=== PATIENT | female | born 1965 | race Caucasian/White ===

== ENCOUNTER 2017-04-03 19:03 | Emergency (ER) | payer BC ==
[~2017-04-03] VITALS: Ht 157.5 cm; Wt 83.9 kg
[~2017-04-03 19:03] MED LIST: LISI20TA PO; TYLOTC500 PO
[2017-04-03 19:11] VITALS: Ht 157.5 cm; Wt 83.9 kg
[2017-04-03] MEDS ORDERED: ONDANSETRON INJ 2 MG/ML 2 ML VIAL IV STA (19:18)
[2017-04-03] MEDS ORDERED: SODIUM CHLORIDE 0.9% 1000ML 1,000 ML IV STA (19:18)
--- NOTE | 2017-04-03 19:29 | EMERGENCY ROOM VISIT NOTE ---
History Report prepared by Jojo: Dennise Bates Under the Supervision of: Dr. Dwight Jacobo D.O. First contact with patient: 19:14 Chief Complaint: ABDOMINAL PAIN Stated Complaint: ABDOMINAL PAIN, FEVER Nursing Triage Summary: Pt c/o lower abd pain and fever since yesterday afternoon. Pain worse on right side, worse with palpation. denies n/v/d Seen at [facility], referred here. denies Tylenol or Ibuproen today History of Present Illness The patient is a 51 year old female who presents to the Emergency Room with complaints of persistent lower abdominal pain that began on Tuesday. She currently rates her discomfort as a 3/10 in severity. The patient states that her pain began Tuesday and states that it is worsened with the need to urinate. She states that today she developed a fever but denies taking anything for her fever. The patient states that she was evaluated at [facility] and was referred to the emergency department for further work up. She reports feeling constipated. The patient denies ever having this in the past. She denies ever having a previous colonoscopy or history of appendectomy or cholecystectomy. The patient reports a history of a tubal ligation, D&C, neck surgery, and back surgery. She states that her last normal menstrual period was in March. The patient reports a history of hypertension. She denies any recent travel. The patient denies any nausea, vomiting, shortness of breath, back pain, or urinary symptoms. Source of History: patient Onset: Tuesday Position: abdomen (lower) Symptom Intensity: 3/10 Timing: other (persistent) Modifying Factors (Worsening): other (need to urinate) Associated Symptoms: + fevers, No nausea, No vomiting, No back pain, No diarrhea, No urinary symptoms Note: Associated Symptoms: constipation Review of Systems See HPI for pertinent positives & negatives. A total of 10 systems reviewed and were otherwise negative. Past Medical & Surgical Medical Problems: (1) Hypertension Surgical Problems: (1) H/O dilation and curettage (2) H/O neck surgery (3) H/O tubal ligation (4) Previous back surgery Family History No pertinent family history stated. Social History Smoking Status: Never Smoker Marital Status: Housing Status: lives with significant other Occupation Status: employed Current/Historical Medications Scheduled Ciprofloxacin Hcl (Cipro), 500 MG PO BID Lisinopril (Zestril), 20 MG PO DAILY Metronidazole (Flagyl), 500 MG PO TID Allergies Coded Allergies: No Known Allergies (Verified , 04/03/17) Physical Exam Vital Signs Date Time Temp Pulse Resp B/P (MAP) Pulse Ox O2 Delivery O2 Flow Rate FiO2 04/03/17 20:52 37.0 86 18 136/72 99 04/03/17 20:42 37.0 86 18 136/72 99 04/03/17 19:11 37.7 101 18 140/84 97 Room Air Physical Exam GENERAL: Patient is awake, alert, and in no acute distress. Patient is resting comfortably and showing no signs of anxiety EYES: The conjunctivae are clear. The pupils are round and reactive. EARS, NOSE, MOUTH AND THROAT: The nose is without any evidence of any deformity. Mucous membranes are moist tongue is midline NECK: The neck is nontender and supple. RESPIRATORY: Normal respiratory effort is noted there is no evidence of wheezing rhonchi or rales CARDIOVASCULAR: Regular rate and rhythm noted there no murmurs rubs or gallops normal S1 normal S2 GASTROINTESTINAL: Abdomen was mildly distended but soft, suprapubic tenderness and lower abdominal tenderness to palpation, no guarding or rigidity. MUSCULOSKELETAL/EXTREMITIES: There is no evidence of gross deformity full range of motion is noted in the hips and shoulders SKIN: There is no obvious evidence of any rash. There are no petechiae, pallor or cyanosis noted. NEUROLOGIC: Patient is awake alert and oriented x3 strength. Medical Decision & Procedures ER Provider Diagnostic Interpretation: Radiology results as stated below per my review and radiologist interpretation: CHEST ONE VIEW PORTABLE HISTORY: 51 years-old Female acute abdominal pain with fever COMPARISON: Chest radiograph 09/21/2012 TECHNIQUE: Portable upright AP view of the chest FINDINGS: Cardiomediastinal and hilar silhouettes are within normal limits. No pneumothorax, pleural effusion or focal airspace consolidation. The bones are grossly intact. Fusion hardware of the cervical spine is partially imaged. IMPRESSION: No acute cardiopulmonary process. The above report was generated using voice recognition software. It may contain grammatical, syntax or spelling errors. Electronically signed by: Joao Yots M.D. 04/03/2017 8:40 PM Dictated Date/Time: 04/03/2017 8:39 PM ABD/PELVIS NO IV OR ORAL CONT HISTORY: 51 years-old Female acute lower abdominal pain with fever. COMPARISON: None available TECHNIQUE: Multiple axial CT images of the abdomen and pelvis were obtained without contrast. A dose lowering technique was used consistent with the principals of KATHI. FINDINGS: The lung bases are generally clear. There is no pneumoperitoneum identified. The imaged inferior cardiac chambers are unremarkable. There is nonspecific 7 x 6 mm right epicardial lymph node. Hepatomegaly is noted with diffuse severe fatty infiltration of the liver. Multiple gallstones are noted within a nondistended gallbladder lumen. No CT evidence of acute cholecystitis. The spleen and adrenal glands are within normal limits. There is moderate pancreatic atrophy. Kidneys and ureters are within normal limits. No renal calculi or hydronephrosis. Lobulation or diverticulum of the left urinary bladder is seen, 1.2 cm. Urinary bladder is partially collapsed. There is focal partially exophytic prominent area of the fundal uterus, 3.1 x 2.3 cm suggesting subserosal or intramural fibroid. There is circumferential wall thickening of the mid sigmoid colon with moderate inflammatory changes of the mesocolon surrounding several diverticula within this region compatible with acute diverticulitis. No associated abscess or perforation identified. The appendix appears normal. Soft tissues are unremarkable. Prior posterior decompression with discectomy and interbody fusion at L5-S1. IMPRESSION: 1. Findings compatible with acute uncomplicated sigmoid diverticulitis. 2. Hepatomegaly with severe hepatosteatosis. 3. Cholelithiasis without CT evidence of acute cholecystitis. 4. Probable subserosal or intramural fibroid of the uterine fundus. 5. Normal appendix. The above report was generated using voice recognition software. It may contain grammatical, syntax or spelling errors. Electronically signed by: Joao Yost M.D. 04/03/2017 8:27 PM Dictated Date/Time: 04/03/2017 8:22 PM Laboratory Results 04/03/17 19:40 Red Blood Count 3.74, Mean Corpuscular Volume 89.6, Mean Corpuscular Hemoglobin 28.6, Mean Corpuscular Hemoglobin Concent 31.9, Mean Platelet Volume 8.7, Neutrophils (%) (Auto) 68.3, Lymphocytes (%) (Auto) 21.6, Monocytes (%) (Auto) 7.0, Eosinophils (%) (Auto) 2.4, Basophils (%) (Auto) 0.3, Neutrophils # (Auto) 10.88, Lymphocytes # (Auto) 3.43, Monocytes # (Auto) 1.11, Eosinophils # (Auto) 0.38, Basophils # (Auto) 0.05 04/03/17 19:40 Test 04/03/17 19:40 04/03/17 19:53 White Blood Count 15.91 K/uL (4.8-10.8) Red Blood Count 3.74 M/uL (4.2-5.4) Hemoglobin 10.7 g/dL (12.0-16.0) Hematocrit 33.5 % (37-47) Mean Corpuscular Volume 89.6 fL (80-100) Mean Corpuscular Hemoglobin 28.6 pg (25-34) Mean Corpuscular Hemoglobin Concent 31.9 g/dl (32-36) Platelet Count 397 K/uL (130-400) Mean Platelet Volume 8.7 fL (7.4-10.4) Neutrophils (%) (Auto) 68.3 % Lymphocytes (%) (Auto) 21.6 % Monocytes (%) (Auto) 7.0 % Eosinophils (%) (Auto) 2.4 % Basophils (%) (Auto) 0.3 % Neutrophils # (Auto) 10.88 K/uL (1.4-6.5) Lymphocytes # (Auto) 3.43 K/uL (1.2-3.4) Monocytes # (Auto) 1.11 K/uL (0.11-0.59) Eosinophils # (Auto) 0.38 K/uL (0-0.5) Basophils # (Auto) 0.05 K/uL (0-0.2) RDW Standard Deviation 44.2 fL (36.4-46.3) RDW Coefficient of Variation 13.6 % (11.5-14.5) Immature Granulocyte % (Auto) 0.4 % Immature Granulocyte # (Auto) 0.06 K/uL (0.00-0.02) Prothrombin Time 10.8 SECONDS (9.0-12.0) Prothromb Time International Ratio 1.0 (0.9-1.1) Activated Partial Thromboplast Time 29.3 SECONDS (21.0-31.0) Partial Thromboplastin Ratio 1.1 Anion Gap 10.0 mmol/L (3-11) Est Creatinine Clear Calc Drug Dose 66.8 ml/min Estimated GFR () 75.9 Estimated GFR (Non- 65.5 BUN/Creatinine Ratio 17.3 (10-20) Calcium Level 8.4 mg/dl (8.5-10.1) Total Bilirubin 0.4 mg/dl (0.2-1) Direct Bilirubin 0.1 mg/dl (0-0.2) Aspartate Amino Transf (AST/SGOT) 45 U/L (15-37) Alanine Aminotransferase (ALT/SGPT) 43 U/L (12-78) Alkaline Phosphatase 97 U/L (45-117) Total Protein 8.1 gm/dl (6.4-8.2) Albumin 3.0 gm/dl (3.4-5.0) Lipase 110 U/L (73-393) Human Chorionic Gonadotropin, Qual NEG (NEG) Urine Color YELLOW Urine Appearance CLEAR (CLEAR) Urine pH 7.0 (4.5-7.5) Urine Specific [place] 1.020 (1.000-1.030) Urine Protein NEG (NEG) Urine Glucose (UA) NEG (NEG) Urine Ketones NEG (NEG) Urine Occult Blood NEG (NEG) Urine Nitrite NEG (NEG) Urine Bilirubin NEG (NEG) Urine Urobilinogen POS (NEG) Urine Leukocyte Esterase NEG (NEG) Laboratory results per my review. Medications Administered Medications (Trade) Dose Ordered Sig/Efren Route Start Time Stop Time Status Last Admin Dose Admin Sodium Chloride 1,000 ml @ 999 mls/hr Q1H1M STAT IV 04/03/17 19:18 04/03/17 20:18 DC 04/03/17 19:44 999 MLS/HR Ciprofloxacin (Cipro Tab) 500 mg NOW STAT PO 04/03/17 20:09 04/03/17 20:11 DC 04/03/17 20:22 500 MG Metronidazole (Flagyl Tab) 500 mg NOW STAT PO 04/03/17 20:09 04/03/17 20:11 DC 04/03/17 20:22 500 MG Ciprofloxacin (Cipro 500MG Home Pack) 1 homepack UD ONCE PO 04/03/17 20:15 04/03/17 20:16 DC 04/03/17 20:21 1 HOMEPACK ED Course 1916: The patient was evaluated in room C5. A complete history and physical examination were performed. 1917: Ordered Sodium Chloride 1000 ml @ 999 mls/hr IV. 2008: Ordered Flagyl Tab 500 mg PO, Cipro Tab 500 mg PO. 2014: Ordered Ciprofloxacin 1 homepack PO. 2047: I reevaluated the patient and she is resting comfortably. I discussed the exam findings with her and I discussed the treatment plan. She verbalized complete understanding and agreement. She is ready to go home. Medical Decision Differential diagnosis: Etiologies such as appendicitis, diverticulitis, PUD, biliary pathology, UTI, pancreatitis, obstruction, mesenteric ischemia, aortic pathology, infections, inflammatory bowel disease, renal colic, as well as others were entertained. Medication Reconciliation: I attest that I have personally reviewed the patient' s current medications list. Patient was found to have a slightly elevated blood pressure due to circumstances. I do not believe that the patient requires hypertension monitoring. The patient is a 51-year-old female who presented to the emergency department for an evaluation of abdominal pain and fever. Initially the patient was seen at [facility] and was referred to the emergency department for possible appendicitis. On exam the patient has significant suprapubic tenderness. Given her elevated white blood cell count and fever I feel this could be consistent with diverticulitis. CT the abdomen and pelvis was ordered. This did reveal signs of sigmoid diverticulitis. The patient was started on Cipro and Flagyl in the emergency department. She was treated with IV fluids. She did not wish to have any pain medication in the emergency department at this time. Her abdominal exam was not consistent with an acute surgical abdomen. I discussed patient's laboratory and radiographic studies with her. She was encouraged to rest and avoid any strenuous activity. She was encouraged to drink plenty clear liquids and follow-up with her family doctor this week for a reevaluation. She was also encouraged to discuss the possibility that she may need a referral to a gastric neurologist for further evaluation as well as colonoscopy. She was also encouraged to return to the emergency apartment immediately if symptoms change worsen or the need arises. Impression Primary Impression: Lower abdominal pain Additional Impressions: Fever Diverticulitis Scribe Attestation The scribe's documentation has been prepared under my direction and personally reviewed by me in its entirety. I confirm that the note above accurately reflects all work, treatment, procedures, and medical decision making performed by me. Departure Information Dispostion Home / Self-Care Prescriptions Metronidazole (FLAGYL) 500 Mg Tab 500 MG PO TID, #30 TAB Prov: Dwight Jacobo, DO 04/03/17 Ciprofloxacin Hcl (CIPRO) 500 Mg Tab 500 MG PO BID, #20 TAB Prov: Dwight Jacobo, DO 04/03/17 Referrals No Doctor, Assigned (PCP) Howard Roldan M.D.([facility]) Forms Call Back Authorization, HOME CARE DOCUMENTATION FORM, IMPORTANT VISIT INFORMATION, Work Instructions Patient Instructions Diverticulosis Diverticulitis, [facility] Additional Instructions Continue all medications as prescribed. Continue using Motrin and Tylenol as directed for fever and pain. Call your family to schedule a follow-up appointment. You may require a referral to a entry level sales representative to further evaluate your colon. Return to the emergency apartment immediately if symptoms change worsen or the need arises. Problem Qualifiers Additional Impressions: Fever Fever type: unspecified Qualified Codes: R50.9 - Fever, unspecified Diverticulitis Diverticulitis site: large intestine Diverticulitis bleeding: without bleeding Diverticulitis complication: without perforation or abscess Qualified Codes: K57.32 - Diverticulitis of large intestine without perforation or abscess without bleeding
[2017-04-03 19:49] LABS: BASO % 0.3 %; BASO ABS # 0.05 K/uL (0-0.2); COMPLETE YES; EOS % 2.4 %; HEMATOCRIT 33.5 % (37-47); IG% 0.4 %; LYMPH % 21.6 %; LYMPH ABS # 3.43 K/uL (1.2-3.4); MEAN CELL VOLUME 89.6 fL (80-100); MEAN CORPUSCULAR HEMOGLOBIN 28.6 pg (25-34); MEAN CORPUSCULAR HGB CONC 31.9 g/dl (32-36); MEAN PLATELET VOLUME 8.7 fL (7.4-10.4); NEUT % 68.3 %; PLATELET COUNT 397 K/uL (130-400); RED BLOOD COUNT 3.74 M/uL (4.2-5.4); WHITE BLOOD COUNT 15.91 K/uL (4.8-10.8)
[2017-04-03 20:02] LABS: URINE APPEARANCE CLEAR (CLEAR); URINE BILIRUBIN NEG (NEG); URINE COLOR YELLOW; URINE NITRITE NEG (NEG); UROBILINOGEN POS (NEG)
[2017-04-03 20:03] LABS: MANUAL MICROSCOPIC REQUIRED? NO; REVIEW REQ? NO
[2017-04-03 20:06] LABS: PARTIAL THROMBOPLASTIN RATIO 1.1; PROTHROMBIN TIME (PATIENT) 10.8 SECONDS (9.0-12.0)
[2017-04-03 20:08] LABS: BUN/CREATININE RATIO 17.3 (10-20); CALCIUM 8.4 mg/dl (8.5-10.1); CREATININE 0.99 mg/dl (0.60-1.20); POTASSIUM 3.3 mmol/L (3.5-5.1)
[2017-04-03] MEDS ORDERED: METRONIDAZOLE 250 MG TAB PO STA (20:09)
[2017-04-03] MEDS ORDERED: CIPROFLOXACIN 500 MG TAB PO STA (20:09)
[2017-04-03] MEDS ORDERED: CIPROFLOXACIN 500MG HOME PACK PO ONE (20:15)
[2017-04-03] MEDS ORDERED: LISI40TA PO (20:24)
[2017-04-03 20:26] LABS: PREG INTERNAL NEGATIVE QC NEG CLEAR BACKGROUND; PREG INTERNAL POSITIVE QC POS CONTROL LINE
[2017-04-03] MEDS ORDERED: METR-162 PO (20:29)
[2017-04-03] MEDS ORDERED: CIPR-255 PO (20:29)
--- NOTE | 2017-04-03 20:29 | DIAGNOSTIC IMAGING REPORT ---
ABD/PELVIS NO IV OR ORAL CONT HISTORY: 51 years-old Female acute lower abdominal pain with fever. COMPARISON: None available TECHNIQUE: Multiple axial CT images of the abdomen and pelvis were obtained without contrast. A dose lowering technique was used consistent with the principals of KATHI. FINDINGS: The lung bases are generally clear. There is no pneumoperitoneum identified. The imaged inferior cardiac chambers are unremarkable. There is nonspecific 7 x 6 mm right epicardial lymph node. Hepatomegaly is noted with diffuse severe fatty infiltration of the liver. Multiple gallstones are noted within a nondistended gallbladder lumen. No CT evidence of acute cholecystitis. The spleen and adrenal glands are within normal limits. There is moderate pancreatic atrophy. Kidneys and ureters are within normal limits. No renal calculi or hydronephrosis. Lobulation or diverticulum of the left urinary bladder is seen, 1.2 cm. Urinary bladder is partially collapsed. There is focal partially exophytic prominent area of the fundal uterus, 3.1 x 2.3 cm suggesting subserosal or intramural fibroid. There is circumferential wall thickening of the mid sigmoid colon with moderate inflammatory changes of the mesocolon surrounding several diverticula within this region compatible with acute diverticulitis. No associated abscess or perforation identified. The appendix appears normal. Soft tissues are unremarkable. Prior posterior decompression with discectomy and interbody fusion at L5-S1. IMPRESSION: 1. Findings compatible with acute uncomplicated sigmoid diverticulitis. 2. Hepatomegaly with severe hepatosteatosis. 3. Cholelithiasis without CT evidence of acute cholecystitis. 4. Probable subserosal or intramural fibroid of the uterine fundus. 5. Normal appendix. The above report was generated using voice recognition software. It may contain grammatical, syntax or spelling errors. Electronically signed by: Joao Yost M.D. 04/03/2017 8:27 PM Dictated Date/Time: 04/03/2017 8:22 PM
--- NOTE | 2017-04-03 20:41 | DIAGNOSTIC IMAGING REPORT ---
CHEST ONE VIEW PORTABLE HISTORY: 51 years-old Female acute abdominal pain with fever COMPARISON: Chest radiograph 09/21/2012 TECHNIQUE: Portable upright AP view of the chest FINDINGS: Cardiomediastinal and hilar silhouettes are within normal limits. No pneumothorax, pleural effusion or focal airspace consolidation. The bones are grossly intact. Fusion hardware of the cervical spine is partially imaged. IMPRESSION: No acute cardiopulmonary process. The above report was generated using voice recognition software. It may contain grammatical, syntax or spelling errors. Electronically signed by: Joao Yost M.D. 04/03/2017 8:40 PM Dictated Date/Time: 04/03/2017 8:39 PM
[2017-04-03 20:52] VITALS: BP 136/72; PULSE 86; TEMP 37; O2SAT 99
== END 2017-04-03 20:53 | disposition home or self-care (01) ==
LOC: C.EDB 19:04 → C.EDC 20:53
DX: R10.30 Lower abdominal pain, unspecified (principal); R50.9 Fever, unspecified; K57.92 Diverticulitis of intestine, part unspecified, without perforation or abscess without bleeding; I10 Essential (primary) hypertension

== ENCOUNTER 2019-04-17 11:45 | Inpatient (IN) ==
[2019-04-17] MEDS ORDERED: SODIUM CHLORIDE 0.9% 500 ML IV SCH (12:30)
--- NOTE | 2019-04-17 12:57 | XRay Report ---
SINGLE VIEW CHEST CLINICAL HISTORY: Generalized weakness. FINDINGS: An AP, portable, upright chest radiograph is compared to study dated 04/03/2017. The cardiom ediastinal silhouette is unremarkable. The lungs and pleural spaces are clear. No pneumothorax is see n. The bony thorax is grossly intact. Fusion hardware is noted in the lower cervical spine. IMPRESSION: No active disease in the chest. Electronically signed by: Paco Bosch M.D. 04/17/2019 12:55 PM
[2019-04-17] MEDS ORDERED: SODIUM CHLORIDE 0.9% 250 ML IV PRN ×2 (13:06→14:31)
[2019-04-17 13:20] LABS: INR 1.1 (0.9-1.1); Partial Thromboplastin Ratio 0.7; Partial Thromboplastin Time 20.3 Seconds (21.0-31.0); Prothrombin Time 11.4 Seconds (9.0-12.0)
[2019-04-17 13:25] LABS: Hematocrit (blood only) 10.4 % (37-47); Hemoglobin 2.8 g/dL (12.0-16.0); Mean Corpuscular Hgb Conc 26.9 g/dL (32-36); Mean Corpuscular Volume 66.2 fL (80-100); Nucleated RBC # (auto) 0.15 K/uL (0-0); Nucleated RBC % (auto) 0.7 %; Platelet Count 479 K/uL (130-400); Red Blood Count 1.57 M/uL (4.2-5.4); White Blood Count 22.08 K/uL (4.8-10.8)
[2019-04-17 13:27] LABS: Albumin Level 2.2 gm/dl (3.4-5.0); Aspartate Aminotransferase 16 U/L (15-37); BUN Creatinine Ratio 17.9 (10-20); Blood Urea Nitrogen 25 mg/dl (7-18); Carbon Dioxide 20 mmol/L (21-32); Chloride 104 mmol/L (98-107); Est GFR (African American) 50.1; Est GFR (Non-African American) 43.2; Glucose 142 mg/dl (70-99); Potassium 3.7 mmol/L (3.5-5.1); Sodium 134 mmol/L (136-145)
[2019-04-17 13:33] LABS: Alanine Aminotransferase 14 U/L (12-78); Albumin Globulin Ratio 0.4 (0.9-2); Alkaline Phosphatase 95 U/L (45-117); Bilirubin,Total 0.3 mg/dl (0.2-1); Globulin 5.8 gm/dl (2.5-4.0); Troponin I < 0.015 ng/ml (0-0.045)
[2019-04-17 13:41] LABS: iSTAT Blood Urea Nitrogen 23 mg/dl (7-18); iSTAT Carbon Dioxide 17 mEq/l (24-31); iSTAT Chloride 103 mEq/L (101-112); iSTAT Creatinine 1.3 mg/dl (0.6-1.3); iSTAT Glucose 149 mg/dl (70-99); iSTAT Hematocrit < 15 % (37-47); iSTAT Potassium 3.9 mEq/L (3.3-5.0); iSTAT Sodium 135 mEq/L (135-144)
[2019-04-17] MEDS ORDERED: IOVERSOL 100ml IV PRN (13:50)
--- NOTE | 2019-04-17 14:07 | CT Scan Report ---
CT abd pelvis IV con only CT DOSE: 724.22 mGycm HISTORY: Bleeding vaginal bleeding TECHNIQUE: Multiaxial CT images of the abdomen and pelvis were performed following the use of intrave nous contrast. A dose lowering technique was utilized adhering to the principles of ALARA. COMPARISON STUDY: 04/03/2017 FINDINGS: Lung bases are clear. Fatty replacement of the liver. Gallstones in the region of the gallb ladder neck. Normal adrenal glands. Kidneys and pancreas are unremarkable. No evidence for hydronephrosis. Several small perigastric nodes considered unchanged. Mild increase in size of the left para-aortic n ode image 191 measuring 1.6 cm. This is increased from the prior study of 1 cm. Moderate increase in size of a node adjacent to the proximal left iliac artery image 226 currently measuring 1.4 cm. Incre ase in prominence of a right sided paravertebral node image 261 currently measuring 2 cm. Mild increa se in size of a left lateral pelvic sidewall node measuring 1.6 cm image 336 Abnormal thickening of the endometrium the maximum dimension of 5 cm. Potentially represents blood ve rsus mass within the central uterine canal. Pre-existing anterior fundal fibroid is again noted. The bladder is midline. No significant inguinal nodes. Several additional low pelvic and anterolatera l pelvic nodes measuring up to 2.1 cm. These nodes represent an interval change from the prior exam. Stable postoperative changes of the lumbar spine. IMPRESSION: 1. Abnormal thickening of the endometrium at 5 cm versus the possibility of hemorrhage or hemorrhagic lesion within the central uterine canal. 2. Unchanged fundal fibroid. 3. Developing abdominal and pelvic adenopathy as described. 4. Stable gallstones and fatty infiltration of the liver. 5. The Possibility of a neoplastic process within the mid to low uterus is considered, with the possi bility of developing metastatic adenopathy. The above report was generated using voice recognition software. It may contain grammatical, syntax or spelling errors. Electronically signed by: Cj Perdue M.D. 04/17/2019 2:06 PM
[2019-04-17 14:11] LABS: Basophils # (auto) 0.06 K/uL (0-0.2); Basophils % (auto) 0.3 %; Eosinophils # (auto) 0.03 K/uL (0-0.5); Eosinophils % (auto) 0.1 %; Hypochromasia Present; Immature Granulocytes # (auto) 0.18 K/uL (0.00-0.02); Immature Granulocytes % (auto) 0.8 %; Lymphocytes # (auto) 2.97 K/uL (1.2-3.4); Lymphocytes % (auto) 13.5 %; Monocytes # (auto) 1.39 K/uL (0.11-0.59); Monocytes % (auto) 6.3 %; Neutrophils # (auto) 17.45 K/uL (1.4-6.5); Spherocytes 1+; Stomatocytes 1+
--- NOTE | 2019-04-17 15:05 | History & Physical Report ---
Date of Service April 17, 2019 Assessment & Plan (1) Syncope: (2) Severe anemia: (3) Vaginal bleeding: In ED patient was found to have a severe anemia with H&H 2.8/10.4 2 units of PRBC ordered and transfusing in ED She had CT scan of abdomen and pelvis which revealed abnormal thickening of the endometrium at 5 cm versus possibility of hemorrhage or hemorrhagic lesion within central uterine canal. Concerning for development of abdominal and pelvic adenopathy. Possibility of neoplastic process within the mid large uterus is considered with possibility of developing metastatic adenopathy. Upon being transferred from CT scan to [facility] she experienced near syncopal episode admit to ICU under glued wood tester Dr. Fuentes 2 units ordered thus far serial H/H q4hr and transfuse for hgb < [address] [employer] [address] Woo consulted for endometrial thickening/abn vaginal bleeding currently hemodynamically stable please defer management to glued wood tester until pt stabilized (4) Abnormal CT of the abdomen: CT Scan abd in setting of abnormal vaginal bleeding: IMPRESSION: 1. Abnormal thickening of the endometrium at 5 cm versus the possibility of hemorrhage or hemorrhagic lesion within the central uterine canal. 2. Unchanged fundal fibroid. 3. Developing abdominal and pelvic adenopathy as described. 4. Stable gallstones and fatty infiltration of the liver. 5. The Possibility of a neoplastic process within the mid to low uterus is considered, with the possibility of developing metastatic adenopathy NIB INSPECTOR consulted Dr. Woo who was contacted by ED provider (5) Abnormal ECG: serial ecg performed in ED revealed initial anterior ST wave depression and upon repeat also revealed inferior depression. Patient is without chest pain Troponin WNL Likely in setting of demand ischemia given profound anemia Monitor serial EKGs (6) Hypertension: Hold lisinopril on lower side given anemia (7) DVT prophylaxis: SCD/TEDS Disposition: to be determined Follow up: PCP Dr. Roldan upon discharge Patient was seen and examined in collaboration with Dr. Phillips, please see addendum History of Present Illness Chief Complaint: Referred by PCP Primary Care Provider: Howard Roldan MD This is a 53-year-old female with significant past medical history of HTN who presents to [facility] ED at the recommendation of PCP due to complaints of dizziness and being pale. Patient states last night she had very heavy vaginal bleeding and clotting that ended at approximately 10 PM. Patient is not postmenopausal. She elicits over the past several months she has had irregular vaginal bleeding. She still gets her menses but is unsure for how long it lasts. She has been having intermittent spotting/heavy bleeding for approximately the past 2 weeks. After significant bleeding last night she developed dizziness with movement and standing along with shortness of breath. Further elicits to having Low back pain with radiation to her R posterior leg, present for unknown duration. Denies any recent illness, f/c/s, chest pain, palpitations, hemoptysis, emesis, abdominal pain, diarrhea, melena, hematochezia. She had routine follow up with PCP today and due to complaints of dizziness and significant pallor she was referred to ED. Last pap smear was approx 5 years ago and negative. Last mammogram was 3 years ago. 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 In ED patient was found to have a hemoglobin of 2.8 hematocrit of 10.4. She was typed and crossed for [address] scan of abdomen and pelvis which revealed abnormal thickening of the endometrium at 5 cm versus possibility of hemorrhage or hemorrhagic lesion within central uterine canal. Concerning for development of abdominal and pelvic adenopathy. Possibility of neoplastic process within the mid large uterus is considered with possibility of developing metastatic adenopathy. Upon being transferred from CT scan to [facility] she experienced near syncopal episode Allergies Allergy/AdvReac Type Severity Reaction Status Date / Time ciprofloxacin [From Cipro] AdvReac Anaphylaxis Unverified 04/17/19 12:47 Home Medications Home Medications Medication Instructions Recorded Confirmed Type lisinopril 40 mg PO DAILY 04/17/19 04/17/19 History Past Med/Surg History Medical History History of hysteroscopy Anemia Hypertension (Chronic) Surgical History History of History of tubal ligation History of neck surgery Family History Grandfather Heart disease CABG Mother Heart disease CABG Other No pertinent family history in first degree relatives Social History Preferred Language: Azeri Communication Ability: Effective marital status: Current Living Situation: Spouse Feels Safe at Home: Yes Smoking Status: Never smoker Hx Alcohol Use: No Hx Substance Use: No Review of Systems Review of Systems: All systems reviewed & are unremarkable except as noted in HPI & below Physical Exam Physical Exam: please refer to Dr. Phillips attestation for physical exam Results & Data Vital Signs (Past 12 Hours) Vital Signs Temp Pulse Pulse Resp BP BP Pulse Ox 04/17/19 14:39 36.7 C 87 18 125/81 100 04/17/19 14:35 99 H 22 100 04/17/19 14:30 94 H 21 136/79 100 04/17/19 14:29 36.6 C 100 H 22 136/79 100 04/17/19 14:25 97 H 23 146/73 H 100 04/17/19 14:24 36.8 C 97 H 20 146/73 H 100 04/17/19 14:20 100 H 24 146/78 H 100 04/17/19 14:15 96 H 23 132/84 100 04/17/19 14:13 36.8 C 94 H 21 118/61 100 04/17/19 14:12 94 H 25 H 100 04/17/19 14:10 94 H 21 118/61 100 04/17/19 14:09 96 H 21 124/77 100 04/17/19 14:08 36.4 C L 92 H 20 127/74 100 04/17/19 14:05 95 H 23 100 04/17/19 14:01 96 H 24 100 04/17/19 13:59 102 H 24 127/74 100 04/17/19 13:58 120 H 27 H 100 04/17/19 13:45 100 04/17/19 13:40 92 H 14 99 04/17/19 13:35 95 H 18 100 04/17/19 13:30 95 H 20 106/55 L 100 04/17/19 13:25 88 20 99 04/17/19 13:20 89 21 99 04/17/19 13:15 89 18 100 04/17/19 13:10 91 H 16 100 04/17/19 13:05 93 H 16 100 04/17/19 13:02 91 H 18 106/60 100 04/17/19 13:01 92 H 17 106/60 100 04/17/19 13:00 97 H 21 04/17/19 12:55 93 H 15 04/17/19 12:50 95 H 20 04/17/19 12:45 92 H 18 04/17/19 12:40 90 18 04/17/19 12:35 92 H 21 04/17/19 12:30 94 H 21 141/67 H 100 04/17/19 12:25 100 H 24 100 04/17/19 12:22 104 H 24 100 04/17/19 12:20 104 H 17 130/50 L 100 04/17/19 12:19 102 H 21 137/61 100 04/17/19 12:18 96 H 17 132/62 100 04/17/19 12:15 91 H 13 100 04/17/19 12:12 92 H 15 108/68 100 04/17/19 11:55 36.7 C 92 H 18 101/58 L 100 Laboratory Results Short CBC 04/17/19 04/17/19 Range/Units 12:41 12:41 WBC 22.08 H (4.8-10.8) K/uL Hgb 2.8 L* (12.0-16.0) g/dL Hct 10.4 L* (37-47) % Plt Count 479 H (130-400) K/uL Creatinine 1.38 H (0.6-1.2) mg/dl BMP 04/17/19 12:41 Sodium 134 L Potassium 3.7 Chloride 104 Carbon Dioxide 20 L BUN 25 H Creatinine 1.38 H Glucose 142 H Calcium 8.0 L Cardiac Enzymes 04/17/19 Range/Units 12:41 Troponin I < 0.015 (0-0.045) ng/ml Liver Function 04/17/19 Range/Units 12:41 Total Bilirubin 0.3 (0.2-1) mg/dl AST 16 (15-37) U/L ALT 14 (12-78) U/L Alkaline Phosphatase 95 (45-117) U/L Albumin 2.2 L (3.4-5.0) gm/dl Diagnostic Findings CXR: IMPRESSION: No active disease in the chest. Medications Administered Ioversol (Optiray 320 100ml) 94 ml IV ONCE PRN PRN Reason: Interaction Checking Stop: 04/21/19 13:49 Last Admin: 04/17/19 13:50 Dose: 94 ml Documented by: [id number] Discontinued Medications Sodium Chloride (Nss) 500 mls @ 999 mls/hr IV .Q31M DADA Stop: 04/17/19 13:00 Last Admin: 04/17/19 13:01 Dose: 999 mls/hr Documented by: [id number] ECG Rate (beats per minute): 96 Rhythm: normal sinus Findings: + ST depression (Anterior; inferior) Change: the following changes noted Additional Comments: Pt with St wave depressions noted anteriorly on initially ecg repeat ecg at [address] depression anteriorly and laterally Code Status & VTE Plan Code Status Full Code VTE Prophylaxis Plan VTE Prophylaxis will be ordered: Yes Supervising Physician Co-Signing Physician Notes Patient was evaluated with Isabelle Champagne. 53 year old woman with a history of Hypertension presented to the ER with heavy vaginal bleed for months that worsened yesterday, associated with dizziness for about 1 week. She stopped her lisinopril 1 week ago when dizziness started. Denied any melena/BRBPR. Had Shortness of breath with dizziness last night. Denied Chest pain/palpitations/loss of consciousness. Patient is not postmenopausal. Denied OCP use. Reports last mammogram was normal and last pap smear (3yrs ago) was normal. Has not had colorectal cancer screening. Other history as above On presentation to ER, BP was 125/81, HR 87. Physical exam findings are as follows General: Markedly pale, not in resp distress Eyes: PERRL, severe pallor, EOM intact bilaterally, xanthelasma on medial part of Left upper eyelid area ENMT: External ear and nose normal, oropharynx normal Neck: Normal visual inspection Respiratory: Normal respiratory effort, no respiratory distress, nasal cannula in situ, lungs clear to auscultation anteriorly Cardiovascular: Pulse is RRR. Heart Sounds S1 and 2, no pedal edema Gastrointestinal (Abdomen): Abdomen is soft, non-tender to palpation, no guarding, no palpable hepatosplenomegaly, normal bowel sounds Musculoskeletal: No cyanosis or clubbing, all extremities motor strength 5/5 Genital: On inspection, small clot observed in vaginal orifice. No active bleeding from orifice after removal of clot Skin: xanthelasma as described above Neurologic: Alert and oriented x 3, No focal weakness, sensation grossly intact Psychiatric: Alert and oriented x 3, euthymic affect Lymphatic: No cervical lymphadenopathy Severe anemia secondary to blood loss -Hemoglobin was 2.8. Reported to have a near syncopal episode during CT A/P -Transfuse at least 5 PRBC till hemodynamically stable and Hb >7. Other management of electrolytes per protocol for massive transfusion -Admit to ICU -Vice President Payment aware -Monitor hemodynamic status frequently -Gynecology aware. CT A/P showed endometrial thickening concerning for possible endometrial neoplasm. Will benefit from biopsy. Follow Gyne recommendations. -Fall precautions per protocol -Hold all antihypertensive medications (1) Syncope Syncope type: unspecified Qualified Code(s): R55 - Syncope and collapse
--- NOTE | 2019-04-17 15:38 | Emergency Department Note ---
Entered by Darrian Wright acting as a scribe for History of Present Illness General Chief complaint: Hypotension Stated complaint: ANEMIA,LOW BP Time Seen by Provider: 04/17/19 12:16 Source: patient History of Present Illness Provider complaint: Weakness Onset (ago): day(s) 2 Location: head Severity: similar to prior episodes Pain Consistency: + constant Maximum Pain Intensity: 0 Relieved By: + none Exacerbated By: + none Associated symptoms: + shortness of breath and + other (Positive dizzy) The patient is a 53 year old female who presents to the Emergency Room with complaints of constant weakness that has been present for the past 2 days. The patient states that she has irregular periods and yesterday she had very heavy bleeding. She notes that she was soaking about 1 pad per hour for 6 hours, however, she was also sitting on the toilet for extended periods of time to discard the blood. Per the , the patient's skin color looks more pale ever since the excessive bleeding occurred. The patient adds that today she did have some vaginal spotting, but there was no constant flow. The patient reports that her periods have been irregular for her entire life and that her last [facility] appointment was about 2 years ago. She adds that she has been anemic before. Moreover, the patient reports that today she noticed her blood pressure was running low. The patient states she stopped taking her blood pressure medication about a week ago because it was making her short of breath and dizzy. Since then she has been monitoring her pressures and they have been fine until today. The patient adds that she was put on the medication after she herniated a disc in her back and her blood pressure kayla to about 199/120 consistently. Following this back injury she had surgery done, however she still has some lower back pain that radiates to her right leg and general muscle weakness when she exerts herself. The patient saw her PCP earlier today for all of these symptoms she endorses and she was told to come to the ED. She denies being on any blood thinners. Home Medications Home Medications Medication Instructions Recorded Confirmed Type lisinopril 40 mg PO DAILY 04/17/19 04/17/19 History Allergies Allergy/AdvReac Type Severity Reaction Status Date / Time ciprofloxacin [From Cipro] AdvReac Anaphylaxis Unverified 04/17/19 12:47 Past Med/Surg History Medical History History of hysteroscopy Anemia Hypertension (Chronic) Surgical History History of History of tubal ligation History of neck surgery Family History Grandfather Heart disease CABG Mother Heart disease CABG Other No pertinent family history in first degree relatives Social History Preferred Language: Albanian Communication Ability: Effective marital status: Current Living Situation: Spouse Feels Safe at Home: Yes Smoking Status: Never smoker Hx Alcohol Use: No Hx Substance Use: No Review of Systems See HPI for pertinent positives & negatives. and A total of 10 systems reviewed and were otherwise negative Physical Exam Vital Signs Vital Signs - 24 hr 04/17/19 11:55 04/17/19 12:12 04/17/19 12:15 Temperature 36.7 C Temperature Source Oral Sepsis Recent Fever Within 48 Hours No Sepsis New/Unexplained Change in Mental Status No Sepsis Action Taken by Nursing No Action Required Pulse Rate - Lying Pulse Rate - Sitting Pulse Rate - Standing Pulse Rate 92 H 92 H 91 H Pulse Rate [Left Finger] Pulse Rate from SpO2 Sensor 92 H 92 H Pulse Rhythm Pulse Strength Respiratory Rate 18 15 13 Respiratory Effort / Characteristics Non-Labored Respiratory Depth Normal Blood Pressure - Lying Blood Pressure - Sitting Blood Pressure- Standing Blood Pressure 101/58 L 108/68 Blood Pressure [Left Arm] Blood Pressure Mean 72 81 Blood Pressure Mean [Left Arm] Blood Pressure Position Sitting Pulse Oximetry 100 100 100 Oxygen Delivery Method Room Air Oxygen Flow Rate 04/17/19 12:18 04/17/19 12:19 04/17/19 12:20 Temperature Temperature Source Sepsis Recent Fever Within 48 Hours Sepsis New/Unexplained Change in Mental Status Sepsis Action Taken by Nursing Pulse Rate - Lying Pulse Rate - Sitting Pulse Rate - Standing Pulse Rate 96 H 102 H 104 H Pulse Rate [Left Finger] Pulse Rate from SpO2 Sensor 96 H 101 H 104 H Pulse Rhythm Pulse Strength Respiratory Rate 17 21 17 Respiratory Effort / Characteristics Respiratory Depth Blood Pressure - Lying Blood Pressure - Sitting Blood Pressure- Standing Blood Pressure 132/62 137/61 130/50 L Blood Pressure [Left Arm] Blood Pressure Mean 85 86 76 Blood Pressure Mean [Left Arm] Blood Pressure Position Pulse Oximetry 100 100 100 Oxygen Delivery Method Oxygen Flow Rate 04/17/19 12:22 04/17/19 12:25 04/17/19 12:30 Temperature Temperature Source Sepsis Recent Fever Within 48 Hours Sepsis New/Unexplained Change in Mental Status Sepsis Action Taken by Nursing Pulse Rate - Lying 96 H Pulse Rate - Sitting 101 H Pulse Rate - Standing 102 H Pulse Rate 104 H 100 H 94 H Pulse Rate [Left Finger] Pulse Rate from SpO2 Sensor 104 H 101 H 95 H Pulse Rhythm Pulse Strength Respiratory Rate 24 24 21 Respiratory Effort / Characteristics Respiratory Depth Blood Pressure - Lying 132/62 Blood Pressure - Sitting 137/61 Blood Pressure- Standing 130/50 L Blood Pressure 141/67 H Blood Pressure [Left Arm] Blood Pressure Mean 91 Blood Pressure Mean [Left Arm] Blood Pressure Position Pulse Oximetry 100 100 100 Oxygen Delivery Method Room Air Oxygen Flow Rate 04/17/19 12:35 04/17/19 12:40 04/17/19 12:45 Temperature Temperature Source Sepsis Recent Fever Within 48 Hours Sepsis New/Unexplained Change in Mental Status Sepsis Action Taken by Nursing Pulse Rate - Lying Pulse Rate - Sitting Pulse Rate - Standing Pulse Rate 92 H 90 92 H Pulse Rate [Left Finger] Pulse Rate from SpO2 Sensor Pulse Rhythm Pulse Strength Respiratory Rate 21 18 18 Respiratory Effort / Characteristics Respiratory Depth Blood Pressure - Lying Blood Pressure - Sitting Blood Pressure- Standing Blood Pressure Blood Pressure [Left Arm] Blood Pressure Mean Blood Pressure Mean [Left Arm] Blood Pressure Position Pulse Oximetry Oxygen Delivery Method Oxygen Flow Rate 04/17/19 12:50 04/17/19 12:55 04/17/19 13:00 Temperature Temperature Source Sepsis Recent Fever Within 48 Hours Sepsis New/Unexplained Change in Mental Status Sepsis Action Taken by Nursing Pulse Rate - Lying Pulse Rate - Sitting Pulse Rate - Standing Pulse Rate 95 H 93 H 97 H Pulse Rate [Left Finger] Pulse Rate from SpO2 Sensor Pulse Rhythm Pulse Strength Respiratory Rate 20 15 21 Respiratory Effort / Characteristics Respiratory Depth Blood Pressure - Lying Blood Pressure - Sitting Blood Pressure- Standing Blood Pressure Blood Pressure [Left Arm] Blood Pressure Mean Blood Pressure Mean [Left Arm] Blood Pressure Position Pulse Oximetry Oxygen Delivery Method Oxygen Flow Rate 04/17/19 13:01 04/17/19 13:02 04/17/19 13:05 Temperature Temperature Source Sepsis Recent Fever Within 48 Hours Sepsis New/Unexplained Change in Mental Status Sepsis Action Taken by Nursing Pulse Rate - Lying Pulse Rate - Sitting Pulse Rate - Standing Pulse Rate 92 H 93 H Pulse Rate [Left Finger] 91 H Pulse Rate from SpO2 Sensor 91 H 93 H Pulse Rhythm Pulse Strength Respiratory Rate 17 18 16 Respiratory Effort / Characteristics Respiratory Depth Blood Pressure - Lying Blood Pressure - Sitting Blood Pressure- Standing Blood Pressure 106/60 Blood Pressure [Left Arm] 106/60 Blood Pressure Mean 75 Blood Pressure Mean [Left Arm] 75 Blood Pressure Position Pulse Oximetry 100 100 100 Oxygen Delivery Method Room Air Oxygen Flow Rate 04/17/19 13:10 04/17/19 13:15 04/17/19 13:20 Temperature Temperature Source Sepsis Recent Fever Within 48 Hours Sepsis New/Unexplained Change in Mental Status Sepsis Action Taken by Nursing Pulse Rate - Lying Pulse Rate - Sitting Pulse Rate - Standing Pulse Rate 91 H 89 89 Pulse Rate [Left Finger] Pulse Rate from SpO2 Sensor 91 H 89 88 Pulse Rhythm Pulse Strength Respiratory Rate 16 18 21 Respiratory Effort / Characteristics Respiratory Depth Blood Pressure - Lying Blood Pressure - Sitting Blood Pressure- Standing Blood Pressure Blood Pressure [Left Arm] Blood Pressure Mean Blood Pressure Mean [Left Arm] Blood Pressure Position Pulse Oximetry 100 100 99 Oxygen Delivery Method Oxygen Flow Rate 04/17/19 13:25 04/17/19 13:30 04/17/19 13:35 Temperature Temperature Source Sepsis Recent Fever Within 48 Hours Sepsis New/Unexplained Change in Mental Status Sepsis Action Taken by Nursing Pulse Rate - Lying Pulse Rate - Sitting Pulse Rate - Standing Pulse Rate 88 95 H 95 H Pulse Rate [Left Finger] Pulse Rate from SpO2 Sensor 88 95 H 95 H Pulse Rhythm Pulse Strength Respiratory Rate 20 20 18 Respiratory Effort / Characteristics Respiratory Depth Blood Pressure - Lying Blood Pressure - Sitting Blood Pressure- Standing Blood Pressure 106/55 L Blood Pressure [Left Arm] Blood Pressure Mean 72 Blood Pressure Mean [Left Arm] Blood Pressure Position Pulse Oximetry 99 100 100 Oxygen Delivery Method Oxygen Flow Rate 04/17/19 13:40 04/17/19 13:45 04/17/19 13:58 Temperature Temperature Source Sepsis Recent Fever Within 48 Hours Sepsis New/Unexplained Change in Mental Status Sepsis Action Taken by Nursing Pulse Rate - Lying Pulse Rate - Sitting Pulse Rate - Standing Pulse Rate 92 H 120 H Pulse Rate [Left Finger] Pulse Rate from SpO2 Sensor 92 H 93 H 120 H Pulse Rhythm Pulse Strength Respiratory Rate 14 27 H Respiratory Effort / Characteristics Respiratory Depth Blood Pressure - Lying Blood Pressure - Sitting Blood Pressure- Standing Blood Pressure Blood Pressure [Left Arm] Blood Pressure Mean Blood Pressure Mean [Left Arm] Blood Pressure Position Pulse Oximetry 99 100 100 Oxygen Delivery Method Oxygen Flow Rate 04/17/19 13:59 04/17/19 14:01 04/17/19 14:05 Temperature Temperature Source Sepsis Recent Fever Within 48 Hours Sepsis New/Unexplained Change in Mental Status Sepsis Action Taken by Nursing Pulse Rate - Lying Pulse Rate - Sitting Pulse Rate - Standing Pulse Rate 102 H 96 H 95 H Pulse Rate [Left Finger] Pulse Rate from SpO2 Sensor 103 H 96 H 94 H Pulse Rhythm Pulse Strength Respiratory Rate 24 24 23 Respiratory Effort / Characteristics Respiratory Depth Blood Pressure - Lying Blood Pressure - Sitting Blood Pressure- Standing Blood Pressure 127/74 Blood Pressure [Left Arm] Blood Pressure Mean 91 Blood Pressure Mean [Left Arm] Blood Pressure Position Pulse Oximetry 100 100 100 Oxygen Delivery Method Oxygen Flow Rate 04/17/19 14:08 04/17/19 14:09 04/17/19 14:10 Temperature 36.4 C L Temperature Source Oral Sepsis Recent Fever Within 48 Hours Sepsis New/Unexplained Change in Mental Status Sepsis Action Taken by Nursing Pulse Rate - Lying Pulse Rate - Sitting Pulse Rate - Standing Pulse Rate 92 H 96 H 94 H Pulse Rate [Left Finger] Pulse Rate from SpO2 Sensor 97 H 95 H Pulse Rhythm Pulse Strength Respiratory Rate 20 21 21 Respiratory Effort / Characteristics Respiratory Depth Blood Pressure - Lying Blood Pressure - Sitting Blood Pressure- Standing Blood Pressure 127/74 124/77 118/61 Blood Pressure [Left Arm] Blood Pressure Mean 91 92 80 Blood Pressure Mean [Left Arm] Blood Pressure Position Sitting Pulse Oximetry 100 100 100 Oxygen Delivery Method Oxygen Flow Rate 100 04/17/19 14:12 04/17/19 14:13 04/17/19 14:15 Temperature 36.8 C Temperature Source Oral Sepsis Recent Fever Within 48 Hours Sepsis New/Unexplained Change in Mental Status Sepsis Action Taken by Nursing Pulse Rate - Lying Pulse Rate - Sitting Pulse Rate - Standing Pulse Rate 94 H 94 H 96 H Pulse Rate [Left Finger] Pulse Rate from SpO2 Sensor 95 H 96 H Pulse Rhythm Regular Pulse Strength Normal Respiratory Rate 25 H 21 23 Respiratory Effort / Characteristics Respiratory Depth Blood Pressure - Lying Blood Pressure - Sitting Blood Pressure- Standing Blood Pressure 118/61 132/84 Blood Pressure [Left Arm] Blood Pressure Mean 80 100 Blood Pressure Mean [Left Arm] Blood Pressure Position Lying Pulse Oximetry 100 100 100 Oxygen Delivery Method Oxygen Flow Rate 4 04/17/19 14:20 04/17/19 14:24 04/17/19 14:25 Temperature 36.8 C Temperature Source Oral Sepsis Recent Fever Within 48 Hours Sepsis New/Unexplained Change in Mental Status Sepsis Action Taken by Nursing Pulse Rate - Lying Pulse Rate - Sitting Pulse Rate - Standing Pulse Rate 100 H 97 H 97 H Pulse Rate [Left Finger] Pulse Rate from SpO2 Sensor 99 H 97 H Pulse Rhythm Pulse Strength Respiratory Rate 24 20 23 Respiratory Effort / Characteristics Respiratory Depth Blood Pressure - Lying Blood Pressure - Sitting Blood Pressure- Standing Blood Pressure 146/78 H 146/73 H 146/73 H Blood Pressure [Left Arm] Blood Pressure Mean 100 97 97 Blood Pressure Mean [Left Arm] Blood Pressure Position Pulse Oximetry 100 100 100 Oxygen Delivery Method Oxygen Flow Rate 4 04/17/19 14:29 04/17/19 14:30 04/17/19 14:35 Temperature 36.6 C Temperature Source Oral Sepsis Recent Fever Within 48 Hours Sepsis New/Unexplained Change in Mental Status Sepsis Action Taken by Nursing Pulse Rate - Lying Pulse Rate - Sitting Pulse Rate - Standing Pulse Rate 100 H 94 H 99 H Pulse Rate [Left Finger] Pulse Rate from SpO2 Sensor 95 H 96 H Pulse Rhythm Pulse Strength Respiratory Rate 22 21 22 Respiratory Effort / Characteristics Respiratory Depth Blood Pressure - Lying Blood Pressure - Sitting Blood Pressure- Standing Blood Pressure 136/79 136/79 Blood Pressure [Left Arm] Blood Pressure Mean 98 98 Blood Pressure Mean [Left Arm] Blood Pressure Position Pulse Oximetry 100 100 100 Oxygen Delivery Method Oxygen Flow Rate 4 04/17/19 14:39 04/17/19 14:40 04/17/19 14:44 Temperature 36.7 C 36.7 C Temperature Source Oral Oral Sepsis Recent Fever Within 48 Hours Sepsis New/Unexplained Change in Mental Status Sepsis Action Taken by Nursing Pulse Rate - Lying Pulse Rate - Sitting Pulse Rate - Standing Pulse Rate 87 88 86 Pulse Rate [Left Finger] Pulse Rate from SpO2 Sensor 89 Pulse Rhythm Pulse Strength Respiratory Rate 18 18 16 Respiratory Effort / Characteristics Respiratory Depth Blood Pressure - Lying Blood Pressure - Sitting Blood Pressure- Standing Blood Pressure 125/81 132/80 136/81 Blood Pressure [Left Arm] Blood Pressure Mean 95 97 99 Blood Pressure Mean [Left Arm] Blood Pressure Position Pulse Oximetry 100 100 100 Oxygen Delivery Method Oxygen Flow Rate 4 4 04/17/19 14:45 04/17/19 14:46 04/17/19 14:50 Temperature 36.8 C Temperature Source Oral Sepsis Recent Fever Within 48 Hours Sepsis New/Unexplained Change in Mental Status Sepsis Action Taken by Nursing Pulse Rate - Lying Pulse Rate - Sitting Pulse Rate - Standing Pulse Rate 88 86 85 Pulse Rate [Left Finger] Pulse Rate from SpO2 Sensor 88 85 Pulse Rhythm Pulse Strength Respiratory Rate 18 12 19 Respiratory Effort / Characteristics Respiratory Depth Blood Pressure - Lying Blood Pressure - Sitting Blood Pressure- Standing Blood Pressure 125/81 136/81 136/81 Blood Pressure [Left Arm] Blood Pressure Mean 95 99 99 Blood Pressure Mean [Left Arm] Blood Pressure Position Pulse Oximetry 100 100 100 Oxygen Delivery Method Oxygen Flow Rate 4 04/17/19 14:55 04/17/19 15:00 04/17/19 15:05 Temperature 36.8 C Temperature Source Oral Sepsis Recent Fever Within 48 Hours Sepsis New/Unexplained Change in Mental Status Sepsis Action Taken by Nursing Pulse Rate - Lying Pulse Rate - Sitting Pulse Rate - Standing Pulse Rate 85 89 88 Pulse Rate [Left Finger] Pulse Rate from SpO2 Sensor 85 91 H 88 Pulse Rhythm Regular Pulse Strength Normal Respiratory Rate 14 23 17 Respiratory Effort / Characteristics Respiratory Depth Blood Pressure - Lying Blood Pressure - Sitting Blood Pressure- Standing Blood Pressure 128/87 150/81 H 132/87 Blood Pressure [Left Arm] Blood Pressure Mean 100 104 102 Blood Pressure Mean [Left Arm] Blood Pressure Position Lying Pulse Oximetry 100 100 100 Oxygen Delivery Method Oxygen Flow Rate 2 04/17/19 15:10 04/17/19 15:12 04/17/19 15:15 Temperature 36.7 C Temperature Source Oral Sepsis Recent Fever Within 48 Hours Sepsis New/Unexplained Change in Mental Status Sepsis Action Taken by Nursing Pulse Rate - Lying Pulse Rate - Sitting Pulse Rate - Standing Pulse Rate 88 88 84 Pulse Rate [Left Finger] Pulse Rate from SpO2 Sensor 87 84 Pulse Rhythm Regular Pulse Strength Normal Respiratory Rate 19 16 17 Respiratory Effort / Characteristics Respiratory Depth Blood Pressure - Lying Blood Pressure - Sitting Blood Pressure- Standing Blood Pressure 138/94 138/94 129/74 Blood Pressure [Left Arm] Blood Pressure Mean 108 108 92 Blood Pressure Mean [Left Arm] Blood Pressure Position Lying Pulse Oximetry 100 100 100 Oxygen Delivery Method Oxygen Flow Rate 2 04/17/19 15:16 Temperature 36.9 C Temperature Source Oral Sepsis Recent Fever Within 48 Hours Sepsis New/Unexplained Change in Mental Status Sepsis Action Taken by Nursing Pulse Rate - Lying Pulse Rate - Sitting Pulse Rate - Standing Pulse Rate 84 Pulse Rate [Left Finger] Pulse Rate from SpO2 Sensor Pulse Rhythm Pulse Strength Respiratory Rate 15 Respiratory Effort / Characteristics Respiratory Depth Blood Pressure - Lying Blood Pressure - Sitting Blood Pressure- Standing Blood Pressure 129/74 Blood Pressure [Left Arm] Blood Pressure Mean 92 Blood Pressure Mean [Left Arm] Blood Pressure Position Pulse Oximetry 100 Oxygen Delivery Method Oxygen Flow Rate 2 CONSTITUTIONAL/VITAL SIGNS: Reviewed / noted above. GENERAL: Non-toxic in appearance. INTEGUMENTARY: Warm, dry, and pale. HEAD: Normocephalic. EYES: without scleral icterus or trauma. ENT/OROPHARYNX: clear and moist. LYMPHADENOPATHY/NECK: Is supple without lymphadenopathy or meningismus. RESPIRATORY: Lungs clear and equal. CARDIOVASCULAR: Regular rate and rhythm. GI/ABDOMEN: Soft and nontender. No organomegaly or pulsatile mass. No rebound or guarding. Normal bowel sounds. PELVIC: No active significant bleeding from the vaginal area. EXTREMITIES: Warm and well perfused. BACK: No CVA tenderness. NEUROLOGICAL: Intact without focal deficits. PSYCHIATRIC: normal affect. MUSCULOSKELETAL: Normally developed with good muscle tone. VAGINAL: There was a small blood clot and some pinkish drainage but no active or gross bleeding was noted. Course 1219: Past medical records reviewed. The patient was evaluated in room B07, and a complete history and physical examination were performed. 1330: The patient has consented for the blood transfusion. 1335: I spoke to Isabelle Forte PAC under Dr. Calvin Forte Hospitalist about the patient's case. They are going to accept the patient for further evaluation. 1355: Upon the patient's return from CT scan, she became SOB, lightheaded and very pale. She felt like she was going to vomit and syncopize at this time. She was immediately moved to room A01 and a repeat EKG was done. IV team is also working on gaining more IV access. 1405: I updated Isabelle Champagne on the patient's condition and she would like for me to speak with the boring mill set up operator. 1409: I spoke to Dr. Fuentes - [facility] Mica Plate Layer about the patient's case. He would like for me to speak to the Reanna NGUYEN counterperson. 1419: I spoke to Dr. Chilo NGUYEN about the patient's case. He stated to admit the patient to medicine and stabilize her. After she is stable he will do a biopsy of her uterus. 1433: I performed a pelvic exam on the patient. Consultations Consultation #1: I spoke to Isabelle Champagne - [facility] under Dr. Calvin Forte Hospitalist about the patient's case. They are going to accept the patient for further evaluation. Time: 13:35 Consultation #2: I updated Isabelle Champagne on the patient's condition and she would like for me to speak with the boring mill set up operator. Time: 14:05 Consultation #3: I spoke to Dr. Fuentes - [facility] Mica Plate Layer about the patient's case. He would like for me to speak to the Reanna OBGYN counterperson. Time: 14:09 Additional Consultation(s): 1419: I spoke to Dr. Chilo NGUYEN about the patient's case. He stated to admit the patient to medicine and stabilize her. After she is stable he will do a biopsy of her uterus. Administered Medications Ioversol (Optiray 320 100ml) 94 ml IV ONCE PRN PRN Reason: Interaction Checking Stop: 04/21/19 13:49 Last Admin: 04/17/19 13:50 Dose: 94 ml Documented by: [id number] Discontinued Medications Sodium Chloride (Nss) 500 mls @ 999 mls/hr IV .Q31M DADA Stop: 04/17/19 13:00 Last Infusion: 04/17/19 13:31 Dose: 0 mls/hr Documented by: [id number] Admin: 04/17/19 13:01 Dose: 999 mls/hr Documented by: [id number] Medical Decision Making Differential Diagnosis Differential Diagnosis includes but is not limited to dehydration, stroke, anemia, hypoglycemia, hyponatremia, hypernatremia, urinary tract infection, pneumonia, bronchitis, sepsis, gastroenteritis, additional abdominal pathology, metabolic abnormalities and infections. Medical Records Attestation: I reviewed the patient's medical records. Home Medications Current Medication List: was personally reviewed by me Laboratory Data Attestation: I reviewed the patient's lab results. Result diagrams: 04/17/19 12:41 04/17/19 12:41 Lab Results 04/17/19 04/17/19 04/17/19 Range/Units 12:41 12:41 12:41 WBC 22.08 H (4.8-10.8) K/uL RBC 1.57 L (4.2-5.4) M/uL Hgb 2.8 L* (12.0-16.0) g/dL POC Hgb Hct 10.4 L* (37-47) % POC Hct (37-47) % MCV 66.2 L (80-100) fL MCH 17.8 L (25-34) pg MCHC 26.9 L (32-36) g/dL Plt Count 479 H (130-400) K/uL Immature Gran % (Auto) 0.8 % Neut % (Auto) 79.0 % Lymph % (Auto) 13.5 % Miller % (Auto) 6.3 % Eos % (Auto) 0.1 % Baso % (Auto) 0.3 % Immature Gran # (Auto) 0.18 H (0.00-0.02) K/uL Neut # (Auto) 17.45 H (1.4-6.5) K/uL Lymph # (Auto) 2.97 (1.2-3.4) K/uL Miller # (Auto) 1.39 H (0.11-0.59) K/uL Eos # (Auto) 0.03 (0-0.5) K/uL Baso # (Auto) 0.06 (0-0.2) K/uL Absolute Nucleated RBC 0.15 H (0-0) K/uL Nucleated RBC % (auto) 0.7 % Hypochromasia Present Spherocytes 1+ Stomatocytes 1+ PT 11.4 (9.0-12.0) Seconds INR 1.1 (0.9-1.1) APTT 20.3 L (21.0-31.0) Seconds PTT Ratio 0.7 POC Sodium (135-144) mEq/L Sodium 134 L (136-145) mmol/L POC Potassium (3.3-5.0) mEq/L Potassium 3.7 (3.5-5.1) mmol/L POC Chloride (101-112) mEq/L Chloride 104 (98-107) mmol/L Carbon Dioxide 20 L (21-32) mmol/L POC Total CO2 (24-31) mEq/l Anion Gap 10.0 (3-11) POC Anion Gap (16-25) mmol/L POC BUN (7-18) mg/dl BUN 25 H (7-18) mg/dl Creatinine 1.38 H (0.6-1.2) mg/dl POC Creatinine (0.6-1.3) mg/dl Est Cr Clr Drug Dosing Not Reportable Est GFR ( Amer) 50.1 Est GFR (Non-Af Amer) 43.2 BUN/Creatinine Ratio 17.9 (10-20) Glucose 142 H (70-99) mg/dl POC Glucose (other) (70-99) mg/dl Calcium 8.0 L (8.5-10.1) mg/dl POC Ioniz Calcium Tay (1.12-1.32) mmol/l Total Bilirubin 0.3 (0.2-1) mg/dl AST 16 (15-37) U/L ALT 14 (12-78) U/L Alkaline Phosphatase 95 (45-117) U/L Troponin I < 0.015 (0-0.045) ng/ml Total Protein 8.0 (6.4-8.2) gm/dl Albumin 2.2 L (3.4-5.0) gm/dl Globulin 5.8 H (2.5-4.0) gm/dl Albumin/Globulin Ratio 0.4 L (0.9-2) Blood Type Antibody Screen Crossmatch 04/17/19 04/17/19 Range/Units 12:41 12:59 WBC (4.8-10.8) K/uL RBC (4.2-5.4) M/uL Hgb (12.0-16.0) g/dL POC Hgb TNP Hct (37-47) % POC Hct < 15 L* (37-47) % MCV (80-100) fL MCH (25-34) pg MCHC (32-36) g/dL Plt Count (130-400) K/uL Immature Gran % (Auto) % Neut % (Auto) % Lymph % (Auto) % Miller % (Auto) % Eos % (Auto) % Baso % (Auto) % Immature Gran # (Auto) (0.00-0.02) K/uL Neut # (Auto) (1.4-6.5) K/uL Lymph # (Auto) (1.2-3.4) K/uL Miller # (Auto) (0.11-0.59) K/uL Eos # (Auto) (0-0.5) K/uL Baso # (Auto) (0-0.2) K/uL Absolute Nucleated RBC (0-0) K/uL Nucleated RBC % (auto) % Hypochromasia Spherocytes Stomatocytes PT (9.0-12.0) Seconds INR (0.9-1.1) APTT (21.0-31.0) Seconds PTT Ratio POC Sodium 135 (135-144) mEq/L Sodium (136-145) mmol/L POC Potassium 3.9 (3.3-5.0) mEq/L Potassium (3.5-5.1) mmol/L POC Chloride 103 (101-112) mEq/L Chloride (98-107) mmol/L Carbon Dioxide (21-32) mmol/L POC Total CO2 17 L (24-31) mEq/l Anion Gap (3-11) POC Anion Gap 20.0 (16-25) mmol/L POC BUN 23 H (7-18) mg/dl BUN (7-18) mg/dl Creatinine (0.6-1.2) mg/dl POC Creatinine 1.3 (0.6-1.3) mg/dl Est Cr Clr Drug Dosing Est GFR ( Amer) Est GFR (Non-Af Amer) BUN/Creatinine Ratio (10-20) Glucose (70-99) mg/dl POC Glucose (other) 149 H (70-99) mg/dl Calcium (8.5-10.1) mg/dl POC Ioniz Calcium Tay 1.10 L (1.12-1.32) mmol/l Total Bilirubin (0.2-1) mg/dl AST (15-37) U/L ALT (12-78) U/L Alkaline Phosphatase (45-117) U/L Troponin I (0-0.045) ng/ml Total Protein (6.4-8.2) gm/dl Albumin (3.4-5.0) gm/dl Globulin (2.5-4.0) gm/dl Albumin/Globulin Ratio (0.9-2) Blood Type A Positive Antibody Screen NEGATIVE Crossmatch See Detail Imaging Data Radiologist's Impression: Radiology results as stated below per my review and the radiologist's interpretation: SINGLE VIEW CHEST CLINICAL HISTORY: Generalized weakness. FINDINGS: An AP, portable, upright chest radiograph is compared to study dated 04/03/2017. The cardiomediastinal silhouette is unremarkable. The lungs and pleural spaces are clear. No pneumothorax is seen. The bony thorax is grossly intact. Fusion hardware is noted in the lower cervical spine. IMPRESSION: No active disease in the chest. Electronically signed by: Paco Bosch M.D. 04/17/2019 12:[address] abd pelvis IV con only CT DOSE: 724.22 mGycm HISTORY: Bleeding vaginal bleeding TECHNIQUE: Multiaxial CT images of the abdomen and pelvis were performed following the use of intravenous contrast. A dose lowering technique was utilized adhering to the principles of ALARA. COMPARISON STUDY: 04/03/2017 FINDINGS: Lung bases are clear. Fatty replacement of the liver. Gallstones in the region of the gallbladder neck. Normal adrenal glands. Kidneys and pancreas are unremarkable. No evidence for hydronephrosis. Several small perigastric nodes considered unchanged. Mild increase in size of the left para-aortic node image 191 measuring 1.6 cm. This is increased from the prior study of 1 cm. Moderate increase in size of a node adjacent to the proximal left iliac artery image 226 currently measuring 1.4 cm. Increase in prominence of a right sided paravertebral node image 261 currently measuring 2 cm. Mild increase in size of a left lateral pelvic sidewall node measuring 1.6 cm image 336 Abnormal thickening of the endometrium the maximum dimension of 5 cm. Potentially represents blood versus mass within the central uterine canal. Pre-existing anterior fundal fibroid is again noted. The bladder is midline. No significant inguinal nodes. Several additional low pelvic and anterolateral pelvic nodes measuring up to 2.1 cm. These nodes represent an interval change from the prior exam. Stable postoperative changes of the lumbar spine. IMPRESSION: 1. Abnormal thickening of the endometrium at 5 cm versus the possibility of hemorrhage or hemorrhagic lesion within the central uterine canal. 2. Unchanged fundal fibroid. 3. Developing abdominal and pelvic adenopathy as described. 4. Stable gallstones and fatty infiltration of the liver. 5. The Possibility of a neoplastic process within the mid to low uterus is considered, with the possibility of developing metastatic adenopathy. The above report was generated using voice recognition software. It may contain grammatical, syntax or spelling errors. Electronically signed by: Cj Perdue M.D. 04/17/2019 2:06 PM ECG Data Attestation: I personally reviewed and interpreted this ECG as follows: Indication: weakness Rate (beats per minute): 96 Rhythm: normal sinus Findings: + ST depression (Anterolateral ); no PAC, no PVC, no ST elevation and no ectopy Additional Comments: REPEAT: Normal sinus rhythm rate of 96, ST depressions inferiorly and anterolateral that are more prominent than the 1st EKG. Blood Pressure Blood Pressure Findings: Elevated blood pressure Blood Pressure Disposition: further management by hospitalist CRISTINA Manzo This is a 53-year-old female who presents to the ED from the PCPs office for a chief complaint of lightheadedness and dizziness as well as low blood pressure at the office. The patient states that last night she had heavy vaginal bleedin g that was more than 1 pad per hour between 3 PM and 10 PM. The patient states that she also has had some low back pain for some time. She reports that she has had some vaginal spotting over the years and saw her drug safety coordinator 2 years ago but never followed up since that time. She does report that she had some anemia after her back surgery that required iron transfusions but has not had any requirement for transfusions of iron or blood recently. The patient looks pale on exam. An EKG shows a normal sinus rhythm at a rate of [address] depressions in the anterolateral leads. A second EKG after the patient went for CT scan showed ST depressions in the inferior, anterior and lateral leads. The patient's hemoglobin came back at 2.8. Chemistry panel was otherwise unremarkable. A CT scan of the abdomen pelvis reveals a possible neoplastic process in the uterus with some possible metastatic lymphadenopathy. I spoke with the hospitalist about the patient. I also spoke with the boring mill set up operator and the drug safety coordinator from [facility], Dr. Woo. The patient will be admitted to the intensive care unit for further evaluation. The patient was given at least 2 units of blood here and 2 additional units have been ordered for transfusion. The patient had one episode where she became short of breath and passed out when she was transferring herself from the CT scan bed to the litter. This was prior to her transfusion. We did do a gross vaginal exam with direct visualization and there was a small blood clot but no active bleeding was noted on exam peer Impression & Plan Severe anemia, Vaginal bleeding, Syncope Critical Care Time Critical Care Time: Yes Total Critical Care Time: 50 I have personally spent greater than 50 minutes of critical care time in the direct management of this patient. This includes bedside care, interpretation of diagnostic studies, and testing, discussion with consultants, patient, and family members, and other required patient management activities. This 50 minutes is in excess of all separately billable procedures. Discharge Plan Visit Data Chief Complaint: Hypotension Stated Complaint: ANEMIA,LOW BP ED Provider: Kvng Sexton Discharge Problem: Severe anemia, Vaginal bleeding, Syncope Patient Disposition: Being Evaluated by Hospitalist Discharge Problem: Syncope Qualifiers: Syncope type: unspecified Qualified Code(s): R55 - Syncope and collapse The scribe's documentation has been prepared under my direction and personally reviewed by me in its entirety. I confirm that the note above accurately reflects all work, treatment, procedures, and medical decision making performed by me.
[2019-04-17] MEDS ORDERED: ICU PROTOCOL FOR HYPERGLYCEMIA PRN ×2 (15:40→15:56)
[2019-04-17] MEDS ORDERED: ICU ELECTROLYTE REPLACEMENT PROTOCOL PRN (15:56)
--- NOTE | 2019-04-17 15:57 | Critical Care Consultation ---
Date of Consultation April 17, 2019 Assessment & Plan (1) Admitted to intensive care unit: Reason Critically Ill: 53-year-old female here for Severe anemia with a hemoglobin of 2.8. Past medical history significant for hypertension, abnormal uterine bleeding status post D&C 2 years ago, anemia, degenerative disc disease of the spine status post surgery. Neuro: -[facility] ICU: NEGATIVE -Alert and oriented, cognition intact, no concerns are present Cardiac: Although patient was profoundly anemic on admission, she appeared to have compensated well, she was not significantly tachycardic on admission, did not spill troponins, nor have any significant chest complaints. Patient's admission ECG was slightly concerning 96 bpm, normal sinus rhythm, positive ST depressions in the anterior and inferior leads, however patient's cardiac markers were within normal limits and she was not experiencing any chest pain -Monitor on telemetry for now, twelve-lead EKG daily and with chest pain Respiratory: No concerns at present GI: Patient is currently n.p.o., -assuming her hemoglobin improves and she does not develop further vaginal bleeding, advance diet as tolerated RENAL/LYTES: -No significant electrolyte derangement. -Replace lytes as needed. : Patient anemia is likely secondary to prolonged vaginal bleeding yesterday. Patient reports bleeding for approximately 3 PM to 9 PM soaking through greater than 1 pad per hour. Bedside pelvic exam performed in the emergency department did not demonstrate any active bleeding, and a clot was observed in the vaginal vault. -Monitor for signs and symptoms of recurrence of vaginal bleeding -WATER QUALITY TESTER consulted -Should patient begin to develop a recurrence of her bleeding episode, will need to consider urgent hysterectomy versus transfer to [place] for IR embolization of the uterine artery ENDO: -No concerns at present HEME: Admission H&H demonstrated a hemoglobin of 2.8, negative hematocrit of 10.4. In the emergency department the patient was typed and crossed for 4 units of packed red blood cells, currently she is status post 2 units and reports significant improvement in her symptoms. Patient will receive the remaining 2 units of blood in the ICU H&H every 6 hours Monitor for signs and symptoms of the development of worsening anemia, including dizziness, fatigue, tachycardia -If patient develops symptoms of significant anemia, hemoglobin does not stabilize, or hemoglobin continues to drop, would transfuse PRBCs with a hemoglobin goal of 7.5. -Patient is typed and crossed 2 units of packed red blood cells are on hold ID: -No concerns for infection at this point. -Monitor fever curve. INTEGUMENTARY: -No concerns at present LINES/IV ACCESS: -PIVs intact.Patient has bilateral antecubital access. DVT PROPHYLAXIS: Patient is ambulatory at baseline, chemical prophylaxis is contraindicated in he r given her recent severe vaginal bleeding. SCDs Ambulation Dispo:ICU status until medically stable, then transferred to the general medical floor's for further evaluation work-up per WATER QUALITY TESTER Thank you for allowing us to be part of this patient's care. Please refer to Dr. Fuentes's documentation for any further recommendations. Supervising Physician Co-Signing Physician Notes Dr. Finnegan was resident physician during care of patient. I separately evaluated patient for delarosa portions of the history and the exam. I was present during the critical portion of medical decision making, and I discussed the case with the resident. I generally agree with the findings and plan. Patient is critically ill due to profound anemia and concerns for ongoing blood loss. Blood loss appears to be chronic however has recently turned into acute with very significant dysfunctional uterine bleeding. [facility] she reports soaking through greater than 1 pad per hour. She admitted to shortness of breath dizziness and near syncope while in the emergency department. I have reviewed the CT scan report. [facility]. It is believed that we can facilitate that evaluation here and would not require transfer, therefore she will be admitted to the ICU. I have personally spent 45 minutes of critical care time in the direct management of this patient. This is a life/limb threatening event. This includes time spent evaluating patient, direct bedside care, chart review, placing orders, interpretation of diagnostic studies, discussion with consultants, patient, and/or family members regarding treatment decisions, as well as other required patient management activities. This time is exclusive of all separately billable procedures, and teaching time and separate from and in addition to any other critical care service time. History of Present Illness Reason for Consultation: Severe anemia Attending Physician: Dr. Thiago Fuentes History of Present Illness Patient is a 53-year-old female with a past medical history of hypertension, ab normal uterine bleeding status post D&C 2 years ago, anemia, degenerative disc disease of the spine status post surgery. Patient presented to [facility] emergency department at the request of her primary care physician due to fatigue, hypertension, dizziness, being pale. Patient reports that yesterday she experienced very heavy vaginal bleeding from James 3 PM to 9 PM soaking through greater than 1 pad per hour. With associated weakness and tiredness. She endorses abnormal uterine bleeding over the past month. Patient reports increasing shortness of breath with activity acutely worsening last night status post her bleeding episode. Last week patient stopped taking her lisinopril due to feelings of fatigue and uneasiness with exertion. Patient states she is not postmenopausal, however reports that her periods stopped for over a year, and then returned. I am concerned that the return of her periods does not represent menstrual function but rather abnormal uterine bleeding. When asked to further characterize her periods, she reported them as intermittent spotting with heavier days at time with no significant chronicity to them. Patient endorses low back pain with radiation in the right posterior leg that is intermittent in nature. Denies any recent fevers, chills, chest pain, palpitations, hemoptysis, emesis, abdominal pain, diarrhea, melena, hematochezia, trauma, or forceful sexual intercourse. In the emergency department today the patient was found to have a hemoglobin of 2.8 and a hematocrit of 10.4. She was typed and crossed for 4 units of blood, she is currently status post 2 units of blood, and reports significant improvement in her symptoms reporting she feels warm again. A CT scan of the abdomen and pelvis was obtained in the emergency department which revealed abnormal thickening of the endometrium at 5 cm versus possibility of hemorrhage or hemorrhagic lesions within the central uterine canal. The CT scan was concerning for the development of abdominal, with the possibility of a neoplastic process within the mid large uterus concerning for the possibility of developing metastatic adenopathy. A fibroid was also noted on the CT scan. Upon being transferred to the CT scan she experienced a near syncopal episode and had an episode of incontinence. [facility] WATER QUALITY TESTER was consulted, they will be proceeding with a biopsy to further characterize the concerning CT findings once the patient is medically stabilized.Per the ED physician, a bedside pelvic exam was performed, no active vaginal bleeding or was observed, a blood clot was observed in the vaginal vault. Pertinent past medical history: Patient is a long-standing history of anemia, when she had her back surgery apparently they were not going to perform the procedure due to anemia. Per the patient they transfused iron and proceeded with the surgery without issue. We have had difficulty locating her baseline [facility]. Her last Pap smear was approximately 5 years ago and negative, last mammogram was 3 years ago. Last visit to a WATER QUALITY TESTER was approximately 2 years ago at which point she was diagnosed with abnormal uterine bleeding secondary to aging, a D&C was performed, and uterine bleeding ceased. Patient reports that over the last year or so she has been having intermittent episodes of uterine bleeding which she attributes to her resuming her menstrual cycle. Allergies Allergy/AdvReac Type Severity Reaction Status Date / Time ciprofloxacin [From Cipro] AdvReac Anaphylaxis Unverified 04/17/19 12:47 Home Medications Home Medications Medication Instructions Recorded Confirmed Type lisinopril 40 mg PO DAILY 04/17/19 04/17/19 History Patient History Medical History History of hysteroscopy Anemia Hypertension (Chronic) Surgical History History of History of tubal ligation History of neck surgery Family History Grandfather Heart disease CABG Mother Heart disease CABG Other No pertinent family history in first degree relatives Social History Preferred Language: Croatian Communication Ability: Effective 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 Beliefs That Will Affect Care: None marital status: Current Living Situation: Family Other Information That Helps Us Care for You: No Feels Safe at Home: Yes Safety Concerns: Feels Safe At This Time Smoking Status: Never smoker Do You Dip or Chew Tobacco: No ; Second Hand Exposure: No ; Tobacco Cessation Education Requested by Patient: No Hx Alcohol Use: Yes Hx Substance Use: No Review of Systems Review of Systems: All systems reviewed & are unremarkable except as noted in HPI & below Physical Exam Physical Exam: General: In no acute distress, pale appearing, obese female HEENT: Normocephalic, atraumatic Neck: Normal to visual inspection, unable to assess for JVD and trachea location given adiposity, Cardiac: Regular rate and rhythm, no murmurs rubs or gallops, normal S1, normal S2, negative pedal edema, negative calf tenderness Respiratory: Clear to auscultation bilaterally, symmetrical chest expansion GI: Normal bowel sounds, soft, nontender, nondistended, was able to appreciate fundal fibroid on exam approximately 3 finger widths below the umbilicus MSK: Moves all extremities Skin: Pale, unable to appreciate capillary refill, upper extremities cold to touch, lower extremities warm, patient sensation is intact, reporting that she feels my cold hands Neuro: Alert and oriented x4 Psych: Calm, cooperative Results & Data Vital Signs (Past 12 Hours) Vital Signs Temp Pulse Pulse Resp BP BP Pulse Ox 04/17/19 15:16 36.9 C 84 15 129/74 04/17/19 15:15 84 17 129/74 04/17/19 15:12 36.7 C 88 16 138/94 04/17/19 15:10 88 19 138/94 04/17/19 15:05 88 17 132/87 04/17/19 15:00 36.8 C 89 23 150/81 H 04/17/19 14:55 85 14 128/87 04/17/19 14:50 85 19 136/81 04/17/19 14:46 36.8 C 86 12 136/81 04/17/19 14:45 88 18 125/81 04/17/19 14:44 36.7 C 86 16 136/81 04/17/19 14:40 88 18 132/80 04/17/19 14:39 36.7 C 87 18 125/81 04/17/19 14:35 99 H 22 04/17/19 14:30 94 H 21 136/79 04/17/19 14:29 36.6 C 100 H 22 136/79 04/17/19 14:25 97 H 23 146/73 H 04/17/19 14:24 36.8 C 97 H 20 146/73 H 04/17/19 14:20 100 H 24 146/78 H 04/17/19 14:15 96 H 23 132/84 04/17/19 14:13 36.8 C 94 H 21 118/61 04/17/19 14:12 94 H 25 H 04/17/19 14:10 94 H 21 118/61 04/17/19 14:09 96 H 21 124/77 100 04/17/19 14:08 36.4 C L 92 H 20 127/74 100 04/17/19 14:05 95 H 23 100 04/17/19 14:01 96 H 24 100 04/17/19 13:59 102 H 24 127/74 100 04/17/19 13:58 120 H 27 H 100 04/17/19 13:45 100 04/17/19 13:40 92 H 14 99 04/17/19 13:35 95 H 18 100 04/17/19 13:30 95 H 20 106/55 L 100 04/17/19 13:25 88 20 99 04/17/19 13:20 89 21 99 04/17/19 13:15 89 18 100 04/17/19 13:10 91 H 16 100 04/17/19 13:05 93 H 16 100 04/17/19 13:02 91 H 18 106/60 100 04/17/19 13:01 92 H 17 106/60 100 04/17/19 13:00 97 H 21 04/17/19 12:55 93 H 15 04/17/19 12:50 95 H 20 04/17/19 12:45 92 H 18 04/17/19 12:40 90 18 04/17/19 12:35 92 H 21 04/17/19 12:30 94 H 21 141/67 H 100 04/17/19 12:25 100 H 24 100 04/17/19 12:22 104 H 24 100 04/17/19 12:20 104 H 17 130/50 L 100 04/17/19 12:19 102 H 21 137/61 100 04/17/19 12:18 96 H 17 132/62 100 04/17/19 12:15 91 H 13 100 04/17/19 12:12 92 H 15 108/68 100 04/17/19 11:55 36.7 C 92 H 18 101/58 L 100 Laboratory Results 04/17/19 04/17/19 04/17/19 Range/Units 12:59 12:41 12:41 WBC (4.8-10.8) K/uL RBC (4.2-5.4) M/uL Hgb (12.0-16.0) g/dL POC Hgb TNP Hct (37-47) % POC Hct < 15 L* (37-47) % MCV (80-100) fL MCH (25-34) pg MCHC (32-36) g/dL Plt Count (130-400) K/uL Immature Gran % (Auto) % Neut % (Auto) % Lymph % (Auto) % Sutter % (Auto) % Eos % (Auto) % Baso % (Auto) % Immature Gran # (Auto) (0.00-0.02) K/uL Neut # (Auto) (1.4-6.5) K/uL Lymph # (Auto) (1.2-3.4) K/uL Sutter # (Auto) (0.11-0.59) K/uL Eos # (Auto) (0-0.5) K/uL Baso # (Auto) (0-0.2) K/uL Absolute Nucleated RBC (0-0) K/uL Nucleated RBC % (auto) % Hypochromasia Spherocytes Stomatocytes PT (9.0-12.0) Seconds INR (0.9-1.1) APTT (21.0-31.0) Seconds PTT Ratio POC Sodium 135 (135-144) mEq/L Sodium 134 L (136-145) mmol/L POC Potassium 3.9 (3.3-5.0) mEq/L Potassium 3.7 (3.5-5.1) mmol/L POC Chloride 103 (101-112) mEq/L Chloride 104 (98-107) mmol/L Carbon Dioxide 20 L (21-32) mmol/L POC Total CO2 17 L (24-31) mEq/l Anion Gap 10.0 (3-11) POC Anion Gap 20.0 (16-25) mmol/L POC BUN 23 H (7-18) mg/dl BUN 25 H (7-18) mg/dl Creatinine 1.38 H (0.6-1.2) mg/dl POC Creatinine 1.3 (0.6-1.3) mg/dl Est Cr Clr Drug Dosing Not Reportable Est GFR ( Amer) 50.1 Est GFR (Non-Af Amer) 43.2 BUN/Creatinine Ratio 17.9 (10-20) Glucose 142 H (70-99) mg/dl POC Glucose (other) 149 H (70-99) mg/dl Calcium 8.0 L (8.5-10.1) mg/dl POC Ioniz Calcium Tay 1.10 L (1.12-1.32) mmol/l Total Bilirubin 0.3 (0.2-1) mg/dl AST 16 (15-37) U/L ALT 14 (12-78) U/L Alkaline Phosphatase 95 (45-117) U/L Troponin I < 0.015 (0-0.045) ng/ml Total Protein 8.0 (6.4-8.2) gm/dl Albumin 2.2 L (3.4-5.0) gm/dl Globulin 5.8 H (2.5-4.0) gm/dl Albumin/Globulin Ratio 0.4 L (0.9-2) Blood Type A Positive Antibody Screen NEGATIVE Crossmatch See Detail 04/17/19 04/17/19 Range/Units 12:41 12:41 WBC 22.08 H (4.8-10.8) K/uL RBC 1.57 L (4.2-5.4) M/uL Hgb 2.8 L* (12.0-16.0) g/dL POC Hgb Hct 10.4 L* (37-47) % POC Hct (37-47) % MCV 66.2 L (80-100) fL MCH 17.8 L (25-34) pg MCHC 26.9 L (32-36) g/dL Plt Count 479 H (130-400) K/uL Immature Gran % (Auto) 0.8 % Neut % (Auto) 79.0 % Lymph % (Auto) 13.5 % Sutter % (Auto) 6.3 % Eos % (Auto) 0.1 % Baso % (Auto) 0.3 % Immature Gran # (Auto) 0.18 H (0.00-0.02) K/uL Neut # (Auto) 17.45 H (1.4-6.5) K/uL Lymph # (Auto) 2.97 (1.2-3.4) K/uL Sutter # (Auto) 1.39 H (0.11-0.59) K/uL Eos # (Auto) 0.03 (0-0.5) K/uL Baso # (Auto) 0.06 (0-0.2) K/uL Absolute Nucleated RBC 0.15 H (0-0) K/uL Nucleated RBC % (auto) 0.7 % Hypochromasia Present Spherocytes 1+ Stomatocytes 1+ PT 11.4 (9.0-12.0) Seconds INR 1.1 (0.9-1.1) APTT 20.3 L (21.0-31.0) Seconds PTT Ratio 0.7 POC Sodium (135-144) mEq/L Sodium (136-145) mmol/L POC Potassium (3.3-5.0) mEq/L Potassium (3.5-5.1) mmol/L POC Chloride (101-112) mEq/L Chloride (98-107) mmol/L Carbon Dioxide (21-32) mmol/L POC Total CO2 (24-31) mEq/l Anion Gap (3-11) POC Anion Gap (16-25) mmol/L POC BUN (7-18) mg/dl BUN (7-18) mg/dl Creatinine (0.6-1.2) mg/dl POC Creatinine (0.6-1.3) mg/dl Est Cr Clr Drug Dosing Est GFR ( Amer) Est GFR (Non-Af Amer) BUN/Creatinine Ratio (10-20) Glucose (70-99) mg/dl POC Glucose (other) (70-99) mg/dl Calcium (8.5-10.1) mg/dl POC Ioniz Calcium Tya (1.12-1.32) mmol/l Total Bilirubin (0.2-1) mg/dl AST (15-37) U/L ALT (12-78) U/L Alkaline Phosphatase (45-117) U/L Troponin I (0-0.045) ng/ml Total Protein (6.4-8.2) gm/dl Albumin (3.4-5.0) gm/dl Globulin (2.5-4.0) gm/dl Albumin/Globulin Ratio (0.9-2) Blood Type Antibody Screen Crossmatch Diagnostic Findings CT abd pelvis IV con only CT DOSE: 724.22 mGycm HISTORY: Bleeding vaginal bleeding TECHNIQUE: Multiaxial CT images of the abdomen and pelvis were performed following the use of intravenous contrast. A dose lowering technique was utilized adhering to the principles of ALARA. COMPARISON STUDY: 04/03/2017 FINDINGS: Lung bases are clear. Fatty replacement of the liver. Gallstones in the region of the gallbladder neck. Normal adrenal glands. Kidneys and pancreas are unremarkable. No evidence for hydronephrosis. Several small perigastric nodes considered unchanged. Mild increase in size of the left para-aortic node image 191 measuring 1.6 cm. This is increased from the prior study of 1 cm. Moderate increase in size of a node adjacent to the proximal left iliac artery image 226 currently measuring 1.4 cm. Increase in prominence of a right sided paravertebral node image 261 currently measuring 2 cm. Mild increase in size of a left lateral pelvic sidewall node measuring 1.6 cm image 336 Abnormal thickening of the endometrium the maximum dimension of 5 cm. Poten tially represents blood versus mass within the central uterine canal. Pre-existing anterior fundal fibroid is again noted. The bladder is midline. No significant inguinal nodes. Several additional low pelvic and anterolateral pelvic nodes measuring up to 2.1 cm. These nodes represent an interval change from the prior exam. Stable postoperative changes of the lumbar spine. IMPRESSION: 1. Abnormal thickening of the endometrium at 5 cm versus the possibility of hemorrhage or hemorrhagic lesion within the central uterine canal. 2. Unchanged fundal fibroid. 3. Developing abdominal and pelvic adenopathy as described. 4. Stable gallstones and fatty infiltration of the liver. 5. The Possibility of a neoplastic process within the mid to low uterus is considered, with the possibility of developing metastatic adenopathy. Medications Administered Current Inpatient Medications Sodium Chloride (Nss) 250 mls @ 15 mls/hr IV .[id number] PRN PRN Reason: For Transfusion Stop: 05/17/19 13:05 Sodium Chloride (Nss) 250 mls @ 15 mls/hr IV .[id number] PRN PRN Reason: For Transfusion Stop: 05/17/19 14:30 Ioversol (Optiray 320 100ml) 94 ml IV ONCE PRN PRN Reason: Interaction Checking Stop: 04/21/19 13:49 Last Admin: 04/17/19 13:50 Dose: 94 ml Documented by: PG Care Time/CCT Total # of Minutes Spent Total Time Spent: 45 Total Time Spent with Patient: Total time spent is greater than 50% in coordin ation of care (as documented) at patient's floor/unit and/or counseling patient: Critical Care Time: Yes Resident Activity Tracking Resident Involvement: Resident Care Provided Care Provided: Adult [facility] Medicine (Severe anemia 2/2 AUB)
[2019-04-17] MEDS ORDERED: ACETAMINOPHEN 325 MG TAB ONE (18:12)
[2019-04-17 18:59] LABS: Hematocrit (blood only) 29.4 % (37-47); Hemoglobin 9.5 g/dL (12.0-16.0); Mean Corpuscular Hgb Conc 32.3 g/dL (32-36); Mean Corpuscular Volume 79.2 fL (80-100); Mean Platelet Volume 8.4 fL (7.4-10.4); Nucleated RBC # (auto) 0.16 K/uL (0-0); Nucleated RBC % (auto) 0.8 %; Platelet Count 370 K/uL (130-400); RDW Coefficient of Variation 19.2 % (11.5-14.5); RDW Standard Deviation 55.3 fL (36.4-46.3); Red Blood Count 3.71 M/uL (4.2-5.4); White Blood Count 19.57 K/uL (4.8-10.8)
[2019-04-17] MEDS: ACETAMINOPHEN 325 MG TAB PO PRN (22:11)
[2019-04-17 23:35] LABS: Hematocrit (blood only) 24.5 % (37-47); Hemoglobin 8.2 g/dL (12.0-16.0)
[2019-04-18 04:19] LABS: Basophils # (auto) 0.05 K/uL (0-0.2); Basophils % (auto) 0.3 %; Eosinophils # (auto) 0.07 K/uL (0-0.5); Eosinophils % (auto) 0.4 %; Hematocrit (blood only) 23.9 % (37-47); Hemoglobin 7.9 g/dL (12.0-16.0); Immature Granulocytes # (auto) 0.12 K/uL (0.00-0.02); Immature Granulocytes % (auto) 0.7 %; Lymphocytes # (auto) 2.67 K/uL (1.2-3.4); Lymphocytes % (auto) 16.2 %; Mean Corpuscular Hgb Conc 33.1 g/dL (32-36); Mean Corpuscular Volume 77.9 fL (80-100); Mean Platelet Volume 8.2 fL (7.4-10.4); Monocytes # (auto) 1.31 K/uL (0.11-0.59); Neutrophils # (auto) 12.25 K/uL (1.4-6.5); Neutrophils % (auto) 74.4 %; Nucleated RBC % (auto) 0.6 %; Platelet Count 310 K/uL (130-400); RDW Coefficient of Variation 18.9 % (11.5-14.5); Red Blood Count 3.07 M/uL (4.2-5.4); White Blood Count 16.47 K/uL (4.8-10.8)
[2019-04-18 04:27] LABS: INR 1.1 (0.9-1.1); Prothrombin Time 11.2 Seconds (9.0-12.0)
[2019-04-18] MEDS ORDERED: SODIUM CHLORIDE 0.9% 250 ML IV PRN ×2 (04:27→04:35)
[2019-04-18 04:52] LABS: Bilirubin Direct 0.1 mg/dl (0-0.2); Bilirubin,Total 0.5 mg/dl (0.2-1); Calcium 7.6 mg/dl (8.5-10.1); Creatinine Clr Calc Pharmacy 59.8 ml/min; Est GFR (African American) 67.4; Est GFR (Non-African American) 58.2; Magnesium 2.1 mg/dl (1.8-2.4); Phosphorus 2.7 mg/dl (2.5-4.9); Potassium 3.8 mmol/L (3.5-5.1)
[2019-04-18 05:21] LABS: Hypochromasia Present
[2019-04-18] MEDS ORDERED: CALCIUM GLUCONATE 10% 1,000 MG in SODIUM CHLORIDE 0.9% 50 ML IV STA (06:09)
--- NOTE | 2019-04-18 07:12 | Critical Care Progress Note ---
Date of Service April 18, 2019 Assessment & Plan (1) Admitted to intensive care unit: Reason Critically Ill: 53-year-old female here for Severe anemia with a hemoglobin of 2.8. Past medical history significant for hypertension, abnormal uterine bleeding status post D&C 2 years ago, anemia, degenerative disc disease of the spine status post surgery. Neuro: -[facility] ICU: NEGATIVE -Alert and oriented, cognition intact, no concerns are present Cardiac: Although patient was profoundly anemic on admission, she appeared to have compensated well, she was not significantly tachycardic on admission, did not spill troponins, nor have any significant chest complaints. Patient's admission ECG was slightly concerning 96 bpm, normal sinus rhythm, positive ST depressions in the anterior and inferior leads, however patient's cardiac markers were within normal limits and she was not experiencing any chest pain. Ekg changes resolved 04/18. -Monitor on telemetry for now, twelve-lead EKG daily and with chest pain Respiratory: No concerns at present GI: Patient is currently clear liquids -advance diet as tolerated RENAL/LYTES: -No significant electrolyte derangement. -Replace lytes as needed. : Patient anemia is likely secondary to prolonged vaginal bleeding yesterday. Patient reports bleeding for approximately 3 PM to 9 PM soaking through greater than 1 pad per hour. Bedside pelvic exam performed by the emergency department physicians did not demonstrate any active bleeding, and a clot was observed in the vaginal vault. -Monitor for signs and symptoms of recurrence of vaginal bleeding -ROUNDSMAN consulted -Should patient begin to develop a recurrence of her bleeding episode, will need to consider urgent hysterectomy versus transfer to [place] for IR embolization of the uterine artery ENDO: -No concerns at present HEME: H&H on presentation demonstrated a hemoglobin of 2.8, hematocrit of 10.4. In the emergency department the patient was typed and crossed for 4 units of packed red blood cells, she received 2 units in the emergency department and the remaining 2 in the ICU. -Recieved another 2 units of blood in the early hours of 04/18 for a total of 6 units -per nursing bloody drainage on peripads overnight H&H every 6 hours -HGB trend 9.5 ->8.2->7.9->2 units of blood -> Monitor for signs and symptoms of the development of worsening anemia, including dizziness, fatigue, tachycardia -If patient develops symptoms of significant anemia, hemoglobin does not stabilize, or hemoglobin continues to drop, would transfuse PRBCs with a hemoglobin goal of 7.5. ID: -No concerns for infection at this point. -Monitor fever curve. INTEGUMENTARY: -No concerns at present LINES/IV ACCESS: -PIVs intact.Patient has bilateral antecubital access. DVT PROPHYLAXIS: Patient is ambulatory at baseline, chemical prophylaxis is contraindicated in her given her recent severe vaginal bleeding. SCDs Ambulation Dispo:downgrade to floor status Thank you for allowing us to be part of this patient's care. Please refer to Dr. Fuentes's documentation for any further recommendations. Supervising Physician Co-Signing Physician Notes Dr. Finnegan was resident physician during care of patient. I separately evaluated patient for delarosa portions of the history and the exam. I was present during the critical portion of medical decision making, and I discussed the case with the resident. I generally agree with the findings and plan. Upon my arrival patient was receiving fifth unit of packed red blood cells. At this time the patient appears to be adequately resuscitated and would hold additional packed red blood cells at this time. She does not have any complaints of chest pain, shortness of breath, dizziness, nausea, vomiting, diarrhea. She is continuing to have vaginal bleeding and is passing large clots. I discussed the case with Dr. Dodd and we will proceed with 1 g tranexamic acid as an antifibrinolytic. I am rechecking a fibrinogen to ensure no additional blood products are required at this time. I do not believe she is experiencing dilutional coagulopathy at this time. She is currently being evaluated by gynecology. She would be stable for downgrade out of the ICU today. Discussed with Dr. Ponce: would benefit from transfer to [facility] for Oncological Gynecology surgery expertise. Dr. Yoana Morales willing to accept to [facility] for further evaluation and treatment. Subjective Patient laying in bed this morning in no acute distress. Patient reports doing well overnight, only complains of muscle stiffness and soreness from lying on her back. Patient has been tolerating her clear liquid diet, voiding, stooling, sleeping. Patient specifically denies any dizziness, headaches, chest pressure, chest pain, pain down the left side of her arm, shortness of breath, abdominal pain, or other concerning symptoms related to either heart strain or anemia. Patient reports subjective improvement in her presenting symptoms. Answered all questions no acute concerns. Physical Exam Physical Exam: General: In no acute distress, obese female HEENT: Normocephalic, atraumatic Neck: Normal to visual inspection, unable to assess for JVD and trachea location given adiposity, Cardiac: Regular rate and rhythm, no murmurs rubs or gallops, normal S1, normal S2, negative pedal edema, negative calf tenderness, capillary refill<3 secs Respiratory: Rhonci that lear with coughing otherwise clear to auscultation bilaterally, symmetrical chest expansion GI: Normal bowel sounds, soft, nontender, nondistended, was able to appreciate fundal fibroid on exam approximately 3 finger widths below the umbilicus MSK: Moves all extremities Skin: warm, dry, intact, Neuro: Alert and oriented x4 Psych: Calm, cooperative Results & Data Vital Signs (Past 12 Hours) Vital Signs Temp Pulse Pulse Resp BP BP Pulse Ox 04/18/19 06:20 37.2 C 73 19 115/73 98 04/18/19 06:01 74 15 99 04/18/19 06:00 73 11 L 117/77 98 04/18/19 05:50 37.0 C 74 14 111/69 97 04/18/19 05:45 74 14 111/69 99 04/18/19 05:35 37.1 C 75 18 115/70 99 04/18/19 05:30 71 22 115/70 100 04/18/19 05:20 37.1 C 71 17 125/64 95 04/18/19 05:18 70 17 125/64 96 04/18/19 05:01 70 23 96 04/18/19 05:00 69 23 119/76 97 04/18/19 04:01 72 20 97 04/18/19 04:00 36.9 C 70 20 109/71 98 04/18/19 03:01 69 20 97 04/18/19 03:00 72 10 L 123/77 98 04/18/19 02:01 71 16 98 04/18/19 02:00 71 24 124/80 98 04/18/19 01:01 70 21 96 04/18/19 01:00 69 70 14 107/54 L 107/54 L 97 04/18/19 00:01 71 20 95 04/18/19 00:00 67 16 107/63 98 04/17/19 23:55 70 20 94 04/17/19 23:50 72 24 96 04/17/19 23:46 75 04/17/19 23:45 74 28 H 98 04/17/19 23:40 74 23 98 04/17/19 23:35 75 23 99 04/17/19 23:30 75 18 99 04/17/19 23:25 76 21 99 04/17/19 23:20 72 23 98 04/17/19 23:15 72 21 98 04/17/19 23:10 71 20 98 04/17/19 23:05 70 18 98 04/17/19 23:01 73 20 98 04/17/19 23:00 73 73 24 115/67 115/67 98 04/17/19 22:00 74 19 105/60 96 04/17/19 21:00 77 16 116/71 99 04/17/19 20:00 78 19 121/69 98 04/17/19 19:30 04/17/19 19:27 84 Pulse Ox 04/18/19 06:20 04/18/19 06:01 04/18/19 06:00 04/18/19 05:50 04/18/19 05:45 04/18/19 05:35 04/18/19 05:30 04/18/19 05:20 04/18/19 05:18 04/18/19 05:01 04/18/19 05:00 04/18/19 04:01 04/18/19 04:00 04/18/19 03:01 04/18/19 03:00 04/18/19 02:01 04/18/19 02:00 04/18/19 01:01 04/18/19 01:00 04/18/19 00:01 04/18/19 00:00 04/17/19 23:55 04/17/19 23:50 04/17/19 23:46 04/17/19 23:45 04/17/19 23:40 04/17/19 23:35 04/17/19 23:30 04/17/19 23:25 04/17/19 23:20 04/17/19 23:15 04/17/19 23:10 04/17/19 23:05 04/17/19 23:01 04/17/19 23:00 04/17/19 22:00 04/17/19 21:00 04/17/19 20:00 04/17/19 19:30 100 04/17/19 19:27 PG Care Time/CCT Total # of Minutes Spent Total Time Spent with Patient: Total time spent is greater than 50% in coordination of care (as documented) at patient's floor/unit and/or counseling patient: Resident Activity Tracking Resident Involvement: Resident Care Provided Care Provided: Adult Hospital Medicine
[2019-04-18] MEDS: ACETAMINOPHEN 325 MG TAB PO PRN ×2 (08:12→20:09)
[2019-04-18 10:07] LABS: Hematocrit (blood only) 27.5 % (37-47); Hemoglobin 9.2 g/dL (12.0-16.0)
[2019-04-18 12:07] LABS: Fibrinogen 423 mg/dl (184-400); INR 1.1 (0.9-1.1); Partial Thromboplastin Ratio 0.8; Partial Thromboplastin Time 21.9 Seconds (21.0-31.0); Prothrombin Time 10.9 Seconds (9.0-12.0)
[2019-04-18] MEDS ORDERED: TRANEXAMIC ACID 1,000 MG in 0.9 % SODIUM CHLORIDE 100 ML IV ONE (13:00)
--- NOTE | 2019-04-18 14:25 | Hospitalist Progress Note ---
Date of Service April 18, 2019 Assessment & Plan (1) Syncope: (2) Severe anemia: (3) Vaginal bleeding: per admitting service notes: In ED patient was found to have a severe anemia with H&H 2.8/10.4 2 units of PRBC ordered and transfusing in ED She had CT scan of abdomen and pelvis which revealed abnormal thickening of the endometrium at 5 cm versus possibility of hemorrhage or hemorrhagic lesion within central uterine canal. Concerning for development of abdominal and pelvic adenopathy. Possibility of neoplastic process within the mid large uterus is considered with possibility of developing metastatic adenopathy. Upon being transferred from CT scan to [facility] she experienced near syncopal episode s/p 5 units of pRBC transfusion Hg 9.2 still has intermittent vaginal bleeding Scene Shifter consulted- recommend transfer to [facility] for Tertiary Level of Care (4) Abnormal CT of the abdomen: CT Scan abd in setting of abnormal vaginal bleeding: IMPRESSION: 1. Abnormal thickening of the endometrium at 5 cm versus the possibility of hemorrhage or hemorrhagic lesion within the central uterine canal. 2. Unchanged fundal fibroid. 3. Developing abdominal and pelvic adenopathy as described. 4. Stable gallstones and fatty infiltration of the liver. 5. The Possibility of a neoplastic process within the mid to low uterus is considered, with the possibility of developing metastatic adenopathy Scene Shifter consulted- recommend transfer to [facility] for Tertiary Level of Care (5) Abnormal ECG: serial ecg performed in ED revealed initial anterior ST wave depression and upon repeat also revealed inferior depression. Patient is without chest pain Troponin WNL Likely in setting of demand ischemia given profound anemia EKG as of 04/18/19: ST depressions resolving Monitor serial EKGs (6) Hypertension: Hold lisinopril on lower side given anemia monitor BP (7) DVT prophylaxis: SCD/TEDS Disposition: transfer to [facility] Subjective ff up for severe anemia, vaginal bleeding seen resting in bed, comfortable in good spirits states she feels better today compared to yesterday still having intermittent episodes of vaginal bleeding denies abdominal pain denies chest pain, palpitations, shortness of breath, dizziness ambulating to the bathroom with no problems denies other symptoms Review of Systems Review of Systems: All systems reviewed & are unremarkable except as noted in HPI & below Physical Exam Physical Exam: General- oriented x 3, not in distress, speaks in sentences with no effort or accessory muscle use Eyes- anicteric Neck- no JVD Lungs- clear breath sounds bilaterally, no rales/wheezes Heart- normal rate, regular rhythm; no murmurs Abdomen- normal bowel sounds, nondistended, soft, nontender Extremities- no pretibial edema, no calf tenderness Neuro- alert, oriented x 3; no gross focal neurologic deficits Skin- warm & dry Results & Data Vital Signs (Past 12 Hours) Vital Signs Temp Pulse Resp BP Pulse Ox 04/18/19 12:00 80 25 H 04/18/19 11:54 37.2 C 73 20 127/74 04/18/19 11:21 75 24 127/74 98 04/18/19 11:00 72 15 04/18/19 10:00 74 20 04/18/19 09:00 81 19 04/18/19 08:40 83 20 146/85 H 97 04/18/19 08:09 80 18 130/67 04/18/19 08:00 76 21 04/18/19 07:30 129/76 04/18/19 07:01 77 24 98 04/18/19 07:00 76 12 137/93 98 04/18/19 06:30 75 19 127/76 98 04/18/19 06:22 74 17 115/73 98 04/18/19 06:20 37.2 C 73 19 115/73 98 04/18/19 06:01 74 15 99 04/18/19 06:00 73 11 L 117/77 98 04/18/19 05:50 37.1 C 85 16 146/85 H 97 04/18/19 05:45 74 14 111/69 99 04/18/19 05:35 37.1 C 80 16 130/67 99 04/18/19 05:30 71 22 115/70 100 04/18/19 05:20 37.1 C 71 17 125/64 95 04/18/19 05:18 70 17 125/64 96 04/18/19 05:01 70 23 96 04/18/19 05:00 69 23 119/76 97 04/18/19 04:01 72 20 97 04/18/19 04:00 36.9 C 70 20 109/71 98 04/18/19 03:01 69 20 97 04/18/19 03:00 72 10 L 123/77 98 (1) Syncope Syncope type: unspecified Qualified Code(s): R55 - Syncope and collapse
--- NOTE | 2019-04-18 14:29 | Discharge Summary ---
Date of Service April 18, 2019 Admission HPI Per Admitting Provider This is a 53-year-old female with significant past medical history of HTN who presents to [facility] ED at the recommendation of PCP due to complaints of dizziness and being pale. Patient states last night she had very heavy vaginal bleeding and clotting that ended at approximately 10 PM. Patient is not postmenopausal. She elicits over the past several months she has had irregular vaginal bleeding. She still gets her menses but is unsure for how long it lasts. She has been having intermittent spotting/heavy bleeding for approximately the past 2 weeks. After significant bleeding last night she developed dizziness with movement and standing along with shortness of breath. Further elicits to having Low back pain with radiation to her R posterior leg, present for unknown duration. Denies any recent illness, f/c/s, chest pain, palpitations, hemoptysis, emesis, abdominal pain, diarrhea, melena, hematochezia. She had routine follow up with PCP today and due to complaints of dizziness and significant pallor she was referred to ED. Last pap smear was approx 5 years ago and negative. Last mammogram was 3 years ago. 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 In ED patient was found to have a hemoglobin of 2.8 hematocrit of 10.4. She was typed and crossed for [address] scan of abdomen and pelvis which revealed abnormal thickening of the endometrium at 5 cm versus possibility of hemorrhage or hemorrhagic lesion within central uterine canal. Concerning for development of abdominal and pelvic adenopathy. Possibility of neoplastic process within the mid large uterus is considered with possibility of developing metastatic adenopathy. Upon being transferred from CT scan to [facility] she experienced near syncopal episode Admission Exam Per Admitting Provider Physical exam findings are as follows General: Markedly pale, not in resp distress Eyes: PERRL, severe pallor, EOM intact bilaterally, xanthelasma on medial part of Left upper eyelid area ENMT: External ear and nose normal, oropharynx normal Neck: Normal visual inspection Respiratory: Normal respiratory effort, no respiratory distress, nasal cannula in situ, lungs clear to auscultation anteriorly Cardiovascular: Pulse is RRR. Heart Sounds S1 and 2, no pedal edema Gastrointestinal (Abdomen): Abdomen is soft, non-tender to palpation, no guarding, no palpable hepatosplenomegaly, normal bowel sounds Musculoskeletal: No cyanosis or clubbing, all extremities motor strength 5/5 Genital: On inspection, small clot observed in vaginal orifice. No active bleeding from orifice after removal of clot Skin: xanthelasma as described above Neurologic: Alert and oriented x 3, No focal weakness, sensation grossly intact Psychiatric: Alert and oriented x 3, euthymic affect Lymphatic: No cervical lymphadenopathy Principal Diagnosis PROFOUND ANEMIA SECONDARY TO VAGINAL BLEEDING Discharge Exam General- oriented x 3, not in distress, speaks in sentences with no effort or accessory muscle use Eyes- anicteric Neck- no JVD Lungs- clear breath sounds bilaterally, no rales/wheezes Heart- normal rate, regular rhythm; no murmurs Abdomen- normal bowel sounds, nondistended, soft, nontender Extremities- no pretibial edema, no calf tenderness Neuro- alert, oriented x 3; no gross focal neurologic deficits Skin- warm & dry Discharge Data Allergies Allergy/AdvReac Type Severity Reaction Status Date / Time ciprofloxacin [From Cipro] AdvReac Anaphylaxis Unverified 04/17/19 12:47 Consultations 04/17/19 13:51 ED Decision to Admit Stat 04/17/19 14:36 Consult Shipping Coordinator Routine 04/17/19 15:40 Consult Case Management - Discharge Planning Routine Consult Gynecology Routine 04/17/19 15:56 Consult Case Management - Discharge Planning Routine 04/18/19 13:35 Consult Health Information Management Routine Ordered Studies 04/17/19 12:25 CT abd pelvis IV con only Stat CT DOSE: 724.22 mGycm HISTORY: Bleeding vaginal bleeding TECHNIQUE: Multiaxial CT images of the abdomen and pelvis were performed following the use of intravenous contrast. A dose lowering technique was utilized adhering to the principles of ALARA. COMPARISON STUDY: 04/03/2017 FINDINGS: Lung bases are clear. Fatty replacement of the liver. Gallstones in the region of the gallbladder neck. Normal adrenal glands. Kidneys and pancreas are unremarkable. No evidence for hydronephrosis. Several small perigastric nodes considered unchanged. Mild increase in size of the left para-aortic node image 191 measuring 1.6 cm. This is increased from the prior study of 1 cm. Moderate increase in size of a node adjacent to the proximal left iliac artery image 226 currently measuring 1.4 cm. Increase in prominence of a right sided paravertebral node image 261 currently measuring 2 cm. Mild increase in size of a left lateral pelvic sidewall node measuring 1.6 cm image 336 Abnormal thickening of the endometrium the maximum dimension of 5 cm. Potentially represents blood versus mass within the central uterine canal. Pre-existing anterior fundal fibroid is again noted. The bladder is midline. No significant inguinal nodes. Several additional low pelvic and anterolateral pelvic nodes measuring up to 2.1 cm. These nodes represent an interval change from the prior exam. Stable postoperative changes of the lumbar spine. IMPRESSION: 1. Abnormal thickening of the endometrium at 5 cm versus the possibility of hem orrhage or hemorrhagic lesion within the central uterine canal. 2. Unchanged fundal fibroid 3. Developing abdominal and pelvic adenopathy as described. 4. Stable gallstones and fatty infiltration of the liver. 5. The Possibility of a neoplastic process within the mid to low uterus is considered, with the possibility of developing metastatic adenopathy. The above report was generated using voice recognition software. It may contain grammatical, syntax or spelling errors. Hospital Course (1) Syncope: (2) Severe anemia: (3) Vaginal bleeding: per admitting service notes: In ED patient was found to have a severe anemia with H&H 2.8/10.4 2 units of PRBC ordered and transfusing in ED She had CT scan of abdomen and pelvis which revealed abnormal thickening of the endometrium at 5 cm versus possibility of hemorrhage or hemorrhagic lesion within central uterine canal. Concerning for development of abdominal and pelvic adenopathy. Possibility of neoplastic process within the mid large uterus is considered with possibility of developing metastatic adenopathy. Upon being transferred from [facility] to [facility] she experienced near syncopal episode s/p 5 units of pRBC transfusion Hg 9.2 still has intermittent vaginal bleeding Weatherization Director consulted- recommend transfer to [facility] for Tertiary Level of Care (4) Abnormal CT of the abdomen: CT Scan abd in setting of abnormal vaginal bleeding: IMPRESSION: 1. Abnormal thickening of the endometrium at 5 cm versus the possibility of hemorrhage or hemorrhagic lesion within the central uterine canal. 2. Unchanged fundal fibroid. 3. Developing abdominal and pelvic adenopathy as described. 4. Stable gallstones and fatty infiltration of the liver. 5. The Possibility of a neoplastic process within the mid to low uterus is considered, with the possibility of developing metastatic adenopathy Weatherization Director consulted- recommend transfer to [facility] for Tertiary Level of Care (5) Abnormal ECG: serial ecg performed in ED revealed initial anterior ST wave depression and upon repeat also revealed inferior depression. Patient is without chest pain Troponin WNL Likely in setting of demand ischemia given profound anemia EKG as of 04/18/19: ST depressions resolving Monitor serial EKGs (6) Hypertension: Hold lisinopril on lower side given anemia monitor BP (7) DVT prophylaxis: SCD/TEDS Disposition: transfer to [facility] Total Time Total Time Spent Total Time Spent (In Minutes): 50 MINUTES Discharge Plan Discharge Items Reason For Visit: PROFOUND ANEMIA Medications and DC Order Prescriptions: No Action lisinopril 40 mg tablet 40 mg PO DAILY RF: 0 Admission Data Admit Date/Time: 04/17/19 14:36 Attending Provider: Deep Overton Admit Provider: Trena Phillips I. Primary Care Provider: Howard Roldan Other Providers: Thiago Fuentes ; Gama Woo ; Trena Phillips I. ; Vaughn Reddy
--- NOTE | 2019-04-18 14:41 | Consultation Report ---
DATE OF ADMISSION: 04/17/2019 CHIEF COMPLAINT: Heavy vaginal bleeding with clotting, dizziness. HISTORY OF PRESENT ILLNESS: The patient is a 53-year-old 2, para 2. General health complicated by high blood pressure, been on lisinopril for about 6 years and started on lisinopril after back surgery. Her last Pap smear was 2-1/2 years ago as far as she knows, it was normal. She states that she is still getting her monthly cycles. In the past, they were relatively light; however, she came into the Emergency Room on 04/17/2019 with dizziness and prolonged bleeding. She says the bleeding was heavy for just a day or two. Hemoglobin at that time was extremely low. She was admitted for stabilization. PAST MEDICAL HISTORY: She has 2 children in good health. ALLERGIES: ALLERGIC TO CIPRO. MEDICAL HISTORY: High blood pressure for 6 years. PAST SURGICAL HISTORY: She had back surgery 6 years ago. She had neck surgery 2001. She had a in 1982 and another in 1995. She had a tubal ligation in 1996. SOCIAL HISTORY: No smoking. No excessive alcohol intake. Works at a [employer]. FAMILY HISTORY: Mom 79, recently had open heart surgery for bypass. Father at age 65, cardiac disease. One brother and one sister. One brother at age 51, cardiac disease. REVIEW OF SYSTEMS: HEAD: No symptoms of frequent or severe headaches. EYES: No symptoms of blurred vision, double vision. EARS: No symptoms of frequent ear infections, difficulty hearing. PHYSICAL EXAMINATION: GENERAL: Well-developed, well-nourished 53-year-old white female, alert, oriented x3 and cooperative, in no acute distress, appears stated age. EYES: Conjunctivae are pink. Sclerae white, no evidence of jaundice. EARS: Had normal light reflex bilaterally. NOSE: Had normal mucosa. Septum is midline. HEART: Had regular rhythm. S1, S2 are normal. LUNGS: Clear to auscultation and percussion. BREASTS: Normal. ABDOMEN: Soft and nontender. Well-healed Pfannenstiel midline scar, lower back. PELVIC: Visualization of the cervix was difficult. It was anterior in position. Amount of bleeding was moderate. Eventually, we were able to visualize the cervix. The outside of the cervix appeared normal. Having removed the speculum, we did a bimanual examination. This revealed an enlarged uterus about 14-15 weeks' gestational size. Hard fibroid. The cervix was open. You could place your finger into the internal canal of the cervix and the internal canal of the cervix felt very nodular. Also, the uterus was felt fixed in position and not mobile. 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
[2019-04-18 16:13] LABS: Hematocrit (blood only) 26.6 % (37-47); Hemoglobin 8.9 g/dL (12.0-16.0)
[2019-04-18 22:09] LABS: Hematocrit (blood only) 25.2 % (37-47); Hemoglobin 8.5 g/dL (12.0-16.0)
[2019-04-19 08:23] LABS: Microcytosis Present
== END 2019-04-19 00:14 | disposition short-term general hospital (02) | DRG 760 ==
LOC: ED 11:45 → 1E 14:36 → SUATTDRO 14:36 → 1E 15:38

== ENCOUNTER 2020-06-10 22:57 | Inpatient (IN) ==
[2020-06-10] MEDS ORDERED: SODIUM CHLORIDE 0.9% 250 ML IV PRN (23:18)
[2020-06-10] MEDS ORDERED: SODIUM CHLORIDE 0.9% 1000ML 1,000 ML IV SCH (23:30)
[2020-06-10 23:46] LABS: Hematocrit (blood only) 20.8 % (37-47); Hemoglobin 6.6 g/dL (12.0-16.0); Mean Corpuscular Hemoglobin 29.5 pg (25-34); Mean Corpuscular Hgb Conc 31.7 g/dL (32-36); Mean Corpuscular Volume 92.9 fL (80-100); Mean Platelet Volume 8.2 fL (7.4-10.4); Platelet Count 332 K/uL (130-400); RDW Coefficient of Variation 16.9 % (11.5-14.5); RDW Standard Deviation 56.2 fL (36.4-46.3); Red Blood Count 2.24 M/uL (4.2-5.4); White Blood Count 22.58 K/uL (4.8-10.8)
[2020-06-10 23:56] LABS: Albumin Level 1.8 gm/dl (3.4-5.0); BUN Creatinine Ratio 11.7 (10-20); Calcium 8.5 mg/dl (8.5-10.1); Creatinine Clr Calc Pharmacy 44.5 ml/min; Est GFR (Non-African American) 47.5; Potassium 3.1 mmol/L (3.5-5.1)
[2020-06-11] LABS: Albumin Globulin Ratio 0.3 (0.9-2); Bilirubin,Total 0.2 mg/dl (0.2-1); Globulin 5.4 gm/dl (2.5-4.0); INR 1.1 (0.9-1.1); Partial Thromboplastin Ratio 1.2; Partial Thromboplastin Time 32.2 Seconds (21.0-31.0); Total Protein 7.2 gm/dl (6.4-8.2)
[2020-06-11 00:07] LABS: Basophils # (auto) 0.04 K/uL (0-0.2); Basophils % (auto) 0.2 %; Eosinophils # (auto) 0.25 K/uL (0-0.5); Eosinophils % (auto) 1.1 %; Immature Granulocytes # (auto) 0.39 K/uL (0.00-0.02); Immature Granulocytes % (auto) 1.7 %; Lymphocytes # (auto) 1.91 K/uL (1.2-3.4); Lymphocytes % (auto) 8.5 %; Monocytes # (auto) 1.16 K/uL (0.11-0.59); Monocytes % (auto) 5.1 %; Neutrophils # (auto) 18.83 K/uL (1.4-6.5); Neutrophils % (auto) 83.4 %; RBC Morphology Unremarkable
[2020-06-11 00:55] LABS: Magnesium 1.2 mg/dl (1.8-2.4); Phosphorus 3.1 mg/dl (2.5-4.9)
[2020-06-11] MEDS: MAGNESIUM SULFATE / D5W 1 GM/100 ML BAG IV SCH ×2 (01:16→02:19)
[2020-06-11] MEDS ORDERED: LORazepam 0.5 MG TAB PO PRN (04:47)
[2020-06-11] MEDS ORDERED: traMADol HCL 50 MG TABLET PO PRN (04:47)
[2020-06-11] MEDS ORDERED: ACETAMINOPHEN 325 MG TAB PO PRN (04:47)
[2020-06-11] MEDS ORDERED: POTASSIUM CHLORIDE 20 MEQ/15 ML UDC PO STA (04:47)
[2020-06-11] MEDS ORDERED: oxyCODONE HCL IR 5 MG TAB (IMMEDIATE RELEASE) PO PRN (04:47)
[2020-06-11] MEDS ORDERED: PROCHLORPERAZINE MALEATE 10 MG TAB PO PRN (04:47)
[2020-06-11] MEDS: SODIUM CHLORIDE 0.9% 1000ML 1,000 ML IV SCH ×3 (04:55→20:45)
--- NOTE | 2020-06-11 05:05 | History and Physical Report ---
DATE OF ADMISSION: 06/11/2020 CHIEF COMPLAINT: Vaginal bleeding and anemia. HISTORY OF PRESENT ILLNESS: This is a 54-year-old female with past medical history significant for metastatic endometrial carcinoma status post chemo and treatment, currently following with [facility] in [place], and on Keytruda. She had 1 dose of Keytruda so far, supposed to get every 3 weeks. Presents with vaginal bleeding, started at 10:00 p.m., significant amount, and her hemoglobin is 6.6 in the ER, baseline around 8. Getting 2 units of PRBCs. The patient is on therapeutic dose of Lovenox for history of CVA in April of this year. She has a history of mural thrombus and she was placed on Eliquis. She was on tamoxifen for cancer and on imaging studies, she was found to have acute infarcts in multiple locations, thought to be suggestive of embolic etiology because risk factors thought to be from history of metastatic endometrial cancer and history of LV thrombus and also on hormonal therapy. So at that time, Eliquis was changed to therapeutic Lovenox. The patient says she has a small amount of vaginal bleed every day, but today it was significantly in large amount. Denies any dizziness. No chest pain, no shortness of breath, no cough, no headache, no blurred visions, no earache, no runny nose, no sore throat, no nausea, no vomiting, no abdominal pain. Denies any blood in the stools or black stools. Denies any hematuria. Somewhat tired and exhausted. Blood pressure is running on the lower side. So far received 1 unit of PRBC, going to get 1 more unit of PRBCs. Has lower extremity edema and says it is getting worse and patient does not ambulate . As per the , at [facility], they said the tumor is close to the nerves and blood vessels, so they could not operate it. They are hoping with the Keytruda the tumor may shrink and they may do the surgery and the patient does not want to get transferred tonight. They want to wait and observe overnight and if the bleeding reduces back to baseline, she wanted to get discharged and go to [place]. Anyway, she has an appointment coming Tuesday. If the bleeding does not stop, the said he is going to call his doctors in [place] and get their opinion for any further plan of action, but they do not want to get transferred anywhere tonight. ALLERGIES: APPLE, APRICOT, ERIC, PEACH, PEAR, PLUM, AND CIPROFLOXACIN. PAST MEDICAL HISTORY: As mentioned above. PAST SURGICAL HISTORY: , hysteroscopy, back surgery, ligation of oviducts, MediPort insertion, neck surgery, portal vein catheterization. MEDICATIONS: Currently, the patient is on Lipitor 40 mg p.o. p.m., Lovenox 60 mg subcutaneous q. 12 hours, Lasix 20 mg p.o. p.m., gabapentin 100 mg b.i.d., Dilaudid 2 mg p.o. q. 6 hours p.r.n., Keytruda IV every 3 weeks., lorazepam 0.5 mg p.o. q. 6 hours p.r.n., morphine 15 mg p.o. b.i.d., Zofran 8 mg p.o. b.i.d. p.r.n., oxycodone 5 mg p.o. q. 4 hours p.r.n., prochlorperazine 10 mg p.o. q. 6 hours p.r.n., tramadol 50 mg p.o. q. 6 hours p.r.n. FAMILY HISTORY: Significant for aunt has breast cancer, father had CABG, father had neurological disorder. SOCIAL HISTORY: and lives with . No smoking. Alcohol occasional. No drug use. REVIEW OF SYSTEMS: As per HPI. Rest of review of systems negative. PHYSICAL EXAMINATION: GENERAL: The patient is of moderate build, not in acute distress. VITAL SIGNS: Temperature 37, pulse 94, respiratory rate 18, blood pressure 91/49, oxygen 98% on room air. HEENT: Pupils are equal, round, reactive to light. Oral mucosa moist. NECK: No JVD, no neck masses. CARDIOVASCULAR: S1, S2 heard, regular rate and rhythm, no murmur, no gallop. RESPIRATORY SYSTEM: Normal AP diameter. No accessory muscle use. No wheezing, no crackles. ABDOMEN: Soft, bowel sounds present, nontender. No distention. CENTRAL NERVOUS SYSTEM: Alert and oriented. Speech is clear. No facial droop seen. Moves extremities. EXTREMITIES: Lower extremity edema present, no erythema seen. LABORATORY DATA: WBC 22, hemoglobin 6.6, hematocrit 20.8, platelets 332. PT 12, INR 1.1, APTT 32.2. Sodium 135, potassium 3.1, chloride 197, bicarbonate 28, BUN 15, creatinine 1.27, serum glucose 220, calcium 8.5, phosphorus 3.1, magnesium 1.2, total bilirubin 0.2, AST 14, ALT 7, alkaline phosphatase 81. EKG: Sinus tachycardia at a rate of 137, nonspecific T-wave abnormalities seen. ASSESSMENT AND PLAN: This is a 54-year-old female who presents with significant vaginal bleeding and anemia and tachycardia. 1. Acute blood loss anemia from vaginal bleeding .Tachycardia on presentation, which is improved currently. Hemoglobin 6.6, baseline is around 8. Going to get 2 units of PRBCs and will check the hemoglobin and if needed will transfuse further. We will hold the home Lovenox. Closely monitor in the tele floor. The patient does not want to get transferred at this time. To decide about further plan of action in the morning. If the bleeding comes back to her baseline, they want to get discharged and follow with her usual oncologist in [place]. If she continues to bleed, they want to talk to her [place] doctors and decide further plan of action. We will monitor her hemodynamics. 2. Electrolyte abnormalities with low potassium, low magnesium. We will replace and follow the repeat labs. 3. Hyperglycemia, no diagnosis of diabetes. We will follow HbA1c level in a.m. We will place on insulin sliding scale. 4. Metastatic endometrial carcinoma status post chemo and radiation, currently getting Keytruda at [place] at [facility] and locally follows with [facility] hem/onc. 5. History of stroke, embolic, recently, and history of mural thrombus. Last echo on 04/10/2020, there was no thrombus. Last admission , she had stroke and she was placed on Lovenox, which we are currently holding because of the significant vaginal bleeding.Restarting as per hem/onc when stable. 6. Chronic pain. Continue her home pain medications. 7. Hyperlipidemia, continue statin. 8. Lower extremity edema. Holding the Lasix. Follow up with PCP. 9. Leukocytosis, was present last admission also , likely reactive. Will follow the repeat labs. 10. History of hypertension, not on any medications, will monitor. 11. Deep venous thrombosis prophylaxis, sequential compression devices. DISPOSITION: Closely monitor in the tele floor. Plan to discharge home versus transfer to tertiary care, to be determined. Level 1 full code. MTDD
[2020-06-11] MEDS: HYDROmorphone HCL 2 MG TAB PO PRN (05:18)
--- NOTE | 2020-06-11 05:57 | Emergency Department Note ---
History of Present Illness General Chief complaint: Vaginal Bleeding Time Seen by Provider: 06/10/20 23:10 Source: patient, EMS and RN notes reviewed Mode of arrival: ambulatory Limitations: no limitations History of Present Illness Provider complaint: Vaginal bleeding, uterine cancer Maximum Pain Intensity: 6 This patient is a 54-year-old female who presents emergency department with complaints of heavy vaginal bleeding. The patient states she has stage IV uterine cancer and therefore does have some vaginal bleeding constantly. Patient states she was napping on the couch this afternoon when she realized she felt wet. Patient's assisted her to the bathroom where she realized she was passing a large blood clot. She continued to bleed into the toilet. When she felt the bleeding had stabilized, she walked back to the living room. Shortly thereafter the patient felt a gush. Patient's called for the ambulance. This has happened to her 1 time previously about a year ago. The patient's hemoglobin was as low as 2.6. Currently the patient is receiving treatment through [facility] in [place]. Patient denies any fevers, syncope, chest pain, shortness of breath, vomiting or diarrhea. Home Medications Home Medications Medication Instructions Recorded Confirmed Type atorvastatin 40 mg PO PM 10/04/19 06/11/20 History oxycodone 5 mg PO Q4H PRN 10/04/19 06/11/20 History tramadol 50 mg tablet 50 mg PO Q6H PRN 01/04/20 06/11/20 History enoxaparin [Lovenox] 60 mg SUBCUT Q12H 30 Days #36 ml 04/10/20 06/11/20 Rx furosemide 20 mg tablet 20 mg PO QPM 04/25/20 06/11/20 History Keytruda 1 ea IV . EVERY 3 WEEKS 06/11/20 06/11/20 History gabapentin 100 mg PO AMPM 06/11/20 06/11/20 History hydromorphone 2 mg PO Q6 PRN 06/11/20 06/11/20 History lorazepam 0.5 mg PO Q6 PRN 06/11/20 06/11/20 History morphine 15 mg PO BID 06/11/20 06/11/20 History ondansetron HCl [Zofran] 8 mg PO BID PRN 06/11/20 06/11/20 History prochlorperazine maleate 10 mg PO Q6 PRN 06/11/20 06/11/20 History Allergies Allergy/AdvReac Type Severity Reaction Status Date / Time apple Allergy Unknown Swelling Verified 04/25/20 09:53 of Lip/Tongue/Throat apricot Allergy Unknown Swelling Verified 04/25/20 09:53 of Lip/Tongue/Throat corona Allergy Unknown Swelling Verified 04/25/20 09:53 of Lip/Tongue/Throat peach Allergy Unknown Swelling Verified 04/25/20 09:53 of Lip/Tongue/Throat pear Allergy Unknown Swelling Verified 04/25/20 09:53 of Lip/Tongue/Throat plum Allergy Unknown Swelling Verified 04/25/20 09:53 of Lip/Tongue/Throat ciprofloxacin [From Cipro] AdvReac Severe Anaphylaxis Verified 04/25/20 09:53 Past Med/Surg History Medical History (Updated 06/11/20 @ 06:17 by Savanna Aleman MD) Anemia Admitted to [facility] [place] 04/17/19 for profound anemia, H/H 2.8/10.4. Transfused 5 units pRBC during admission, Hgb 9.2 at time of transfer to [facility]. 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 Repeat cardiac MRI 06/2019 showed resolution; pt has been maintained on Lovenox injections per oncology recommendations. 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 CANNOT TILT HEAD ALL THE WAY BACK History of tubal ligation Family History Grandfather Heart disease CABG Mother Heart disease CABG Diabetes Father , age 65 heart disease No problems noted. Brother , age 51 [place] No problems noted. Sister No problems noted. Daughter No problems noted. Son No problems noted. 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 and A total of 10 systems reviewed and were otherwise negative Physical Exam Vital Signs Vital Signs - 24 hr 06/10/20 23:08 06/11/20 00:15 06/11/20 00:37 Temperature 37.5 C 37.4 C Temperature Source Oral Oral Pulse Rate 135 H 113 H Respiratory Rate 18 18 Respiratory Effort / Characteristics Non-Labored Respiratory Depth Normal Blood Pressure 104/65 88/53 L Blood Pressure Mean 78 64 Blood Pressure Position Pulse Oximetry 100 99 Oxygen Delivery Method Room Air Room Air Sepsis Recent Fever Within 48 Hours No Sepsis New/Unexplained Change in Mental Status No Sepsis Action Taken by Nursing No Action Required 06/11/20 00:54 06/11/20 01:09 06/11/20 01:39 Temperature 37.1 C 37.1 C 37.2 C Temperature Source Oral Oral Oral Pulse Rate 122 H 109 H 99 H Respiratory Rate 20 18 18 Respiratory Effort / Characteristics Respiratory Depth Blood Pressure 86/53 L 85/49 L 88/50 L Blood Pressure Mean 64 61 62 Blood Pressure Position Sitting Sitting Sitting Pulse Oximetry 98 98 Oxygen Delivery Method Sepsis Recent Fever Within 48 Hours Sepsis New/Unexplained Change in Mental Status Sepsis Action Taken by Nursing 06/11/20 02:00 06/11/20 02:18 Temperature 36.8 C 37 C Temperature Source Oral Oral Pulse Rate 97 H 96 H Respiratory Rate 14 19 Respiratory Effort / Characteristics Respiratory Depth Blood Pressure 87/49 L 79/50 L Blood Pressure Mean 61 59 Blood Pressure Position Pulse Oximetry 99 99 Oxygen Delivery Method Sepsis Recent Fever Within 48 Hours Sepsis New/Unexplained Change in Mental Status Sepsis Action Taken by Nursing Vital signs reviewed. General: Chronically ill-appearing 54-year-old female, in no significant distress. HEENT: No scleral icterus, pale conjunctiva, dry mucous membranes, PERRLA, neck supple. Atraumatic. Cardiovascular: Tachycardic but regular, no extra sounds. Pulmonary: Clear to auscultation bilaterally, normal work of breathing. Abdomen: Soft, nontender, nondistended, positive bowel sounds. Musculoskeletal: Atraumatic, no peripheral edema. : Normal external female genitals, external exam reveals vaginal bleeding is controlled. Neurologic: Patient awake alert and oriented x 3 Skin: Warm, dry, no rash Course Administered Medications Hydromorphone HCl (Hydromorphone Hcl 2 Mg Tab) 2 mg PO Q6 PRN PRN Reason: Pain Stop: 06/25/20 04:46 Last Admin: 06/11/20 05:18 Dose: 2 mg Documented by: [id number] Sodium Chloride (Nss 1000ml) 1,000 mls @ 100 mls/hr IV .Q10H DADA Stop: 07/11/20 04:46 Last Admin: 06/11/20 04:55 Dose: 100 mls/hr Documented by: [id number] Discontinued Medications Sodium Chloride (Nss 1000ml) 1,000 mls @ 999 mls/hr IV .Q1H1M DADA Stop: 06/11/20 00:30 Last Infusion: 06/11/20 00:33 Dose: 0 mls/hr Documented by: [id number] Admin: 06/10/20 23:24 Dose: 999 mls/hr Documented by: [id number] Magnesium Sulfate/Dextrose (Magnesium Sulfate / D5w) 1 gm in 100 mls @ 100 mls /hr IV Q1H DADA Stop: 06/11/20 03:09 Last Infusion: 06/11/20 03:18 Dose: 0 mls/hr Documented by: [id number] Admin: 06/11/20 02:19 Dose: 100 mls/hr Documented by: [id number] Infusion: 06/11/20 02:19 Dose: 0 mls/hr Documented by: [id number] Admin: 06/11/20 01:16 Dose: 100 mls/hr Documented by: [id number] Potassium Chloride (Potassium Chloride 20 Meq/15 Ml Udc) 60 meq PO NOW STA Stop: 06/11/20 04:48 Last Admin: 06/11/20 06:00 Dose: 60 meq Documented by: [id number] Critical Care Time Critical Care Time: Yes (45) I have personally spent greater than 45 minutes of critical care time in the direct management of this patient. This includes bedside care, interpretation of diagnostic studies, and testing, discussion with consultants, patient, and family members, and other required patient management activities. This 45 minutes is in excess of all separately billable procedures. Medical Decision Making Differential Diagnosis The differential diagnosis of this patient's presentation includes anemia, volume depletion, sepsis, bleeding tumor, metastatic disease, UTI, vessel erosion Medical Records Attestation: I reviewed the patient's medical records. Home Medications Current Medication List: was personally reviewed by me Laboratory Data Attestation: I reviewed the patient's lab results. Result diagrams: 06/10/20 23:03 06/10/20 23:03 Lab Results 06/10/20 06/10/20 06/10/20 Range/Units 23:03 23:03 23:03 WBC 22.58 H (4.8-10.8) K/uL RBC 2.24 L (4.2-5.4) M/uL Hgb 6.6 L* (12.0-16.0) g/dL Hct 20.8 L* (37-47) % MCV 92.9 (80-100) fL MCH 29.5 (25-34) pg MCHC 31.7 L (32-36) g/dL RDW Std Deviation 56.2 H (36.4-46.3) fL RDW Coeff of Devaughn 16.9 H (11.5-14.5) % Plt Count 332 (130-400) K/uL MPV 8.2 (7.4-10.4) fL Immature Gran % (Auto) 1.7 % Neut % (Auto) 83.4 % Lymph % (Auto) 8.5 % [place] % (Auto) 5.1 % Eos % (Auto) 1.1 % Baso % (Auto) 0.2 % Neut # (Auto) 18.83 H (1.4-6.5) K/uL Lymph # (Auto) 1.91 (1.2-3.4) K/uL [place] # (Auto) 1.16 H (0.11-0.59) K/uL Eos # (Auto) 0.25 (0-0.5) K/uL Baso # (Auto) 0.04 (0-0.2) K/uL Immature Gran # (Auto) 0.39 H (0.00-0.02) K/uL RBC Morphology Unremarkable PT 12.0 (9.0-12.0) Seconds INR 1.1 (0.9-1.1) APTT 32.2 H (21.0-31.0) Seconds PTT Ratio 1.2 Sodium (136-145) mmol/L Potassium (3.5-5.1) mmol/L Chloride (98-107) mmol/L Carbon Dioxide (21-32) mmol/L Anion Gap (3-11) BUN (7-18) mg/dl Creatinine (0.6-1.2) mg/dl Est Cr Clr Drug Dosing ml/min Est GFR ( Amer) Est GFR (Non-Af Amer) BUN/Creatinine Ratio (10-20) Glucose (70-99) mg/dl Calcium (8.5-10.1) mg/dl Phosphorus (2.5-4.9) mg/dl Magnesium (1.8-2.4) mg/dl Total Bilirubin (0.2-1) mg/dl AST (15-37) U/L ALT (12-78) U/L Alkaline Phosphatase (45-117) U/L Total Protein (6.4-8.2) gm/dl Albumin (3.4-5.0) gm/dl Globulin (2.5-4.0) gm/dl Albumin/Globulin Ratio (0.9-2) Blood Type A Positive Antibody Screen NEGATIVE Crossmatch See Detail 06/10/20 Range/Units 23:03 WBC (4.8-10.8) K/uL RBC (4.2-5.4) M/uL Hgb (12.0-16.0) g/dL Hct (37-47) % MCV (80-100) fL MCH (25-34) pg MCHC (32-36) g/dL RDW Std Deviation (36.4-46.3) fL RDW Coeff of Devaughn (11.5-14.5) % Plt Count (130-400) K/uL MPV (7.4-10.4) fL Immature Gran % (Auto) % Neut % (Auto) % Lymph % (Auto) % [place] % (Auto) % Eos % (Auto) % Baso % (Auto) % Neut # (Auto) (1.4-6.5) K/uL Lymph # (Auto) (1.2-3.4) K/uL [place] # (Auto) (0.11-0.59) K/uL Eos # (Auto) (0-0.5) K/uL Baso # (Auto) (0-0.2) K/uL Immature Gran # (Auto) (0.00-0.02) K/uL RBC Morphology PT (9.0-12.0) Seconds INR (0.9-1.1) APTT (21.0-31.0) Seconds PTT Ratio Sodium 135 L (136-145) mmol/L Potassium 3.1 L (3.5-5.1) mmol/L Chloride 97 L (98-107) mmol/L Carbon Dioxide 28 (21-32) mmol/L Anion Gap 10.0 (3-11) BUN 15 (7-18) mg/dl Creatinine 1.27 H (0.6-1.2) mg/dl Est Cr Clr Drug Dosing 44.5 ml/min Est GFR ( Amer) 55.0 Est GFR (Non-Af Amer) 47.5 BUN/Creatinine Ratio 11.7 (10-20) Glucose 220 H (70-99) mg/dl Calcium 8.5 (8.5-10.1) mg/dl Phosphorus 3.1 (2.5-4.9) mg/dl Magnesium 1.2 L (1.8-2.4) mg/dl Total Bilirubin 0.2 (0.2-1) mg/dl AST 14 L (15-37) U/L ALT 7 L (12-78) U/L Alkaline Phosphatase 81 (45-117) U/L Total Protein 7.2 (6.4-8.2) gm/dl Albumin 1.8 L (3.4-5.0) gm/dl Globulin 5.4 H (2.5-4.0) gm/dl Albumin/Globulin Ratio 0.3 L (0.9-2) Blood Type Antibody Screen Crossmatch ECG Data Attestation: I personally reviewed and interpreted this ECG as follows: Indication: + tachycardia Rate (beats per minute): 137 Rhythm: + sinus tachycardia ECG Intervals/blocks: + Prolonged QT (480) ECG ST segments: + Nonspecific ST abnormalities ECG Findings: + Other (poor qualiy baseline); no PACs and no PVCs Blood Pressure Blood Pressure Findings: Low blood pressure Blood Pressure Disposition: further management by hospitalist MDM Narrative This patient was evaluated and appeared to be in no significant distress. Patient denied the need for any pain medications. Patient does have a complicated medical history including metastatic uterine cancer. Records were reviewed. Patient has had palliative pelvic radiation and chemotherapy in the past. She is currently under treatment with [facility] in [place] and under evaluation for immunotherapy. Upon my evaluation the patient, she was typed and crossed for 2 units PRBCs and consented for blood transfusion. Patient is noted to have a hemoglobin of 6.6 and her systolic blood pressure largely in the 80s and 90s. Patient's heart rate has improved after IV hydration and PRBCs. Patient's bleeding seems to have subsided. On my reevaluation, the patient was sitting up in the bed but seem to be in no distress. She and her discussed whether or not they would like to be transferred to [place], they decided to stay for blood and follow-up with her physician later. Dr. Rosas of the hospitalist service has been consulted and he will evaluate the patient for admission and further management. Impression & Plan Dysfunctional uterine bleeding, Anemia, Metastatic adenocarcinoma, Hypotension due to blood loss Discharge Plan Visit Data Chief Complaint: Vaginal Bleeding ED Provider: Savanna Aleman Discharge Problem: Dysfunctional uterine bleeding, Anemia, Metastatic adenocarcinoma, Hypotension due to blood loss Patient Disposition: Admitted As Inpatient Discharge Instructions Interventions: ED Discharge Assessment Last Done: 06/11/20 04:21 Discharge Problem: Anemia Qualifiers: Anemia type: iron deficiency Iron deficiency anemia type: chronic blood loss Qualified Code(s): D50.0 - Iron deficiency anemia secondary to blood loss (chronic)
[2020-06-11] MEDS ORDERED: SODIUM CHLORIDE 0.9% 500 ML IV SCH (06:30)
[2020-06-11 07:08] LABS: Basophils # (auto) 0.05 K/uL (0-0.2); Basophils % (auto) 0.2 %; Eosinophils # (auto) 0.11 K/uL (0-0.5); Eosinophils % (auto) 0.5 %; Hematocrit (blood only) 26.2 % (37-47); Hemoglobin 8.7 g/dL (12.0-16.0); Immature Granulocytes % (auto) 1.9 %; Lymphocytes # (auto) 1.08 K/uL (1.2-3.4); Lymphocytes % (auto) 5.2 %; Mean Corpuscular Hemoglobin 29.9 pg (25-34); Mean Corpuscular Hgb Conc 33.2 g/dL (32-36); Mean Platelet Volume 8.3 fL (7.4-10.4); Monocytes # (auto) 1.27 K/uL (0.11-0.59); Monocytes % (auto) 6.1 %; Neutrophils # (auto) 17.84 K/uL (1.4-6.5); Neutrophils % (auto) 86.1 %; Platelet Count 202 K/uL (130-400); RDW Coefficient of Variation 15.6 % (11.5-14.5); RDW Standard Deviation 50.3 fL (36.4-46.3); Red Blood Count 2.91 M/uL (4.2-5.4); White Blood Count 20.75 K/uL (4.8-10.8)
[2020-06-11] MEDS ORDERED: GLUCAGON FOR INJ 1 MG VIAL IM PRN (07:15)
[2020-06-11] MEDS ORDERED: DEXTROSE 50% 50 ML SYRINGE IV PRN (07:15)
[2020-06-11] MEDS ORDERED: GLUCOSE 10 TABS/TUBE PO PRN (07:15)
[2020-06-11] MEDS ORDERED: CARBOHYDRATES FOR HYPOGLYCEMIA PO PRN (07:15)
[2020-06-11] MEDS ORDERED: GLUCOSE 40% GEL 15 GM TUBE PO PRN (07:15)
[2020-06-11 07:44] LABS: BUN Creatinine Ratio 13.7 (10-20); Calcium 8.2 mg/dl (8.5-10.1); Creatinine Clr Calc Pharmacy 54.3 ml/min; Est GFR (African American) 70.9; Est GFR (Non-African American) 61.1; Magnesium 2.1 mg/dl (1.8-2.4); Phosphorus 3.4 mg/dl (2.5-4.9); Potassium 4.4 mmol/L (3.5-5.1)
[2020-06-11] MEDS: GABAPENTIN 100 MG CAP PO SCH ×2 (08:24→20:46)
[2020-06-11 08:25] LABS: Hematocrit (blood only) 25.2 % (37-47); Hemoglobin 8.4 g/dL (12.0-16.0)
[2020-06-11] MEDS: MoRPHine SULFATE CR 15 MG TABCR PO SCH ×2 (08:30→20:45)
[2020-06-11] MEDS: INSULIN ASPART 100 UNITS/ML 3 ML PEN SC SCH ×3 (08:46→16:23)
[2020-06-11] MEDS ORDERED: SODIUM CHLORIDE 0.9% 500 ML IV ONE (09:06)
[2020-06-11 11:06] LABS: Estimated Average Glucose 114 mg/dl; Hemoglobin A1C 5.6 % (4.5-5.6)
[2020-06-11 13:32] LABS: Hematocrit (blood only) 21.7 % (37-47); Hemoglobin 7.2 g/dL (12.0-16.0)
[2020-06-11] MEDS ORDERED: SODIUM CHLORIDE 0.9% 250 ML IV PRN (13:45)
--- NOTE | 2020-06-11 14:17 | Electrocardiogram Report ---
Test Reason : Blood Pressure : / mmHG Vent. Rate : 137 BPM Atrial Rate : 137 BPM P-R Int : 162 ms QRS Dur : 064 ms QT Int : 318 ms P-R-T Axes : 064 001 042 degrees QTc Int : 480 ms Sinus tachycardia Otherwise normal ECG When compared with ECG of 10-APR-2020 07:10, Vent. rate has increased BY 55 BPM Nonspecific T wave abnormality no longer evident in Anterior leads Confirmed by Wilder Gr ([id number]) on 06/11/2020 2:16:32 PM Referred By: REFERRED SELF Confirmed By:Zev Gr
--- NOTE | 2020-06-11 16:45 | Hospitalist Progress Note ---
Date of Service June 11, 2020 Assessment & Plan (1) Metastatic adenocarcinoma: Patient is a 53-year-old female with history of metastatic endometrial carcinoma presents with significant vaginal bleeding, anemia and tachycardia. Symptomatic acute blood loss anemia Secondary to vaginal bleeding from endometrial carcinoma S/P 3 units PRBCs Lovenox held Monitor H&H and transfuse PRBCs as needed Hb:6.6>7.2 Discussed with her primary oncologist May need palliative radiation if bleeding uncontrolled Plan to transfer to [facility] if clinically deteriorates Patient currently does not prefer OBGYN/Radiation Oncology involved at [facility] Possible Acute kidney failure Likely prerenal Cr levels improved Monitor renal function Hypokalemia Hypomagnesemia Replete electrolytes as needed Monitor Metastatic Endometrial carcinoma S/P chemo and radiation Currently on Keytruda Follows with Dr.Suresh Christina at [place] at [facility] As follow up appointment on 06/13/20 Contact No:[phone] H/O CVA-embolic H/O Mural thrombus. Last echo on 04/10/2020, there was no thrombus Was on Lovenox--held due to bleeding Plan to restart lovenox once cleared by Oncology Chronic pain Continue home medications Hyperlipidemia continue statin. Hypotension IV fluids, PRBCs as needed Monitor Lower extremity edema Hold Lasix for now Leukocytosis Likely due to Metastatic Carcinoma DVT Px: SCDs Re: Bleeding Code Status Full Code Disposition To be determined Admission and Anticipated Discharge Date Admission Date: June 11, 2020 Subjective Patient is seen and examined at bedside Received 2 units PRBCs overnight Had vaginal bleeding with clots this morning Denies any pain, dyspnea, dizziness, nausea, abdominal pain Discussed with her primary oncologist over the phone Family at bedside Offers no other complaints Review of Systems Review of Systems: All systems reviewed & are unremarkable except as noted in HPI & below Physical Exam Physical Exam: Physical Exam: Vitals signs as noted above General Appearance:Moderately built and nourished, no apparent distress Head: normocephalic, Atraumatic Eyes: normal inspection, EOMI, +Pallor Neck: supple, Trachea midline Respiratory/Chest: Normal breath sounds, CTA, +Chemo port on R side Cardiovascular: S1, S2, No murmur Abdomen/GI:Soft, Non tender, Bowel sounds present Extremities/Musculoskelatal:normal inspection, B/L LE 2+ edema Neurologic/Psych:AAOX3, grossly no focal neurological deficits Skin: normal color, warm Results & Data Results & Data ([facility]) Vital Signs (Past 12 Hours) Vital Signs Temp Pulse Pulse Resp BP BP Pulse Ox 06/11/20 16:20 36.6 C 82 18 87/56 L 99 06/11/20 15:56 36.8 C 89 18 77/46 L 99 06/11/20 15:20 36.6 C 87 18 85/53 L 99 06/11/20 14:50 36.6 C 86 18 93/59 L 99 06/11/20 14:38 36.6 C 89 18 94/61 L 99 06/11/20 14:35 36.6 C 89 18 94/61 L 99 06/11/20 14:28 36.7 C 87 18 76/49 L 06/11/20 11:09 36.8 C 84 16 84/51 L 100 06/11/20 08:59 06/11/20 08:52 82/62 L 06/11/20 08:51 86 06/11/20 08:21 36.8 C 88 18 82/53 L 100 06/11/20 05:41 85 06/11/20 05:32 36.7 C 94 H 16 82/48 L 100 Pulse Ox 06/11/20 16:20 06/11/20 15:56 06/11/20 15:20 06/11/20 14:50 06/11/20 14:38 06/11/20 14:35 06/11/20 14:28 06/11/20 11:09 06/11/20 08:59 99 06/11/20 08:52 06/11/20 08:51 06/11/20 08:21 06/11/20 05:41 06/11/20 05:32 Laboratory Results Short CBC 06/10/20 06/11/20 06/11/20 Range/Units 23:03 06:51 07:56 WBC 22.58 H 20.75 H (4.8-10.8) K/uL Hgb 6.6 L* 8.7 L 8.4 L (12.0-16.0) g/dL Hct 20.8 L* 26.2 L 25.2 L (37-47) % Plt Count 332 202 (130-400) K/uL 06/11/20 Range/Units 13:12 WBC (4.8-10.8) K/uL Hgb 7.2 L (12.0-16.0) g/dL Hct 21.7 L (37-47) % Plt Count (130-400) K/uL BMP 06/10/20 06/11/20 23:03 06:51 Sodium 135 L 136 Potassium 3.1 L 4.4 D Chloride 97 L 103 Carbon Dioxide 28 28 BUN 15 14 Creatinine 1.27 H 1.03 Glucose 220 H 116 H Calcium 8.5 8.2 L Liver Function 06/10/20 Range/Units 23:03 Total Bilirubin 0.2 (0.2-1) mg/dl AST 14 L (15-37) U/L ALT 7 L (12-78) U/L Alkaline Phosphatase 81 (45-117) U/L Albumin 1.8 L (3.4-5.0) gm/dl
[2020-06-11 19:20] LABS: Hematocrit (blood only) 25.4 % (37-47); Hemoglobin 8.3 g/dL (12.0-16.0)
[2020-06-11] MEDS ORDERED: ATORVASTATIN 40 MG TAB PO SCH (21:00)
[2020-06-12 01:10] LABS: Hematocrit (blood only) 22.8 % (37-47); Hemoglobin 7.5 g/dL (12.0-16.0)
[2020-06-12] MEDS ORDERED: SODIUM CHLORIDE 0.9% 250 ML IV PRN (01:50)
[2020-06-12] MEDS ORDERED: HEPARIN 100 UNIT/ML 5ML FLUSH FLUSH PRN (02:59)
[2020-06-12] MEDS: HYDROmorphone HCL 2 MG TAB PO PRN (05:29)
[2020-06-12 05:57] LABS: Appearance Urine Cloudy (Clear); Bilirubin Urine Negative (Negative); Blood Urine 3+ (Negative); Color Urine Red; Glucose Urine UA Negative (Negative); Ketones Urine Negative (Negative); Leukocyte Esterase Urine Negative (Negative); Nitrite Urine Negative (Negative); Protein Urine 1+ (Negative); Specific Gravity Urine 1.015 (1.000-1.030); Urobilinogen Urine Positive (Negative); pH Urine 6.5 (4.5-7.5)
[2020-06-12 06:09] LABS: RBC Urine >30 /hpf (0-4)
[2020-06-12 06:13] LABS: Bacteria Urine 1+ (Negative); Epithelial Cell Urine >30 /lpf (0-5)
[2020-06-12 07:17] LABS: Hematocrit (blood only) 27.6 % (37-47); Hemoglobin 9.3 g/dL (12.0-16.0)
[2020-06-12 07:54] LABS: BUN Creatinine Ratio 15.3 (10-20); Calcium 8.2 mg/dl (8.5-10.1); Creatinine Clr Calc Pharmacy 64.2 ml/min; Est GFR (African American) 86.9; Magnesium 1.7 mg/dl (1.8-2.4); Potassium 3.9 mmol/L (3.5-5.1)
[2020-06-12] MEDS: GABAPENTIN 100 MG CAP PO SCH (08:45)
[2020-06-12] MEDS: MoRPHine SULFATE CR 15 MG TABCR PO SCH (08:45)
[2020-06-12] MEDS ORDERED: cefTRIAXone SODIUM 1,000 MG in DEXTROSE 5% 50 ML IV SCH (09:30)
[2020-06-12] MEDS ORDERED: MAGNESIUM CHLORIDE 64MG DELAYED REL TAB PO SCH (09:30)
[2020-06-12 10:59] VITALS: BP 99/64; TEMP 98.1; O2SAT 99
[2020-06-12 13:19] LABS: Hematocrit (blood only) 27.6 % (37-47); Hemoglobin 9.2 g/dL (12.0-16.0)
--- NOTE | 2020-06-12 13:42 | Hospitalist Progress Note ---
Date of Service June 12, 2020 Assessment & Plan (1) Metastatic adenocarcinoma: Patient is a 53-year-old female with history of metastatic endometrial carcinoma presents with significant vaginal bleeding, anemia and tachycardia. Symptomatic acute blood loss anemia Secondary to vaginal bleeding from endometrial carcinoma S/P 3 units PRBCs Lovenox held Monitor H&H and transfuse PRBCs as needed Hb:6.6>7.2>9.2 Discussed with her primary oncologist May need palliative radiation if bleeding uncontrolled Patient currently does not prefer OBGYN/Radiation Oncology involved at [facility] No significant bleeding currently Abnormal UA Likely contamination Cultures pending Patient prefers no antibiotics to be started currently Possible Acute kidney failure Likely prerenal Cr levels back to baseline Monitor renal function Received IV fluids Hypokalemia Hypomagnesemia Replete electrolytes as needed Monitor Metastatic Endometrial carcinoma S/P chemo and radiation Currently on Keytruda Follows with Dr.Suresh Christina at [place] at [facility] As follow up appointment on 06/13/20 Contact No:[phone] Plan for Keytruda treatment tomorrow at [facility] Discussed with on multiple occasions H/O CVA-embolic H/O Mural thrombus. Last echo on 04/10/2020, there was no thrombus Was on Lovenox--held due to bleeding Plan to restart lovenox once cleared by Oncology Chronic pain Continue home medications Hyperlipidemia continue statin. Hypotension BP better Monitor Lower extremity edema Hold Lasix for now Leukocytosis Likely due to Metastatic Carcinoma DVT Px: SCDs Re: Bleeding Code Status Full Code Disposition Plan to discharge home today Admission and Anticipated Discharge Date Admission Date: June 11, 2020 Subjective Patient is seen and examined at bedside States feeling much better today Minimal vaginal bleeding--at baseline as per patient Hemoglobin stable Discussed with patient's primary oncologist Dr. Christina over the phone Denies any pain, dyspnea, dizziness, nausea, abdominal pain, dysuria, increased urinary frequency Family at bedside Review of Systems Review of Systems: All systems reviewed & are unremarkable except as noted in HPI & below Physical Exam Physical Exam: Physical Exam: Vitals signs as noted above General Appearance:Moderately built and nourished, no apparent distress Head: normocephalic, Atraumatic Eyes: normal inspection, EOMI, +Pallor Neck: supple, Trachea midline Respiratory/Chest: Normal breath sounds, CTA, +Chemo port on R side Cardiovascular: S1, S2, No murmur Abdomen/GI:Soft, Non tender, Bowel sounds present Extremities/Musculoskelatal:normal inspection, B/L LE 2+ edema Neurologic/Psych:AAOX3, grossly no focal neurological deficits Skin: normal color, warm Results & Data Results & Data ([facility]) Vital Signs (Past 12 Hours) Vital Signs Temp Pulse Pulse Resp BP BP Pulse Ox 06/12/20 10:58 36.7 C 88 18 99/64 L 99 06/12/20 07:32 37.1 C 92 H 16 90/58 L 98 06/12/20 04:30 36.9 C 79 18 100/58 L 99 06/12/20 04:05 36.9 C 80 18 99/63 L 98 06/12/20 03:05 36.9 C 82 18 94/59 L 96 06/12/20 02:35 37.0 C 82 18 88/52 L 99 06/12/20 02:20 36.7 C 80 18 83/53 L 97 06/12/20 02:03 37 C 86 16 90/53 L 99 Laboratory Results Short CBC 06/11/20 06/12/20 06/12/20 Range/Units 19:06 01:00 06:57 Hgb 8.3 L 7.5 L 9.3 L (12.0-16.0) g/dL Hct 25.4 L 22.8 L 27.6 L (37-47) % 06/12/20 Range/Units 13:00 Hgb 9.2 L (12.0-16.0) g/dL Hct 27.6 L (37-47) % BMP 06/12/20 06:57 Sodium 139 Potassium 3.9 Chloride 106 Carbon Dioxide 28 BUN 13 Creatinine 0.87 Glucose 103 H Calcium 8.2 L Urine 06/12/20 Range/Units 05:27 Urine Color Red Urine Appearance Cloudy A (Clear) Urine pH 6.5 (4.5-7.5) Ur Specific [place] 1.015 (1.000-1.030) Urine Protein 1+ H (Negative) Urine Glucose (UA) Negative (Negative)
--- NOTE | 2020-06-12 13:48 | Discharge Summary ---
Date of Service June 12, 2020 Admission HPI Per Admitting Provider CHIEF COMPLAINT: Vaginal bleeding and anemia. HISTORY OF PRESENT ILLNESS: This is a 54-year-old female with past medical history significant for metastatic endometrial carcinoma status post chemo and treatment, currently following with [facility] in [place], and on Keytruda. She had 1 dose of Keytruda so far, supposed to get every 3 weeks. Presents with vaginal bleeding, started at 10:00 p.m., significant amount, and her hemoglobin is 6.6 in the ER, baseline around 8. Getting 2 units of PRBCs. The patient is on therapeutic dose of Lovenox for history of CVA in April of this year. She has a history of mural thrombus and she was placed on Eliquis. She was on tamoxifen for cancer and on imaging studies, she was found to have acute infarcts in multiple locations, thought to be suggestive of embolic etiology because risk factors thought to be from history of metastatic endometrial cancer and history of LV thrombus and also on hormonal therapy. So at that time, Eliquis was changed to therapeutic Lovenox. The patient says she has a small amount of vaginal bleed every day, but today it was significantly in large amount. Denies any dizziness. No chest pain, no shortness of breath, no cough, no headache, no blurred visions, no earache, no runny nose, no sore throat, no nausea, no vomiting, no abdominal pain. Denies any blood in the stools or black stools. Denies any hematuria. Somewhat tired and exhausted. Blood pressure is running on the lower side. So far received 1 unit of PRBC, going to get 1 more unit of PRBCs. Has lower extremity edema and says it is getting worse and patient does not ambulate . As per the , at [facility], they said the tumor is close to the nerves and blood vessels, so they could not operate it. They are hoping with the Keytruda the tumor may shrink and they may do the surgery and the patient does not want to get transferred tonight. They want to wait and observe overnight and if the bleeding reduces back to baseline, she wanted to get discharged and go to [place]. Anyway, she has an appointment coming Tuesday. If the bleeding does not stop, the said he is going to call his doctors in [place] and get their opinion for any further plan of action, but they do not want to get transferred anywhere tonight. Admission Exam Per Admitting Provider PHYSICAL EXAMINATION: GENERAL: The patient is of moderate build, not in acute distress. VITAL SIGNS: Temperature 37, pulse 94, respiratory rate 18, blood pressure 91/49, oxygen 98% on room air. HEENT: Pupils are equal, round, reactive to light. Oral mucosa moist. NECK: No JVD, no neck masses. CARDIOVASCULAR: S1, S2 heard, regular rate and rhythm, no murmur, no gallop. RESPIRATORY SYSTEM: Normal AP diameter. No accessory muscle use. No wheezing, no crackles. ABDOMEN: Soft, bowel sounds present, nontender. No distention. CENTRAL NERVOUS SYSTEM: Alert and oriented. Speech is clear. No facial droop seen. Moves extremities. EXTREMITIES: Lower extremity edema present, no erythema seen. Principal Diagnosis Symptomatic acute blood loss anemia Hypokalemia Hypomagnesemia Metastatic endometrial carcinoma Possible urinary tract infection Discharge Data Allergies Allergy/AdvReac Type Severity Reaction Status Date / Time apple Allergy Unknown Swelling Verified 04/25/20 09:53 of Lip/Tongue/Throat apricot Allergy Unknown Swelling Verified 04/25/20 09:53 of Lip/Tongue/Throat corona Allergy Unknown Swelling Verified 04/25/20 09:53 of Lip/Tongue/Throat peach Allergy Unknown Swelling Verified 04/25/20 09:53 of Lip/Tongue/Throat pear Allergy Unknown Swelling Verified 04/25/20 09:53 of Lip/Tongue/Throat plum Allergy Unknown Swelling Verified 04/25/20 09:53 of Lip/Tongue/Throat ciprofloxacin [From Cipro] AdvReac Severe Anaphylaxis Verified 04/25/20 09:53 Consultations 06/11/20 01:20 ED Decision to Admit Stat 06/11/20 04:47 Consult Case Management - Discharge Planning Routine Hospital Course (1) Metastatic adenocarcinoma: Patient is a 53-year-old female with history of metastatic endometrial carcinoma presents with significant vaginal bleeding, anemia and tachycardia. Symptomatic acute blood loss anemia Secondary to vaginal bleeding from endometrial carcinoma S/P 3 units PRBCs Lovenox held Monitor H&H and transfuse PRBCs as needed Hb:6.6>7.2>9.2 Discussed with her primary oncologist May need palliative radiation if bleeding uncontrolled Patient currently does not prefer OBGYN/Radiation Oncology involved at [facility] No significant bleeding currently Abnormal UA Likely contamination Cultures pending Patient prefers no antibiotics to be started currently Possible Acute kidney failure Likely prerenal Cr levels back to baseline Monitor renal function Received IV fluids Hypokalemia Hypomagnesemia Replete electrolytes as needed Monitor Metastatic Endometrial carcinoma S/P chemo and radiation Currently on Keytruda Follows with Dr.Suresh Christina at [place] at [facility] As follow up appointment on 06/13/20 Contact No:[phone] Plan for Keytruda treatment tomorrow at [facility] Discussed with on multiple occasions H/O CVA-embolic H/O Mural thrombus. Last echo on 04/10/2020, there was no thrombus Was on Lovenox--held due to bleeding Plan to restart lovenox once cleared by Oncology Chronic pain Continue home medications Hyperlipidemia continue statin. Hypotension BP better Monitor Lower extremity edema Hold Lasix for now Leukocytosis Likely due to Metastatic Carcinoma DVT Px: SCDs Re: Bleeding Code Status Full Code Disposition Plan to discharge home today Total Time Total Time Spent Total Time Spent (In Minutes): 43 minutes Total Time Includes: Examination of the Patient, Discharge Planning, Medication Reconciliation, Communication With Other Providers and Other Discharge Plan Discharge Items Patient Disposition: Home - Self-Care Reason For Visit: VAGINAL BLEEDING Discharge Diagnosis: Symptomatic acute blood loss anemia Hypokalemia Hypomagnesemia Metastatic endometrial carcinoma Possible urinary tract infection Activity: Per Instructions section Exercise/Sports: Gradually increase as tolerated Non-emergency contact: Primary Care Provider and Oncologist Call non-emergency contact if: you have any medication questions, your symptoms worsen, your pain is not controlled, your pain is worsening, your pain is unusual for you, your pain is concerning for you and you have a fever Follow-up/Referrals: Howard Roldan MD [Primary Care Provider] - Diet: Regular Addtl Attending Provider Instructions: Follow-up with your primary care physician Dr. Roldan in 1 week as advised Follow-up with your oncologist Dr.Suresh Christina on 06/13/20 as scheduled Your urine culture is pending at the time of discharge. Follow-up with your physician for results. You may need to be started on antibiotic if your urine culture suggestive of urinary tract infection. Hold taking Lovenox today. Discussed with your oncologist tomorrow (06/13/20) for further recommendations as to when to restart your Lovenox injections for anticoagulation. Seek immediate medical attention if your symptoms reoccur or worsen Pending Studies at Discharge: Yes Studies:: Urine Culture Stand-Alone Forms: My [facility], Smoking Cessation Medications and DC Order Prescriptions: New magnesium chloride [Mag 64] 64 mg Tablet,Delayed Release (Dr/Ec) 64 mg PO BID Qty: 10 RF: 0 Continued furosemide [Lasix] 20 mg tablet 20 mg PO QPM RF: 0 tramadol 50 mg tablet 50 mg PO Q6H PRN (Reason: Pain) RF: 0 enoxaparin [Lovenox] 60 mg/0.6 mL syringe 60 mg subcut Q12H 30 Days Qty: 36 RF: 1 gabapentin 100 mg capsule 100 mg PO AMPM RF: 0 prochlorperazine maleate 10 mg tablet 10 mg PO Q6 PRN (Reason: Nausea) RF: 0 morphine 15 mg tablet extended release 15 mg PO BID RF: 0 hydromorphone 2 mg tablet 2 mg PO Q6 PRN (Reason: Pain) RF: 0 lorazepam 0.5 mg tablet 0.5 mg PO Q6 PRN (Reason: Anxiety) RF: 0 ondansetron HCl 8 mg Tablet 8 mg PO BID PRN (Reason: Nausea) RF: 0 Keytruda 1 ea IV . EVERY 3 WEEKS RF: 0 atorvastatin 40 mg Tablet 40 mg PO PM RF: 0 oxycodone 5 mg Tablet 5 mg PO Q4H PRN (Reason: Pain) RF: 0 Discharge Orders: Discharge Order (Routine); Ordered 06/12/20 Ordered By: Jakob Elaine Admission Data Admit Date/Time: 06/11/20 02:31 Attending Provider: Jakob Elaine Admit Provider: Henrique Rosas Primary Care Provider: Howard Roldan Other Providers: Henrique Rosas Other Interventions: Discharge Summary Assessment (RN) Last Done: 06/12/20 14:08
[2020-06-12 14:09] VITALS: PULSE 87
== END 2020-06-12 14:45 | disposition home or self-care (01) | DRG 755 ==
LOC: ED 22:57 → 2S 06-11 02:31

== ENCOUNTER 2020-07-18 12:41 | Inpatient (IN) ==
[2020-07-18] MEDS ORDERED: SODIUM CHLORIDE 0.9% 250 ML IV PRN ×2 (13:28→21:09)
[2020-07-18] MEDS ORDERED: SODIUM CHLORIDE 0.9% 500 ML IV SCH (13:30)
--- NOTE | 2020-07-18 13:49 | Emergency Department Note ---
History of Present Illness General Chief complaint: Abnormal Labs/Diagnostic Testing Stated complaint: ABNORMAL LAB RESULTS, REFERRED BY DR Riojas Seen by Provider: 07/18/20 13:28 Source: patient Mode of arrival: ambulatory Limitations: no limitations History of Present Illness Provider complaint: Anemia Maximum Pain Intensity: 0 This is a 54-year-old female who presents to the ED with a chief complaint of anemia. She states that she had some blood work today that showed her hemoglobin was 5.9. She has a history of uterine cancer. The patient states that she is not sure where her bleeding is coming from. She has had transfusions in the past for the same. The patient states that she has had vaginal bleeding in the past related to her uterine cancer but has not seen any gross blood when she wipes herself recently. She has no additional complaints at this time. I did obtain laboratory studies from [facility] that revealed that her hemoglobin is 5.9. Platelet count was normal. White blood cell count was 20.43. Home Medications Medication Instructions Recorded Confirmed Type atorvastatin 40 mg PO PM 10/04/19 06/11/20 History oxycodone 5 mg PO Q4H PRN 10/04/19 06/11/20 History tramadol 50 mg tablet 50 mg PO Q6H PRN 01/04/20 06/11/20 History enoxaparin [Lovenox] 60 mg SUBCUT Q12H 30 Days #36 ml 04/10/20 06/11/20 Rx furosemide 20 mg tablet 20 mg PO QPM 04/25/20 06/11/20 History Keytruda 1 ea IV . EVERY 3 WEEKS 06/11/20 06/11/20 History gabapentin 100 mg PO AMPM 06/11/20 06/11/20 History hydromorphone 2 mg PO Q6 PRN 06/11/20 06/11/20 History lorazepam 0.5 mg PO Q6 PRN 06/11/20 06/11/20 History morphine 15 mg PO BID 06/11/20 06/11/20 History ondansetron HCl 8 mg PO BID PRN 06/11/20 06/11/20 History prochlorperazine maleate 10 mg PO Q6 PRN 06/11/20 06/11/20 History magnesium chloride [Mag 64] 64 mg PO BID #10 tab 06/12/20 Rx Allergies Allergy/AdvReac Type Severity Reaction Status Date / Time apple Allergy Unknown Swelling Verified 04/25/20 09:53 of Lip/Tongue/Throat apricot Allergy Unknown Swelling Verified 04/25/20 09:53 of Lip/Tongue/Throat corona Allergy Unknown Swelling Verified 04/25/20 09:53 of Lip/Tongue/Throat peach Allergy Unknown Swelling Verified 04/25/20 09:53 of Lip/Tongue/Throat pear Allergy Unknown Swelling Verified 04/25/20 09:53 of Lip/Tongue/Throat plum Allergy Unknown Swelling Verified 04/25/20 09:53 of Lip/Tongue/Throat ciprofloxacin [From Cipro] AdvReac Severe Anaphylaxis Verified 04/25/20 09:53 Past Med/Surg History Medical History (Updated 07/18/20 @ 14:56 by Kvng Sexton DO) Anemia Admitted to [facility] 04/17/19 for profound anemia, H/H 2.8/10.4. Transfused 5 units pRBC during admission, Hgb 9.2 at time of transfer to [facility]. 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 Repeat cardiac MRI 06/2019 showed resolution; pt has been maintained on Lovenox injections per oncology recommendations. 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 CANNOT TILT HEAD ALL THE WAY BACK History of tubal ligation Family History Grandfather Heart disease CABG Mother Heart disease CABG Diabetes Father , age 65 heart disease No problems noted. Brother , age 51 OR No problems noted. Sister No problems noted. Daughter No problems noted. Son No problems noted. 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 Feels Safe at Home: Yes Childhood Exposure to Second-Hand Smoke: Yes Diet Comment: no special diet appetie fair caffeine: No during the past year weight has: decreased > 10 lbs Dental Care, Regularly: No Physical Activity Frequency: Does not Exercise Seatbelt Use: always Sunscreen Use: Yes Assistive Devices: None Review of Systems A total of 10 systems reviewed and were otherwise negative Physical Exam Vital Signs Vital Signs - 24 hr 07/18/20 13:09 07/18/20 13:41 07/18/20 13:53 Temperature 37.3 C Temperature Source Oral Pulse Rate 73 95 H 98 H Pulse Rate from SpO2 Sensor 95 H 98 H Respiratory Rate 18 17 16 Respiratory Effort / Characteristics Non-Labored Spontaneous Respiratory Depth Normal Blood Pressure 90/57 L 80/51 L 92/52 L Blood Pressure Mean 68 54 73 Pulse Oximetry 100 99 100 Oxygen Delivery Method Room Air Sepsis Recent Fever Within 48 Hours No Sepsis New/Unexplained Change in Mental Status No Sepsis Action Taken by Nursing No Action Required 07/18/20 13:55 07/18/20 14:00 07/18/20 14:45 Temperature 37.4 C Temperature Source Oral Pulse Rate 97 H 91 H Pulse Rate from SpO2 Sensor 96 H Respiratory Rate 17 20 Respiratory Effort / Characteristics Respiratory Depth Blood Pressure 93/55 L 82/49 L Blood Pressure Mean 75 60 Pulse Oximetry 97 99 97 Oxygen Delivery Method Room Air Sepsis Recent Fever Within 48 Hours Sepsis New/Unexplained Change in Mental Status Sepsis Action Taken by Nursing CONSTITUTIONAL/VITAL SIGNS: Reviewed / noted above. GENERAL: Non-toxic in appearance. INTEGUMENTARY: Warm, dry, and slightly pale. HEAD: Normocephalic. EYES: without scleral icterus or trauma. ENT/OROPHARYNX: clear and moist. LYMPHADENOPATHY/NECK: Is supple without lymphadenopathy or meningismus. RESPIRATORY: Lungs clear and equal. CARDIOVASCULAR: Regular rate and rhythm. GI/ABDOMEN: Soft and nontender. No organomegaly or pulsatile mass. No rebound or guarding. Normal bowel sounds. EXTREMITIES: Warm and well perfused. BACK: No CVA tenderness. NEUROLOGICAL: Intact without focal deficits. PSYCHIATRIC: normal affect. MUSCULOSKELETAL: Normally developed with good muscle tone. TRIAGE NURSING DOCUMENTATION REVIEWED. Course Administered Medications Discontinued Medications Sodium Chloride (Nss) 500 mls @ 999 mls/hr IV .Q31M DADA Stop: 07/18/20 14:00 Last Admin: 07/18/20 13:44 Dose: 999 mls/hr Documented by: [id number] Critical Care Time Critical Care Time: Yes Total Critical Care Time: 30 I have personally spent 30 minutes of critical care time in the direct management of this patient. This includes bedside care, interpretation of diagnostic studies, and testing, discussion with consultants, patient, and family members, and other required patient management activities. This 30 minutes is in excess of all separately billable procedures. Medical Decision Making Differential Diagnosis Differential includes acute coronary syndrome, myocardial infarction, CVA, TIA, anemia, infection, pneumonia, UTI, pyelonephritis, poor nutrition, dehydration, electrolyte disturbance,hypoglycemia. Medical Records Attestation: I reviewed the patient's medical records. Home Medications Current Medication List: was personally reviewed by me Laboratory Data Attestation: I reviewed the patient's lab results. Result diagrams: 07/18/20 13:38 07/18/20 13:38 Lab Results 07/18/20 07/18/20 07/18/20 Range/Units 13:38 13:38 13:38 WBC 20.14 H (4.8-10.8) K/uL RBC 2.05 L (4.2-5.4) M/uL Hgb 5.6 L* (12.0-16.0) g/dL Hct 18.2 L* (37-47) % MCV 88.8 (80-100) fL MCH 27.3 (25-34) pg MCHC 30.8 L (32-36) g/dL RDW Std Deviation 57.4 H (36.4-46.3) fL RDW Coeff of Devaughn 17.8 H (11.5-14.5) % Plt Count 320 (130-400) K/uL MPV 8.2 (7.4-10.4) fL Immature Gran % (Auto) 2.1 % Neut % (Auto) 87.5 % Lymph % (Auto) 4.5 % [place] % (Auto) 4.4 % Eos % (Auto) 1.4 % Baso % (Auto) 0.1 % Neut # (Auto) 17.61 H (1.4-6.5) K/uL Lymph # (Auto) 0.91 L (1.2-3.4) K/uL [place] # (Auto) 0.89 H (0.11-0.59) K/uL Eos # (Auto) 0.28 (0-0.5) K/uL Baso # (Auto) 0.03 (0-0.2) K/uL Immature Gran # (Auto) 0.42 H (0.00-0.02) K/uL Polychromasia 1+ Spherocytes 1+ PT (9.0-12.0) Seconds INR (0.9-1.1) APTT (21.0-31.0) Seconds PTT Ratio Sodium 134 L (136-145) mmol/L Potassium 3.5 (3.5-5.1) mmol/L Chloride 100 (98-107) mmol/L Carbon Dioxide 26 (21-32) mmol/L Anion Gap 8.0 (3-11) BUN 19 H (7-18) mg/dl Creatinine 1.49 H (0.6-1.2) mg/dl Est Cr Clr Drug Dosing Not Reportable Est GFR ( Amer) 45.4 Est GFR (Non-Af Amer) 39.1 BUN/Creatinine Ratio 12.5 (10-20) Glucose 157 H (70-99) mg/dl Calcium 8.2 L (8.5-10.1) mg/dl Total Bilirubin 0.4 (0.2-1) mg/dl AST 12 L (15-37) U/L ALT < 6 L (12-78) U/L Alkaline Phosphatase 98 (45-117) U/L Troponin I < 0.015 (0-0.045) ng/ml Total Protein 7.0 (6.4-8.2) gm/dl Albumin 1.8 L (3.4-5.0) gm/dl Globulin 5.2 H (2.5-4.0) gm/dl Albumin/Globulin Ratio 0.3 L (0.9-2) Blood Type A Positive Antibody Screen NEGATIVE Crossmatch See Detail 07/18/20 Range/Units 13:38 WBC (4.8-10.8) K/uL RBC (4.2-5.4) M/uL Hgb (12.0-16.0) g/dL Hct (37-47) % MCV (80-100) fL MCH (25-34) pg MCHC (32-36) g/dL RDW Std Deviation (36.4-46.3) fL RDW Coeff of Devaughn (11.5-14.5) % Plt Count (130-400) K/uL MPV (7.4-10.4) fL Immature Gran % (Auto) % Neut % (Auto) % Lymph % (Auto) % [place] % (Auto) % Eos % (Auto) % Baso % (Auto) % Neut # (Auto) (1.4-6.5) K/uL Lymph # (Auto) (1.2-3.4) K/uL [place] # (Auto) (0.11-0.59) K/uL Eos # (Auto) (0-0.5) K/uL Baso # (Auto) (0-0.2) K/uL Immature Gran # (Auto) (0.00-0.02) K/uL Polychromasia Spherocytes PT 12.3 H (9.0-12.0) Seconds INR 1.2 H (0.9-1.1) APTT 34.8 H (21.0-31.0) Seconds PTT Ratio 1.2 Sodium (136-145) mmol/L Potassium (3.5-5.1) mmol/L Chloride (98-107) mmol/L Carbon Dioxide (21-32) mmol/L Anion Gap (3-11) BUN (7-18) mg/dl Creatinine (0.6-1.2) mg/dl Est Cr Clr Drug Dosing Est GFR ( Amer) Est GFR (Non-Af Amer) BUN/Creatinine Ratio (10-20) Glucose (70-99) mg/dl Calcium (8.5-10.1) mg/dl Total Bilirubin (0.2-1) mg/dl AST (15-37) U/L ALT (12-78) U/L Alkaline Phosphatase (45-117) U/L Troponin I (0-0.045) ng/ml Total Protein (6.4-8.2) gm/dl Albumin (3.4-5.0) gm/dl Globulin (2.5-4.0) gm/dl Albumin/Globulin Ratio (0.9-2) Blood Type Antibody Screen Crossmatch ECG Data Attestation: I personally reviewed and interpreted this ECG as follows: Indication: + weakness Rate (beats per minute): [address] segments: no ST elevation ECG Findings: no PVCs MDM Narrative This is a 54-year-old female who has a history of uterine cancer and anemia. The patient has had blood transfusions in the past for the same. The patient reports that they were unable to find the source of her anemia. She states they are still investigating this. The patient denies any additional complaints at this time other than some generalized fatigue and weakness. She was sent here for blood transfusions. The patient's hemoglobin here is 5.6. White blood cell count is elevated although this appears to be chronic. No other significant abnormalities on lab test. Troponin is negative. Twelve-lead EKG shows a normal sinus rhythm at a rate of 94. Patient will be seen by the hospitalist for further inpatient evaluation and care. Blood transfusion for 2 units has been ordered. Impression & Plan Anemia Discharge Plan Visit Data Chief Complaint: Abnormal Labs/Diagnostic Testing Stated Complaint: ABNORMAL LAB RESULTS, REFERRED BY ED Provider: Kvng Sexton Discharge Problem: Anemia Forms Stand Alone Forms: [facility] Prescriptions Prescriptions: No Action furosemide [Lasix] 20 mg tablet 20 mg PO QPM RF: 0 tramadol 50 mg tablet 50 mg PO Q6H PRN (Reason: Pain) RF: 0 enoxaparin [Lovenox] 60 mg/0.6 mL syringe 60 mg subcut Q12H 30 Days Qty: 36 RF: 1 gabapentin 100 mg capsule 100 mg PO AMPM RF: 0 prochlorperazine maleate 10 mg tablet 10 mg PO Q6 PRN (Reason: Nausea) RF: 0 morphine 15 mg tablet extended release 15 mg PO BID RF: 0 hydromorphone 2 mg tablet 2 mg PO Q6 PRN (Reason: Pain) RF: 0 lorazepam 0.5 mg tablet 0.5 mg PO Q6 PRN (Reason: Anxiety) RF: 0 ondansetron HCl 8 mg Tablet 8 mg PO BID PRN (Reason: Nausea) RF: 0 Keytruda 1 ea IV . EVERY 3 WEEKS RF: 0 magnesium chloride [Mag 64] 64 mg Tablet,Delayed Release (Dr/Ec) 64 mg PO BID Qty: 10 RF: 0 atorvastatin 40 mg Tablet 40 mg PO PM RF: 0 oxycodone 5 mg Tablet 5 mg PO Q4H PRN (Reason: Pain) RF: 0 Discharge Problem: Anemia Qualifiers: Anemia type: unspecified type Qualified Code(s): D64.9 - Anemia, unspecified
[2020-07-18 13:56] LABS: Hematocrit (blood only) 18.2 % (37-47); Hemoglobin 5.6 g/dL (12.0-16.0); Mean Corpuscular Hemoglobin 27.3 pg (25-34); Mean Corpuscular Hgb Conc 30.8 g/dL (32-36); Mean Corpuscular Volume 88.8 fL (80-100); Mean Platelet Volume 8.2 fL (7.4-10.4); Platelet Count 320 K/uL (130-400); RDW Coefficient of Variation 17.8 % (11.5-14.5); RDW Standard Deviation 57.4 fL (36.4-46.3); Red Blood Count 2.05 M/uL (4.2-5.4); White Blood Count 20.14 K/uL (4.8-10.8)
[2020-07-18 14:02] LABS: INR 1.2 (0.9-1.1); Partial Thromboplastin Ratio 1.2; Partial Thromboplastin Time 34.8 Seconds (21.0-31.0); Prothrombin Time 12.3 Seconds (9.0-12.0)
[2020-07-18 14:08] LABS: Alanine Aminotransferase < 6 U/L (12-78); Albumin Level 1.8 gm/dl (3.4-5.0); Aspartate Aminotransferase 12 U/L (15-37); BUN Creatinine Ratio 12.5 (10-20); Blood Urea Nitrogen 19 mg/dl (7-18); Calcium 8.2 mg/dl (8.5-10.1); Carbon Dioxide 26 mmol/L (21-32); Chloride 100 mmol/L (98-107); Est GFR (African American) 45.4; Est GFR (Non-African American) 39.1; Glucose 157 mg/dl (70-99); Potassium 3.5 mmol/L (3.5-5.1); Sodium 134 mmol/L (136-145)
[2020-07-18 14:13] LABS: Albumin Globulin Ratio 0.3 (0.9-2); Alkaline Phosphatase 98 U/L (45-117); Bilirubin,Total 0.4 mg/dl (0.2-1); Globulin 5.2 gm/dl (2.5-4.0); Troponin I < 0.015 ng/ml (0-0.045)
[2020-07-18 14:19] LABS: Basophils # (auto) 0.03 K/uL (0-0.2); Basophils % (auto) 0.1 %; Eosinophils # (auto) 0.28 K/uL (0-0.5); Eosinophils % (auto) 1.4 %; Immature Granulocytes # (auto) 0.42 K/uL (0.00-0.02); Immature Granulocytes % (auto) 2.1 %; Lymphocytes # (auto) 0.91 K/uL (1.2-3.4); Lymphocytes % (auto) 4.5 %; Monocytes # (auto) 0.89 K/uL (0.11-0.59); Monocytes % (auto) 4.4 %; Neutrophils # (auto) 17.61 K/uL (1.4-6.5); Neutrophils % (auto) 87.5 %; Polychromasia 1+; Spherocytes 1+
--- NOTE | 2020-07-18 15:12 | Electrocardiogram Report ---
Test Reason : Blood Pressure : / mmHG Vent. Rate : 094 BPM Atrial Rate : 094 BPM P-R Int : 112 ms QRS Dur : 082 ms QT Int : 464 ms P-R-T Axes : 070 008 046 degrees QTc Int : 580 ms Poor data quality, interpretation may be adversely affected Normal sinus rhythm Normal ECG When compared with ECG of 10-JUN-2020 23:06, T wave amplitude has decreased in Anterior leads Confirmed by Dwight Mata ([id number]) on 07/18/2020 3:12:00 PM Referred By: Confirmed By:Dwight Mata
--- NOTE | 2020-07-18 15:16 | History & Physical Report ---
Date of Service July 18, 2020 Assessment & Plan (1) Hypotension due to blood loss: (2) Severe anemia: (3) Dysfunctional uterine bleeding: This is a 54yo F with a PMH of metastatic endometrial carcinoma s/p chemo and XRT who presents with hypotension, symptomatic anemia in setting of me tastatic uterine malignancy. -Hgb 5.9 today, decreased from 7.1 last week. -Consented, type/crossed and transfusing 2u prbcs -Recent hospitalizations for uterine hemorrhage s/p multiple transfusions and uterine artery embolization with particles and coils at [facility] while on SQ Lovenox -No known active bleeding but will need imaging once hemodynamically stable -On SQ lovenox for extensive RLE DVT - need to hold for now -BP 88/51 currently. ICU for monitoring for hemodynamic instability -Goal hgb >8 (4) Metastatic adenocarcinoma: Follows with Dr. Christina of [facility]. Got 2nd Cycle of Keytruda on 06/20 -PET scan with findings consistent with progressive disease characterized by increasing size and metabolic activity in the uterine mass as well as interval progression of metastatic lymphadenopathy in the abdomen and pelvis as described above. New cortical erosions/lytic lesions along the anterior and right side of the L4 vertebral body adjacent to the enlarging right iliac chain lymphadenopathy is most suspicious for osseous involvement -Discussed case with Dr. Garcia (nonfarm animal caretaker for [facility] heme onc). Case with poor prognosis, recommends holding SQ Lovenox for now and addressing possibility of IVC filter once patient stable (5) Right leg DVT: Extensive DVT in RLE on SQ Lovenox -Holding Lovenox in setting of acute symptomatic anemia -Venous Doppler of RLE when stable (6) Leukocytosis: WBC 20.14, likely elevated in part from Keytruda -T: 37.8 C, CXR, CT a/p and UA pending to evaluate for infection -Blood cultures, lactate and procal pending -Cover empirically with zosyn and vanc (7) Acute renal failure: Cr elevated at 1.49 (baseline ~1) in setting of severe anemia and metastatic disease in abd/pelvis- need CT abdomen to evaluate for possible obstruction -Expect improvement with volume resuscitation Code status: FULL per discussion with patient, - consider palliative care consult to address further in setting of critically ill patient with poor prognosis PCP: Yuli Dispo: Admitted to ICU Patient seen in collaboration with Dr. Ortiz. Please see addendum. History of Present Illness Primary Care Provider: Howard Roldan MD This is a 54yo F with a PMH of metastatic endometrial carcinoma s/p chemo and XRT who presents with low hemoglobin on outpatient lab work. Patient on Keytruda, scheduled for 3 cycles. She got 2nd Cycle on 06/20. Hemoglobin was 7.1 at that time. Had repeat lab work performed today and hgb was 5.9. Patient directed to ED for transfusion. Follows with Dr. Christina of [facility] in [place]. Was recently admitted to [facility] on for extensive RLE DVT as well as uterine artery embolization with particles and coils. Discharged home and had vaginal spotting for the next few weeks, per discussion with . Denies any vaginal spotting for the past 6 days. Denies any hematochezia but does endorse one episode of dark stool last week. Has not recurred since. In ED, patient consented, type and crossed for 2u prbcs. BP 90/57. Patient alert and oriented and able to provide some history. Has been feeling fatigued and lightheaded but denies fever, chills, headache,cough, chest pain, SOB, abdominal pain, dysuria or hematuria. Became significantly hypotensive to 68/43 at beginning of transfusion but has improved to 80/51. Discussed case with examination scorer Dr. Fuentes who accepts to manage in ICU in setting of hypotension and profound anemia. Discussed code status with patient and and she wishes to be a FULL CODE. Awaiting call from oncologist, Dr. Christina. Will need imaging to evaluate for potential source of bleed once hemodynamically stable. Allergies Allergy/AdvReac Type Severity Reaction Status Date / Time apple Allergy Unknown Swelling Verified 07/18/20 15:55 of Lip/Tongue/Throat apricot Allergy Unknown Swelling Verified 07/18/20 15:55 of Lip/Tongue/Throat corona Allergy Unknown Swelling Verified 07/18/20 15:55 of Lip/Tongue/Throat peach Allergy Unknown Swelling Verified 07/18/20 15:55 of Lip/Tongue/Throat pear Allergy Unknown Swelling Verified 07/18/20 15:55 of Lip/Tongue/Throat plum Allergy Unknown Swelling Verified 07/18/20 15:55 of Lip/Tongue/Throat ciprofloxacin [From Cipro] AdvReac Severe Anaphylaxis Verified 07/18/20 15:55 Home Medications Medication Instructions Recorded Confirmed Type atorvastatin 40 mg PO PM 10/04/19 07/18/20 History oxycodone 5 mg PO Q4H PRN 10/04/19 07/18/20 History tramadol 50 mg tablet 50 mg PO Q6H PRN 01/04/20 07/18/20 History enoxaparin [Lovenox] 60 mg SUBCUT Q12H 30 Days #36 ml 04/10/20 07/18/20 Rx Keytruda 1 ea IV . EVERY 3 WEEKS 06/11/20 07/18/20 History gabapentin 100 mg PO TID 06/11/20 07/18/20 History hydromorphone 2 mg PO Q4 PRN 06/11/20 07/18/20 History lorazepam 0.5 mg PO Q6 PRN 06/11/20 07/18/20 History prochlorperazine maleate 10 mg PO Q6 PRN 06/11/20 07/18/20 History morphine [MS Contin] 15 mg PO BID 07/18/20 07/18/20 History Past Med/Surg History Medical History (Updated 07/18/20 @ 17:54 by Izzy Finnegan PA-C) Anemia Admitted to [facility] 04/17/19 for profound anemia, H/H 2.8/10.4. Transfused 5 units pRBC during admission, Hgb 9.2 at time of transfer to [facility]. Asthma NO INHALER> WELL CONTROLLED Cholelithiasis Diverticular disease History of CVA (cerebrovascular accident) History of hysteroscopy Hyperlipidemia Hypertension Hypothyroidism Left ventricular thrombus 04/2019. Repeat cardiac MRI 06/2019 showed resolution; pt has been maintained on Lovenox injections per oncology recommendations. 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 CANNOT TILT HEAD ALL THE WAY BACK History of tubal ligation Family History Grandfather Heart disease CABG Mother Heart disease CABG Diabetes Father , age 65 heart disease No problems noted. Brother , age 51 [place] No problems noted. Sister No problems noted. Daughter No problems noted. Son No problems noted. 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 Physical Exam Physical Exam: General Appearance: vitals as above, pale, appears chronically ill, conversing without issue Head: normocephalic, atraumatic Eyes: normal inspection, PERRL, conjunctivae normal, anicteric sclerae ENT: external ear and nose normal, oropharynx normal Neck: normal visual inspection, trachea midline, no thyromegaly Respiratory: normal respiratory effort, lungs clear to auscultation, no wheeze, rales, rhonchi. No accessory muscle use Cardiovascular: tachycardic rate, regular rhythm, no murmur appreciated, normal peripheral pulses, 2+ BLE edema. Vessels: no JVD Chest: Port in place. Normal inspection of chest Abdomen/GI: normal bowel sounds, soft, nontender, no hepatosplenomegaly Extremities/Musculoskeletal: BLE edema R>L. No cyanosis or clubbing, extremities motor strength 5/5 Neurologic: PERRL, EOMI, accommodation nl, no face palsy, no dysarthria, CN's II-XI intact bilaterally and moves all extremities Psychiatric: A+Ox3, euthymic affect Skin: no rashes, pale, warm/dry Results & Data Results & Data ([facility]) Vital Signs (Past 12 Hours) Vital Signs Temp Pulse Resp BP Pulse Ox 07/18/20 15:06 37.6 C H 90 16 68/43 L 99 07/18/20 14:46 93 H 18 82/49 L 97 07/18/20 14:45 37.4 C 91 H 20 82/49 L 97 07/18/20 14:30 102 H 19 90/62 L 98 07/18/20 14:26 99 H 13 97/49 L 07/18/20 14:00 97 H 17 93/55 L 99 07/18/20 13:55 97 07/18/20 13:53 98 H 16 92/52 L 100 07/18/20 13:41 95 H 17 80/51 L 99 07/18/20 13:09 37.3 C 73 18 90/57 L 100 Laboratory Results Short CBC 07/18/20 07/18/20 07/18/20 Range/Units 13:38 13:38 13:38 WBC 20.14 H (4.8-10.8) K/uL RBC 2.05 L (4.2-5.4) M/uL Hgb 5.6 L* (12.0-16.0) g/dL Hct 18.2 L* (37-47) % MCV 88.8 (80-100) fL MCH 27.3 (25-34) pg MCHC 30.8 L (32-36) g/dL RDW Std Deviation 57.4 H (36.4-46.3) fL RDW Coeff of Devaughn 17.8 H (11.5-14.5) % Plt Count 320 (130-400) K/uL MPV 8.2 (7.4-10.4) fL Immature Gran % (Auto) 2.1 % Neut % (Auto) 87.5 % Lymph % (Auto) 4.5 % Jefferson % (Auto) 4.4 % Eos % (Auto) 1.4 % Baso % (Auto) 0.1 % Neut # (Auto) 17.61 H (1.4-6.5) K/uL Lymph # (Auto) 0.91 L (1.2-3.4) K/uL Jefferson # (Auto) 0.89 H (0.11-0.59) K/uL Eos # (Auto) 0.28 (0-0.5) K/uL Baso # (Auto) 0.03 (0-0.2) K/uL Immature Gran # (Auto) 0.42 H (0.00-0.02) K/uL Polychromasia 1+ Spherocytes 1+ PT (9.0-12.0) Seconds INR (0.9-1.1) APTT (21.0-31.0) Seconds PTT Ratio Sodium 134 L (136-145) mmol/L Potassium 3.5 (3.5-5.1) mmol/L Chloride 100 (98-107) mmol/L Carbon Dioxide 26 (21-32) mmol/L Anion Gap 8.0 (3-11) BUN 19 H (7-18) mg/dl Creatinine 1.49 H (0.6-1.2) mg/dl Est Cr Clr Drug Dosing Not Reportable Est GFR ( Amer) 45.4 Est GFR (Non-Af Amer) 39.1 BUN/Creatinine Ratio 12.5 (10-20) Glucose 157 H (70-99) mg/dl Calcium 8.2 L (8.5-10.1) mg/dl Total Bilirubin 0.4 (0.2-1) mg/dl AST 12 L (15-37) U/L ALT < 6 L (12-78) U/L Alkaline Phosphatase 98 (45-117) U/L Troponin I < 0.015 (0-0.045) ng/ml Total Protein 7.0 (6.4-8.2) gm/dl Albumin 1.8 L (3.4-5.0) gm/dl Globulin 5.2 H (2.5-4.0) gm/dl Albumin/Globulin Ratio 0.3 L (0.9-2) Blood Type A Positive Antibody Screen NEGATIVE Crossmatch See Detail 07/18/20 Range/Units 13:38 WBC (4.8-10.8) K/uL RBC (4.2-5.4) M/uL Hgb (12.0-16.0) g/dL Hct (37-47) % MCV (80-100) fL MCH (25-34) pg MCHC (32-36) g/dL RDW Std Deviation (36.4-46.3) fL RDW Coeff of Devaughn (11.5-14.5) % Plt Count (130-400) K/uL MPV (7.4-10.4) fL Immature Gran % (Auto) % Neut % (Auto) % Lymph % (Auto) % Jefferson % (Auto) % Eos % (Auto) % Baso % (Auto) % Neut # (Auto) (1.4-6.5) K/uL Lymph # (Auto) (1.2-3.4) K/uL Jefferson # (Auto) (0.11-0.59) K/uL Eos # (Auto) (0-0.5) K/uL Baso # (Auto) (0-0.2) K/uL Immature Gran # (Auto) (0.00-0.02) K/uL Polychromasia Spherocytes PT 12.3 H (9.0-12.0) Seconds INR 1.2 H (0.9-1.1) APTT 34.8 H (21.0-31.0) Seconds PTT Ratio 1.2 Sodium (136-145) mmol/L Potassium (3.5-5.1) mmol/L Chloride (98-107) mmol/L Carbon Dioxide (21-32) mmol/L Anion Gap (3-11) BUN (7-18) mg/dl Creatinine (0.6-1.2) mg/dl Est Cr Clr Drug Dosing Est GFR ( Amer) Est GFR (Non-Af Amer) BUN/Creatinine Ratio (10-20) Glucose (70-99) mg/dl Calcium (8.5-10.1) mg/dl Total Bilirubin (0.2-1) mg/dl AST (15-37) U/L ALT (12-78) U/L Alkaline Phosphatase (45-117) U/L Troponin I (0-0.045) ng/ml Total Protein (6.4-8.2) gm/dl Albumin (3.4-5.0) gm/dl Globulin (2.5-4.0) gm/dl Albumin/Globulin Ratio (0.9-2) Blood Type Antibody Screen Crossmatch [facility] 07/18/20 13:38 Sodium 134 L Potassium 3.5 Chloride 100 Carbon Dioxide 26 BUN 19 H Creatinine 1.49 H Glucose 157 H Calcium 8.2 L Cardiac Enzymes 07/18/20 Range/Units 13:38 Troponin I < 0.015 (0-0.045) ng/ml Liver Function 07/18/20 Range/Units 13:38 Total Bilirubin 0.4 (0.2-1) mg/dl AST 12 L (15-37) U/L ALT < 6 L (12-78) U/L Alkaline Phosphatase 98 (45-117) U/L Albumin 1.8 L (3.4-5.0) gm/dl Supervising Physician Co-Signing Physician Notes Physical Exam Gen-AAO x 3, NAD, Afebrile, Pale, Pleasant Head-NCAT, EOMI, PERRLA, Anicteric Sclera, No Posterior Pharyngeal Erythema Neck-Supple, No JVD, No Thyromegaly, No Masses, No LAD, No Bruits Lungs-Clear to Auscultation Bilaterally, No Rales, No Rhonchi, No Wheezing, No Crepitus Chest-No S4, +S1, +S2, No S3, No Murmurs, No Rubs, No Gallops, No Ectopy Abdomen-Soft, Bowel Sounds Present, Non Tender, Non Distended, No Hepatomegaly, No Splenomegaly, No Palpable Masses, No Rebound, No Rigidity, No Guarding Musculoskeletal-Full Range of Motion Bilaterally, No CVAT Extremities-No Cyanosis, No Clubbing, B/L Edema R>>L Nuero-Cranial Nerves II-XII grossly intact, Motor WNL, DTRs WNL, Strength WNL, Non Focal Psych-Normal Mood
[2020-07-18] MEDS ORDERED: ICU PROTOCOL FOR HYPERGLYCEMIA PRN ×2 (16:31→18:43)
--- NOTE | 2020-07-18 16:33 | Critical Care Consultation ---
Date of Consultation July 18, 2020 Assessment & Plan (1) Admitted to intensive care unit: Reason Critically Ill: 54-year-old female presenting with severe anemia and hypotension requiring close hemodynamic monitoring and likely need for vasopressor support in the setting of hypovolemia and concerns for sepsis. NEURO - * CAM ICU: NEGATIVE * Pain: * Patient on chronic narcotic pain medications for pain related to current CA. CARDIAC/VASCULAR - * Hypotension: * Multifactorial in the setting of profound anemia and sepsis. * Continue to resuscitate with blood products. * Pressors as needed. * EKG: Normal sinus rhythm at [address] or T wave changes. QTc 580 ms. * Monitor on telemetry. RESPIRATORY - * No history of pulmonary disease. * Saturating well on room air. GI/NUTRITION - * N.p.o. with progression to clear liquid while on pressors. * Prophylaxis: Famotidine RENAL/LYTES - * Acute kidney injury: * Secondary to profound anemia and poor perfusion. - * Rivera in place - Strict I&Os. ENDO - * No history of diabetes or thyroid disease. * BSGs per unit protocol. ISS --> gtt per unit policy. HEME - * Profound anemia: * No source of bleeding appreciated. * Agree with imaging studies to evaluate for possible bleeding sources. * Received 2 units PRBCs in the emergency department. * Serial H&H. * Transfuse to near baseline. * Patient anticoagulated on Lovenox secondary to extensive RIGHT lower extremity DVT: * Per hospitalist discussion with oncologist provider at [facility], would recommend discontinuing Lovenox at this time. * Will likely need vascular surgery evaluation for possible IVC filter placement. ID - * Severe sepsis with septic shock: * Likely from sacral ulcer. * Will check urine cultures. * Blood cultures pending. * Continue Zosyn. * COVID-19 negative. LINES/IV ACCESS - * PIVs x2 * RIGHT-sided a port. * Rivera catheter DVT PROPHYLAXIS - * Hold on anticoagulation in the setting of severe anemia. * SCDs I have personally spent 55 minutes of critical care time in the direct management of this patient. This is a life/limb threatening event. This includes time spent evaluating patient, direct bedside care, chart review, placing orders, interpretation of diagnostic studies, discussion with consultants, patient, and family members, as well as other required patient management activities. This time is exclusive of all separately billable procedures, and teaching time and separate from and in addition to any other critical care service time. Thank you for allowing us to participate in the care of this patient. Please refer to my attending physician's documentation for any further recommendations. (2) Severe anemia: (3) Severe sepsis: (4) Leukocytosis: (5) Right leg DVT: (6) Acute renal failure: (7) Hypotension due to blood loss: (8) Hypertension: (9) Metastatic adenocarcinoma: History of Present Illness History of Present Illness Patient is an unfortunate 54-year-old female with a significant past medical history of metastatic adenocarcinoma from primary uterine cancer. Patient is treated primarily at the [facility] where she most recently completed a course of Keytruda on 06/20. Patient had blood work drawn today that demonstrated a hemoglobin of 5.9. She presented to the emergency department for need for transfusion. Upon arrival in the emergency department, the patient was found to be hypotensive. She is with leukocytosis as well as profound anemia. She received 2 units PRBCs. Blood pressures were soft, but she continued to maintain MAPs initially. She received IV Zosyn for suspected sepsis from possible sacral ulcer infection. Upon evaluation in the ICU, the patient is awake, alert, and oriented. She is tired, but reports that she is feeling better than her initial presentation. She complains of some pain to her buttocks area and groin. Otherwise, she offers no complaints. Allergies Allergy/AdvReac Type Severity Reaction Status Date / Time apple Allergy Unknown Swelling Verified 07/18/20 15:55 of Lip/Tongue/Throat apricot Allergy Unknown Swelling Verified 07/18/20 15:55 of Lip/Tongue/Throat corona Allergy Unknown Swelling Verified 07/18/20 15:55 of Lip/Tongue/Throat peach Allergy Unknown Swelling Verified 07/18/20 15:55 of Lip/Tongue/Throat pear Allergy Unknown Swelling Verified 07/18/20 15:55 of Lip/Tongue/Throat plum Allergy Unknown Swelling Verified 07/18/20 15:55 of Lip/Tongue/Throat ciprofloxacin [From Cipro] AdvReac Severe Anaphylaxis Verified 07/18/20 15:55 Home Medications Medication Instructions Recorded Confirmed Type atorvastatin 40 mg PO PM 10/04/19 07/18/20 History oxycodone 5 mg PO Q4H PRN 10/04/19 07/18/20 History tramadol 50 mg tablet 50 mg PO Q6H PRN 01/04/20 07/18/20 History enoxaparin [Lovenox] 60 mg SUBCUT Q12H 30 Days #36 ml 04/10/20 07/18/20 Rx Keytruda 1 ea IV . EVERY 3 WEEKS 06/11/20 07/18/20 History gabapentin 100 mg PO TID 06/11/20 07/18/20 History hydromorphone 2 mg PO Q4 PRN 06/11/20 07/18/20 History lorazepam 0.5 mg PO Q6 PRN 06/11/20 07/18/20 History prochlorperazine maleate 10 mg PO Q6 PRN 06/11/20 07/18/20 History morphine [MS Contin] 15 mg PO BID 07/18/20 07/18/20 History Patient History Medical History Anemia Admitted to [facility] 04/17/19 for profound anemia, H/H 2.8/10.4. Transfused 5 units pRBC during admission, Hgb 9.2 at time of transfer to [facility]. Asthma NO INHALER> WELL CONTROLLED Cholelithiasis Diverticular disease History of CVA (cerebrovascular accident) History of hysteroscopy Hyperlipidemia Hypertension Hypothyroidism Left ventricular thrombus 04/2019. Repeat cardiac MRI 06/2019 showed resolution; pt has been maintained on Lovenox injections per oncology recommendations. 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 CANNOT TILT HEAD ALL THE WAY BACK History of tubal ligation Family History Grandfather Heart disease CABG Mother Heart disease CABG Diabetes Father , age 65 heart disease No problems noted. Brother , age 51 [place] No problems noted. Sister No problems noted. Daughter No problems noted. Son No problems noted. 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 All else were negative. Physical Exam Physical Exam: VITAL SIGNS - Vital signs and nursing notes were reviewed. GENERAL - 54-year-old female appearing her stated age who is in no acute distress. Communicates well with provider and answers questions appropriately. SKIN - Large sacral ulcer noted. HEAD - NC/AT. EYES - PERRL with EOMI bilaterally. Sclera anicteric. EARS - No deformities of external structures noted on gross examination bilaterally. NOSE - Midline and without cyanosis. No epistaxis or purulent drainage noted. MOUTH/OROPHARYNX - Without perioral cyanosis. Buccal mucosa pink and dry. NECK - Neck with FROM. Supple to palpation. No nuchal rigidity. LUNGS - Chest wall symmetric without accessory muscle use, intercostals retractions, or central cyanosis. Normal vesicular breath sounds CTA B/L. No wheezes, rales, or rhonchi appreciated. CARDIAC - RRR with S1/S2. No murmur, rubs, or gallops appreciated. ABDOMEN - Abdominal contour flat without pulsations or visible masses. BS nor moactive all four quadrants. No tenderness, palpable masses, hepatosplenomegaly, or ascites noted. EXTREMITIES - No clubbing or peripheral cyanosis. No pretibial edema present. +3/5 radial and dorsalis pedis pulses palpated throughout. NEUROLOGIC - Cranial nerves II through XII grossly intact. PSYCH - A&Ox3 and cooperates fully with examiner. Pt is very pleasant and interacts well with examiner. Results & Data Results & Data ([facility]) Vital Signs (Past 12 Hours) Vital Signs Temp Pulse Resp BP Pulse Ox 07/18/20 16:23 37.6 C H 91 H 18 79/54 L 99 07/18/20 16:15 91 H 19 80/48 L 100 07/18/20 16:11 90 17 84/54 L 99 07/18/20 16:01 90 16 74/40 L 100 07/18/20 15:51 37.4 C 93 H 18 90/47 L 98 07/18/20 15:50 93 H 18 90/47 L 98 07/18/20 15:45 91 H 15 89/49 L 100 07/18/20 15:40 90 19 84/47 L 98 07/18/20 15:35 93 H 15 81/44 L 98 07/18/20 15:30 91 H 19 82/37 L 98 07/18/20 15:24 96 H 19 100/46 L 100 07/18/20 15:21 37.0 C 96 H 18 100/46 L 99 07/18/20 15:20 95 H 19 74/49 L 99 07/18/20 15:11 96 H 14 82/43 L 100 07/18/20 15:06 37.6 C H 90 16 68/43 L 99 07/18/20 15:05 90 15 68/43 L 99 07/18/20 15:01 90 16 76/44 L 98 07/18/20 15:00 91 H 14 74/41 L 99 07/18/20 14:46 93 H 18 82/49 L 97 07/18/20 14:45 37.4 C 91 H 20 82/49 L 97 07/18/20 14:30 102 H 19 90/62 L 98 07/18/20 14:26 99 H 13 97/49 L 07/18/20 14:00 97 H 17 93/55 L 99 07/18/20 13:55 97 07/18/20 13:53 98 H 16 92/52 L 100 07/18/20 13:41 95 H 17 80/51 L 99 07/18/20 13:09 37.3 C 73 18 90/57 L 100 Coding Level of Care Code Critical Care 1st 30-74 mins Diagnoses Admitted to intensive care unit Z78.9 Severe anemia D64.9 Severe sepsis A41.9; R65.20 Leukocytosis D72.829 Right leg DVT I82.401 Acute renal failure N17.9 Hypotension due to blood loss I95.89 Hypertension I10 Metastatic adenocarcinoma C79.9 Time Spent (min) 55
[2020-07-18] MEDS ORDERED: SODIUM CHLORIDE 0.9% 1000ML 500 ML IV ONE (17:12)
[2020-07-18] MEDS ORDERED: VANCOMYCIN CONSULT ACTIVE PRN (18:43)
[2020-07-18] MEDS ORDERED: VANCOMYCIN HCL 1,000 MG in SODIUM CHLORIDE 0.9% 250 ML IV SCH (18:43)
[2020-07-18] MEDS ORDERED: PIPERACILL/TAZOBAC CONSULT ACTIVE PRN (18:43)
[2020-07-18] MEDS ORDERED: VANCOMYCIN HCL 1,750 MG in SODIUM CHLORIDE 0.9% 500 ML IV STA (18:59)
[2020-07-18] MEDS ORDERED: ONDANSETRON INJ 2 MG/ML 2 ML VIAL IV PRN (19:00)
[2020-07-18] MEDS ORDERED: ACETAMINOPHEN 325 MG TAB PO PRN (19:00)
[2020-07-18] MEDS ORDERED: PIPERACILLIN/TAZOBACTAM 3.375 GM in DEXTROSE 5% 100 ML IV ONE (19:00)
[2020-07-18] MEDS ORDERED: PROCHLORPERAZINE MALEATE 10 MG TAB PO PRN (19:11)
[2020-07-18] MEDS ORDERED: oxyCODONE HCL IR 5 MG TAB (IMMEDIATE RELEASE) PO PRN (19:11)
[2020-07-18] MEDS ORDERED: traMADol HCL 50 MG TABLET PO PRN (19:15)
[2020-07-18] MEDS ORDERED: LORazepam 0.5 MG TAB PO PRN (19:15)
[2020-07-18] MEDS: LACTATED RINGER'S 1,000 ML IV SCH (19:19)
--- NOTE | 2020-07-18 19:22 | Pharmacy Report ---
Pharmacy Abx Initial Consult - Date of Service July 18, 2020 - Pharmacy Dosing Scope Date of Consult: 07/18/2020 Consultation requested by: Dr. Dupree Pharmacy is consulted to initiate Vancomycin + Zosyn IV dosing therapy, order appropriate labs and adjust drug dose/frequency. - Subjective The patient is a 54 year old F admitted on 07/18/20 16:36. - Objective Height: 5 ft 2 in Weight: 70.1 kg Vital Signs (Past 12hrs): Vital Signs Temp Pulse Resp BP Pulse Ox 07/18/20 18:15 95 H 17 89/54 L 98 07/18/20 18:10 38.1 C H 96 H 21 82/55 L 98 07/18/20 18:05 96 H 18 91/36 L 98 07/18/20 18:00 94 H 19 90/63 L 07/18/20 17:56 94 H 23 95/49 L 100 07/18/20 17:50 95 H 20 93/60 L 97 07/18/20 17:45 93 H 24 91/55 L 97 07/18/20 17:40 96 H 19 91/68 L 98 07/18/20 17:36 93 H 21 109/40 L 99 07/18/20 17:34 37.5 C 94 H 20 109/40 L 99 07/18/20 17:30 96 H 19 84/50 L 100 07/18/20 17:25 96 H 24 88/53 L 100 07/18/20 17:20 91 H 22 81/61 L 100 07/18/20 17:15 89 19 86/46 L 100 07/18/20 17:10 89 21 74/58 L 100 07/18/20 17:05 89 19 80/51 L 100 07/18/20 17:04 37.5 C 91 H 16 80/51 L 99 07/18/20 17:00 90 19 70/44 L 100 07/18/20 16:55 91 H 17 88/40 L 99 07/18/20 16:51 93 H 15 74/50 L 98 07/18/20 16:49 37.8 C H 93 H 20 74/50 L 99 07/18/20 16:46 90 18 75/37 L 99 07/18/20 16:40 89 17 78/56 L 98 07/18/20 16:35 37.6 C H 91 H 16 88/38 L 100 07/18/20 16:34 37.6 C H 92 H 18 88/38 L 99 07/18/20 16:30 91 H 18 83/53 L 95 07/18/20 16:25 90 17 93/54 L 100 07/18/20 16:23 37.6 C H 91 H 18 79/54 L 99 07/18/20 16:20 92 H 16 79/54 L 98 07/18/20 16:15 91 H 19 80/48 L 100 07/18/20 16:11 90 17 84/54 L 99 07/18/20 16:01 90 16 74/40 L 100 07/18/20 15:51 37.4 C 93 H 18 90/47 L 98 07/18/20 15:50 93 H 18 90/47 L 98 07/18/20 15:45 91 H 15 89/49 L 100 07/18/20 15:40 90 19 84/47 L 98 07/18/20 15:35 93 H 15 81/44 L 98 07/18/20 15:30 91 H 19 82/37 L 98 07/18/20 15:24 96 H 19 100/46 L 100 07/18/20 15:21 37.0 C 96 H 18 100/46 L 99 07/18/20 15:20 95 H 19 74/49 L 99 07/18/20 15:11 96 H 14 82/43 L 100 07/18/20 15:06 37.6 C H 90 16 68/43 L 99 07/18/20 15:05 90 15 68/43 L 99 07/18/20 15:01 90 16 76/44 L 98 07/18/20 15:00 91 H 14 74/41 L 99 07/18/20 14:46 93 H 18 82/49 L 97 07/18/20 14:45 37.4 C 91 H 20 82/49 L 97 07/18/20 14:30 102 H 19 90/62 L 98 07/18/20 14:26 99 H 13 97/49 L 07/18/20 14:00 97 H 17 93/55 L 99 07/18/20 13:55 97 07/18/20 13:53 98 H 16 92/52 L 100 07/18/20 13:41 95 H 17 80/51 L 99 07/18/20 13:09 37.3 C 73 18 90/57 L 100 Lab Results (24hrs): Laboratory Tests (24 Hours) 07/18/20 07/18/20 13:38 13:38 WBC 20.14 H Neut # (Auto) 17.61 H Creatinine 1.49 H Est Cr Clr Drug Dosing Not Reportable Micro Results: 07/18/20 19:00 Urine Culture - Pending Urine,Clean Catch 07/18/20 13:43 Aerobic Blood Culture - Pending Blood Anaerobic Blood Culture - Pending - Risk Factors for Resistance * Immunocompromised (chemotherapy) - Assessment & Plan Assessment 54 year old F admitted secondary to low hemoglobin. 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 She is on a Keytruda scheduled for 3 cycles. She completed her second cycle on 06/20. * She is febrile. SCr is elevated from baseline at 1.49. Leukocytosis of 20k. * Ordered empiric vancomycin and zosyn - 48 hr stop Plan Vancomycin and Zosyn empirically Vancomycin IV * Loading dose: 1750 mg (25 mg/kg) * Goal trough level: 15 to 20 mcg/mL * Patient has RENATA right now. Expecting SCr to improve overnight with fluid resuscitation. Therefore, will check SCr in the morning but will not check a random level as improvement in renal function would render random level useless. Piperacillin/tazobactam * 3.375 g bolus administered over 30 minutes, then 3.375 g IV extended infusion every 8 hours for CrCl greater than 20 mL/min Pharmacy will continue to follow and will adjust dose/frequency as necessary. Thank you.
[2020-07-18] MEDS ORDERED: STAT IV Infusion **Titration per Protocol STA (19:53)
[2020-07-18] MEDS: NOREPINEPHRINE/D5W 8 MG/508 ML BAG IV SCH (20:19)
[2020-07-18 20:23] LABS: Hematocrit (blood only) 24.5 % (37-47); Hemoglobin 7.6 g/dL (12.0-16.0)
--- NOTE | 2020-07-18 20:43 | Procedure Note ---
Procedure Note Date of Service July 18, 2020 Procedure: Longterm Indwelling Peripherally Inserted IV Catheter Placement Attending: Dr. Fuentes APC: Petr Holland PA-C Indication: Need for IV Access, Poor Vascular Access Anesthesia: None Verbal consent was obtained from patient prior to performing the procedure. A time-out was completed verifying correct patient, procedure, site, positioning, and implant(s) or special equipment if applicable. Utilizing bedside ultrasound, vascularity of the RIGHT upper extremity was assessed. Vessel size was noted for appropriate catheter selection and skin was marked with gentle pressure. Patients RIGHT upper extremity was prepped and draped in the usual sterile fashion utilizing chlorhexidine. Ultrasound guidance was used to aid needle placement. A 22 g Endurance Catheter was introduced into the RIGHT cephalic vein under direct ultrasound guidance. Guide wire was easily deployed w ithout resistance. Catheter was threaded over the guide wire without resistance and the entire apparatus was removed intact. Good venous blood return was noted in the catheter. The IV catheter was easily flushed with sterile saline flush. Sterile clave was attached to the end of the catheter and good blood return was again noted. Tourniquet was released. StatLock device and sterile dressing were applied. The patient tolerated the procedure well. Blood Loss: Minimal Complications: None Procedural Ultrasound Guidance: Procedure Date: 07/18/2020 Indication: Poor Vascular Access Attending: Dr. Covington APC: Petr Holland PA-C Artery/Veins Identified: YES Access confirmed in Vein with ultrasound: YES Complications: NONE Patient tolerated procedure: WELL Coding CPT Codes Tubes, Drains, and Vasc Access - Tubes, Drains, and Vasc Access: [id number] Venipuncture, Age 3/>Req phys skill, (sep proc), Dx/Tx (not rtn) ([id number]) [facility] [place] Codes (Charges) Tubes, Drains, and Vasc Access Procedure 1: Tubes, Drains, and Vasc Access: [id number] Venipuncture, Age 2/>Req phys skill, (sep proc), Dx/Tx (not rtn)
--- NOTE | 2020-07-18 21:13 | Communication Note ---
Date of Service: July 18, 2020 2000: Patient with consistent blood pressure readings with systolics in the 70s. On evaluation bedside, the patient is still awake and alert. Orders placed emergently for repeat H&H as well as for administration of Levophed. Hemoglobin still less than 8 status post transfusion of 2 units PRBCs. Order placed for additional unit of packed red cells. We will continue with Levophed at this time. Conservative IV fluids in the severely anemic patient. Additional IV access placed by myself for aid in further resuscitative techniques as needed. I have personally spent 40 minutes of critical care time in the direct management of this patient. This is a life/limb threatening event. This includes time spent evaluating patient, direct bedside care, chart review, placing orders, interpretation of diagnostic studies, discussion with consultants, patient, and family members, as well as other required patient management activities. This time is exclusive of all separately billable procedures, and teaching time and separate from and in addition to any other critical care service time. Coding Level of Care Code Critical Care adelina feliciano'brendan 30 min Time Spent (min) 40
[2020-07-18] MEDS: MoRPHine SULFATE CR 15 MG TABCR PO SCH (22:15)
[2020-07-18] MEDS: GABAPENTIN 100 MG CAP PO SCH (22:15)
[2020-07-18] MEDS ORDERED: HEPARIN 100 UNIT/ML 5ML FLUSH FLUSH PRN (23:47)
[2020-07-19] MEDS: PIPERACILLIN/TAZOBACTAM 3.375 GM in DEXTROSE 5% 100 ML IV SCH ×3 (00:22→15:39)
[2020-07-19 01:48] LABS: Basophils # (auto) 0.03 K/uL (0-0.2); Basophils % (auto) 0.1 %; Eosinophils # (auto) 0.18 K/uL (0-0.5); Eosinophils % (auto) 0.8 %; Hematocrit (blood only) 29.7 % (37-47); Hemoglobin 9.6 g/dL (12.0-16.0); Immature Granulocytes # (auto) 0.57 K/uL (0.00-0.02); Immature Granulocytes % (auto) 2.6 %; Lymphocytes # (auto) 0.65 K/uL (1.2-3.4); Mean Corpuscular Hemoglobin 28.9 pg (25-34); Mean Corpuscular Hgb Conc 32.3 g/dL (32-36); Mean Corpuscular Volume 89.5 fL (80-100); Mean Platelet Volume 8.4 fL (7.4-10.4); Monocytes # (auto) 1.17 K/uL (0.11-0.59); Monocytes % (auto) 5.4 %; Neutrophils # (auto) 19.18 K/uL (1.4-6.5); Neutrophils % (auto) 88.1 %; Nucleated RBC # (auto) 0.02 K/uL (0-0); Nucleated RBC % (auto) 0.1 %; Platelet Count 262 K/uL (130-400); RDW Standard Deviation 51.8 fL (36.4-46.3); Red Blood Count 3.32 M/uL (4.2-5.4); White Blood Count 21.78 K/uL (4.8-10.8)
[2020-07-19 02:08] LABS: Alanine Aminotransferase < 6 U/L (12-78); Albumin Level 1.6 gm/dl (3.4-5.0); Aspartate Aminotransferase 14 U/L (15-37); BUN Creatinine Ratio 11.9 (10-20); Blood Urea Nitrogen 15 mg/dl (7-18); Calcium 7.4 mg/dl (8.5-10.1); Carbon Dioxide 27 mmol/L (21-32); Chloride 104 mmol/L (98-107); Creatinine Clr Calc Pharmacy 45.5 ml/min; Est GFR (African American) 54.5; Glucose 155 mg/dl (70-99); Potassium 3.2 mmol/L (3.5-5.1); Sodium 136 mmol/L (136-145)
[2020-07-19 02:12] LABS: Albumin Globulin Ratio 0.3 (0.9-2); Alkaline Phosphatase 96 U/L (45-117); Globulin 4.7 gm/dl (2.5-4.0); Total Protein 6.3 gm/dl (6.4-8.2)
[2020-07-19] MEDS: LACTATED RINGER'S 1,000 ML IV SCH ×3 (03:20→19:06)
[2020-07-19] MEDS: POTASSIUM CHLORIDE / WTR 10 MEQ/100 ML PLCT IV SCH ×4 (04:11→08:51)
--- NOTE | 2020-07-19 06:59 | Ultrasound Report ---
ULTRASOUND BILATERAL LOWER EXTREMITY VENOUS CLINICAL HISTORY: Leg pain and swelling COMPARISON STUDY: No priors. TECHNIQUE: Real-time, grayscale, and color Doppler sonography of the deep veins of the right and left lower extremity was performed from the inguinal crease to the calf. Compression and augmentation wer e utilized. Examination is degraded by lower extremity edema. FINDINGS: Right lower extremity: There is broken flow in the right common femoral vein and the proximal superfi cial femoral vein consistent with nearly occlusive to occlusive deep venous thrombosis. Thrombus is a lso seen within the greater saphenous and profunda femoris veins. The mid to distal superficial femor al vein and popliteal vein were not visualized. Broken flow is shown within the imaged calf vessels, also likely representing deep venous thrombosis. Left lower extremity: There is no sonographic evidence of deep venous thrombosis identified in the le ft lower extremity. The common femoral, superficial femoral, and popliteal veins are patent and steph lly compressible. The greater saphenous vein and the profunda femoris vein at the junction with the c ommon femoral vein are clear. The visualized calf veins are patent. IMPRESSION: Right lower extremity deep venous thrombosis as above. ACT 112: Negative or not required by law. Electronically signed by: Paco Bosch M.D. 07/19/2020 6:57 AM
--- NOTE | 2020-07-19 08:35 | CT Scan Report ---
ABDOMEN AND PELVIS CT WITHOUT CONTRAST CT DOSE: 406.12 mGy.cm HISTORY: acute anemia, h/o endometrial cancer w/ mets TECHNIQUE: Multiaxial CT images of the abdomen and pelvis were performed without contrast. A dose lo wering technique was utilized adhering to the principles of ALARA. COMPARISON STUDY: Abdomen and pelvis CT 01/07/2020. FINDINGS: The left lung base is clear. Small right pleural effusion with right basilar densities sugg esting atelectasis. No pneumoperitoneum. No pneumatosis. The unenhanced liver, spleen, adrenal glands , and pancreas are unremarkable. Increase in the retroperitoneal lymphadenopathy consistent with meta static disease. Dominant left periaortic lymph node measures 2.9 x 2.2 cm. Cholelithiasis. The gallbl adder is mildly distended. No definite gallbladder wall thickening. Igbr-hx-pjohvuee body wall edema. There is also right greater than left proximal thigh subjacent edema. This could be due to compressi on of the iliac veins from the large right pelvic mass. This mass is significantly increase in size a nd involves the iliopsoas muscle with destruction of the right L4 and L5 vertebral bodies as well as the right side of the sacrum and right iliac crest. This mass measures approximately 16 x 10 cm. This invades into the right L4-L5 and L5-S1 neural foramen and may extend slightly into the epidural spac e at these levels. However, this is difficult to assess due to the metallic artifact from the L5-S1 p osterior fusion hardware. The mass likely compresses the mid to distal right ureter resulting in the moderate right hydronephrosis. There is also mild left-sided hydronephrosis. Ill-defined soft tissue mass seen within the lower uterine segment/cervix. This could partially obstruct the ureters. However , the ureters are difficult identified at this location. Trace gas within the bladder lumen. There is a Rivera catheter within the deep pelvis which likely resides within the base of the bladder. No patrick l wall thickening or obstruction. Colonic diverticulosis. No evidence for acute diverticulitis. Mica l appendix. IMPRESSION: 1. Interval increase in size in the large mass centered within the right iliopsoas muscle which now m easures 16 x 10 cm. This demonstrates progressive destruction along the right L4 and L5 vertebral bod ies as well as the right side of the sacrum. 2. Interval development of moderate right hydronephrosis which is likely secondary to compression/inv asion of the ureter by the large right pelvic mass. There is also mild left hydronephrosis which has developed in the interval. This could be due to partial obstruction at the distal left ureter by the suspected lower uterine segment/cervical mass. 3. Small right pleural effusion. 4. Progressive retroperitoneal lymphadenopathy consistent with metastatic disease. 5. Cholelithiasis. The gallbladder is mildly distended. No definite gallbladder wall thickening. 6. There is a Rivera catheter within the deep pelvis which likely resides within the bladder base give n the gas within the bladder lumen. 7. Right thigh subcutaneous edema could be due to compression of the right pelvic veins from the larg e mass. ACT 112: Negative or not required by law. Electronically signed by: Mykel Call M.D. 07/19/2020 8:34 AM
[2020-07-19] MEDS: GABAPENTIN 100 MG CAP PO SCH ×3 (09:16→21:28)
[2020-07-19] MEDS: MoRPHine SULFATE CR 15 MG TABCR PO SCH ×2 (09:16→21:28)
[2020-07-19] MEDS: VANCOMYCIN HCL 1,000 MG in SODIUM CHLORIDE 0.9% 250 ML IV SCH (13:20)
--- NOTE | 2020-07-19 15:31 | Hospitalist Progress Note ---
Date of Service July 19, 2020 Assessment & Plan (1) Severe sepsis: Severe sepsis with septic shock: Met criteria for sepsis on admission leukocytosis, acute renal failure, profound hypotension requiring pressor support/ICU admission and IV Levophed infusion Was tachycardic and febrile on admission Source of infection: Obstructive uropathy due to metastatic malignancy, complicated UTI, bilateral pyelonephritis: Patient is continued with broad-spectrum antibiotic with Zosyn and vancomycin blood and urine culture ordered Appreciate input from ICU team (2) Acute renal failure: Secondary to obstructive uropathy, metastatic malignancy causing bilateral hydroureteronephrosis Cr elevated at 1.49 (baseline ~0.8 ) Borderline improvement to 1.2 after IV fluid resuscitation and PRBC transfusion Neurology consulted, appreciate input, scheduled for ureteric stent today Continue broad-spectrum antibiotic And of care updated to patient's over phone by myself and urology (3) Severe anemia: Severe symptomatic anemia with profound hypotension No evidence of active bleeding, patient was recently admitted at [facility] cancer centers, uterine artery embolization to stop bleeding Possible secondary to metastatic malignancy, status post 3 units of PRBC transfusion, hemoglobin improved from 5.6-9.4 Continue to monitor Recently diagnosed with right lower extremity DVT possibly secondary to metastatic malignancy/uterine mass compression: Was on therapeutic dose of Lovenox, anticoagulation kept on hold secondary to severe symptomatic anemia (4) Metastatic adenocarcinoma: Static uterine malignancy stage IV with mets S2 abdominal organs retroperitoneal lymph nodes, lumbar spine, right psoas muscle, obstruction of bilateral ureter. Finished chemo treatment, radiation treatment, Currently on palliative treatment with Keytruda Recently been followed at hematology Dr. Christina of [facility]. Got 2nd Cycle of Keytruda on 06/20 -PET scan with findings consistent with progressive disease characterized by increasing size and metabolic activity in the uterine mass as well as interval progression of metastatic lymphadenopathy in the abdomen and pelvis as described above. New cortical erosions/lytic lesions along the anterior and right side of the L4 vertebral body adjacent to the enlarging right iliac chain ly mphadenopathy is most suspicious for osseous involvement -Discussed case with Dr. Garcia (graphics production specialist for [facility] heme onc). Case with poor prognosis, recommends holding SQ Lovenox for now and addressing possibility of IVC filter once patient stable. Discussed with patient regarding prognosis, she remains very lethargic and tired, will request to discuss with her her regarding treatment plan. Had a long conversation with Mr. Castillo for now can patient's over phone Mr. Yaquelin nix feels if patient needs higher level of care wants her to be transferred to [facility] under her hematologic allergy oncology Dr. Christina. Per patient's , hematology oncology did not had a full conversation regarding overall prognosis yet, they were hoping for some improvement after completing Keytruda treatment and having it repaired repeat PET scan. Patient prefers to have the conversation regarding prognosis and life expectancy with patient's primary hematology oncology at [facility]. Cruciate the urology input for ureteric stent to prevent patient to go into septic shock I did discuss the need for IVC filter placement, and after discussion with Dr. Du vascular surgery he voiced her that it may be complicated process, and patient may need to be transferred on a higher level of care, Patient will not be seen by Dr. Du until Tuesday We will continue to complicate with [facility] to update Currently remains in the ICU with pressor supports, feels comfortable to continue supportive care at least over the weekend, and for any future procedures or management 1 test to discuss the plan with [facility]. CODE STATUS readdressed, patient and both are hoping Keytruda will be able to reduce the cancer burden, once life support and every resuscitative measures to be attempted in case of patient's acute decline, Palliative care consult is not placed, as appeared patient and patient are not yet ready to have that conversation, Will defer to patient's primary oncologist (5) Right leg DVT: Recent diagnosis with extensive right lower extremity DVT secondary to metastatic malignancy Since therapeutic dose of Lovenox Anticoagulation on hold secondary to acute symptomatic anemia Lower extremity Doppler shows: Presence of occlusive extensive DVT high risk for dislodging and pulmonary embolism: Vascular surgery consulted for IVC filter placement, plan of care discussed with Dr. Du Vascular surgery/Dr. Du will not be able to see the patient before Tuesday morning (6) Leukocytosis: Rule out sepsis, obstructive uropathy, complicated UTI, bilateral pyelonephritis. Continue broad-spectrum antibiotic as outlined above Will follow cultures, urology consulted for ureteric stent placement CODE STATUS: Full code Overall prognosis remains very poor DVT prophylaxis, anticoagulation is not ordered secondary to profound anemia, SCD and teds is not ordered for right lower extremity extensive DVT Patient's H&H stays stable overnight, will start patient with therapeutic Lovenox with close monitoring of H&H Admission and Anticipated Discharge Date Admission Date: July 18, 2020 Subjective Patient seen in ICU bed 103/1 Very tired and lethargic, able to answers question, falls asleep in mid sentence. Denies of any pain or discomfort. Remains persistently hypotensive, on IV Levophed Has been afebrile, no cough or shortness of breath Hypoxia, remains in room air Review of Systems Review of Systems: All systems reviewed & are unremarkable except as noted in HPI & below Constitutional: + fatigue, + weakness, + anorexia and + daytime sleepiness; no fever and no chills Respiratory: no cough, no dyspnea, no dyspnea on exertion and no wheezing Cardiovascular: + chest pain and + calf pain (Lower extremity extensive swelling with pitting edema, positive tenderness); no dyspnea, no lightheadedness and no syncope Gastrointestinal: + problem reported (Very poor appetite, refused all meals) Neurologic: + generalized weakness Physical Exam Constitutional: WD/WN, vitals as above + ill appearing and + cachectic Eyes: sclerae not anicteric ENMT: external ear and nose normal, oropharynx normal Neck: trachea midline, no thyromegaly Respiratory: normal respiratory effort and able to speak in complete sentences; no respiratory distress, no labored breathing, no cough and not tachypneic Auscultation: + diminished lung sounds; no crackles, no rales and no wheezes Cardiovascular: Rate/Rhythm: regular rate and regular rhythm Extremities: + calf tenderness (Right-sided lower extremity pain/tenderness), + pedal edema (Bilateral lower extremity edema right more than left) and + edema (Right lower extremity pitting edema) Gastrointestinal (Abdomen): Percussion/Palpation: abdomen soft; abdomen nontender Skin: no rashes, warm and dry Neurologic: PERRL, EOMI, accommodation nl, no face palsy, no dysarthria moves all extremities (Generalized weakness extremely fatigued) Results & Data Results & Data ([facility]) Vital Signs (Past 12 Hours) Vital Signs Temp Pulse Resp BP Pulse Ox 07/19/20 13:38 67 20 92/53 L 07/19/20 13:23 74 18 78/42 L 07/19/20 12:55 76 19 81/49 L 07/19/20 11:55 75 18 84/46 L 97 07/19/20 10:55 80 17 91/58 L 07/19/20 08:54 87 16 105/59 L 07/19/20 08:24 80 18 100/58 L 07/19/20 08:00 36.8 C 81 07/19/20 07:24 82 14 106/60 97 07/19/20 06:21 83 07/19/20 06:09 36.7 C 83 18 104/71 96 07/19/20 05:54 94 H 15 105/65 97 07/19/20 05:39 87 14 138/77 99 07/19/20 05:09 87 13 115/51 L 96 07/19/20 04:54 79 19 86/65 L 97 07/19/20 04:39 80 15 98/55 L 97 07/19/20 04:24 80 18 97/68 L 96 07/19/20 04:09 76 21 101/56 L 97 07/19/20 03:54 82 19 95/64 L 97 07/19/20 03:39 83 20 111/[address] abdomen pelvis without contrast: IMPRESSION: 1. Interval increase in size in the large mass centered within the right iliopsoas muscle which now measures 16 x 10 cm. This demonstrates progressive destruction along the right L4 and L5 vertebral bodies as well as the right side of the sacrum. 2. Interval development of moderate right hydronephrosis which is likely secondary to compression/invasion of the ureter by the large right pelvic mass. There is also mild left hydronephrosis which has developed in the interval. This could be due to partial obstruction at the distal left ureter by the suspected lower uterine segment/cervical mass. 3. Small right pleural effusion. 4. Progressive retroperitoneal lymphadenopathy consistent with metastatic disease. 5. Cholelithiasis. The gallbladder is mildly distended. No definite gallbladder wall thickening. 6. There is a Rivera catheter within the deep pelvis which likely resides within the bladder base given the gas within the bladder lumen. 7. Right thigh subcutaneous edema could be due to compression of the right pelvic veins from the large mass. Lower extremity Doppler ultrasound: IMPRESSION: Right lower extremity deep venous thrombosis as above.
--- NOTE | 2020-07-19 16:14 | Urology Consultation ---
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 Risks and benefits discussed at length for procedure. These include bleeding, infection, injury to surrounding tissues or organs, and risks associated with anesthesia. Patient states understanding and agrees to proceed. Will sign consent and s chedule.Risks due to chronic issues with severe exacerbation and development of sepsis with hypotension. Plan for urgent/emergent bilateral stent placement. (2) Severe sepsis: (3) Admitted to intensive care unit: History of Present Illness Attending Physician: Modesta Dupree MD History of Present Illness New consultation for patient with Met Ureterine Cancer with likely obstruction due to retroperitoneal mass with development of UTI/Pyelo, discomfort, and ill feelings. Patient developed sudden onset of pain into flank going down and radiating into groin and back in waves comes and goes. Can be severe at times. Had issues on right in past. Worsening and involving left. RENATA. bilateral hydronephrosis with catheter. Enlarging pelvis/retro mass. Discussed and reviewed patient's family history for any history of issues, infections, and disease. Also, discussed patient's medical/surgery history especially related to any history of urinary issues or stone disease. Patient was admitted and is undergoing observation with broad spectrum IV antibiotics. Undergoing critical management in ICU Allergies Allergy/AdvReac Type Severity Reaction Status Date / Time apple Allergy Unknown Swelling Verified 07/18/20 15:55 of Lip/Tongue/Throat apricot Allergy Unknown Swelling Verified 07/18/20 15:55 of Lip/Tongue/Throat corona Allergy Unknown Swelling Verified 07/18/20 15:55 of Lip/Tongue/Throat peach Allergy Unknown Swelling Verified 07/18/20 15:55 of Lip/Tongue/Throat pear Allergy Unknown Swelling Verified 07/18/20 15:55 of Lip/Tongue/Throat plum Allergy Unknown Swelling Verified 07/18/20 15:55 of Lip/Tongue/Throat ciprofloxacin [From Cipro] AdvReac Severe Anaphylaxis Verified 07/18/20 15:55 Home Medications Medication Instructions Recorded Confirmed Type atorvastatin 40 mg PO PM 10/04/19 07/18/20 History oxycodone 5 mg PO Q4H PRN 10/04/19 07/18/20 History tramadol 50 mg tablet 50 mg PO Q6H PRN 01/04/20 07/18/20 History enoxaparin [Lovenox] 60 mg SUBCUT Q12H 30 Days #36 ml 04/10/20 07/18/20 Rx Keytruda 1 ea IV . EVERY 3 WEEKS 06/11/20 07/18/20 History gabapentin 100 mg PO TID 06/11/20 07/18/20 History hydromorphone 2 mg PO Q4 PRN 06/11/20 07/18/20 History lorazepam 0.5 mg PO Q6 PRN 06/11/20 07/18/20 History prochlorperazine maleate 10 mg PO Q6 PRN 06/11/20 07/18/20 History morphine [MS Contin] 15 mg PO BID 07/18/20 07/18/20 History Patient History Medical History Anemia Admitted to [facility] 04/17/19 for profound anemia, H/H 2.8/10.4. Transfused 5 units pRBC during admission, Hgb 9.2 at time of transfer to [facility]. Asthma NO INHALER> WELL CONTROLLED Cholelithiasis Diverticular disease History of CVA (cerebrovascular accident) History of hysteroscopy Hyperlipidemia Hypertension Hypothyroidism Left ventricular thrombus 04/2019. Repeat cardiac MRI 06/2019 showed resolution; pt has been maintained on Lovenox injections per oncology recommendations. 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 CANNOT TILT HEAD ALL THE WAY BACK History of tubal ligation Family History Grandfather Heart disease CABG Mother Heart disease CABG Diabetes Father , age 65 heart disease No problems noted. Brother , age 51 [place] No problems noted. Sister No problems noted. Daughter No problems noted. Son No problems noted. 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 Acutely ill and Cachectic and chronic illness. HEENT: Normocephalic Atraumatic. Inspection normal. Cranial Nerves 2-12 Grossly intact. Nares are clear. Neck is supple. Normal inspection of face. Normal inspection of neck. Neurologic: No deficits on inspection. Baseline for motor function and sensory. Psychologic: Normal affect. Respiratory: Nonlabored. No use of accessory muscles. No tachypnea or dyspnea. Cardiovascular: No tachycardia Skin: [place] and Dry. No rashes or visible lesions. Extremities: Poor mobility. No motor deficits on inspection Lymphatics: Mild edema Abdomen: Moderately distended. No rebound or guarding. Results & Data ([facility]) Vital Signs (Past 12 Hours) Vital Signs Temp Pulse Resp BP Pulse Ox 07/19/20 13:38 67 20 92/53 L 07/19/20 13:23 74 18 78/42 L 07/19/20 12:55 76 19 81/49 L 07/19/20 11:55 75 18 84/46 L 97 07/19/20 10:55 80 17 91/58 L 07/19/20 08:54 87 16 105/59 L 07/19/20 08:24 80 18 100/58 L 07/19/20 08:00 36.8 C 81 07/19/20 07:24 82 14 106/60 97 07/19/20 06:21 83 07/19/20 06:09 36.7 C 83 18 104/71 96 07/19/20 05:54 94 H 15 105/65 97 12/12/20 05:39 87 14 138/77 99 07/19/20 05:09 87 13 115/51 L 96 07/19/20 04:54 79 19 86/65 L 97 07/19/20 04:39 80 15 98/55 L 97 07/19/20 04:24 80 18 97/68 L 96 PG Care Time/CCT Total # of Minutes Spent Total Time Spent with Patient: Total time spent is greater than 50% in coordination of care (as documented) at patient's floor/unit and/or counseling patient: Coding Level of Care Code 97792 Inpt Consult Level 5 Diagnoses Bilateral hydronephrosis N13.30 Severe sepsis A41.9; R65.20 Admitted to intensive care unit Z78.9
--- NOTE | 2020-07-19 16:16 | XRay Report ---
SINGLE VIEW CHEST CLINICAL HISTORY: Dyspnea. FINDINGS: An AP, portable, upright chest radiograph is compared to study dated 04/08/2020. Correlation is made with abdominal CT dated 07/19/2020. The examination is degraded by portable technique and pat ient rotation. A right internal jugular central venous infusion port is unchanged in position. The ca rdiomediastinal silhouette is unremarkable. There is a small right pleural effusion with associated a telectasis. No pneumothorax is seen. The skeletal structures are osteopenic. The bony thorax is gross ly intact. Fusion hardware is seen in the lower cervical spine. IMPRESSION: There is a small right pleural effusion with associated right basilar atelectasis. This i s unchanged from today's abdominal CT. ACT 112: Negative or not required by law. Electronically signed by: Paco Bosch M.D. 07/19/2020 4:15 PM
--- NOTE | 2020-07-19 16:23 | Anesthesiology Consultation ---
Date of Service July 19, 2020 Assessment & Plan (1) Encounter for pre-operative examination: Chart Review Chart Review: Acceptable Risk for Surgery (urgent procedure - concerned for urosepsis) History Height/Weight Height: 5 ft 2 in Weight: 70.1 kg Allergies Allergy/AdvReac Type Severity Reaction Status Date / Time apple Allergy Unknown Swelling Verified 07/18/20 15:55 of Lip/Tongue/Throat apricot Allergy Unknown Swelling Verified 07/18/20 15:55 of Lip/Tongue/Throat corona Allergy Unknown Swelling Verified 07/18/20 15:55 of Lip/Tongue/Throat peach Allergy Unknown Swelling Verified 07/18/20 15:55 of Lip/Tongue/Throat pear Allergy Unknown Swelling Verified 07/18/20 15:55 of Lip/Tongue/Throat plum Allergy Unknown Swelling Verified 07/18/20 15:55 of Lip/Tongue/Throat ciprofloxacin [From Cipro] AdvReac Severe Anaphylaxis Verified 07/18/20 15:55 Medications Home Medications Medication Instructions Recorded Confirmed Last Taken atorvastatin 40 mg PO PM 10/04/19 07/18/20 06/10/20 oxycodone 5 mg PO Q4H PRN 10/04/19 07/18/20 04/07/20 21:00 tramadol 50 mg tablet 50 mg PO Q6H PRN 01/04/20 07/18/20 04/08/20 05:00 enoxaparin [Lovenox] 60 mg SUBCUT Q12H 30 Days #36 ml 04/10/20 07/18/20 07/18/20 08:00 Keytruda 1 ea IV . EVERY 3 WEEKS 06/11/20 07/18/20 Unknown gabapentin 100 mg PO TID 06/11/20 07/18/20 06/10/20 hydromorphone 2 mg PO Q4 PRN 06/11/20 07/18/20 Unknown lorazepam 0.5 mg PO Q6 PRN 06/11/20 07/18/20 Unknown prochlorperazine maleate 10 mg PO Q6 PRN 06/11/20 07/18/20 Unknown morphine [MS Contin] 15 mg PO BID 07/18/20 07/18/20 07/18/20 08:00 Active Medications Generic Name Dose Route Start Last Admin Trade Name Freq PRN Reason Stop Dose Admin Gabapentin 100 mg 07/18/20 21:00 07/19/20 13:25 Gabapentin 100 Mg Cap PO 08/17/20 20:59 100 mg TID DADA Administration Piperacillin Sod/Tazobactam 115 mls @ 28.75 mls/hr 07/19/20 00:00 07/19/20 15:39 Sod 3.375 gm/ Dextrose IV 07/21/20 00:00 28.8 mls/hr Q8H DADA Administration Protocol Lactated Ringer's 1,000 mls @ 125 mls/hr 07/18/20 19:15 07/19/20 11:01 Lr IV 08/17/20 19:14 125 mls/hr .Q8H DADA Administration Norepinephrine Bitartrate 8 mg in 508 mls @ 13.354 mls/hr 07/18/20 20:00 07/19/20 13:25 Levophed/D5w IV 08/17/20 19:59 0.05 mcg/kg/min .Q24H DADA 13.4 mls/hr Titration Protocol 0.05 MCG/KG/MIN Vancomycin HCl 1,000 mg/ 270 mls @ 200 mls/hr 07/19/20 14:00 07/19/20 14:41 Sodium Chloride IV 07/21/20 13:59 Infused Q18H DADA Infusion Morphine Sulfate 15 mg 07/18/20 21:00 07/19/20 09:16 Morphine Sulfate Cr 15 Mg Tabcr PO 08/01/20 20:59 15 mg BID DADA Administration Past Medical History Medical History Anemia Admitted to [facility] 04/17/19 for profound anemia, H/H 2.8/10.4. Transfused 5 units pRBC during admission, Hgb 9.2 at time of transfer to [facility]. Asthma NO INHALER> WELL CONTROLLED Cholelithiasis Diverticular disease History of CVA (cerebrovascular accident) History of hysteroscopy Hyperlipidemia Hypertension Hypothyroidism Left ventricular thrombus 04/2019. Repeat cardiac MRI 06/2019 showed resolution; pt has been maintained on Lovenox injections per oncology recommendations. 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 Brother , age 51 [place] No problems noted. Sister No problems noted. Daughter No problems noted. Son No problems noted. Past Surgical History Surgical History Fusion of spine LUMBAR History of X2 History of dilatation and curettage History of hysteroscopy History of neck surgery C4-6 > FUSION >PLATE WITH 6 SCREWS > ROM LIMITED. CANNOT TILT HEAD ALL THE WAY BACK History of tubal ligation Social History Smoking Status: Never smoker Hx Alcohol Use: No alcohol intake frequency: a few times a month Hx Substance Use: No substance use type: does not use Physical Exam Vital Signs Last Vital Signs Temp 36.8 C 07/19/20 08:00 Pulse 67 07/19/20 13:38 Resp 20 07/19/20 13:38 BP 92/53 L 07/19/20 13:38 Pulse Ox 97 07/19/20 11:55 Testing Laboratory Results 07/19/20 01:29 07/19/20 01:29 PT 12.3 Seconds (9.0-12.0) H 07/18/20 13:38 INR 1.2 (0.9-1.1) H 07/18/20 13:38 APTT 34.8 Seconds (21.0-31.0) H 07/18/20 13:38 Blood Type A Positive 07/18/20 13:38 Antibody Screen NEGATIVE 07/18/20 13:38 07/18/20 19:00 Urine Culture - Preliminary Urine,Clean Catch Gram negative bacilli 07/18/20 18:56 Gram Stain - Final Buttock Deep Wound Culture - Preliminary Gram negative bacilli 07/19/20 11:50 POC Glucose 142 H Echocardiogram Date: 04/10/20 EF: 55-60% LV Function: normal
[2020-07-19] MEDS ORDERED: fentaNYL citrate 100 MCG/2 ML VIAL IV PRN (16:39)
[2020-07-19] MEDS ORDERED: ATROPINE SULFATE 0.1 MG/ML 10ML SYR IV PRN (16:39)
[2020-07-19] MEDS ORDERED: ONDANSETRON INJ 2 MG/ML 2 ML VIAL IV PRN (16:39)
[2020-07-19] MEDS ORDERED: MIDAZOLAM HCL 1 MG/ML 2ML VIAL ONE ×2 (16:42→17:13)
[2020-07-19] MEDS ORDERED: fentaNYL citrate 100 MCG/2 ML VIAL ONE (16:42)
[2020-07-19] MEDS ORDERED: DIATRIZOATE MEGLUMINE 30% 100ML VIAL INSTIL ONE (17:44)
--- NOTE | 2020-07-19 17:47 | Communication Note ---
Date of Service: July 19, 2020 Attending addendum: Patient's Mr. Chong when he can go number #[phone] updated PKD urology procedure/ureteric stent placement: called [facility]: Phone number [phone]:( 28/02 -cancer center hotline ) left message for [facility] [employer] consultant Medical Hematology /Oncology Dr hansen ruby on rails consultant hematology oncology Dr. Derick Dale -waiting call back . Modesta Dupree MD
--- NOTE | 2020-07-19 17:51 | Operative Report ---
PG Post Operative Report Pre & Post Diagnosis Operation Date: 07/19/20 17:00 Pre-Op Diagnosis: Urosepsis SAME I identified the patient and participated in the time-out.: Yes Procedure Operation Date: 07/19/20 17:00 Actual Procedures p Cystoscopy, bilateral retrograde pyelogram, urine aspiration, bilateral stent insertion(Bilateral) - Irwin Hooker DO Surgeon Irwin Hokoer, II, DO Package Center Supervisor None Estimated Blood Loss 1 Findings Consistent with Post-Op Diagnosis Stent placed in good position. Purulent urine from right renal pelvis. Specimens Urine right renal pelvis Drains 6 Fr x 26 on Left 4.8 Fr x 26 on right Anesthesia Type MAC Complications none Disposition Disposition: Recovery Room Indications Patient with obstruction. Risks and benefits discussed at length. Description of Procedure Patient was consented and brought back to the operating room. Patient was placed under anesthesia in the supine position and moved to the dorsal lithotomy position. Patient was prepped and draped in the regular sterile fashion. A time out was completed. A 30degree Cystoscope was placed into the bladder and the entire bladder was examined. The UO's were identified. The right UO was cannulized with a catheter, purulent urine was aspirated, and a retrograde pyelogram was completed. A wire was then placed. With the wire in place, a 4.8 Fr Double J stent was placed. It was confirmed with fluoroscopy. The left UO was cannulized with a catheter, and a retrograde pyelogram was completed. A wire was then placed. With the wire in place, a 6 Fr Double J stent was placed. It was confirmed with fluoroscopy. With the stent in place, the bladder was emptied. Purulent urine was flushed. The scope was removed. A 20 Fr coude catheter was placed. The patient was cleaned, aroused from anesthesia, and transferred to the pacu in stable condition having tolerated the procedure well with no complications. I was present and participated in all aspects of the procedure. The patient will be monitored in the PACU until transferred. I attest to the content of the Intraoperative Record and any orders documented therein. Any exceptions are noted below.
--- NOTE | 2020-07-19 18:08 | Fluoroscopy Report ---
INTRAOPERATIVE RADIOGRAPHS CLINICAL HISTORY: Bilateral ureteral stent placement. Fluoroscopy time: 88 seconds. FINDINGS: 4 spot fluoroscopic views of the abdomen and pelvis are correlated with abdominal CT dated 07/19/2020. The provided images show the proximal and distal ends of bilateral ureteral stents in onel ropriate position. A bladder catheter is in place. Contrast within the right renal collecting system shows hydronephrosis. Vascular coils are seen in the pelvis. Lumbar spinal fusion hardware is partial ly visualized. IMPRESSION: Intraoperative images from a bilateral ureteral stent placement procedure as above. Electronically signed by: Paco Bosch M.D. 07/19/2020 6:07 PM
[2020-07-19] MEDS ORDERED: LIDOCAINE HCL 2% 2 ML VIAL/AMP(20MG/ML) INFIL ONE (18:13)
[2020-07-19] MEDS ORDERED: PROPOFOL IV EMULSION 10 MG/ML 20 ML VIAL IV ONE (18:13)
[2020-07-19 18:29] LABS: Hematocrit (blood only) 28.5 % (37-47); Hemoglobin 9.2 g/dL (12.0-16.0)
--- NOTE | 2020-07-19 19:04 | Critical Care Progress Note ---
Date of Service July 19, 2020 Assessment & Plan (1) Admitted to intensive care unit: Reason Critically Ill: 54-year-old female presenting with severe anemia and hypotension requiring close hemodynamic monitoring and likely need for vasopressor support in the setting of hypovolemia and concerns for sepsis. Underwent emergent cystoscopy with bilateral ureteral stenting 2/2 severe obstructive hydronephrosis. NEURO - * CAM ICU: NEGATIVE * Pain: * Patient on chronic narcotic pain medications for pain related to current CA. CARDIAC/VASCULAR - * Hypotension: * Multifactorial in the setting of profound anemia and sepsis. * Continue to resuscitate with blood products. * Pressors as needed. * Extensive RLE DVT: * Likely 2/2 hypercoagulable state in the setting of CA. * Previously on Lovenox injections at home. * Per patient's Heme/Onc provider at [facility], will hold on Lovenox while requiring PRBCs for severe anemia. * To be assessed by vascular surgery for ??need for IVC filter. * EKG: Normal sinus rhythm at [address] or T wave changes. QTc 580 ms. * Monitor on telemetry. RESPIRATORY - * No history of pulmonary disease. * Saturating well on room air. GI/NUTRITION - * N.p.o. with progression to clear liquid while on pressors. * Prophylaxis: Famotidine RENAL/LYTES - * Acute kidney injury: * Secondary to profound anemia and poor perfusion. - * Rivera in place - Strict I&Os. ENDO - * No history of diabetes or thyroid disease. * BSGs per unit protocol. ISS --> gtt per unit policy. HEME - * Profound anemia: * No source of bleeding appreciated. * Agree with imaging studies to evaluate for possible bleeding sources. * Received 2 units PRBCs in the emergency department. * Serial H&H. * Transfuse to near baseline. * Patient anticoagulated on Lovenox secondary to extensive RIGHT lower extremity DVT: * Per hospitalist discussion with oncologist provider at [facility], would recommend discontinuing Lovenox at this time. * Hospitalist service spoke with vascular. Patient to be evaluated for ??need for IVC filter. ID - * Severe sepsis with septic shock: * Growing Gram negative bacilli in both urine and sacral wound. * Awaiting sensitivities. * Blood cultures pending. * Continue Zosyn. * COVID-19 negative. LINES/IV ACCESS - * PIVs x2 * RIGHT-sided a port. * Rivera catheter DVT PROPHYLAXIS - * Hold on anticoagulation in the setting of severe anemia. * SCDs I have personally spent 35 minutes of critical care time in the direct management of this patient. This is a life/limb threatening event. This includes time spent evaluating patient, direct bedside care, chart review, placing orders, interpretation of diagnostic studies, discussion with consultants, pat ient, and family members, as well as other required patient management activities. This time is exclusive of all separately billable procedures, and teaching time and separate from and in addition to any other critical care service time. Thank you for allowing us to participate in the care of this patient. Please refer to my attending physician's documentation for any further recommendations. (2) Severe anemia: (3) Severe sepsis: (4) Leukocytosis: (5) Right leg DVT: (6) Acute renal failure: (7) Hypotension due to blood loss: (8) Hypertension: (9) Metastatic adenocarcinoma: Admission and Anticipated Discharge Date Admission Date: July 18, 2020 Subjective Patient drowsy on assessment, but answers questions. Complains of feeling cold. Underwent emergent cystoscopy with bilateral ureteral stent placement secondary to severe hydronephrosis appreciated on abd/pelvis CT. Thought to be secondary to pelvic mass from primary CA. No source of bleeding noted on AM CT. H&H has been stable throughout the day. Remains off Lovenox per [facility] Heme/Onc recommendations in the setting of severe anemia. Hospitalist service spoke with vascular about ??IVC filter. Will evaluate patient on Tuesday. Remains on low dose Levophed gtt. Review of Systems Review of Systems: All systems reviewed & are unremarkable except as noted in HPI & below Physical Exam Constitutional: + ill appearing and + frail appearing Drowsy Neck: normal visual inspection Respiratory: normal respiratory effort, lungs clear to auscultation normal respiratory effort and able to speak in complete sentences Cardiovascular: RRR, no murmur, no edema Rate/Rhythm: regular rate Gastrointestinal (Abdomen): normal bowel sounds, soft, nontender, no hepatosplenomegaly Inspection/Auscultation: abdomen normal to inspection Skin: Sacral ulcer Neurologic: CN's II-XI intact bilaterally Results & Data Results & Data ([facility]) Vital Signs (Past 12 Hours) Vital Signs Temp Pulse Pulse Resp BP BP Pulse Ox 07/19/20 18:20 37.1 C 83 19 98/58 L 97 07/19/20 18:15 37.1 C 73 17 96/54 L 99 07/19/20 18:10 37.1 C 83 19 92/50 L 96 07/19/20 18:05 37.1 C 18 86/56 L 97 07/19/20 18:00 37.1 C 86 17 101/71 97 07/19/20 16:35 90 18 107/63 07/19/20 16:00 67 07/19/20 15:56 76 24 81/39 L 07/19/20 13:38 67 20 92/53 L 07/19/20 13:23 74 18 78/42 L 07/19/20 12:55 76 19 81/49 L 07/19/20 11:55 75 18 84/46 L 97 07/19/20 10:55 80 17 91/58 L 07/19/20 08:54 87 16 105/59 L 07/19/20 08:24 80 18 100/58 L 07/19/20 08:00 36.8 C 81 07/19/20 07:24 82 14 106/60 97 Coding Level of Care Code Critical Care 1st 30-74 mins Diagnoses Admitted to intensive care unit Z78.9 Severe anemia D64.9 Severe sepsis A41.9; R65.20 Leukocytosis D72.829 Right leg DVT I82.401 Acute renal failure N17.9 Hypotension due to blood loss I95.89 Hypertension I10 Metastatic adenocarcinoma C79.9 Time Spent (min) 35
--- NOTE | 2020-07-19 19:07 | Anesthesiology Progress Note ---
Date of Service July 19, 2020 Anesthesia Post Procedure Vital Signs Vital Signs: Temp Pulse Pulse Resp BP BP Pulse Ox 07/19/20 18:20 37.1 C 83 19 98/58 L 97 07/19/20 18:15 37.1 C 73 17 96/54 L 99 07/19/20 18:10 37.1 C 83 19 92/50 L 96 07/19/20 18:05 37.1 C 18 86/56 L 97 07/19/20 18:00 37.1 C 86 17 101/71 97 07/19/20 16:35 90 18 107/63 07/19/20 16:00 67 07/19/20 15:56 76 24 81/39 L 07/19/20 13:38 67 20 92/53 L 07/19/20 13:23 74 18 78/42 L 07/19/20 12:55 76 19 81/49 L 07/19/20 11:55 75 18 84/46 L 97 07/19/20 10:55 80 17 91/58 L 07/19/20 08:54 87 16 105/59 L 07/19/20 08:24 80 18 100/58 L 07/19/20 08:00 36.8 C 81 07/19/20 07:24 82 14 106/60 97 07/19/20 06:21 83 07/19/20 06:09 36.7 C 83 18 104/71 96 07/19/20 05:54 94 H 15 105/65 97 07/19/20 05:39 87 14 138/77 99 07/19/20 05:09 87 13 115/51 L 96 07/19/20 04:54 79 19 86/65 L 97 07/19/20 04:39 80 15 98/55 L 97 07/19/20 04:24 80 18 97/68 L 96 07/19/20 04:09 76 21 101/56 L 97 07/19/20 03:54 82 19 95/64 L 97 07/19/20 03:39 83 20 111/61 98 07/19/20 03:24 83 20 105/55 L 96 07/19/20 03:09 84 20 105/64 96 07/19/20 02:54 84 17 107/62 97 07/19/20 02:39 79 22 102/59 L 96 07/19/20 02:24 82 20 102/56 L 96 07/19/20 02:09 81 22 100/55 L 98 07/19/20 01:54 84 19 109/54 L 98 07/19/20 01:39 85 17 100/54 L 97 07/19/20 01:24 87 15 105/57 L 97 07/19/20 01:08 85 17 109/51 L 96 07/19/20 00:54 84 14 103/56 L 97 07/19/20 00:53 36.7 C 85 23 101/64 98 07/19/20 00:39 87 16 101/64 97 07/19/20 00:23 85 19 93/50 L 95 07/19/20 00:09 36.7 C 85 22 95/59 L 96 07/19/20 00:03 36.7 C 88 18 83/74 L 97 07/18/20 23:53 80 15 83/74 L 95 07/18/20 23:39 82 23 89/43 L 97 07/18/20 23:23 86 18 97/41 L 95 07/18/20 23:08 84 18 88/40 L 97 07/18/20 23:03 36.7 C 81 21 88/40 L 98 07/18/20 22:53 86 25 H 80/43 L 96 07/18/20 22:39 89 19 83/36 L 98 07/18/20 22:33 36.7 C 89 19 83/36 L 98 07/18/20 22:23 89 18 95/54 L 97 07/18/20 22:18 36.7 C 87 18 95/54 L 97 07/18/20 22:08 36.7 C 92 H 24 84/48 L 96 07/18/20 22:01 36.7 C 89 21 86/42 L 100 07/18/20 21:57 36.7 C 83 19 86/42 L 07/18/20 21:53 87 17 86/42 L 98 07/18/20 21:38 91 H 20 81/45 L 98 07/18/20 21:24 90 18 74/35 L 98 07/18/20 21:08 90 20 93/36 L 98 07/18/20 20:56 89 20 74/53 L 99 07/18/20 20:54 91 H 18 57/40 L 98 07/18/20 20:38 94 H 16 93/45 L 100 07/18/20 20:23 95 H 19 94/53 L 100 07/18/20 19:53 36.7 C 91 H 17 71/32 L 95 07/18/20 19:45 98 H 17 94/44 L 67 L 07/18/20 19:23 97 H 22 87/54 L 98 07/18/20 19:08 96 H 18 91/58 L 98 Pain Intensity Bilateral Head: Pain Intensity: 1 Transfer of Care Handoff Completed per policy Notes Mental Status: alert / awake / arousable Patient Amnestic to Procedure: Yes Nausea / Vomiting: adequately controlled Pain: adequately controlled Airway Patency, RR, SpO2: stable & adequate BP & HR: stable & adequate Hydration State: stable & adequate Anesthetic Complications: no major complications apparent
[2020-07-19] MEDS: NOREPINEPHRINE/D5W 8 MG/508 ML BAG IV SCH (22:13)
[2020-07-20] MEDS: PIPERACILLIN/TAZOBACTAM 3.375 GM in DEXTROSE 5% 100 ML IV SCH ×3 (00:24→16:06)
[2020-07-20 00:54] LABS: Hematocrit (blood only) 27.1 % (37-47)
[2020-07-20] MEDS: LACTATED RINGER'S 1,000 ML IV SCH ×3 (03:15→23:00)
[2020-07-20 04:42] LABS: Hematocrit (blood only) 27.9 % (37-47); Mean Corpuscular Hemoglobin 28.4 pg (25-34); Mean Corpuscular Hgb Conc 32.3 g/dL (32-36); Mean Platelet Volume 8.2 fL (7.4-10.4); Platelet Count 222 K/uL (130-400); RDW Coefficient of Variation 16.4 % (11.5-14.5); RDW Standard Deviation 52.6 fL (36.4-46.3); Red Blood Count 3.17 M/uL (4.2-5.4); White Blood Count 24.75 K/uL (4.8-10.8)
[2020-07-20 05:13] LABS: Basophils # (auto) 0.05 K/uL (0-0.2); Basophils % (auto) 0.2 %; Eosinophils # (auto) 0.16 K/uL (0-0.5); Eosinophils % (auto) 0.6 %; Immature Granulocytes # (auto) 0.85 K/uL (0.00-0.02); Immature Granulocytes % (auto) 3.4 %; Lymphocytes # (auto) 0.93 K/uL (1.2-3.4); Lymphocytes % (auto) 3.8 %; Monocytes % (auto) 4.4 %; Neutrophils # (auto) 21.66 K/uL (1.4-6.5); Neutrophils % (auto) 87.6 %; Polychromasia 1+
[2020-07-20 05:14] LABS: Alanine Aminotransferase < 6 U/L (12-78); Albumin Level 1.3 gm/dl (3.4-5.0); Aspartate Aminotransferase 12 U/L (15-37); BUN Creatinine Ratio 13.9 (10-20); Blood Urea Nitrogen 15 mg/dl (7-18); Calcium 7.5 mg/dl (8.5-10.1); Carbon Dioxide 26 mmol/L (21-32); Chloride 104 mmol/L (98-107); Est GFR (African American) 65.5; Est GFR (Non-African American) 56.5; Glucose 162 mg/dl (70-99); Magnesium 1.2 mg/dl (1.8-2.4); Potassium 3.3 mmol/L (3.5-5.1); Sodium 135 mmol/L (136-145)
[2020-07-20 05:16] LABS: Albumin Globulin Ratio 0.3 (0.9-2); Alkaline Phosphatase 100 U/L (45-117); Bilirubin,Total 0.7 mg/dl (0.2-1); Globulin 4.4 gm/dl (2.5-4.0); Phosphorus 3.6 mg/dl (2.5-4.9); Total Protein 5.7 gm/dl (6.4-8.2)
[2020-07-20] MEDS ORDERED: CALCIUM GLUCONATE 10% 2,000 MG in SODIUM CHLORIDE 0.9% 50 ML IV STA (05:24)
[2020-07-20] MEDS: ALBUMIN 25% 12.5 GM/50 ML VIAL IV SCH ×5 (05:45→22:16)
[2020-07-20] MEDS: POTASSIUM CHLORIDE / WTR 10 MEQ/100 ML PLCT IV SCH ×4 (05:46→10:26)
[2020-07-20] MEDS: MAGNESIUM SULFATE / D5W 1 GM/100 ML BAG IV SCH ×2 (05:47→08:00)
[2020-07-20] MEDS: HYDROmorphone HCL 2 MG TAB PO PRN ×2 (06:24→21:40)
--- NOTE | 2020-07-20 07:57 | Communication Note ---
Date of Service: July 20, 2020 ATTENDING NOTE : am labs reviewed : Hb remains stable ~9 renal function normalized s/p bilateral ureteric stent placement yesterday by Dr Peng ordered to start on therapeutic Lovenox 60 mg SC BID given Metastatic adenocarcinoma /endometrial adeno CA , pt possibly has malignancy related hypercoagulable status high risk for propagation of Rt lower ext occlusive DVT /or development of new DVT or PE discussed with Hematology /Oncology at [facility] Dr Derick Dale -pt is known their service . prognosis is very poor , with limited life expectancy IVC filter may not be appropriate , with hypercoagulable state , filter can get thrombosed as well . recommends to D/w pt and family regarding goals of care -palliative /hospice consult is appropriate in this scenario . Pt and pt's wants to have the discussion with Dr Melvin Christina only . Dr Christina is not ion exchange operator till Tuesday . Dr Dale messaged him , [facility] Oncology team /Dr Christina will contact Pt's family / on Tuesday to discuss prognosis and goals of care . Pt remains full code , will continue supportive care for severe sepsis . Culture reports reviewed : Urine culture : E coli Gauthier sensitive Wound culture : gram negative bacilli ordered to DC Vancomycin cont Rf[employer] Forte ID consult for Tuesday07/21/20 Celio Dupree MD
[2020-07-20] MEDS: VANCOMYCIN HCL 1,000 MG in SODIUM CHLORIDE 0.9% 250 ML IV SCH (08:01)
[2020-07-20] MEDS: ENOXAPARIN INJ 60 MG/0.6 ML SYR SQ SCH ×2 (08:50→20:03)
[2020-07-20] MEDS: GABAPENTIN 100 MG CAP PO SCH ×3 (08:50→20:05)
[2020-07-20] MEDS: MoRPHine SULFATE CR 15 MG TABCR PO SCH ×2 (08:50→20:05)
--- NOTE | 2020-07-20 13:56 | Critical Care Progress Note ---
Date of Service July 20, 2020 Assessment & Plan (1) Admitted to intensive care unit: Reason Critically Ill: 54-year-old female presenting with severe anemia and hypotension requiring close hemodynamic monitoring and likely need for vasopressor support in the setting of hypovolemia and concerns for sepsis. Underwent emergent cystoscopy with bilateral ureteral stenting 2/2 severe obstructive hydronephrosis. NEURO - * CAM ICU: NEGATIVE * Pain: * Patient on chronic narcotic pain medications for pain related to current CA. CARDIAC/VASCULAR - * Hypotension: * Multifactorial in the setting of profound anemia and sepsis. * Continue to resuscitate with blood products. * Pressors weaning off * Extensive RLE DVT: * Likely 2/2 hypercoagulable state in the setting of CA. * Previously on Lovenox injections at home. * Per patient's Heme/Onc provider at [facility], will hold on Lovenox whil e requiring PRBCs for severe anemia. * To be assessed by vascular surgery for regarding need for IVC filter. * EKG: Normal sinus rhythm at [address] or T wave changes. QTc 580 ms. * Monitor on telemetry. RESPIRATORY - * No history of pulmonary disease. * Saturating well on room air. GI/NUTRITION - * Low-sodium diet * Prophylaxis: Famotidine RENAL/LYTES - * Acute kidney injury: * Secondary to profound anemia and poor perfusion. - * Rivera in place - Strict I&Os. ENDO - * Relatively low random cortisol will give 100 mg Solu-Cortef to hopefully assist patient in discontinuing nor epi HEME - * Profound anemia: * near baseline of 8-9. * Patient anticoagulated on Lovenox secondary to extensive RIGHT lower extremity DVT: * Currently receiving Lovenox 60 mg every 12 * Hospitalist service spoke with vascular. Possible IVC filter ID - * Severe sepsis with septic shock: * Gram-negative bacilli are from the abdomen source which was obtained in the operating room which was the pyuria * Pansensitive E. coli * Blood cultures pending. No growth to date * Continue Zosyn. Until no longer requiring vasoactive medications * COVID-19 negative. LINES/IV ACCESS - * PIVs x2 * RIGHT-sided a port. * Rivera catheter DVT PROPHYLAXIS - * Lovenox 60 mg twice daily * SCDs I have personally spent 45 minutes of critical care time in the direct management of this patient. This is a life/limb threatening event. This includes time spent evaluating patient, direct bedside care, chart review, placing orders, interpretation of diagnostic studies, discussion with consultants, patient, and family members, as well as other required patient management activities. This time is exclusive of all separately billable procedures, and teaching time and separate from and in addition to any other critical care service time. Thank you for allowing us to participate in the care of this patient. Please refer to my attending physician's documentation for any further recommendations. (2) Severe anemia: (3) Severe sepsis: (4) Leukocytosis: (5) Right leg DVT: (6) Acute renal failure: (7) Hypotension due to blood loss: (8) Hypertension: (9) Metastatic adenocarcinoma: Admission and Anticipated Discharge Date Admission Date: July 18, 2020 Subjective Patient would like to go home, has chronic right lower quadrant pain secondary to cancer this is not changed, she is not complaining of significant abdominal pain that is new in any form of quality and no nausea. Physical Exam Physical Exam: General: Alert. nontoxic. Skin: Warm, dry, Head: Atraumatic Ears, nose, mouth and throat: airway patent Cardiovascular: Normal peripheral perfusion Respiratory: no respiratory distress Gastrointestinal: Non distended, mild tenderness in the right lower quadrant with deep palpation, no guarding no rebound this is a nonsurgical abdomen Musculoskeletal: No deformity Results & Data Results & Data ([facility]) Vital Signs (Past 12 Hours) Vital Signs Temp Pulse Resp BP Pulse Ox 07/20/20 08:00 71 07/20/20 07:52 78 18 115/64 99 07/20/20 06:52 55 L 22 118/51 L 97 07/20/20 06:22 37 C 81 17 98/54 L 98 07/20/20 05:52 80 15 113/66 98 07/20/20 05:22 63 22 111/63 96 07/20/20 04:52 77 21 102/55 L 96 07/20/20 04:22 85 18 100/60 96 07/20/20 04:00 86 07/20/20 03:52 79 20 127/75 96 07/20/20 03:22 75 21 118/63 96 07/20/20 02:52 75 21 115/58 L 97 07/20/20 02:22 76 20 112/56 L 95 07/20/20 01:52 80 23 100/56 L 94 Laboratory Results 07/20/20 07/20/20 07/20/20 Range/Units 04:15 04:15 04:15 WBC (4.8-10.8) K/uL RBC (4.2-5.4) M/uL Hgb (12.0-16.0) g/dL Hct (37-47) % MCV (80-100) fL MCH (25-34) pg MCHC (32-36) g/dL RDW Std Deviation (36.4-46.3) fL RDW Coeff of Devaughn (11.5-14.5) % Plt Count (130-400) K/uL MPV (7.4-10.4) fL Immature Gran % (Auto) % Neut % (Auto) % Lymph % (Auto) % Jewell % (Auto) % Eos % (Auto) % Baso % (Auto) % Neut # (Auto) (1.4-6.5) K/uL Lymph # (Auto) (1.2-3.4) K/uL Jewell # (Auto) (0.11-0.59) K/uL Eos # (Auto) (0-0.5) K/uL Baso # (Auto) (0-0.2) K/uL Immature Gran # (Auto) (0.00-0.02) K/uL Polychromasia Sodium 135 L (136-145) mmol/L Potassium 3.3 L (3.5-5.1) mmol/L Chloride 104 (98-107) mmol/L Carbon Dioxide 26 (21-32) mmol/L Anion Gap 5.0 (3-11) BUN 15 (7-18) mg/dl Creatinine 1.10 (0.6-1.2) mg/dl Est Cr Clr Drug Dosing 53.0 ml/min Est GFR ( Amer) 65.5 Est GFR (Non-Af Amer) 56.5 BUN/Creatinine Ratio 13.9 (10-20) Glucose 162 H (70-99) mg/dl POC Glucose (70-99) mg/dl Calcium 7.5 L (8.5-10.1) mg/dl Phosphorus 3.6 (2.5-4.9) mg/dl Magnesium 1.2 L (1.8-2.4) mg/dl Total Bilirubin 0.7 (0.2-1) mg/dl AST 12 L (15-37) U/L ALT < 6 L (12-78) U/L Alkaline Phosphatase 100 (45-117) U/L Total Protein 5.7 L (6.4-8.2) gm/dl Albumin 1.3 L (3.4-5.0) gm/dl Globulin 4.4 H (2.5-4.0) gm/dl Albumin/Globulin Ratio 0.3 L (0.9-2) Procalcitonin 2.61 H (0-0.5) ng/ml Random Cortisol 17.51 mcg/dl 07/20/20 07/20/20 07/19/20 Range/Units 04:15 00:22 18:44 WBC 24.75 H (4.8-10.8) K/uL RBC 3.17 L (4.2-5.4) M/uL Hgb 9.0 L 9.0 L (12.0-16.0) g/dL Hct 27.9 L 27.1 L (37-47) % MCV 88.0 (80-100) fL MCH 28.4 (25-34) pg MCHC 32.3 (32-36) g/dL RDW Std Deviation 52.6 H (36.4-46.3) fL RDW Coeff of Devaughn 16.4 H (11.5-14.5) % Plt Count 222 (130-400) K/uL MPV 8.2 (7.4-10.4) fL Immature Gran % (Auto) 3.4 % Neut % (Auto) 87.6 % Lymph % (Auto) 3.8 % Jewell % (Auto) 4.4 % Eos % (Auto) 0.6 % Baso % (Auto) 0.2 % Neut # (Auto) 21.66 H (1.4-6.5) K/uL Lymph # (Auto) 0.93 L (1.2-3.4) K/uL Jewell # (Auto) 1.10 H (0.11-0.59) K/uL Eos # (Auto) 0.16 (0-0.5) K/uL Baso # (Auto) 0.05 (0-0.2) K/uL Immature Gran # (Auto) 0.85 H (0.00-0.02) K/uL Polychromasia 1+ Sodium (136-145) mmol/L Potassium (3.5-5.1) mmol/L Chloride (98-107) mmol/L Carbon Dioxide (21-32) mmol/L Anion Gap (3-11) BUN (7-18) mg/dl Creatinine (0.6-1.2) mg/dl Est Cr Clr Drug Dosing ml/min Est GFR ( Amer) Est GFR (Non-Af Amer) BUN/Creatinine Ratio (10-20) Glucose (70-99) mg/dl POC Glucose 133 H (70-99) mg/dl Calcium (8.5-10.1) mg/dl Phosphorus (2.5-4.9) mg/dl Magnesium (1.8-2.4) mg/dl Total Bilirubin (0.2-1) mg/dl AST (15-37) U/L ALT (12-78) U/L Alkaline Phosphatase (45-117) U/L Total Protein (6.4-8.2) gm/dl Albumin (3.4-5.0) gm/dl Globulin (2.5-4.0) gm/dl Albumin/Globulin Ratio (0.9-2) Procalcitonin (0-0.5) ng/ml Random Cortisol mcg/dl 07/19/20 Range/Units 18:21 WBC (4.8-10.8) K/uL RBC (4.2-5.4) M/uL Hgb 9.2 L (12.0-16.0) g/dL Hct 28.5 L (37-47) % MCV (80-100) fL MCH (25-34) pg MCHC (32-36) g/dL RDW Std Deviation (36.4-46.3) fL RDW Coeff of Devaughn (11.5-14.5) % Plt Count (130-400) K/uL MPV (7.4-10.4) fL Immature Gran % (Auto) % Neut % (Auto) % Lymph % (Auto) % Jewell % (Auto) % Eos % (Auto) % Baso % (Auto) % Neut # (Auto) (1.4-6.5) K/uL Lymph # (Auto) (1.2-3.4) K/uL Jewell # (Auto) (0.11-0.59) K/uL Eos # (Auto) (0-0.5) K/uL Baso # (Auto) (0-0.2) K/uL Immature Gran # (Auto) (0.00-0.02) K/uL Polychromasia Sodium (136-145) mmol/L Potassium (3.5-5.1) mmol/L Chloride (98-107) mmol/L Carbon Dioxide (21-32) mmol/L Anion Gap (3-11) BUN (7-18) mg/dl Creatinine (0.6-1.2) mg/dl Est Cr Clr Drug Dosing ml/min Est GFR ( Amer) Est GFR (Non-Af Amer) BUN/Creatinine Ratio (10-20) Glucose (70-99) mg/dl POC Glucose (70-99) mg/dl Calcium (8.5-10.1) mg/dl Phosphorus (2.5-4.9) mg/dl Magnesium (1.8-2.4) mg/dl Total Bilirubin (0.2-1) mg/dl AST (15-37) U/L ALT (12-78) U/L Alkaline Phosphatase (45-117) U/L Total Protein (6.4-8.2) gm/dl Albumin (3.4-5.0) gm/dl Globulin (2.5-4.0) gm/dl Albumin/Globulin Ratio (0.9-2) Procalcitonin (0-0.5) ng/ml Random Cortisol mcg/dl Coding Level of Care Code Critical Care 1st 30-74 mins Diagnoses Admitted to intensive care unit Z78.9 Severe anemia D64.9 Severe sepsis A41.9; R65.20 Leukocytosis D72.829 Right leg DVT I82.401 Acute renal failure N17.9 Hypotension due to blood loss I95.89 Hypertension I10 Metastatic adenocarcinoma C79.9
[2020-07-20] MEDS ORDERED: HYDROCORTISONE SOD 100 MG in SYRINGE 0 ML IV ONE (14:15)
--- NOTE | 2020-07-20 17:05 | Hospitalist Progress Note ---
Date of Service July 20, 2020 Assessment & Plan (1) Severe sepsis: Severe sepsis with septic shock: Met criteria for sepsis on admission leukocytosis, acute renal failure, profound hypotension requiring pressor support/ICU admission and IV Levophed infusion Was tachycardic and febrile on admission Source of infection: Obstructive uropathy due to metastatic malignancy, complicated UTI, bilateral pyelonephritis: complicated UTI : urine culture : E coli lima sensitive infected pressure wound on sacrum : wound culture : gram negative bacilli abx adjusted to IV Zosyn clinically much improved Reanna ID consulted -plan is to dc home after transitioning to PO Abx per ID recommendation pt requests to be discharged home tomorrow if possible observe in ICU overnight , wean off IV Levophed keeping the MAP ~60 random cortisol on lower limit given IV steroid for possible sepsis induced adrenal insufficiency . Hyperglycemia : steroid induced cont ICU glycemic protocol (2) Acute renal failure: -resolved Secondary to obstructive uropathy, metastatic malignancy causing bilateral hydroureteronephrosis Cr was elevated at 1.49 (baseline ~0.8 ) resolved after bilateral ureteric stent placement emergently by Urology Dr Peng Cr back to baseline having adequate urine out put abx for complicated UTI as outlined above (3) Severe anemia: corrected after PRBC tx H&H stable @ 9 No evidence of active bleeding, patient was recently admitted at [facility], uterine artery embolization to stop bleeding Possible secondary to metastatic malignancy, status post 3 units of PRBC Recently diagnosed with right lower extremity DVT possibly secondary to metastatic malignancy/uterine mass compression: metastatic adeno Ca with possible hypercoagulable state SC Lovenox resumed monitor H&H (4) Metastatic adenocarcinoma: 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 s/p chemo treatment, radiation treatment, Currently on palliative treatment with Keytruda -followed at hematology Dr. Christina of [facility]. Got 2nd Cycle of Keytruda on 06/20 -PET scan with findings consistent with progressive disease characterized by increasing size and metabolic activity in the uterine mass as well as interval progression of metastatic lymphadenopathy in the abdomen and pelvis as described above. New cortical erosions/lytic lesions along the anterior and right side of the L4 vertebral body adjacent to the enlarging right iliac chain lymphadenopathy is most suspicious for osseous involvement -Discussed case with Dr. Garcia (automation application engineer for [facility] onc). Lovenox SC theraputic dose resumed -so far no bleeding issues noted will hold off IVC filter placement for now Vascular surgery consult cancelled CODE STATUS Full code (5) Right leg DVT: resumed Therapeutic Lovenox 60 mg BID SC (6) Leukocytosis: due to combination of sepsis - obstructive uropathy, complicated UTI, bilateral pyelonephritis. pt also had chronically elevated WBC while getting Keutruda CODE STATUS: Full code Overall prognosis remains very poor DVT prophylaxis, therapeutic Lovenox with close monitoring of H&H Disposition: plan to dc home tomorrow if remains medically stable plan of care updated to Pt and Pt's over phone in detail Admission and Anticipated Discharge Date Admission Date: July 18, 2020 Subjective pt is in good spirit today awake, conversing with family members no fever BP improved , still requiring IV pressor support plan to wean off good urine output , creatinine back to baseline appetite has improved as well Review of Systems Review of Systems: All systems reviewed & are unremarkable except as noted in HPI & below Constitutional: + weakness; no fever, no chills, no fatigue and no anorexia Respiratory: no cough, no dyspnea, no dyspnea on exertion and no wheezing Cardiovascular: as per Subjective / HPI; no chest pain, no dyspnea, no orthopnea, no lightheadedness and no syncope Physical Exam Constitutional: WD/WN, vitals as above + ill appearing Eyes: sclerae not anicteric ENMT: external ear and nose normal, oropharynx normal Neck: trachea midline, no thyromegaly Respiratory: normal respiratory effort and able to speak in complete sentences; no respiratory distress, no labored breathing, no cough and not tachypneic Auscultation: + diminished lung sounds; no crackles, no rales and no wheezes Cardiovascular: Rate/Rhythm: regular rate and regular rhythm Extremities: + pedal edema (Bilateral lower extremity edema right more than left) and + edema (Right lower extremity pitting edema) Gastrointestinal (Abdomen): Percussion/Palpation: abdomen soft; abdomen nontender Skin: no rashes, warm and dry Neurologic: PERRL, EOMI, accommodation nl, no face palsy, no dysarthria Psychiatric: A+Ox3, euthymic affect Results & Data Results & Data ([facility]) Vital Signs (Past 12 Hours) Vital Signs Temp Pulse Resp BP Pulse Ox 07/20/20 16:00 83 07/20/20 14:26 79 19 94/53 L 100 07/20/20 13:59 79 18 81/45 L 100 07/20/20 11:22 37.0 C 84 14 95/53 L 100 07/20/20 10:53 90 17 105/59 L 100 07/20/20 10:22 17 92/40 L 97 07/20/20 09:52 84 16 85/48 L 99 07/20/20 09:22 118 H 27 H 111/66 100 07/20/20 08:52 80 14 111/56 L 98 07/20/20 08:22 82 18 98/58 L 100 07/20/20 08:00 37.0 C 71 07/20/20 07:52 78 18 115/64 99 07/20/20 06:52 55 L 22 118/51 L 97 07/20/20 06:22 37 C 81 17 98/54 L 98 07/20/20 05:52 80 15 113/66 98 07/20/20 05:22 63 22 111/63 96 (1) Right leg DVT Affected thrombotic vein of extremity: unspecified lower extremity proximal vein Chronicity: chronic Qualified Code(s): I82.5Y1 - 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
[2020-07-20 18:00] LABS: Hematocrit (blood only) 26.1 % (37-47); Hemoglobin 8.7 g/dL (12.0-16.0)
[2020-07-20] MEDS: NOREPINEPHRINE/D5W 8 MG/508 ML BAG IV SCH (18:57)
--- NOTE | 2020-07-20 23:26 | Urology Progress Note ---
Date of Service July 20, 2020 Assessment & Plan (1) Bilateral hydronephrosis: Met [employer] Malignancy with bilateral obstruction, acutely ill with obstruction and development of severe right sided, possibly bilateral pyelo. RENATA improving and hydronephrosis managed bilaterally. Appeared to be external compression issues due to Retroperitoneal mass and pelvic mass from Met [employer] Cancer. Delirium improving. Patient does not remember recent history or acute events due to severity of illness. Discussed possible need for longer term or continued management and drainage. Imelda of Right side. Patient still requiring critical management and actively undergoing management with Multispeciality team. Will follow. Can start to deesculate abx when culture available. Stat gram stain of right renal pelvis urine found Gram neg bacilli. Will await full assessment and sensitivies. Continue with critical monitoring and supportive care. (2) Severe sepsis: (3) Admitted to intensive care unit: Admission and Anticipated Discharge Date Admission Date: July 18, 2020 Subjective Postop from stent placement for obstruction issues. Septic patient acutely ill with pyelo and purulent urine in right kidney and bilateral obstruction likely from external compression. Catheter has cleared. Patient delirium improved. Patient has been tolerating well. Has noticed some frequency and urgency. Has not had severe pain in the back and flank. Does have occasional burning and irritation. No severe episodes or major changes. No new nausea or vomiting. Had tolerated anesthesia without major problems Review of Systems Review of Systems: All systems reviewed & are unremarkable except as noted in HPI & below Physical Exam Physical Exam: General: Alert in no acute distress but critically managed. Chronic severe issues secondary to high stage malignancy with mets. HEENT: Normocephalic Atraumatic. Inspection normal. Cranial Nerves 2-12 Grossly intact. Normal inspection of face. Normal inspection of neck. Psychologic: Normal affect. Mild anxious Respiratory: Nonlabored. No use of accessory muscles. No tachypnea or dyspnea. Cardiovascular: No tachycardia Skin: [place] and Dry. No rashes or visible lesions. Extremities/Lymphatics: Severe bilateral Abdomen: Moder distended. No rebound or guarding. : Rivera draining clear yellow. Results & Data ([facility]) Vital Signs (Past 12 Hours) Vital Signs Temp Pulse Resp BP Pulse Ox 07/20/20 20:59 81 18 124/64 98 07/20/20 19:59 37.1 C 77 16 117/60 97 07/20/20 19:22 83 07/20/20 18:59 83 19 95/57 L 97 07/20/20 17:58 84 14 105/60 96 07/20/20 16:58 82 16 110/64 96 07/20/20 16:00 37.2 C 83 07/20/20 15:59 82 15 92/59 L 96 07/20/20 14:59 78 18 92/56 L 96 07/20/20 14:26 79 19 94/53 L 100 07/20/20 13:59 79 18 81/45 L 100 07/20/20 11:22 37.0 C 84 14 95/53 L 100 PG Care Time/CCT Total # of Minutes Spent Total Time Spent with Patient: Total time spent is greater than 50% in coordination of care (as documented) at patient's floor/unit and/or counseling patient: Coding Level of Care Code 91083 Subseq Hosp Care Lvl 3 Diagnoses Bilateral hydronephrosis N13.30 Severe sepsis A41.9; R65.20 Admitted to intensive care unit Z78.9
[2020-07-21] MEDS: PIPERACILLIN/TAZOBACTAM 3.375 GM in DEXTROSE 5% 100 ML IV SCH (00:47)
[2020-07-21 05:00] LABS: Alanine Aminotransferase < 6 U/L (12-78); Aspartate Aminotransferase 8 U/L (15-37); Blood Urea Nitrogen 14 mg/dl (7-18); Calcium 7.7 mg/dl (8.5-10.1); Carbon Dioxide 26 mmol/L (21-32); Chloride 102 mmol/L (98-107); Creatinine Clr Calc Pharmacy 56.4 ml/min; Est GFR (African American) 69.2; Est GFR (Non-African American) 59.7; Glucose 235 mg/dl (70-99); Magnesium 1.5 mg/dl (1.8-2.4); Potassium 3.2 mmol/L (3.5-5.1); Sodium 136 mmol/L (136-145)
[2020-07-21 05:02] LABS: Albumin Globulin Ratio 0.6 (0.9-2); Alkaline Phosphatase 58 U/L (45-117); Bilirubin,Total 0.5 mg/dl (0.2-1); Globulin 3.6 gm/dl (2.5-4.0); Phosphorus 3.2 mg/dl (2.5-4.9); Total Protein 5.6 gm/dl (6.4-8.2)
[2020-07-21 05:40] LABS: Hematocrit (blood only) 21.9 % (37-47); Hemoglobin 7.1 g/dL (12.0-16.0); Mean Corpuscular Hemoglobin 28.4 pg (25-34); Mean Corpuscular Hgb Conc 32.4 g/dL (32-36); Mean Corpuscular Volume 87.6 fL (80-100); Mean Platelet Volume 8.1 fL (7.4-10.4); Platelet Count 146 K/uL (130-400); RDW Coefficient of Variation 16.5 % (11.5-14.5); RDW Standard Deviation 53.1 fL (36.4-46.3); White Blood Count 14.08 K/uL (4.8-10.8)
[2020-07-21 05:41] LABS: Basophils # (auto) 0.01 K/uL (0-0.2); Basophils % (auto) 0.1 %; Immature Granulocytes # (auto) 0.18 K/uL (0.00-0.02); Immature Granulocytes % (auto) 1.3 %; Lymphocytes # (auto) 0.79 K/uL (1.2-3.4); Lymphocytes % (auto) 5.6 %; Monocytes # (auto) 0.64 K/uL (0.11-0.59); Monocytes % (auto) 4.5 %; Neutrophils # (auto) 12.46 K/uL (1.4-6.5); Neutrophils % (auto) 88.5 %; RBC Morphology Unremarkable
[2020-07-21] MEDS ORDERED: SODIUM CHLORIDE 0.9% 250 ML IV PRN ×3 (07:30→17:00)
--- NOTE | 2020-07-21 07:40 | Critical Care Progress Note ---
Date of Service July 21, 2020 Assessment & Plan (1) Severe sepsis: Impression: 54-year-old female presenting with severe anemia and hypotension requiring close hemodynamic monitoring and likely need for vasopressor support in the setting of hypovolemia and concerns for sepsis. Underwent emergent cystoscopy with bilateral ureteral stenting 2/2 severe obstructive hydronephrosis. Has a history of recent DVT 24-hour events: The patient has been weaned off vasopressor agents but blood pressures remain mildly soft. She has had no complaints. No evidence of ongoing bleeding. Recommendations: NEURO - Patient on chronic narcotic pain medications for pain related to current CA. CARDIAC/VASCULAR - Multifactorial hypotension due to septic shock, acute anemia, and hypovolemia. Also potential relative adrenal insufficiency. Continue colloid support with albumin given her low albumin. She can remain off vasopressor agents, can likely transfer to the floor later today. RESPIRATORY - No acute issues GI/NUTRITION - Low-sodium diet Prophylaxis: Famotidine RENAL/LYTES - Acute kidney injury, now resolved. Continue to monitor electrolytes. We will replace calcium, magnesium, potassium today. - Rivera in place - Strict I&Os. Stent per urology. ENDO - Relatively low random cortisol, continue Solu-Cortef and add Florinef HEME - Continue to trend hemoglobin and hematocrit. We will transfuse additional units of packed cells this morning given hemoglobin down to 7. Holding anticoagulation for DVT given bleeding complications. Duplex ultrasound from 07/18 showed persistent right lower extremity thrombosis. ID - Pyelonephritis with pansensitive E. coli. Will de-escalate antibiotics to Rocephin. LINES/IV ACCESS - PIVs x2 RIGHT-sided a port. Rivera catheter DVT PROPHYLAXIS - Holding chemical DVT prophylaxis given drop in hemoglobin. SCDs The above recommendations and plan were discussed on multidisciplinary rounds as well as with the bedside ICU nurse and the patient at bedside. Total of 40 minutes was spent coordinating care on this patient. (2) Admitted to intensive care unit: (3) Bilateral hydronephrosis: (4) Acute renal failure: (5) Dysfunctional uterine bleeding: Admission and Anticipated Discharge Date Admission Date: July 18, 2020 Subjective Patient seen and examined. EMR reviewed. Discussed with Dr. Up. Patient states that she feels reasonably well this morning. She is not experiencing any abdominal pain. No nausea or vomiting. She denies chest pain palpitations or shortness of breath. Her pressure is mildly soft but she is off vasopressor agents currently. She is exhibited no signs of bleeding. Review of Systems Review of Systems: All systems reviewed & are unremarkable except as noted in HPI & below Physical Exam Constitutional: + ill appearing and + frail appearing; no acute distress Neck: trachea midline, no thyromegaly Respiratory: normal respiratory effort, lungs clear to auscultation Cardiovascular: RRR, no murmur, no edema Gastrointestinal (Abdomen): normal bowel sounds, soft, nontender, no hepatosplenomegaly Musculoskeletal: Extremities: extremities normal to inspection Skin: no rashes, warm and dry Neurologic: Nonfocal exam Lymphatic: no cervical lymphadenopathy Results & Data Results & Data ([facility]) Vital Signs (Past 12 Hours) Vital Signs Temp Pulse Resp BP Pulse Ox 07/21/20 07:01 36.5 C 61 17 92 07/21/20 06:59 57 L 15 90/47 L 97 07/21/20 06:30 64 18 93 07/21/20 05:59 61 16 81/46 L 95 07/21/20 04:59 66 19 90/55 L 93 07/21/20 03:59 69 16 94/52 L 98 07/21/20 03:00 75 07/21/20 02:59 67 17 115/67 95 07/21/20 01:59 74 15 97/54 L 98 07/21/20 00:59 72 16 95/57 L 97 07/20/20 23:59 74 21 101/58 L 96 07/20/20 22:59 77 18 91/54 L 97 07/20/20 21:59 78 19 125/73 97 07/20/20 20:59 81 18 124/64 98 07/20/20 19:59 37.1 C 77 16 117/60 97 Laboratory Results 07/21/20 05:11 07/21/20 05:11 Urine culture shows pansensitive E. coli Chemistries from this morning: Sodium 136 potassium 3.2 chloride 102 bicarb 26 BUN 14 creatinine 1.05 with a glucose of 235. Calcium 7.7 magnesium 1.5. AST ALT and total bili normal. Total protein 5.6 with albumin of 2.0 Procalcitonin down to 1.3 from 2.6 Diagnostic Findings No new imaging Coding Level of Care Code 64603 Subs Hosp Care Lv 3 Diagnoses Severe sepsis A41.9; R65.20 Admitted to intensive care unit Z78.9 Bilateral hydronephrosis N13.30 Acute renal failure N17.9 Dysfunctional uterine bleeding N93.8
[2020-07-21] MEDS ORDERED: cefTRIAXone SODIUM 1,000 MG in DEXTROSE 5% 50 ML IV SCH (08:00)
--- NOTE | 2020-07-21 08:13 | Communication Note ---
Date of Service: July 21, 2020 ATTENDING NOTE : AM labs shows : improvement of WBC , pro calcitonin level improved Hb drop noted 7.1 ( from hb 9 yesterday ) no evidence of bleeding Lovenox SC kept on hold ordered 1 units of PRBC transfusion by ICU attending . BP has improved , off pressors since am . repeat H&H ordered at noon will tx PRN to keep Hb > 8 or at lower level if hypotensive . Discussed the option for IVC filter with Vascular surgery Dr Stokes given extensive metastatic endometrial carcinoma with external compression to retroperitoneal to organs and vessels pt most likely will not be a candidate for Vacular procedure /IVC filter placement . venogram of CT abdomen/pelvis ordered by vascular surgery to assess patency of Inf vena cava . plan of care updated to pt at bedside and Pt's over phone / requests to contact Dr Christina -Lily/Onc at [facility] pt was also been followed with Surgical oncology Dr Reno and Medical oncology team At [facility] in [place] . Dr Melvin Christina has been co-ordinating between the multidisciplinary specialist . requests to D/w Dr Christina before planning for any procedure . called [facility]: Phone number [phone]:( 28/02 -cancer center hotline )-left message for call back. will hold off Palliative care consult or Discussion -pt and family not ready /resistant to that idea Preferably the discussion can have favorable out come if done by Primary Oncology at [facility] and [facility]. over the weekend Telegraph [employer] Tele[employer] Operator Oncologist at [facility] confirmed that over all prognosis is very poor , incurable metastatic malignancy which has not responded to any tx so far . recommended to address goals of care . appointment scheduled with [facility] this Tuesday07/23/20 .Pt wants to be discharged home LASHAUN. if remains medically stable , plan to dc home tomorrow -if BP and H&H remains stable and continue treatment plan with Cancer Care at [facility] Pt remains FULL CODE of pressors , stable to be transferred out of ICU treatment plan d/w Pt and Pt's all questions answered Modesta Dupree MD
--- NOTE | 2020-07-21 09:16 | Urology Progress Note ---
Date of Service July 21, 2020 Assessment & Plan (1) Bilateral hydronephrosis: 54 yo F POD#2 s/p cystoscopy and bilateral stent placement secondary to hydronephrosis from retroperitoneal mass and pelvic mass from metastatic uterine cancer, RENATA, and UTI/pyelonephritis. - Doing well from standpoint. - Remains afebrile. Labs reviewed - Creatinine 1.05, WBC improved to 14.08, Hgb 7.1 and receiving PRBCs this AM. - She is tolerating bilateral stents without bother. - Urine culture grew pansensitive E. coli. BCx 12/13 pending. Antibiotics transitioned to IV Rocephin. Follow cultures. - Tolerating Rivera catheter. - Reviewed expected clinical course, discussed outpatient follow-up to arrange stent exchange. - She is agreeable with the plan, all questions answered. - Will arrange outpatient follow-up with our service to discuss bilateral stent exchange. Thank you for allowing us to participate in the acute care of Ms. Guzman. Please reconsult us with additional questions, concerns or changes in patient status. ATTENDING: Patient with severe sepsis due to obstruction with retro mass. Anemia. Possible bleed/expansion of mass with obstruction. Purulent urine in right kidney with left obstruction. Bilateral stents in place. Will likely need continued supportive care with abx. Deseculate as the cultures return. May need stents for drainage during treatment and management of mass. Likely external compression. Agree with note. Independently evaluated and assessed and agree with assessment and conclusions. Monitor. Admission and Anticipated Discharge Date Admission Date: July 18, 2020 Subjective Patient seen and examined at bedside this AM. No issues overnight. Offers no complaints at present. Denies abdominal or flank pain. Tolerating Rivera catheter. Rivera intact, patent, and draining clear yellow urine. No dysuria. Levophed titrated down and discontinued this AM. Her BPs remain slightly low at time of exam. Hgb 7.1 today. She is currently receiving 1 unit of PRBCs. No fever or chills. No nausea or vomiting. No additional concerns today. Chart review: Afebrile. Creatinine 1.05, WBC 14.08, Hgb 7.1. UC&S showed pansensitive E. coli. BCx 12/13 - pending. On IV Rocephin. Review of Systems Constitutional: as per Subjective / HPI Gastrointestinal: as per Subjective / HPI Genitourinary: as per Subjective / HPI Physical Exam Constitutional: comfortable chronically ill-appearing, no acute distress Respiratory: normal respiratory effort and able to speak in complete sentences; no respiratory distress and no labored breathing Cardiovascular: Extremities: + pedal edema (bilateral) Gastrointestinal (Abdomen): Inspection/Auscultation: abdomen normal to inspection; abdomen not distended Percussion/Palpation: abdomen soft; abdomen nontender and no guarding Musculoskeletal: Head/Neck/Chest: normocephalic and head atraumatic Skin: no rashes, warm and dry Neurologic: moves all extremities and awake Psychiatric: Orientation: alert and oriented x 3 Genitourinary: no CVA tenderness Rivera catheter intact, patent, draining clear yellow urine Results & Data ([facility]) Vital Signs (Past 12 Hours) Vital Signs Temp Pulse Resp BP Pulse Ox 07/21/20 08:40 36.5 C 68 16 99/57 L 97 07/21/20 08:25 36.6 C 65 18 85/49 L 97 07/21/20 07:01 36.5 C 61 17 92 07/21/20 06:59 57 L 15 90/47 L 97 07/21/20 06:30 64 18 93 07/21/20 05:59 61 16 81/46 L 95 07/21/20 04:59 66 19 90/55 L 93 07/21/20 03:59 69 16 94/52 L 98 07/21/20 03:00 75 07/21/20 02:59 67 17 115/67 95 07/21/20 01:59 74 15 97/54 L 98 07/21/20 00:59 72 16 95/57 L 97 07/20/20 23:59 74 21 101/58 L 96 07/20/20 22:59 77 18 91/54 L 97 07/20/20 21:59 78 19 125/73 97 PG Care Time/CCT Total # of Minutes Spent Total Time Spent with Patient: Total time spent is greater than 50% in coordination of care (as documented) at patient's floor/unit and/or counseling patient: Coding Level of Care Code 20942 Subseq Hosp Care Lvl 2 Diagnoses Bilateral hydronephrosis N13.30
--- NOTE | 2020-07-21 09:19 | Consultation ---
Date of Consultation July 21, 2020 Assessment & Plan (1) Right leg DVT: Pt with DVT and anemia requiring transfusion. Would consider IVC filter, however, due to compression of IVC and iliac veins, recommend pt undergo CT venogram to eval patency of her IVC and determine whether a filter can be placed. Pt agreeable. Will order CTV today and make further recommendations after CTV. Patient chart reviewed. Agree with exam and treatment plan of the Vascular PA. Affected thrombotic vein of extremity: unspecified lower extremity proximal vein Chronicity: chronic Qualified Code(s): I82.5Y1 - 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 History of Present Illness Reason for Consultation: DVT, IVC filter Attending Physician: Modesta Dupree MD History of Present Illness 54 yo f with multiple medical problems, including metastatic ovarian ca, HTN, CVA, admitted with sepsis, seen in consultation today for possible IVC filter insertion d/t severe anemia requiring transfusion while on AC. Pt noted to have pelvic DVT approx 1 month ago along with compression of IVC and iliac veins, and started on AC. Pt with significant abd lymph node enlargement as well as tumor development, which appears to be compressing pelvic veins, likely contributory to her DVT development. Pt hgb decreased to 7. Pt admits fatigue. Denies MONTES, fever presently, chest pain, SOB, N/V, rest pain, claudication, other complaints. Allergies Allergy/AdvReac Type Severity Reaction Status Date / Time apple Allergy Unknown Swelling Verified 07/18/20 15:55 of Lip/Tongue/Throat apricot Allergy Unknown Swelling Verified 07/18/20 15:55 of Lip/Tongue/Throat corona Allergy Unknown Swelling Verified 07/18/20 15:55 of Lip/Tongue/Throat peach Allergy Unknown Swelling Verified 07/18/20 15:55 of Lip/Tongue/Throat pear Allergy Unknown Swelling Verified 07/18/20 15:55 of Lip/Tongue/Throat plum Allergy Unknown Swelling Verified 07/18/20 15:55 of Lip/Tongue/Throat ciprofloxacin [From Cipro] AdvReac Severe Anaphylaxis Verified 07/18/20 15:55 Home Medications Medication Instructions Recorded Confirmed Type atorvastatin 40 mg PO PM 10/04/19 07/18/20 History oxycodone 5 mg PO Q4H PRN 10/04/19 07/18/20 History tramadol 50 mg tablet 50 mg PO Q6H PRN 01/04/20 07/18/20 History enoxaparin [Lovenox] 60 mg SUBCUT Q12H 30 Days #36 ml 04/10/20 07/18/20 Rx Keytruda 1 ea IV . EVERY 3 WEEKS 06/11/20 07/18/20 History gabapentin 100 mg PO TID 06/11/20 07/18/20 History hydromorphone 2 mg PO Q4 PRN 06/11/20 07/18/20 History lorazepam 0.5 mg PO Q6 PRN 06/11/20 07/18/20 History prochlorperazine maleate 10 mg PO Q6 PRN 06/11/20 07/18/20 History morphine [MS Contin] 15 mg PO BID 07/18/20 07/18/20 History Patient History Medical History Anemia Admitted to [facility] 04/17/19 for profound anemia, H/H 2.8/10.4. Transfused 5 units pRBC during admission, Hgb 9.2 at time of transfer to [facility]. Asthma NO INHALER> WELL CONTROLLED Cholelithiasis Diverticular disease History of CVA (cerebrovascular accident) History of hysteroscopy Hyperlipidemia Hypertension Hypothyroidism Left ventricular thrombus 04/2019. Repeat cardiac MRI 06/2019 showed resolution; pt has been maintained on Lovenox injections per oncology recommendations. 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 CANNOT TILT HEAD ALL THE WAY BACK History of tubal ligation Family History Grandfather Heart disease CABG Mother Heart disease CABG Diabetes Father , age 65 heart disease No problems noted. Brother , age 51 [place] No problems noted. Sister No problems noted. Daughter No problems noted. Son No problems noted. 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 Other Information That Helps Us Care for You: No Feels Safe at Home: Yes Safety Concerns: Feels Safe At This Time Childhood Exposure to Second-Hand Smoke: Yes Diet Comment: no special diet appetie fair caffeine: No during the past year weight has: decreased > 10 lbs Dental Care, Regularly: No Physical Activity Frequency: Does not Exercise Seatbelt Use: always Sunscreen Use: Yes Assistive Devices: Glasses Review of Systems Review of Systems: All systems reviewed & are unremarkable except as noted in HPI & below Physical Exam Constitutional: + ill appearing, cooperative and comfortable; not in distress ENMT: Ears: no hearing impairment Neck: trachea midline Respiratory: normal respiratory effort, lungs clear to auscultation Cardiovascular: Rate/Rhythm: regular rate and regular rhythm Vessels: femoral pulses present, posterior tibial pulses present, dorsalis pedis pulses present and brachial pulses present; + abnormal peripheral pulses Extremities: normal capillary refill and + edema Gastrointestinal (Abdomen): Inspection/Auscultation: abdomen normal to inspection and normal bowel sounds Percussion/Palpation: abdomen soft; abdomen nontender Musculoskeletal: no cyanosis or clubbing, extremities motor strength 5/5 Skin: no rashes, warm and dry Neurologic: moves all extremities and awake; no focal motor deficits and not confused Psychiatric: A+Ox3, euthymic affect Results & Data ([facility]) Vital Signs (Past 12 Hours) Vital Signs Temp Pulse Resp BP Pulse Ox 07/21/20 08:55 36.6 C 68 16 94/56 L 96 07/21/20 08:40 36.5 C 68 16 99/57 L 97 07/21/20 08:25 36.6 C 65 18 85/49 L 97 07/21/20 07:01 36.5 C 61 17 92 07/21/20 06:59 57 L 15 90/47 L 97 07/21/20 06:30 64 18 93 07/21/20 05:59 61 16 81/46 L 95 07/21/20 04:59 66 19 90/55 L 93 07/21/20 03:59 69 16 94/52 L 98 07/21/20 03:00 75 07/21/20 02:59 67 17 115/67 95 07/21/20 01:59 74 15 97/54 L 98 07/21/20 00:59 72 16 95/57 L 97 07/20/20 23:59 74 21 101/58 L 96 07/20/20 22:59 77 18 91/54 L 97 07/20/20 21:59 78 19 125/73 97
[2020-07-21] MEDS: POTASSIUM CHLORIDE CRTAB 20 MEQ TABCR PO SCH ×2 (09:21→13:34)
[2020-07-21] MEDS: MoRPHine SULFATE CR 15 MG TABCR PO SCH ×2 (09:21→20:24)
[2020-07-21] MEDS: FLUDROCORTISONE ACETATE 0.1 MG TAB PO SCH (09:21)
[2020-07-21] MEDS: MAGNESIUM SULFATE / D5W 1 GM/100 ML BAG IV SCH ×4 (09:21→15:04)
[2020-07-21] MEDS: GABAPENTIN 100 MG CAP PO SCH ×3 (09:22→20:24)
[2020-07-21] MEDS ORDERED: GLUCOSE 10 TABS/TUBE PO PRN (10:30)
[2020-07-21] MEDS ORDERED: GLUCAGON FOR INJ 1 MG VIAL IM PRN (10:30)
[2020-07-21] MEDS ORDERED: GLUCOSE 40% GEL 15 GM TUBE PO PRN (10:30)
[2020-07-21] MEDS ORDERED: CARBOHYDRATES FOR HYPOGLYCEMIA PO PRN (10:30)
[2020-07-21] MEDS ORDERED: DEXTROSE 50% 50 ML SYRINGE IV PRN (10:30)
--- NOTE | 2020-07-21 11:41 | Communication Note ---
Date of Service: July 21, 2020 ATTENDING ADDENDUM : reached out to [facility] Dr Melvin Christina office . spoke with Office Administrative /Cancer Co-ordinator Rachael .Left my cell phone no to have Dr Christina to call back . Images from this Hospital admission : CT abdomen/pelvis , lower ext Doppler , H&P , hospitalist and consults reports will be faxed to Dr Christina's office ( Fax no# [phone] ) for continuation of care . Modesta Dupree MD
[2020-07-21] MEDS: INSULIN ASPART 100 UNITS/ML 3 ML PEN SC SCH ×3 (11:56→20:26)
[2020-07-21] MEDS ORDERED: OPTIRAY 320 125ml IV ONE (12:10)
[2020-07-21 12:16] LABS: Hematocrit (blood only) 24.6 % (37-47); Hemoglobin 8.1 g/dL (12.0-16.0)
--- NOTE | 2020-07-21 12:42 | CT Scan Report ---
CT OF ABDOMEN AND PELVIS WITHOUT CONTRAST AND CT VENOGRAM OF THE ABDOMEN AND PELVIS CLINICAL HISTORY: IVC compression. Metastatic endometrial carcinoma. COMPARISON STUDY: CT of the abdomen and pelvis July 19, 2020. PET/CT December 24, 2019. TECHNIQUE: Unenhanced and venous phase imaging of the abdomen and pelvis was performed. Intravenous i njection 120 cc Optiray 320 IV was uneventful. Sagittal and coronal reconstructed reviewed as well as maximal intensity projections on an independent 3-D workstation. Automated exposure control was util ized for the study. A dose lowering technique was utilized adhering to the principles of ALARA. FINDINGS: A small right pleural effusion has increased in size since CT of July 18, 2020. Right l ower lobe airspace opacity favors atelectasis. This has increased. No pneumatosis, free air or portal venous gas is present. There are gallstones within the gallbladder. Small amount of pericholecystic fluid is noted. There may be mild gallbladder wall thickening. There is periportal edema. The spleen, adrenal glands and pancreas are unremarkable. There is no evidence for a bowel obstruction. Note is again made of a large mass centered within the lower uterine segment with endometrial thicken ing. Enlargement and irregularity of the uterus is again noted. There has been interval placement of bilateral ureteral stents since CT of July 19, 2020. Hydronephrosis has resolved. Nephrograms are symmetric. Anasarca is noted. Lower extremity edema, greater on the right, is again noted. Note is m tavia of deep venous thrombus within the right common femoral vein, as shown on prior ultrasound. No co ntrast is identified within the right external iliac and common iliac veins, likely due to vessel occ lusion related to large right retroperitoneal necrotic lymphadenopathy that is centered on the right iliopsoas muscle. Conglomerate necrotic adenopathy measures 15 x 10.3 x 9.4 cm note is again made of erosion of the right aspect of the L4, L5 and S1 vertebra. A separate findings within the spine are n oted. There are small retroperitoneal lymph nodes, including a 1.5 cm lymph node located anterior to the IVC which compresses the IVC. The inferior most portion of the IVC is slit-like and possibly occl uded. The left external iliac vein is markedly narrowed although probably patent. Remainder of the IV C is patent. IMPRESSION: 1. Extensive right retroperitoneal necrotic lymphadenopathy which results in occlusion of the right c ommon iliac and external iliac veins. Deep venous thrombus within the right common femoral vein, as s hown on ultrasound. Slit-like left common iliac vein and inferior portion of the IVC, nearly occluded due to mass effect by adjacent lymphadenopathy. 2. Interval placement of bilateral ureteral stents with resolution of bilateral hydronephrosis. 3. Anasarca with bilateral lower extremity edema, greater on the right. 4. Cholelithiasis and mild gallbladder wall thickening. This is likely due to volume overload. Acute cholecystitis could appear similar but is considered less likely and could be correlated with right u pper quadrant pain. 5. Increase in size of a small right pleural effusion. ACT 112: Negative or not required by law. Electronically signed by: Nakul Julian M.D. 07/21/2020 12:41 PM
--- NOTE | 2020-07-21 13:11 | Communication Note ---
Date of Service: July 21, [address] Stokes : CT venogram of Abdomen /pelvis shows extensive thrombosis -involving the rt iliac vein . Extensive right retroperitoneal necrotic lymphadenopathy which results in occlusion of the right common iliac and external iliac veins. Deep venous thrombus within the right common femoral vein, as shown on ultrasound. Slit-like left common iliac vein and inferior portion of the IVC, nearly occluded due to mass effect by adjacent lymphadenopathy. Not a candidate for IVC Filter placement will update pt and her . Modesta Dupree MD
--- NOTE | 2020-07-21 13:13 | Communication Note ---
Date of Service: July 21, 2020 CT venogram showed occlusion of the right iliac vein and a slit like distal IVC and left common iliac vein. Most likely this is occluded from external compression. At this time, I don't think this patient would benefit from a filter insertion. She also is not a candidate for stenting of her iliac veins due to very poor prognosis. Thank you very much for letting us participate in the care of this patient.
[2020-07-21] MEDS: HYDROCORTISONE SOD 50 MG in SYRINGE 0 ML IV SCH ×3 (13:35→23:12)
--- NOTE | 2020-07-21 15:51 | Communication Note ---
Date of Service: July 21, 2020 Reanna ID input appreciated : Urinary Tract infection with sepsis Secondary to obstructed Uropathy due to uterine tumor mass s/p ureteric stent E. coli sensitive to all agents tested. infected Pressure wound sacral area (may be superinfected with E. coli and Group C Streptococcus). Pt has has improved. She would like to go home, which is a good idea given the limited prognosis evident here. oral amoxicillin 500 mg every 8 hours (not BID). This will also treat the Group C Streptococcus. She should watch for any symptoms of dysuria, fever or back pain (discussed with pt ). . RECOMMENDATIONS: * Can transition to oral amoxicillin 500 mg three times daily, until 08/01/2020. IV rocephin D/cristhian PO Amoxicillin ordered Modesta Dupree MD
[2020-07-21] MEDS ORDERED: AMOXICILLIN 500 MG CAP PO SCH (17:00)
--- NOTE | 2020-07-21 17:14 | Hospitalist Progress Note ---
Date of Service July 21, 2020 Assessment & Plan (1) Severe sepsis: Severe sepsis with septic shock: Met criteria for sepsis on admission leukocytosis, acute renal failure, profound hypotension requiring pressor support/ICU admission and IV Levophed infusion Was tachycardic and febrile on admission resolved BP has been stable /off pressors Leukocytosis has improved Source of infection: Obstructive uropathy due to metastatic malignancy, complicated UTI, bilateral pyelonephritis: complicated UTI : urine culture : E coli lima sensitive infected pressure wound on sacrum : wound culture : E coli [facility] ID consulted -recommends PO Amoxicillin 500 mg TID for 10 day pt seen by Urology -clinic follow up in 1 week for ureteric stent exchange (2) Acute renal failure: -resolved Secondary to obstructive uropathy, metastatic malignancy causing bilateral hydroureteronephrosis Cr was elevated at 1.49 (baseline ~0.8 ) resolved after bilateral ureteric stent placement emergently by Urology Dr Peng (3) Severe anemia: No evidence of active bleeding, patient was recently admitted at [facility], uterine artery embolization to stop bleeding Possible secondary to metastatic malignancy, hb drop noted in AM lab received 1 units of PRBC HB 8.7 , ordered for 1 more unit of PRBC Lovenox resume ( lower ext extensive DVT , to rt common iliac vein ) not a candidate for IVC filter placement high risk for life threatening PE off anticoagulation repeat CBC in 2 weeks , out pt PRBC transfusion can be arranged for anemia (4) 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 s/p chemo treatment, radiation treatment, Currently on palliative treatment with Keytruda -followed at hematology Dr. Christina of [facility]. Got 2nd Cycle of Keytruda on 06/20 -PET scan with findings consistent with progressive disease characterized by increasing size and metabolic activity in the uterine mass as well as interval progression of metastatic lymphadenopathy in the abdomen and pelvis as described above. New cortical erosions/lytic lesions along the anterior and right side of the L4 vertebral body adjacent to the enlarging right iliac chain lymphadenopathy is most suspicious for osseous involvement over all prognosis remains extremely poor will differ to Primary Heme/onc at [facility] for discussion of goals of care and treatment options appointment scheduled on 07/23/20 CODE STATUS Full code (5) Right leg DVT: resumed Therapeutic Lovenox 60 mg BID SC (6) Leukocytosis: due to combination of sepsis - obstructive uropathy, complicated UTI, bilateral pyelonephritis. wbc improved CODE STATUS: Full code Overall prognosis remains very poor DVT prophylaxis, therapeutic Lovenox with close monitoring of H&H Disposition: plan for discharge home tomorrow 07/22/20 plan of care updated to Pt and Pt's over phone in detail Admission and Anticipated Discharge Date Admission Date: July 18, 2020 Subjective pt seen in AM see multiple communication report/documentation pt reports feeling well BP stable in good spirit , normal appetite eager to be discharged home . Review of Systems Review of Systems: All systems reviewed & are unremarkable except as noted in HPI & below Physical Exam Constitutional: WD/WN, vitals as above + ill appearing Eyes: sclerae not anicteric ENMT: external ear and nose normal, oropharynx normal Neck: trachea midline, no thyromegaly Respiratory: normal respiratory effort and able to speak in complete sentences; no respiratory distress, no labored breathing, no cough and not tachypneic Auscultation: + diminished lung sounds; no crackles, no rales and no wheezes Cardiovascular: Rate/Rhythm: regular rate and regular rhythm Extremities: + pedal edema (Bilateral lower extremity edema right more than left) and + edema (Right lower extremity pitting edema) Gastrointestinal (Abdomen): Percussion/Palpation: abdomen soft; abdomen nontender Skin: no rashes, warm and dry Neurologic: PERRL, EOMI, accommodation nl, no face palsy, no dysarthria moves all extremities (Generalized weakness extremely fatigued) Psychiatric: A+Ox3, euthymic affect Results & Data Results & Data ([facility]) Vital Signs (Past 12 Hours) Vital Signs Temp Pulse Resp BP Pulse Ox 07/21/20 11:00 72 07/21/20 10:25 36.7 C 72 16 118/70 98 07/21/20 09:25 36.5 C 70 18 110/61 07/21/20 08:55 36.6 C 68 16 94/56 L 96 07/21/20 08:40 36.5 C 68 16 99/57 L 97 07/21/20 08:25 36.6 C 65 18 85/49 L 97 07/21/20 07:01 36.5 C 61 17 92 07/21/20 06:59 57 L 15 90/47 L 97 07/21/20 06:30 64 18 93 07/21/20 05:59 61 16 81/46 L 95 (1) Right leg DVT Affected thrombotic vein of extremity: unspecified lower extremity proximal vein Chronicity: chronic Qualified Code(s): I82.5Y1 - 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
[2020-07-21] MEDS ORDERED: ICU ELECTROLYTE REPLACEMENT PROTOCOL SCH (18:00)
--- NOTE | 2020-07-21 18:37 | Communication Note ---
Date of Service: July 21, 2020 Update given to over phone plan to discharge pt home tomorrow pt will be discharged on Rivera Catheter ( to allow pressure wound to heal /also wound infection possibly due to contamination form urine ) pt will follow with home health nurse and wound care clinic Modesta Dupree MD
[2020-07-21] MEDS: AMOXICILLIN 500 MG CAP PO SCH ×2 (18:48→20:24)
[2020-07-21] MEDS: ENOXAPARIN INJ 60 MG/0.6 ML SYR SQ SCH (20:24)
[2020-07-21] MEDS: HYDROmorphone HCL 2 MG TAB PO PRN (23:13)
[2020-07-22 04:21] LABS: Hematocrit (blood only) 31.7 % (37-47); Hemoglobin 10.5 g/dL (12.0-16.0); Mean Corpuscular Hgb Conc 33.1 g/dL (32-36); Mean Corpuscular Volume 87.6 fL (80-100); Mean Platelet Volume 8.9 fL (7.4-10.4); Platelet Count 139 K/uL (130-400); RDW Coefficient of Variation 16.3 % (11.5-14.5); Red Blood Count 3.62 M/uL (4.2-5.4)
[2020-07-22 04:41] LABS: BUN Creatinine Ratio 17.7 (10-20); Calcium 8.1 mg/dl (8.5-10.1); Creatinine Clr Calc Pharmacy 57.4 ml/min; Est GFR (African American) 68.5; Est GFR (Non-African American) 59.1; Magnesium 2.3 mg/dl (1.8-2.4); Phosphorus 3.7 mg/dl (2.5-4.9); Potassium 3.8 mmol/L (3.5-5.1)
[2020-07-22] MEDS: HYDROCORTISONE SOD 50 MG in SYRINGE 0 ML IV SCH (05:48)
[2020-07-22] MEDS: GABAPENTIN 100 MG CAP PO SCH (09:50)
[2020-07-22] MEDS: AMOXICILLIN 500 MG CAP PO SCH (09:50)
[2020-07-22] MEDS: MoRPHine SULFATE CR 15 MG TABCR PO SCH (09:50)
[2020-07-22] MEDS: FLUDROCORTISONE ACETATE 0.1 MG TAB PO SCH (09:50)
[2020-07-22] MEDS: INSULIN ASPART 100 UNITS/ML 3 ML PEN SC SCH (09:51)
[2020-07-22] MEDS: ENOXAPARIN INJ 60 MG/0.6 ML SYR SQ SCH (11:08)
--- NOTE | 2020-07-22 12:17 | Communication Note ---
Date of Service: July 22, 2020 ATTENDING NOTE : HB post transfusion improved to 10 vitals stable pt is discharged home today , will be discharged on Rivera catheter to allow infected stage 3 sacral decub ulcer to heal . Follow up will be scheduled with wound care clinic Modesta Dupree MD
[2020-07-22 12:18] VITALS: BP 118/77; TEMP 97.5; O2SAT 99
--- NOTE | 2020-07-22 12:18 | Discharge Summary ---
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 Patient on Keytruda, scheduled for 3 cycles. She got 2nd Cycle on 06/20. Hemoglobin was 7.1 at that time. Had repeat lab work performed today and hgb was 5.9. Patient directed to ED for transfusion. Follows with Dr. Christina of [facility] in [place]. Was recently admitted to [facility] on 06/13- for extensive RLE DVT as well as uterine artery embolization with particles and coils. Discharged home and had vaginal spotting for the next few weeks, per di scussion with . Denies any vaginal spotting for the past 6 days. Denies any hematochezia but does endorse one episode of dark stool last week. Has not recurred since. In ED, patient consented, type and crossed for 2u prbcs. BP 90/57. Patient alert and oriented and able to provide some history. Has been feeling fatigued and lightheaded but denies fever, chills, headache,cough, chest pain, SOB, abdominal pain, dysuria or hematuria. Became significantly hypotensive to 68/43 at beginning of transfusion but has improved to 80/51. Discussed case with escalator service mechanic Dr. Fuentes who accepts to manage in ICU in setting of hypotension and profound anemia. Discussed code status with patient and and she wishes to be a FULL CODE. Awaiting call from oncologist, Dr. Christina. Will need imaging to evaluate for potential source of bleed once hemodynamically stable. 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 , BONE METASTASIS EXTENSIVE LOWER EXTREMITY DVT ACUTE RENAL FAILURE -RESOLVED Discharge Exam Constitutional WD/WN, vitals as above + ill appearing Eyes sclerae not anicteric ENMT external ear and nose normal, oropharynx normal Neck trachea midline, no thyromegaly Respiratory normal respiratory effort and able to speak in complete sentences; no respiratory distress, no labored breathing, no cough and not tachypneic Auscultation: + diminished lung sounds; no crackles, no rales and no wheezes Cardiovascular Rate/Rhythm: regular rate and regular rhythm Extremities: + pedal edema (Bilateral lower extremity edema right more than left) and + edema (Right lower extremity pitting edema) Gastrointestinal (Abdomen) Percussion/Palpation: abdomen soft; abdomen nontender Skin no rashes, warm and dry Neurologic PERRL, EOMI, accommodation nl, no face palsy, no dysarthria moves all extremities (Generalized weakness extremely fatigued) Psychiatric A+Ox3, euthymic affect Discharge Data Allergies Allergy/AdvReac Type Severity Reaction Status Date / Time apple Allergy Unknown Swelling Verified 07/18/20 15:55 of Lip/Tongue/Throat apricot Allergy Unknown Swelling Verified 07/18/20 15:55 of Lip/Tongue/Throat corona Allergy Unknown Swelling Verified 07/18/20 15:55 of Lip/Tongue/Throat peach Allergy Unknown Swelling Verified 07/18/20 15:55 of Lip/Tongue/Throat pear Allergy Unknown Swelling Verified 07/18/20 15:55 of Lip/Tongue/Throat plum Allergy Unknown Swelling Verified 07/18/20 15:55 of Lip/Tongue/Throat ciprofloxacin [From Cipro] AdvReac Severe Anaphylaxis Verified 07/18/20 15:55 Consultations 07/18/20 14:21 ED Decision to Admit Stat 07/18/20 16:32 Consult Case Management - Discharge Planning Routine Consult Top Case Assembler Routine 07/18/20 18:43 Consult Case Management - Discharge Planning Routine 07/19/20 11:41 Consult Nutrition Routine 07/19/20 15:35 Consult Urology Routine 07/21/20 07:53 Consult Vascular Surgery Routine 07/21/20 09:00 Consult Infectious Diseases Routine Procedures Performed Operation Date: 07/19/20 17:00 Actual Procedures p Cystoscopy, bilateral retrograde pyelogram, bilateral stent insertion, urine aspiration(Bilateral) - Irwin Hooker DO Ordered Studies 07/18/20 17:07 US venous doppler LE BI Routine ULTRASOUND BILATERAL LOWER EXTREMITY VENOUS CLINICAL HISTORY: Leg pain and swelling COMPARISON STUDY: No priors. TECHNIQUE: Real-time, grayscale, and color Doppler sonography of the deep veins of the right and left lower extremity was performed from the inguinal crease to the calf. Compression and augmentation were utilized. Examination is degraded by lower extremity edema. FINDINGS: Right lower extremity: There is broken flow in the right common femoral vein and the proximal superficial femoral vein consistent with nearly occlusive to occlusive deep venous thrombosis. Thrombus is also seen within the greater saphenous and profunda femoris veins. The mid to distal superficial femoral vein and popliteal vein were not visualized. Broken flow is shown within the imaged calf vessels, also likely representing deep venous thrombosis. Left lower extremity: There is no sonographic evidence of deep venous thrombosis identified in the left lower extremity. The common femoral, superficial femoral, and popliteal veins are patent and normally compressible. The greater saphenous vein and the profunda femoris vein at the junction with the common femoral vein are clear. The visualized calf veins are patent. IMPRESSION: Right lower extremity deep venous thrombosis as above. 07/19/20 FL retrograde includes kub Routine INTRAOPERATIVE RADIOGRAPHS CLINICAL HISTORY: Bilateral ureteral stent placement. Fluoroscopy time: 88 seconds. FINDINGS: 4 spot fluoroscopic views of the abdomen and pelvis are correlated with abdominal CT dated 07/19/2020. The provided images show the proximal and distal ends of bilateral ureteral stents in appropriate position. A bladder catheter is in place. Contrast within the right renal collecting system shows hydronephrosis. Vascular coils are seen in the pelvis. Lumbar spinal fusion hardware is partially visualized. IMPRESSION: Intraoperative images from a bilateral ureteral stent placement procedure as above. 07/19/20 03:29 CT abd pelvis wo con Urgent ABDOMEN AND PELVIS CT WITHOUT CONTRAST CT DOSE: 406.12 mGy.cm HISTORY: acute anemia, h/o endometrial cancer w/ mets TECHNIQUE: Multiaxial CT images of the abdomen and pelvis were performed without contrast. A dose lowering technique was utilized adhering to the principles of ALARA. COMPARISON STUDY: Abdomen and pelvis CT 01/07/2020. FINDINGS: The left lung base is clear. Small right pleural effusion with right basilar densities suggesting atelectasis. No pneumoperitoneum. No pneumatosis. The unenhanced liver, spleen, adrenal glands, and pancreas are unremarkable. Increase in the retroperitoneal lymphadenopathy consistent with metastatic disease. Dominant left periaortic lymph node measures 2.9 x 2.2 cm. Cholelithiasis. The gallbladder is mildly distended. No definite gallbladder wall thickening. [id number] body wall edema. There is also right greater than left proximal thigh subjacent edema. This could be due to compression of the iliac veins from the large right pelvic mass. This mass is significantly increase in size and involves the iliopsoas muscle with destruction of the right L4 and L5 vertebral bodies as well as the right side of the sacrum and right iliac crest. This mass measures approximately 16 x 10 cm. This invades into the right L4-L5 and L5-S1 neural foramen and may extend slightly into the epidural space at these levels. However, this is difficult to assess due to the metallic artifact from the L5-S1 posterior fusion hardware. The mass likely compresses the mid to distal right ureter resulting in the moderate right hydronephrosis. There is also mild left-sided hydronephrosis. Ill-defined soft tissue mass seen within the lower uterine segment/cervix. This could partially obstruct the ureters. However, the ureters are difficult identified at this location. Trace gas within the bladder lumen. There is a Rivera catheter within the deep pelvis which likely resides within the base of the bladder. No bowel wall thickening or obstruction. Colonic diverticulosis. No evidence for acute diverticulitis. Normal appendix. IMPRESSION: 1. Interval increase in size in the large mass centered within the right iliopsoas muscle which now measures 16 x 10 cm. This demonstrates progressive de struction along the right L4 and L5 vertebral bodies as well as the right side of the sacrum. 2. Interval development of moderate right hydronephrosis which is likely secondary to compression/invasion of the ureter by the large right pelvic mass. There is also mild left hydronephrosis which has developed in the interval. This could be due to partial obstruction at the distal left ureter by the suspected lower uterine segment/cervical mass. 3. Small right pleural effusion. 4. Progressive retroperitoneal lymphadenopathy consistent with metastatic disease. 5. Cholelithiasis. The gallbladder is mildly distended. No definite gallbladder wall thickening. 6. There is a Rivera catheter within the deep pelvis which likely resides within the bladder base given the gas within the bladder lumen. 7. Right thigh subcutaneous edema could be due to compression of the right pelvic veins from the large mass. 07/21/20 09:39 CT abdom pelvis veno wo/w con Routine CT OF ABDOMEN AND PELVIS WITHOUT CONTRAST AND CT VENOGRAM OF THE ABDOMEN AND PELVIS CLINICAL HISTORY: IVC compression. Metastatic endometrial carcinoma. COMPARISON STUDY: CT of the abdomen and pelvis July 19, 2020. PET/CT December 24, 2019. TECHNIQUE: Unenhanced and venous phase imaging of the abdomen and pelvis was performed. Intravenous injection 120 cc Optiray 320 IV was uneventful. Sagittal and coronal reconstructed reviewed as well as maximal intensity projections on an independent 3-D workstation. Automated exposure control was utilized for the study. A dose lowering technique was utilized adhering to the principles of ALA RA. FINDINGS: A small right pleural effusion has increased in size since CT of July 18, 2020. Right lower lobe airspace opacity favors atelectasis. This has increased. No pneumatosis, free air or portal venous gas is present. There are gallstones within the gallbladder. Small amount of pericholecystic fluid is noted. There may be mild gallbladder wall thickening. There is periportal edema. The spleen, adrenal glands and pancreas are unremarkable. There is no evidence for a bowel obstruction. Note is again made of a large mass centered within the lower uterine segment with endometrial thickening. Enlargement and irregularity of the uterus is again noted. There has been interval placement of bilateral ureteral stents since CT of July 19, 2020. Hydronephrosis has resolved. Nephrograms are symmetric. Anasarca is noted. Lower extremity edema, greater on the right, is again noted. Note is made of deep venous thrombus within the right common femoral vein, as shown on prior ultrasound. No contrast is identified within the right external iliac and common iliac veins, likely due to vessel occlusion related to large right retroperitoneal necrotic lymphadenopathy that is centered on the right iliopsoas muscle. Conglomerate necrotic adenopathy measures 15 x 10.3 x 9.4 cm note is again made of erosion of the right aspect of the L4, L5 and S1 vertebra. A separate findings within the spine are noted. There are small retroperitoneal lymph nodes, including a 1.5 cm lymph node located anterior to the IVC which compresses the IVC. The inferior most portion of the IVC is slit-like and possibly occluded. The left external iliac vein is markedly narrowed although probably patent. Remainder of the IVC is patent. IMPRESSION: 1. Extensive right retroperitoneal necrotic lymphadenopathy which results in occlusion of the right common iliac and external iliac veins. Deep venous thrombus within the right common femoral vein, as shown on ultrasound. Slit-like left common iliac vein and inferior portion of the IVC, nearly occluded due to mass effect by adjacent lymphadenopathy. 2. Interval placement of bilateral ureteral stents with resolution of bilateral hydronephrosis. 3. Anasarca with bilateral lower extremity edema, greater on the right. 4. Cholelithiasis and mild gallbladder wall thickening. This is likely due to volume overload. Acute cholecystitis could appear similar but is considered less likely and could be correlated with right upper quadrant pain. 5. Increase in size of a small right pleural effusion. Hospital Course (1) Severe sepsis: Severe sepsis with septic shock: Met criteria for sepsis on admission leukocytosis, acute renal failure, profound hypotension requiring pressor suppo rt/ICU admission and IV Levophed infusion Was tachycardic and febrile on admission resolved BP has been stable Leukocytosis has improved Source of infection: Obstructive uropathy due to metastatic malignancy, complicated UTI, bilateral pyelonephritis: complicated UTI : urine culture : E coli lima sensitive infected pressure wound on sacrum : wound culture : E coli [facility] consulted -recommends PO Amoxicillin 500 mg TID for 10 day pt seen by Urology -clinic follow up in 1 week for ureteric stent exchange pt discharged home today in stable condition (2) Acute renal failure: -resolved Secondary to obstructive uropathy, metastatic malignancy causing bilateral hydroureteronephrosis Cr was elevated at 1.49 (baseline ~0.8 ) resolved after bilateral ureteric stent placement emergently by Urology Dr Peng (3) Severe anemia: No evidence of active bleeding, patient was recently admitted at [facility], uterine artery embolization to stop bleeding Possible secondary to metastatic malignancy, recived total 4 units of PRBC transfusion Lovenox resume ( lower ext extensive DVT , to rt common iliac vein ) not a candidate for IVC filter placement high risk for life threatening PE off anticoagulation repeat CBC on tuesday07/25/20 , out pt PRBC transfusion can be arranged for anemia (4) 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 s/p chemo treatment, radiation treatment, Currently on palliative treatment with Keytruda -followed at hematology Dr. Christina of [facility]. Got 2nd Cycle of Keytruda on 06/20 -PET scan with findings consistent with progressive disease characterized by increasing size and metabolic activity in the uterine mass as well as interval progression of metastatic lymphadenopathy in the abdomen and pelvis as described above. New cortical erosions/lytic lesions along the anterior and right side of the L4 vertebral body adjacent to the enlarging right iliac chain lymphadenopathy is most suspicious for osseous involvement over all prognosis remains extremely poor will differ to Primary Heme/onc at [facility] for discussion of goals of care and treatment options appointment scheduled on 07/23/20 CODE STATUS Full code (5) Right leg DVT: resumed Therapeutic Lovenox 60 mg BID SC (6) Leukocytosis: due to combination of sepsis - obstructive uropathy, complicated UTI, bilateral pyelonephritis. wbc improved CODE STATUS: Full code Overall prognosis remains very poor DVT prophylaxis, therapeutic Lovenox with close monitoring of H&H Disposition: discharge home today plan of care updated to Pt and Pt's Total Time Total Time Spent Total Time Spent (In Minutes): 40 mins Total Time Includes: Examination of the Patient, Discharge Planning and Medication Reconciliation Discharge Plan Discharge Items Patient Disposition: Home - Self-Care Reason For Visit: SEVERE ANEMIA, METASTATIC UTERINE CANCER Discharge Diagnosis: SEVERE SEPSIS , OBSTRUCTED UROPATHY S/P URETERIC STENT PLACEMENT COMPLICATED UTI /PYELONEPHRITIS -E COLI METASTATIC ENDOMETRIAL MALIGNANCY WITH PERITONEAL CARCINOMATOSIS , BONE METASTASIS EXTENSIVE LOWER EXTREMITY DVT ACUTE RENAL FAILURE -RESOLVED Activity: Resume your previous activity Non-emergency contact: Primary Care Provider Call non-emergency contact if: you have any medication questions Follow-up/Referrals: Irwin Hooker DO [Physician] - (PLEASE FOLLOW UP WITH UROLOGY CLINIC FOR URETERIC STENT EXCHANGE ) Howard Roldan MD [Primary Care Provider] - 07/25/20 2:00 pm (Date & Time 07/25/2020 2:00 PM Provider Howard Roldan MD Department Family Practice [facility] WOUND CLINIC APPOINTMENT-- Wednesday 05/30 at 1:40PM, [address], [address] [place] [address] ) Beto Rivera DO [Physician] - (wound care clinic follow up ) Diet: Regular Ambulatory Orders: Complete Blood Count no Diff (Routine) Timeframe: 20200725 Location: Determined by Patient Ordered By: Modesta Dupree Addtl Attending Provider Instructions: FOLLOW UP WITH UROLOGY FOR STENT REPLACEMENT CONTINUE ANTIBIOTIC FOR 10 MORE DAYS check blood work : Complete blood count on Tuesday07/25/20 need to arrange blood transfusion as out patient if hemoglobin level drops less than 7 Follow up with [facility] on Tuesday07/23/20 as scheduled . Video/tele appointment scheduled with [facility] : Thu Cordoba PA-C on 07/23/2020 @ 9: 30 am Follow up with wound clinic as directed Please take over the counter Pro biotic three times daily while taking antibiotic to prevent Antibiotic induced gastroenteritis /C diff Pending Studies at Discharge: Yes Studies:: COMPLETE BLOOD COUNT ON Tuesday07/23/20 Stand-Alone Forms: My [facility], Smoking Cessation Medications and DC Order Prescriptions: New amoxicillin 500 mg Capsule 500 mg PO TID 10 Days Qty: 30 RF: 0 fludrocortisone 0.1 mg Tablet 0.1 mg PO QAM 30 Days Qty: 30 RF: 0 Continued tramadol 50 mg tablet 50 mg PO Q6H PRN (Reason: Pain) RF: 0 enoxaparin [Lovenox] 60 mg/0.6 mL syringe 60 mg subcut Q12H 30 Days Qty: 36 RF: 1 gabapentin 100 mg capsule 100 mg PO TID RF: 0 prochlorperazine maleate 10 mg tablet 10 mg PO Q6 PRN (Reason: Nausea) RF: 0 hydromorphone 2 mg tablet 2 mg PO Q4 PRN (Reason: Pain) RF: 0 lorazepam 0.5 mg tablet 0.5 mg PO Q6 PRN (Reason: Anxiety) RF: 0 Keytruda 1 ea IV . EVERY 3 WEEKS RF: 0 morphine [MS Contin] 15 mg tablet extended release 15 mg PO BID RF: 0 atorvastatin 40 mg Tablet 40 mg PO PM RF: 0 oxycodone 5 mg Tablet 5 mg PO Q4H PRN (Reason: Pain) RF: 0 Discharge Orders: Discharge Order (Routine); Ordered 07/22/20 Ordered By: Modesta Cristina/Other Patient Handouts: Emptying and Cleaning Your ..., Indwelling Urinary Catheter Dc, Discharge Instructions Caring for ... Admission Data Admit Date/Time: 07/18/20 16:36 Attending Provider: Modesta Dupree Admit Provider: Thiago Fuentes Primary Care Provider: Howard Roldan Other Providers: Thiago Fuentes ; [facility] ; Iglesia Ortiz ; Paco Odell ; Petr Holland ; Umair Smith ; Julio C Anglin ; Chinmay Burnett ; Fritz Hughes ; Daniel Roy ; Kumar Valle ; Edd Monroe ; Hanny Knox ; Thu Mcdermott ; Irwin Hooker ; Kimberly Garcia ; Zahraa Yanez ; Jenae Echavarria ; Jericho Crenshaw ; Liz Thao ; Karie Mendoza ; Perez Du ; Ruben Bentley ; Kip Davis ; Charles Finnegan I. ; Saeid Streeter II ; Dory Rubio ; Cj Altamirano Other Interventions: Discharge Summary Assessment (RN) Last Done: 07/22/20 12:37
[2020-07-22 12:39] VITALS: PULSE 64
--- NOTE | 2020-07-22 16:36 | Communication Note ---
Date of Service: July 22, 2020 ATTENDING NOTE : BLOOD CULTURES ON 07/20/20 : NO GROWTH Modesta Dupree MD
== END 2020-07-22 14:01 | disposition home health service (06) | DRG 853 ==
LOC: ED 12:41 → 1E 14:36 → SUATTDRO 16:36

== ENCOUNTER 2020-07-28 19:51 | Inpatient (IN) ==
--- NOTE | 2020-07-28 20:06 | Emergency Department Note ---
Impression & Plan Acute hypokalemia, Hypomagnesemia ED Provider Note NAME: YONI LEE AGE: 54 SEX: F : 1965 ARRIVES VIA: Walk-In INFORMANT: Patient, ED PROVIDER(S): Charan Vitale MD Chief Complaint: Hypokalemia, doctor referral HPI: Patient did present as a doctor referral due to concern for low potassium. The patient states that she is asymptomatic and has no acute complaints. Patient did have a recent complicated admission. Patient does state that she does not want anything else done besides checking her potassium and repeating this as needed. Patient has any fevers, chills, chest pains or shortness of br eath. The patient does have a Rivera in place which she states has been draining. Patient does have lower extremity swelling which is chronic and unchanged. Patient did have blood work completed on July 22. Patient was shown to have a white blood cell count of 19 with a hemoglobin of 10. The patient's kidney function was unremarkable with a slightly elevated blood glucose. Patient's chest at that time was 3.8. The patient was referred today due to concern for a potassium of 2.2. The patient did have a recent admission as the patient did receive blood due to concern for anemia. Patient was transfused. Patient does have a known history of endometrial cancer. Patient did have severe sepsis with septic shock and did require admission to the intensive care unit due to a history of a complicated UTI and infected pressure wound on the sacrum. Patient also did have acute renal failure at that time and did have bilateral ureteral stent placed during her admission. Patient does have metastatic uterine malignancy peritoneal carcinomatosis. ROS: See HPI for pertinent positives and negatives. A total of 10 systems were reviewed and otherwise negative. Past medical history: See below Surgical history: See below Social history: See below Physical Exam: GENERAL: Wearing glasses and a mask. EYE EXAM: Normal conjunctiva. PERRL, no anisocoria and EOM's grossly intact w/o pain. NECK: Supple, no nuchal rigidity, no adenopathy, non-tender. No signs of meningismus. Chest: Port in right chest. LUNGS: Clear to auscultation. Normal chest wall mechanics. HEART: NSR, no MRG. ABDOMEN: Abdomen soft, non-tender. BACK: No CVA TTP. SKIN: No rashes and no bruising. UPPER EXTREMITIES: Upper extremities are grossly normal. LOWER EXTREMITIES: Significant for plus bilateral lower extremity edema that is symmetric, Rivera bag in place draining straw-colored urine. NEURO EXAM: A&O x3, cranial nerves II-XII grossly intact, normal speech, moves all 4 extremities on command w/o issue. Differential diagnoses: Infection, dehydration, metabolic abnormality, hypo/hyperglycemia, electrolyte disturbance, anemia, hypoxia, cardiac sources, intracerebral event, toxicologic, neurologic, as well as other pathologies. Course: Patient was seen and evaluated the bedside. Full history physical exam was performed. EKG: Location: Hypokalemia Normal sinus rhythm, rate 85, normal intervals, normal axis, significant motion artifact noted likely T wave inversions in the lateral leads. Imaging Studies: None Cardiac monitoring: An order was placed for continuous cardiac monitoring. The monitor shows a rate of 75 with sinus rhythm. MDM: Patient did present as a referral for hypokalemia. Repeat blood work was obtained along with a magnesium and TSH. Patient's potassium is significantly low concerning at 1.7. I did convey this to the patient the patient was not wanting to stay inpatient. I did discuss that given the restrictions of potassium repletion and the concern for arrhythmia it would be important to stay in the hospital. The patient is amenable to this. Patient did iterate she does not want anything else done besides repeating her potassium to be checked. Patient does have white count of 17 with a hemoglobin of 8.9. Patient's potassium is 1.7 with a mag of 1.3. These were ordered for replacement IV and p.o. Calcium is also slightly low and free T4 is elevated. I did speak with the on-call hospitalist Dr. Corrales and the patient was admitted to the [facility] service. Critical Care: I have personally spent 45 minutes of critical care time in direct management of this patient. This includes bedside care, interpretation of diagnostic studies, and testing, discussion with consultants, patient, and family members, and other require inpatient management activities. This 45 minutes is in excess of all separately billable procedures. Past Med/Surg History Medical History Anemia Admitted to [facility] 04/17/19 for profound anemia, H/H 2.8/10.4. Transfused 5 units pRBC during admission, Hgb 9.2 at time of transfer to [facility]. Asthma NO INHALER> WELL CONTROLLED Cholelithiasis Diverticular disease History of CVA (cerebrovascular accident) History of hysteroscopy Hyperlipidemia Hypertension Hypothyroidism Left ventricular thrombus 04/2019. Repeat cardiac MRI 06/2019 showed resolution; pt has been maintained on Lovenox injections per oncology recommendations. 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 CANNOT TILT HEAD ALL THE WAY BACK History of tubal ligation Family History Grandfather Heart disease CABG Mother Heart disease CABG Diabetes Father , age 65 heart disease No problems noted. Brother , age 51 [place] No problems noted. Sister No problems noted. Daughter No problems noted. Son No problems noted. 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 Feels Safe at Home: Yes Childhood Exposure to Second-Hand Smoke: Yes Diet Comment: no special diet appetie fair caffeine: No during the past year weight has: decreased > 10 lbs Dental Care, Regularly: No Physical Activity Frequency: Does not Exercise Seatbelt Use: always Sunscreen Use: Yes Assistive Devices: None Allergies Allergies Allergy/AdvReac Type Severity Reaction Status Date / Time apple Allergy Unknown Swelling Verified 07/18/20 15:55 of Lip/Tongue/Throat apricot Allergy Unknown Swelling Verified 07/18/20 15:55 of Lip/Tongue/Throat corona Allergy Unknown Swelling Verified 07/18/20 15:55 of Lip/Tongue/Throat peach Allergy Unknown Swelling Verified 07/18/20 15:55 of Lip/Tongue/Throat pear Allergy Unknown Swelling Verified 07/18/20 15:55 of Lip/Tongue/Throat plum Allergy Unknown Swelling Verified 07/18/20 15:55 of Lip/Tongue/Throat ciprofloxacin [From Cipro] AdvReac Severe Anaphylaxis Verified 07/18/20 15:55 Home Meds Home Medications Medication Instructions Recorded Confirmed atorvastatin 40 mg PO PM 10/04/19 07/28/20 oxycodone 5 mg PO Q4H PRN 10/04/19 07/28/20 tramadol 50 mg tablet 50 mg PO Q6H PRN 01/04/20 07/28/20 Keytruda 1 ea IV . EVERY 3 WEEKS 06/11/20 07/28/20 gabapentin 100 mg PO TID 06/11/20 07/28/20 hydromorphone 2 mg PO Q4 PRN 06/11/20 07/28/20 lorazepam 0.5 mg PO Q6 PRN 06/11/20 07/28/20 prochlorperazine maleate 10 mg PO Q6 PRN 06/11/20 07/28/20 morphine [MS Contin] 15 mg PO BID 07/18/20 07/28/20 Previous Rx's Medication Instructions Recorded enoxaparin [Lovenox] 60 mg SUBCUT Q12H 30 Days #36 ml 04/10/20 amoxicillin 500 mg PO TID 10 Days #30 cap 07/21/20 fludrocortisone 0.1 mg PO QAM 30 Days #30 tab 07/21/20 Results & Data (ED) Vital Signs Vital Signs - 24 hr 07/28/20 19:57 07/28/20 20:39 07/28/20 21:00 Temperature 37.2 C Temperature Source Oral Pulse Rate 84 74 72 Pulse Rate from SpO2 Sensor 74 72 Respiratory Rate 18 18 17 Respiratory Effort / Characteristics Non-Labored Spontaneous Respiratory Depth Normal Blood Pressure 112/67 85/45 L 84/43 L Blood Pressure Mean 82 53 49 Pulse Oximetry 98 96 97 Oxygen Delivery Method Room Air Room Air Room Air Sepsis Recent Fever Within 48 Hours No Sepsis New/Unexplained Change in Mental Status N/A Sepsis Action Taken by Nursing No Action Required 07/28/20 21:30 07/28/20 22:00 07/28/20 22:30 Temperature Temperature Source Pulse Rate 77 77 74 Pulse Rate from SpO2 Sensor 77 76 Respiratory Rate 17 16 20 Respiratory Effort / Characteristics Respiratory Depth Blood Pressure 101/55 L 89/56 L 93/50 L Blood Pressure Mean 76 61 71 Pulse Oximetry 98 99 Oxygen Delivery Method Room Air Room Air Sepsis Recent Fever Within 48 Hours Sepsis New/Unexplained Change in Mental Status Sepsis Action Taken by Nursing 07/28/20 23:00 07/28/20 23:30 Temperature Temperature Source Pulse Rate 70 75 Pulse Rate from SpO2 Sensor Respiratory Rate 16 20 Respiratory Effort / Characteristics Respiratory Depth Blood Pressure 87/45 L 93/55 L Blood Pressure Mean 53 64 Pulse Oximetry Oxygen Delivery Method Sepsis Recent Fever Within 48 Hours Sepsis New/Unexplained Change in Mental Status Sepsis Action Taken by Long Term Medications Current Medication List: was personally reviewed by me Laboratory Data Attestation: I reviewed the patient's lab results. Result diagrams: 07/28/20 20:16 07/28/20 20:16 Lab Results 07/28/20 07/28/20 07/28/20 Range/Units 20:16 20:16 20:16 WBC 17.85 H (4.8-10.8) K/uL RBC 3.08 L (4.2-5.4) M/uL Hgb 8.9 L (12.0-16.0) g/dL Hct 27.3 L (37-47) % MCV 88.6 (80-100) fL MCH 28.9 (25-34) pg MCHC 32.6 (32-36) g/dL RDW Std Deviation 54.2 H (36.4-46.3) fL RDW Coeff of Devaughn 16.8 H (11.5-14.5) % Plt Count 174 (130-400) K/uL MPV 9.0 (7.4-10.4) fL Immature Gran % (Auto) 0.8 % Neut % (Auto) 87.4 % Lymph % (Auto) 4.3 % [place] % (Auto) 5.8 % Eos % (Auto) 1.6 % Baso % (Auto) 0.1 % Neut # (Auto) 15.59 H (1.4-6.5) K/uL Lymph # (Auto) 0.77 L (1.2-3.4) K/uL [place] # (Auto) 1.03 H (0.11-0.59) K/uL Eos # (Auto) 0.29 (0-0.5) K/uL Baso # (Auto) 0.02 (0-0.2) K/uL Immature Gran # (Auto) 0.15 H (0.00-0.02) K/uL PT 11.9 (9.0-12.0) Seconds INR 1.1 (0.9-1.1) Sodium 140 (136-145) mmol/L Potassium 1.7 L* (3.5-5.1) mmol/L Chloride 101 (98-107) mmol/L Carbon Dioxide 29 (21-32) mmol/L Anion Gap 10.0 (3-11) BUN 12 (7-18) mg/dl Creatinine 1.05 (0.6-1.2) mg/dl Est Cr Clr Drug Dosing 55.3 ml/min Est GFR ( Amer) 69.2 Est GFR (Non-Af Amer) 59.7 BUN/Creatinine Ratio 11.4 (10-20) Glucose 121 H (70-99) mg/dl Calcium 7.8 L (8.5-10.1) mg/dl Magnesium 1.3 L (1.8-2.4) mg/dl TSH 4.650 H (0.300-4.500) uIu/ml Free T4 1.68 H (0.8-1.6) ng/dl SARS-CoV-2 Ag (Rapid) (Negative) 07/28/20 Range/Units 23:11 WBC (4.8-10.8) K/uL RBC (4.2-5.4) M/uL Hgb (12.0-16.0) g/dL Hct (37-47) % MCV (80-100) fL MCH (25-34) pg MCHC (32-36) g/dL RDW Std Deviation (36.4-46.3) fL RDW Coeff of Devaughn (11.5-14.5) % Plt Count (130-400) K/uL MPV (7.4-10.4) fL Immature Gran % (Auto) % Neut % (Auto) % Lymph % (Auto) % [place] % (Auto) % Eos % (Auto) % Baso % (Auto) % Neut # (Auto) (1.4-6.5) K/uL Lymph # (Auto) (1.2-3.4) K/uL [place] # (Auto) (0.11-0.59) K/uL Eos # (Auto) (0-0.5) K/uL Baso # (Auto) (0-0.2) K/uL Immature Gran # (Auto) (0.00-0.02) K/uL PT (9.0-12.0) Seconds INR (0.9-1.1) Sodium (136-145) mmol/L Potassium (3.5-5.1) mmol/L Chloride (98-107) mmol/L Carbon Dioxide (21-32) mmol/L Anion Gap (3-11) BUN (7-18) mg/dl Creatinine (0.6-1.2) mg/dl Est Cr Clr Drug Dosing ml/min Est GFR ( Amer) Est GFR (Non-Af Amer) BUN/Creatinine Ratio (10-20) Glucose (70-99) mg/dl Calcium (8.5-10.1) mg/dl Magnesium (1.8-2.4) mg/dl TSH (0.300-4.500) uIu/ml Free T4 (0.8-1.6) ng/dl SARS-CoV-2 Ag (Rapid) Negative (Negative) Administered Medications Discontinued Medications Potassium Chloride (K Jaime / Wtr) 10 meq in 100 mls @ 100 mls/hr IV Q1H STA Stop: 07/28/20 21:15 Last Infusion: 07/28/20 21:38 Dose: 0 mls/hr Documented by: [id number] Admin: 07/28/20 20:38 Dose: 100 mls/hr Documented by: [id number] Sodium Chloride (Nss 1000ml) 500 mls @ 999 mls/hr IV .Q31M ONE Stop: 07/28/20 22:04 Last Infusion: 07/28/20 22:40 Dose: 0 mls/hr Documented by: [id number] Admin: 07/28/20 22:09 Dose: 999 mls/hr Documented by: [id number] Potassium Chloride (K Jaime / Wtr) 10 meq in 100 mls @ 100 mls/hr IV Q1H DADA Stop: 07/28/20 23:44 Last Infusion: 07/28/20 23:51 Dose: 0 mls/hr Documented by: [id number] Admin: 07/28/20 22:50 Dose: 100 mls/hr Documented by: [id number] Infusion: 07/28/20 22:49 Dose: 0 mls/hr Documented by: [id number] Admin: 07/28/20 21:49 Dose: 100 mls/hr Documented by: [id number] Magnesium Sulfate/Dextrose (Magnesium Sulfate / D5w) 1 gm in 100 mls @ 200 mls/hr IV Q1H DADA Stop: 07/28/20 23:04 Last Infusion: 07/28/20 22:51 Dose: 0 mls/hr Documented by: [id number] Admin: 07/28/20 22:21 Dose: 200 mls/hr Documented by: [id number] Infusion: 07/28/20 22:20 Dose: 0 mls/hr Documented by: [id number] Admin: 07/28/20 21:50 Dose: 200 mls/hr Documented by: [id number] Potassium Chloride (Potassium Chloride Crtab 20 Meq Tabcr) 40 meq PO NOW STA Stop: 07/28/20 21:35 Last Admin: 07/28/20 21:48 Dose: 40 meq Documented by: [id number] Potassium Chloride (Potassium Chloride 10 Meq Tabcr) 50 meq PO NOW STA Stop: 07/28/20 22:51 Last Admin: 07/28/20 23:28 Dose: 50 meq Documented by: [id number] Discharge Plan Visit Data Chief Complaint: Abnormal Labs/Diagnostic Testing Stated Complaint: abnormal labs, Dr guthrie ED Provider: Charan Vitale Discharge Problem: Acute hypokalemia, Hypomagnesemia Forms Stand Alone Forms: [facility] Prescriptions Prescriptions: No Action tramadol 50 mg tablet 50 mg PO Q6H PRN (Reason: Pain) RF: 0 enoxaparin [Lovenox] 60 mg/0.6 mL syringe 60 mg subcut Q12H 30 Days Qty: 36 RF: 1 gabapentin 100 mg capsule 100 mg PO TID RF: 0 prochlorperazine maleate 10 mg tablet 10 mg PO Q6 PRN (Reason: Nausea) RF: 0 hydromorphone 2 mg tablet 2 mg PO Q4 PRN (Reason: Pain) RF: 0 lorazepam 0.5 mg tablet 0.5 mg PO Q6 PRN (Reason: Anxiety) RF: 0 Keytruda 1 ea IV . EVERY 3 WEEKS RF: 0 morphine [MS Contin] 15 mg tablet extended release 15 mg PO BID RF: 0 amoxicillin 500 mg Capsule 500 mg PO TID 10 Days Qty: 30 RF: 0 fludrocortisone 0.1 mg Tablet 0.1 mg PO QAM 30 Days Qty: 30 RF: 0 atorvastatin 40 mg Tablet 40 mg PO PM RF: 0 oxycodone 5 mg Tablet 5 mg PO Q4H PRN (Reason: Pain) RF: 0
[2020-07-28] MEDS ORDERED: POTASSIUM CHLORIDE / WTR 10 MEQ/100 ML PLCT IV STA (20:16)
[2020-07-28 20:48] LABS: Basophils # (auto) 0.02 K/uL (0-0.2); Basophils % (auto) 0.1 %; Eosinophils # (auto) 0.29 K/uL (0-0.5); Eosinophils % (auto) 1.6 %; Hematocrit (blood only) 27.3 % (37-47); Hemoglobin 8.9 g/dL (12.0-16.0); Immature Granulocytes # (auto) 0.15 K/uL (0.00-0.02); Immature Granulocytes % (auto) 0.8 %; Lymphocytes # (auto) 0.77 K/uL (1.2-3.4); Lymphocytes % (auto) 4.3 %; Mean Corpuscular Hemoglobin 28.9 pg (25-34); Mean Corpuscular Hgb Conc 32.6 g/dL (32-36); Mean Corpuscular Volume 88.6 fL (80-100); Monocytes # (auto) 1.03 K/uL (0.11-0.59); Monocytes % (auto) 5.8 %; Neutrophils # (auto) 15.59 K/uL (1.4-6.5); Neutrophils % (auto) 87.4 %; Platelet Count 174 K/uL (130-400); RDW Coefficient of Variation 16.8 % (11.5-14.5); RDW Standard Deviation 54.2 fL (36.4-46.3); Red Blood Count 3.08 M/uL (4.2-5.4); White Blood Count 17.85 K/uL (4.8-10.8)
[2020-07-28 21:10] LABS: INR 1.1 (0.9-1.1); Prothrombin Time 11.9 Seconds (9.0-12.0)
[2020-07-28 21:17] LABS: BUN Creatinine Ratio 11.4 (10-20); Calcium 7.8 mg/dl (8.5-10.1); Creatinine Clr Calc Pharmacy 55.3 ml/min; Est GFR (African American) 69.2; Est GFR (Non-African American) 59.7; Magnesium 1.3 mg/dl (1.8-2.4); Potassium 1.7 mmol/L (3.5-5.1); Thyroid Stimulating Hormone 4.65 uIu/ml (0.300-4.500)
[2020-07-28] MEDS ORDERED: POTASSIUM CHLORIDE CRTAB 20 MEQ TABCR PO STA (21:34)
[2020-07-28] MEDS ORDERED: SODIUM CHLORIDE 0.9% 1000ML 500 ML IV ONE (21:34)
[2020-07-28 21:42] LABS: T4 Free Thyroxine 1.68 ng/dl (0.8-1.6)
[2020-07-28] MEDS: POTASSIUM CHLORIDE / WTR 10 MEQ/100 ML PLCT IV SCH ×2 (21:49→22:50)
[2020-07-28] MEDS: MAGNESIUM SULFATE / D5W 1 GM/100 ML BAG IV SCH ×2 (21:50→22:21)
--- NOTE | 2020-07-28 22:48 | History & Physical Report ---
Date of Service July 28, 2020 Assessment & Plan (1) Hypotension: Secondary to hypovolemia Rule out septic shock (immunocompromised patient), recent complicated UTI ongoing amoxicillin Rx hx progressing endometrial cancer with bone mets status post chemoradiation ongoing immunotx Rule out bleeding given hemoglobin drop from last baseline, ongoing therapeutic anticoagulation for history RLE DVT Hypokalemia, hypomagnesemia secondary to immunotherapy history CVA chronic pain on narcotics PCU Albumin in place of crystalloid given peripheral edema Cultures, check lactic acid Replace electrolytes Serial H&H, transfuse PRBC if hemoglobin less than 7 and or for symptomatic anemia DVT prophylaxis per Lovenox subcu Full code ADDENDUM : Patient adamantly refusing lab work to rule out other life-threatening causes of hypotension like infection and bleeding. Patient insisting that she just wants to be admitted to fix her potassium problem and wants to go home after potassium issue addressed. Her oncologist from [facility] would be able to explain other abnormalities in her labs when she sees him next week as as per patient. I informed patient that it was my responsibility to inform her that there were other potential causes that may explain her low blood pressure such as infection and bleeding that needed to be investigated and managed accordingly. I told her that she was in no way being coerced to have work-up for these problems if she was unwilling to do so. I told patient that there is a possibility of her coming back to the hospital sicker if other potential medical conditions were not addressed during confinement. Patient became upset and told undersigned that "I was scaring her now" and asked me before I left her ER room if "we were having this 'argument' again in the morning?" I told patient I was just being honest as to my concerns about her medical condition as part of responsibility as her physician and in no way will I be forcing her to do something she does not want to do with respect to her autonomy as a patient. History of Present Illness Chief Complaint: Low potassium, abnormal blood work Primary Care Provider: Howard Roldan MD History obtained from patient and records. Medical history significant for endometrial cancer with bone mets status post chemoradiation ongoing Keytruda Rx, HTN, history CVA, history RLE DVT on therapeutic Lovenox, chronic pain on narcotics, chronic anemia (last hemoglobin of 10.5, 07/2020), sacral wound as per records. Last confinement 2 weeks ago for hypotension due to septic shock secondary to complicated UTI. Imaging showed progression of gynecologic malignancy. Stent placed by urology for obstructive uropathy. Cultures grew E. coli. Patient discharged on amoxicillin course. Hemoglobin during confinement noted to be 5.6. Hemoglobin on discharge post pRBC transfusion was 10.5. Persistent fatigue since discharge from the hospital as per records. Follow-up visit with [facility] oncologist contemplated next week to discuss possible progressive disease noted imaging from recent confinement at [facility]. Patient seen at PCPs office a few days ago. Patient requested for labs with concerns about dark urine and that patient may have blood in the urine. Patient denies chest pain, shortness of breath, abdominal pain, diarrhea, dysuria, fever, chills. Abnormal outpatient lab results noted today. WBC 18, hemoglobin 9.2, serum potassium 2.2, serum creatinine 1.2. Patient sent to the ER for evaluation. 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 Allergies Allergy/AdvReac Type Severity Reaction Status Date / Time apple Allergy Unknown Swelling Verified 07/18/20 15:55 of Lip/Tongue/Throat apricot Allergy Unknown Swelling Verified 07/18/20 15:55 of Lip/Tongue/Throat corona Allergy Unknown Swelling Verified 07/18/20 15:55 of Lip/Tongue/Throat peach Allergy Unknown Swelling Verified 07/18/20 15:55 of Lip/Tongue/Throat pear Allergy Unknown Swelling Verified 07/18/20 15:55 of Lip/Tongue/Throat plum Allergy Unknown Swelling Verified 07/18/20 15:55 of Lip/Tongue/Throat ciprofloxacin [From Cipro] AdvReac Severe Anaphylaxis Verified 07/18/20 15:55 Home Medications Medication Instructions Recorded Confirmed Type atorvastatin 40 mg PO PM 10/04/19 07/28/20 History oxycodone 5 mg PO Q4H PRN 10/04/19 07/28/20 History tramadol 50 mg tablet 50 mg PO Q6H PRN 01/04/20 07/28/20 History enoxaparin [Lovenox] 60 mg SUBCUT Q12H 30 Days #36 ml 04/10/20 07/28/20 Rx Keytruda 1 ea IV . EVERY 3 WEEKS 06/11/20 07/28/20 History gabapentin 100 mg PO TID 06/11/20 07/28/20 History hydromorphone 2 mg PO Q4 PRN 06/11/20 07/28/20 History lorazepam 0.5 mg PO Q6 PRN 06/11/20 07/28/20 History prochlorperazine maleate 10 mg PO Q6 PRN 06/11/20 07/28/20 History morphine [MS Contin] 15 mg PO BID 07/18/20 07/28/20 History amoxicillin 500 mg PO TID 10 Days #30 cap 07/21/20 07/28/20 Rx fludrocortisone 0.1 mg PO QAM 30 Days #30 tab 07/21/20 07/28/20 Rx Past Med/Surg History Medical History Anemia Admitted to [facility] 04/17/19 for profound anemia, H/H 2.8/10.4. Transfused 5 units pRBC during admission, Hgb 9.2 at time of transfer to [facility]. Asthma NO INHALER> WELL CONTROLLED Cholelithiasis Diverticular disease History of CVA (cerebrovascular accident) History of hysteroscopy Hyperlipidemia Hypertension Hypothyroidism Left ventricular thrombus 04/2019. Repeat cardiac MRI 06/2019 showed resolution; pt has been maintained on Lovenox injections per oncology recommendations. 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 CANNOT TILT HEAD ALL THE WAY BACK History of tubal ligation Family History Grandfather Heart disease CABG Mother Heart disease CABG Diabetes Father , age 65 heart disease No problems noted. Brother , age 51 [place] No problems noted. Sister No problems noted. Daughter No problems noted. Son No problems noted. 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 Feels Safe at Home: Yes Childhood Exposure to Second-Hand Smoke: Yes Diet Comment: no special diet appetie fair caffeine: No during the past year weight has: decreased > 10 lbs Dental Care, Regularly: No Physical Activity Frequency: Does not Exercise Seatbelt Use: always Sunscreen Use: Yes Assistive Devices: Glasses and Wheelchair Review of Systems Review of Systems: As per HPI, all 10 systems reviewed, all other ROS negative Physical Exam Physical Exam: GENERAL: Irate, chronically ill, no respiratory distress SKIN: Sparse hair, pallor , warm HEENT: pale palpebral conjunctivae, no ptosis, dry buccal mucosa NECK : Supple, no tenderness CHEST : Decreased breath sounds, a port on right chest wall, no tenderness HEART : RRR, no obvious murmurs ABDOMEN: Some distention, nontender EXTREMITIES : Bilateral LE swelling, no LE tenderness, no other conspicuous deformities noted NEUROLOGIC : Coherent, no facial asymmetry, no other gross focality Results & Data Results & Data ([facility]) Vital Signs (Past 12 Hours) Vital Signs Temp Pulse Resp BP Pulse Ox 07/28/20 22:00 77 16 89/56 L 99 07/28/20 21:30 77 17 101/55 L 98 07/28/20 21:00 72 17 84/43 L 97 07/28/20 20:39 74 18 85/45 L 96 07/28/20 19:57 37.2 C 84 18 112/67 98 Laboratory Results Laboratory Results WBC 17.85 K/uL (4.8-10.8) H 07/28/20 20:16 RBC 3.08 M/uL (4.2-5.4) L 07/28/20 20:16 Hgb 8.9 g/dL (12.0-16.0) L 07/28/20 20:16 Hct 27.3 % (37-47) L 07/28/20 20:16 MCV 88.6 fL (80-100) 07/28/20 20:16 MCH 28.9 pg (25-34) 07/28/20 20:16 MCHC 32.6 g/dL (32-36) 07/28/20 20:16 RDW Std Deviation 54.2 fL (36.4-46.3) H 07/28/20 20:16 RDW Coeff of Devaughn 16.8 % (11.5-14.5) H 07/28/20 20:16 Plt Count 174 K/uL (130-400) 07/28/20 20:16 MPV 9.0 fL (7.4-10.4) 07/28/20 20:16 Immature Gran % (Auto) 0.8 % 07/28/20 20:16 Neut % (Auto) 87.4 % 07/28/20 20:16 Lymph % (Auto) 4.3 % 07/28/20 20:16 [place] % (Auto) 5.8 % 07/28/20 20:16 Eos % (Auto) 1.6 % 07/28/20 20:16 Baso % (Auto) 0.1 % 07/28/20 20:16 Neut # (Auto) 15.59 K/uL (1.4-6.5) H 07/28/20 20:16 Lymph # (Auto) 0.77 K/uL (1.2-3.4) L 07/28/20 20:16 [place] # (Auto) 1.03 K/uL (0.11-0.59) H 07/28/20 20:16 Eos # (Auto) 0.29 K/uL (0-0.5) 07/28/20 20:16 Baso # (Auto) 0.02 K/uL (0-0.2) 07/28/20 20:16 Immature Gran # (Auto) 0.15 K/uL (0.00-0.02) H 07/28/20 20:16 PT 11.9 Seconds (9.0-12.0) 07/28/20 20:16 INR 1.1 (0.9-1.1) 07/28/20 20:16 Sodium 140 mmol/L (136-145) 07/28/20 20:16 Potassium 1.7 mmol/L (3.5-5.1) L* 07/28/20 20:16 Chloride 101 mmol/L (98-107) 07/28/20 20:16 Carbon Dioxide 29 mmol/L (21-32) 07/28/20 20:16 Anion Gap 10.0 (3-11) 07/28/20 20:16 BUN 12 mg/dl (7-18) 07/28/20 20:16 Creatinine 1.05 mg/dl (0.6-1.2) 07/28/20 20:16 Est Cr Clr Drug Dosing 55.3 ml/min 07/28/20 20:16 Est GFR ( Amer) 69.2 07/28/20 20:16 Est GFR (Non-Af Amer) 59.7 07/28/20 20:16 BUN/Creatinine Ratio 11.4 (10-20) 07/28/20 20:16 Glucose 121 mg/dl (70-99) H 07/28/20 20:16 Calcium 7.8 mg/dl (8.5-10.1) L 07/28/20 20:16 Magnesium 1.3 mg/dl (1.8-2.4) L 07/28/20 20:16 TSH 4.650 uIu/ml (0.300-4.500) H 07/28/20 20:16 Free T4 1.68 ng/dl (0.8-1.6) H 07/28/20 20:16 Diagnostic Findings EKG as per my interpretation rate 85, NSR, LAD, LAFB, artifact ridden
[2020-07-28] MEDS ORDERED: POTASSIUM CHLORIDE 10 MEQ TABCR PO STA (22:50)
[2020-07-29] MEDS ORDERED: HYDROmorphone HCL 2 MG TAB PO PRN (03:26)
[2020-07-29] MEDS ORDERED: LORazepam 0.5 MG TAB PO PRN (03:26)
[2020-07-29] MEDS ORDERED: MAGNESIUM SULFATE / D5W 1 GM/100 ML BAG IV ONE ×2 (03:26→09:15)
[2020-07-29] MEDS ORDERED: POTASSIUM CHLORIDE 10 MEQ TABCR PO ONE ×2 (03:26)
[2020-07-29] MEDS ORDERED: ACETAMINOPHEN 325 MG TAB PO PRN (03:26)
[2020-07-29] MEDS ORDERED: oxyCODONE HCL IR 5 MG TAB (IMMEDIATE RELEASE) PO PRN (03:36)
[2020-07-29] MEDS ORDERED: FLUDROCORTISONE ACETATE 0.1 MG TAB PO SCH ×2 (04:30→09:00)
[2020-07-29] MEDS: ALBUMIN 25% 12.5 GM/50 ML VIAL IV SCH ×2 (05:18→05:27)
[2020-07-29 06:58] LABS: Basophils # (auto) 0.01 K/uL (0-0.2); Basophils % (auto) 0.1 %; Eosinophils # (auto) 0.29 K/uL (0-0.5); Eosinophils % (auto) 1.9 %; Hematocrit (blood only) 23.9 % (37-47); Hemoglobin 7.7 g/dL (12.0-16.0); Immature Granulocytes # (auto) 0.15 K/uL (0.00-0.02); Lymphocytes % (auto) 4.5 %; Mean Corpuscular Hemoglobin 28.5 pg (25-34); Mean Corpuscular Hgb Conc 32.2 g/dL (32-36); Mean Corpuscular Volume 88.5 fL (80-100); Mean Platelet Volume 8.9 fL (7.4-10.4); Monocytes # (auto) 0.75 K/uL (0.11-0.59); Monocytes % (auto) 4.9 %; Neutrophils % (auto) 87.6 %; Platelet Count 152 K/uL (130-400); RDW Coefficient of Variation 16.7 % (11.5-14.5); RDW Standard Deviation 53.2 fL (36.4-46.3)
[2020-07-29] MEDS ORDERED: HEPARIN 100 UNIT/ML 5ML FLUSH ONE ×2 (07:21→16:02)
[2020-07-29 07:23] LABS: RBC Morphology Unremarkable
[2020-07-29 07:45] LABS: Albumin Level 2.1 gm/dl (3.4-5.0); BUN Creatinine Ratio 10.6 (10-20); Calcium 7.8 mg/dl (8.5-10.1); Creatinine Clr Calc Pharmacy 60.7 ml/min; Est GFR (African American) 75.3; Est GFR (Non-African American) 64.9; Magnesium 1.8 mg/dl (1.8-2.4); Phosphorus 2.6 mg/dl (2.5-4.9); Potassium 2.7 mmol/L (3.5-5.1)
[2020-07-29] MEDS ORDERED: NSS + 20MEQ KCL 20 MEQ/1,000 ML BAG IV SCH (08:30)
[2020-07-29] MEDS ORDERED: POTASSIUM CHLORIDE CRTAB 20 MEQ TABCR PO ONE (08:30)
[2020-07-29] MEDS ORDERED: POTASSIUM CHLORIDE CRTAB 20 MEQ TABCR PO SCH (09:00)
[2020-07-29] MEDS ORDERED: ENOXAPARIN INJ 60 MG/0.6 ML SYR SQ SCH (09:00)
[2020-07-29] MEDS ORDERED: AMOXICILLIN 500 MG CAP PO SCH (09:00)
[2020-07-29] MEDS ORDERED: GABAPENTIN 100 MG CAP PO SCH (09:00)
[2020-07-29] MEDS ORDERED: MoRPHine SULFATE CR 15 MG TABCR PO SCH (09:00)
[2020-07-29] MEDS ORDERED: Nursing to Pharmacy Communication SCH (09:30)
[2020-07-29] MEDS: POTASSIUM CHLORIDE / WTR 10 MEQ/100 ML PLCT IV SCH ×2 (09:59→12:08)
--- NOTE | 2020-07-29 13:42 | Hospitalist Progress Note ---
Date of Service July 29, 2020 Assessment & Plan (1) Hypotension: Hypotension Secondary to hypovolemia Can Not rule out sepsis Immunocompromised state Recent UTI Persistent Leukocytosis Patient ruled further labs draws BP improved with IV fluids on Amox therapy Hypokalemia Hypomagnesemia Denies nausea, vomiting, diarrhea Replete electrolytes as needed Monitor Patient prefers to be discharged home despite explaining the risks of having significant electrolyte imbalances Patient states that she wants to sign out AGAINST MEDICAL ADVICE Abnormal thyroid function test TSH:4.6 Free T4:1.68 Advised to recheck thyroid function test as outpatient H/O DVT On Lovenox H/O Progressing metastatic endometrial cancer S/P chemoradiation Ongoing immunotherapy Follows with Dr.Suresh Christina at [place] [facility] H/O CVA-embolic H/O Mural thrombus. Last echo on 04/10/2020, there was no thrombus on Lovenox Chronic pain on narcotics Anemia of chronic disease No acute bleeding issues Monitor H&H, transfuse PRBC as needed Currently asymptomatic DVT Px: Lovenox SQ Code Status Full code Admission and Anticipated Discharge Date Admission Date: July 28, 2020 Subjective Patient is seen and examined at bedside Sitting in chair comfortably Denies chest pain, shortness of breath, dizziness, nausea, abdominal pain Patient prefers to be discharged home despite explaining the risks of having significant electrolyte imbalances Patient states that she wants to sign out AGAINST MEDICAL ADVICE Review of Systems Review of Systems: All systems reviewed & are unremarkable except as noted in HPI & below Physical Exam Physical Exam: Physical Exam: Vitals signs as noted above General Appearance: Chronically ill appearing, No apparent distress Head: normocephalic, Atraumatic Eyes: normal inspection, EOMI Neck: supple, Trachea midline Respiratory/Chest: Normal breath sounds, CTA, +Chemo Port on R chest Cardiovascular: S1, S2, No murmur Abdomen/GI:Soft, Non tender, Bowel sounds present Extremities/Musculoskelatal:normal inspection, B/L LE edema, venous stasis changes Neurologic/Psych:AAOX3, grossly no focal neurological deficits Skin: normal color, warm Results & Data Results & Data ([facility]) Vital Signs (Past 12 Hours) Vital Signs Temp Pulse Pulse Resp BP BP Pulse Ox 07/29/20 12:51 37.0 C 84 18 134/68 96 07/29/20 08:44 36.8 C 72 16 124/68 95 07/29/20 03:56 36.9 C 73 18 81/47 L 97 07/29/20 02:45 37 C 74 16 78/46 L 96 07/29/20 02:03 77 18 92/54 L 07/29/20 02:00 71 18 73/43 L Laboratory Results Short CBC 07/28/20 07/29/20 Range/Units 20:16 06:22 WBC 17.85 H 15.40 H (4.8-10.8) K/uL Hgb 8.9 L 7.7 L (12.0-16.0) g/dL Hct 27.3 L 23.9 L (37-47) % Plt Count 174 152 (130-400) K/uL BMP 07/28/20 07/29/20 20:16 06:22 Sodium 140 140 Potassium 1.7 L* 2.7 L D Chloride 101 103 Carbon Dioxide 29 29 BUN 12 10 Creatinine 1.05 0.98 Glucose 121 H 114 H Calcium 7.8 L 7.8 L Liver Function 07/29/20 Range/Units 06:22 Albumin 2.1 L (3.4-5.0) gm/dl
[2020-07-29 15:00] LABS: BUN Creatinine Ratio 10.5 (10-20); Calcium 7.6 mg/dl (8.5-10.1); Creatinine Clr Calc Pharmacy 63.9 ml/min; Est GFR (African American) 80.2; Est GFR (Non-African American) 69.2; Potassium 3.3 mmol/L (3.5-5.1)
--- NOTE | 2020-07-29 16:05 | Electrocardiogram Report ---
Test Reason : Blood Pressure : / mmHG Vent. Rate : 085 BPM Atrial Rate : 085 BPM P-R Int : 138 ms QRS Dur : 082 ms QT Int : 412 ms P-R-T Axes : 060 -20 248 degrees QTc Int : 490 ms Poor data quality, interpretation may be adversely affected Normal sinus rhythm Cannot rule out Anterior infarct , age undetermined Abnormal ECG When compared with ECG of 18-JUL-2020 13:51, No significant change Confirmed by Daniel Dalton ([id number]) on 07/29/2020 4:04:45 PM Referred By: Melvin Christina Confirmed By:Daniel Dalton
[2020-07-29 16:10] VITALS: BP 135/77; PULSE 76; TEMP 97.7; O2SAT 98
--- NOTE | 2020-07-29 16:43 | Discharge Summary ---
Date of Service July 29, 2020 Admission HPI Per Admitting Provider History obtained from patient and records. Medical history significant for endometrial cancer with bone mets status post chemoradiation ongoing Keytruda Rx, HTN, history CVA, history RLE DVT on therapeutic Lovenox, chronic pain on narcotics, chronic anemia (last hemoglobin of 10.5, 07/2020), sacral wound as per records. Last confinement 2 weeks ago for hypotension due to septic shock secondary to complicated UTI. Imaging showed progression of gynecologic malignancy. Stent placed by urology for obstructive uropathy. Cultures grew E. coli. Patient discharged on amoxicillin course. Hemoglobin during confinement noted to be 5.6. Hemoglobin on discharge post pRBC transfusion was 10.5. Persistent fatigue since discharge from the hospital as per records. Follow-up visit with [facility] oncologist contemplated next week to discuss possible progressive disease noted imaging from recent confinement at [facility]. Patient seen at PCPs office a few days ago. Patient requested for labs with concerns about dark urine and that patient may have blood in the urine. Patient denies chest pain, shortness of breath, abdominal pain, diarrhea, dysuria, fever, chills. Abnormal outpatient lab results noted today. WBC 18, hemoglobin 9.2, serum potassium 2.2, serum creatinine 1.2. Patient sent to the ER for evaluation. 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 Admission Exam Per Admitting Provider Physical Exam Physical Exam: GENERAL: Irate, chronically ill, no respiratory distress SKIN: Sparse hair, pallor , warm HEENT: pale palpebral conjunctivae, no ptosis, dry buccal mucosa NECK : Supple, no tenderness CHEST : Decreased breath sounds, a port on right chest wall, no tenderness HEART : RRR, no obvious murmurs ABDOMEN: Some distention, nontender EXTREMITIES : Bilateral LE swelling, no LE tenderness, no other conspicuous deformities noted NEUROLOGIC : Coherent, no facial asymmetry, no other gross focality Principal Diagnosis Hypotension Hypokalemia Hypomagnesemia Abnormal thyroid function test Leukocytosis Discharge Data Allergies Allergy/AdvReac Type Severity Reaction Status Date / Time apple Allergy Unknown Swelling Verified 07/18/20 15:55 of Lip/Tongue/Throat apricot Allergy Unknown Swelling Verified 07/18/20 15:55 of Lip/Tongue/Throat corona Allergy Unknown Swelling Verified 07/18/20 15:55 of Lip/Tongue/Throat peach Allergy Unknown Swelling Verified 07/18/20 15:55 of Lip/Tongue/Throat pear Allergy Unknown Swelling Verified 07/18/20 15:55 of Lip/Tongue/Throat plum Allergy Unknown Swelling Verified 07/18/20 15:55 of Lip/Tongue/Throat ciprofloxacin [From Cipro] AdvReac Severe Anaphylaxis Verified 07/18/20 15:55 Consultations 07/28/20 21:48 ED Decision to Admit Stat Hospital Course (1) Hypotension: Hypotension Secondary to hypovolemia Can Not rule out sepsis Immunocompromised state Recent UTI Persistent Leukocytosis Patient ruled further labs draws BP improved with IV fluids on Amox therapy Hypokalemia Hypomagnesemia Denies nausea, vomiting, diarrhea Replete electrolytes as needed Monitor Patient prefers to be discharged home despite explaining the risks of having significant electrolyte imbalances Patient states that she wants to sign out AGAINST MEDICAL ADVICE Abnormal thyroid function test TSH:4.6 Free T4:1.68 Advised to recheck thyroid function test as outpatient H/O DVT On Lovenox H/O Progressing metastatic endometrial cancer S/P chemoradiation Ongoing immunotherapy Follows with Dr.Suresh Christina at [place] at [facility] H/O CVA-embolic H/O Mural thrombus. Last echo on 04/10/2020, there was no thrombus on Lovenox Chronic pain on narcotics Anemia of chronic disease No acute bleeding issues Monitor H&H, transfuse PRBC as needed Currently asymptomatic DVT Px: Lovenox SQ Code Status Full code Total Time Total Time Spent Total Time Spent (In Minutes): 35 minutes Total Time Includes: Examination of the Patient, Discharge Planning, Medication Reconciliation, Communication With Other Providers and Other Discharge Plan Discharge Items Patient Disposition: Against Medical Advice Reason For Visit: HYPOKALEMIA Discharge Diagnosis: Hypotension Hypokalemia Hypomagnesemia Abnormal thyroid function test Leukocytosis Activity: Per Instructions section Exercise/Sports: Wait until after follow-up appointment Non-emergency contact: Primary Care Provider and Oncologist Call non-emergency contact if: you have any medication questions, your symptoms worsen, your pain is not controlled, your pain is worsening, your pain is unusual for you, your pain is concerning for you and you have a fever Follow-up/Referrals: Howard Roldan MD [Primary Care Provider] - Diet: Regular Addtl Attending Provider Instructions: Follow-up with your primary care physician and oncologist as recommended Consider checking basic metabolic panel, magnesium levels in 2 days and follow- up with your physician for further recommendations. Pending Studies at Discharge: No Stand-Alone Forms: [facility] [employer], Smoking Cessation Medications and DC Order Prescriptions: Continued tramadol 50 mg tablet 50 mg PO Q6H PRN (Reason: Pain) RF: 0 enoxaparin [Lovenox] 60 mg/0.6 mL syringe 60 mg subcut Q12H 30 Days Qty: 36 RF: 1 gabapentin 100 mg capsule 100 mg PO TID RF: 0 prochlorperazine maleate 10 mg tablet 10 mg PO Q6 PRN (Reason: Nausea) RF: 0 hydromorphone 2 mg tablet 2 mg PO Q4 PRN (Reason: Pain) RF: 0 lorazepam 0.5 mg tablet 0.5 mg PO Q6 PRN (Reason: Anxiety) RF: 0 Keytruda 1 ea IV . EVERY 3 WEEKS RF: 0 morphine [MS Contin] 15 mg tablet extended release 15 mg PO BID RF: 0 amoxicillin 500 mg Capsule 500 mg PO TID 10 Days Qty: 30 RF: 0 fludrocortisone 0.1 mg Tablet 0.1 mg PO QAM 30 Days Qty: 30 RF: 0 atorvastatin 40 mg Tablet 40 mg PO PM RF: 0 oxycodone 5 mg Tablet 5 mg PO Q4H PRN (Reason: Pain) RF: 0 Discharge Orders: Left Against Medical Advice (Routine); Ordered 07/29/20 Ordered By: Jakob Elaine Admission Data Admit Date/Time: 07/28/20 23:00 Attending Provider: Jakob Elaine Admit Provider: Brian Crow Primary Care Provider: Howard Roldan Other Providers: Brian Crow Other Interventions: Discharge Summary Assessment (RN) Last Done: 07/29/20 16:16
[2020-07-29] MEDS ORDERED: ATORVASTATIN 40 MG TAB PO SCH (21:00)
--- NOTE | 2020-07-30 11:01 | Coding Query ---
PRESSURE ULCER DOCUMENTATION To promote full compliance with coding requirements relating to patient care, physician participation is requested in all cases of mule developer uncertainty. Please assist us with the question(s) below: Please specify the known or suspected type by placing an "X" within the parenthesis (x). A history of pressure ulcer of the Sacrum is documented on ER and If possible, please check the box that provides the specific stage of the pressure ulcer an H&P documents Sacral Wound per records. It is not clear if this was present on this admission or was healed and just a history of. Please specify below, in your clinical opinion. ( ) Stage I ( ) Stage II ( ) Stage III ( ) Stage IV ( ) Unstageable (x ) Unable to determine ( ) History of Pressure Ulcer of Sacrum only - did not have on this admission Thank you Lois BRAND
--- NOTE | 2020-07-30 11:06 | Coding Query ---
CODING QUERY To promote full compliance with coding requirements relating to patient care, provider participation is requested in all cases of quality control tech uncertainty. Please assist us with the question(s) below: Coding Question(s): The H&P documents rule out septic shock and the 07/29 Progress Note and Discharge Summary document, Can Not rule out sepsis. Please specify below in your clinical opinion. ( ) Sepsis with Septic Shock was treated and/or monitored on this admission ( ) Sepsis was treated and/or monitored on this admission ( x ) There was No treatment and/or monitoring for Sepsis or Septic Shock on this admission Physician's Response(s): Thank you Lois Zamorano Principal Diagnosis: "that condition established after study, to be chiefly responsible for occasioning the admission of the patient to the hospital for care." Co-Existing Principal Diagnosis: "when two or more diagnoses equally meet the criteria for principal diagnosis as determined by the circumstances of admission, diagnostic work up, and/or therapy provided, and the Alphabetic Index, Tabular List, or another coding guideline does not provide sequencing direction, any one of the diagnoses may be sequenced first." "When the physician has documented what appears to be a current diagnosis in the body of the record, but has not included the diagnosis in the final diagnostic statement, the physician should be asked whether the diagnosis should be added." (Source Coding Clinic 2 QTR90. p3-4) CATHIE
== END 2020-07-29 16:43 | disposition left against medical advice (07) | DRG 315 ==
LOC: ED 19:51 → 2S 07-29

== ENCOUNTER 2020-09-28 10:34 | Inpatient (IN) ==
[2020-09-28 11:50] LABS: Hematocrit (blood only) 22.8 % (37-47); Hemoglobin 7.5 g/dL (12.0-16.0); Mean Corpuscular Hemoglobin 29.8 pg (25-34); Mean Corpuscular Hgb Conc 32.9 g/dL (32-36); Mean Corpuscular Volume 90.5 fL (80-100); RDW Coefficient of Variation 17.1 % (11.5-14.5); RDW Standard Deviation 56.5 fL (36.4-46.3); Red Blood Count 2.52 M/uL (4.2-5.4); White Blood Count 9.69 K/uL (4.8-10.8)
[2020-09-28 11:56] LABS: INR 1.4 (0.9-1.1); Partial Thromboplastin Ratio 1.7; Prothrombin Time 13.5 Seconds (9.0-12.0)
[2020-09-28 12:13] LABS: Alanine Aminotransferase 11 U/L (12-78); Albumin Globulin Ratio 0.3 (0.9-2); Albumin Level 1.5 gm/dl (3.4-5.0); Alkaline Phosphatase 101 U/L (45-117); Aspartate Aminotransferase 13 U/L (15-37); BUN Creatinine Ratio 8.9 (10-20); Bilirubin,Total 0.5 mg/dl (0.2-1); Blood Urea Nitrogen 10 mg/dl (7-18); Calcium 6.1 mg/dl (8.5-10.1); Carbon Dioxide 34 mmol/L (21-32); Chloride 97 mmol/L (98-107); Est GFR (African American) 62.7; Est GFR (Non-African American) 54.1; Glucose 133 mg/dl (70-99); Magnesium 0.9 mg/dl (1.8-2.4); Potassium 1.7 mmol/L (3.5-5.1); Sodium 137 mmol/L (136-145); Total Protein 6.5 gm/dl (6.4-8.2)
--- NOTE | 2020-09-28 12:14 | Emergency Department Note ---
History of Present Illness General Chief complaint: Abnormal Labs/Diagnostic Testing Stated complaint: SENT BY DOC FOR POTASSIUM INFUSION Time Seen by Provider: 09/28/20 10:58 Source: patient and family ( who is at the bedside) Mode of arrival: ambulatory Limitations: no limitations History of Present Illness This patient has a complex medical history including ongoing treatment for endometrial cancer, is referred in by her [facility] oncologist after having a potassium of 1.8 down Fridays labs. She is currently receiving Keytruda every Tuesday since April. She finished a 10-day course of radiation September 06. In September, she had been admitted to [facility] after having sepsis/infection they did take her a port out and replaced her kidney stents. She now has a PICC line in her left arm. Her says that infectious disease released her last week. She is feeling generally tired and washed out like she does after chemo but otherwise no other complaints. She has had no fever. Denies chest pain or shortness of breath or palpitations. No lightheadedness or dizziness. No abdominal pain. no urinary symptoms. Denies Covid symptoms or exposure or history of the Covid vaccine seen or illness. No headache. No focal numbness or weakness. Home Medications Medication Instructions Recorded Confirmed Type atorvastatin 40 mg PO PM 10/04/19 09/28/20 History enoxaparin [Lovenox] 60 mg SUBCUT Q12H 30 Days #36 ml 04/10/20 09/28/20 Rx gabapentin 100 mg PO TID 06/11/20 09/28/20 History hydromorphone 2 mg PO Q4 PRN 06/11/20 09/28/20 History lorazepam 0.5 mg PO Q6 PRN 06/11/20 09/28/20 History prochlorperazine maleate 10 mg PO Q6 PRN 06/11/20 09/28/20 History morphine [MS Contin] 15 mg PO BID 07/18/20 09/28/20 History collagenase clostridium histo. 250 1 applic TOPICAL DAILY #30 g 08/14/20 09/28/20 Rx unit/gram topical ointment daptomycin 500 mg intravenous 500 mg IV DAILY 09/17/20 09/28/20 History solution fludrocortisone 0.1 mg tablet 0.1 mg PO QAM 09/17/20 09/28/20 History folic acid 1 mg tablet 1 mg PO QAM tab 09/23/20 09/28/20 History pembrolizumab [Keytruda] 300 mg IV .Q3WK 09/28/20 09/28/20 History Allergies Allergy/AdvReac Type Severity Reaction Status Date / Time apple Allergy Unknown Swelling Verified 09/28/20 11:47 of Lip/Tongue/Throat apricot Allergy Unknown Swelling Verified 09/28/20 11:47 of Lip/Tongue/Throat corona Allergy Unknown Swelling Verified 09/28/20 11:47 of Lip/Tongue/Throat peach Allergy Unknown Swelling Verified 09/28/20 11:47 of Lip/Tongue/Throat pear Allergy Unknown Swelling Verified 09/28/20 11:47 of Lip/Tongue/Throat plum Allergy Unknown Swelling Verified 09/28/20 11:47 of Lip/Tongue/Throat ciprofloxacin [From Cipro] AdvReac Severe Anaphylaxis Verified 09/28/20 11:47 Past Med/Surg History Medical History (Updated 09/28/20 @ 14:12 by Paco Odell PA-C) Anemia Admitted to [facility] 04/17/19 for profound anemia, H/H 2.8/10.4. Transfused 5 units pRBC during admission, Hgb 9.2 at time of transfer to [facility]. Asthma NO INHALER> WELL CONTROLLED Cholelithiasis Diverticular disease History of CVA (cerebrovascular accident) History of hysteroscopy Hyperlipidemia Hypertension Hypothyroidism Left ventricular thrombus 04/2019. Repeat cardiac MRI 06/2019 showed resolution; pt has been maintained on Lovenox injections per oncology recommendations. 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 CANNOT TILT HEAD ALL THE WAY BACK History of tubal ligation Family History Grandfather Heart disease CABG Mother Heart disease CABG Diabetes Father , age 65 heart disease No problems noted. Brother , age 51 [place] No problems noted. Sister No problems noted. Daughter No problems noted. Son No problems noted. 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 Feels Safe at Home: Yes Childhood Exposure to Second-Hand Smoke: Yes Diet Comment: no special diet appetie fair caffeine: No during the past year weight has: decreased > 10 lbs Dental Care, Regularly: No Physical Activity Frequency: Does not Exercise Seatbelt Use: always Sunscreen Use: Yes Assistive Devices: None Review of Systems A total of 10 systems reviewed and were otherwise negative Physical Exam Vital Signs Vital Signs - 24 hr 09/28/20 10:36 09/28/20 10:57 09/28/20 11:00 Temperature 36.7 C Temperature Source Oral Pulse Rate 78 68 72 Pulse Rate from SpO2 Sensor 69 72 Pulse Rhythm Regular Pulse Strength Normal Respiratory Rate 18 13 15 Respiratory Effort / Characteristics Non-Labored Spontaneous Respiratory Depth Normal Respiratory Pattern Regular Blood Pressure 90/57 L 85/52 L 102/54 L Blood Pressure Mean 68 63 70 Blood Pressure Position Sitting Pulse Oximetry 99 99 100 Oxygen Delivery Method Room Air Sepsis Recent Fever Within 48 Hours No Sepsis New/Unexplained Change in Mental Status N/A Sepsis Action Taken by Nursing No Action Required 09/28/20 11:01 09/28/20 11:16 09/28/20 11:30 Temperature Temperature Source Pulse Rate 72 68 Pulse Rate from SpO2 Sensor 72 67 Pulse Rhythm Pulse Strength Respiratory Rate 13 12 Respiratory Effort / Characteristics Respiratory Depth Respiratory Pattern Blood Pressure 97/56 L Blood Pressure Mean 69 Blood Pressure Position Pulse Oximetry 100 98 Oxygen Delivery Method Room Air Sepsis Recent Fever Within 48 Hours Sepsis New/Unexplained Change in Mental Status Sepsis Action Taken by Nursing 09/28/20 11:31 09/28/20 12:00 09/28/20 12:01 Temperature Temperature Source Pulse Rate 63 69 68 Pulse Rate from SpO2 Sensor 62 69 69 Pulse Rhythm Pulse Strength Respiratory Rate 13 13 14 Respiratory Effort / Characteristics Respiratory Depth Respiratory Pattern Blood Pressure 97/61 L Blood Pressure Mean 73 Blood Pressure Position Pulse Oximetry 100 100 100 Oxygen Delivery Method Sepsis Recent Fever Within 48 Hours Sepsis New/Unexplained Change in Mental Status Sepsis Action Taken by Nursing 09/28/20 12:30 09/28/20 12:31 09/28/20 13:00 Temperature Temperature Source Pulse Rate 72 68 74 Pulse Rate from SpO2 Sensor 67 68 74 Pulse Rhythm Pulse Strength Respiratory Rate 13 10 L 17 Respiratory Effort / Characteristics Respiratory Depth Respiratory Pattern Blood Pressure 105/62 109/67 Blood Pressure Mean 76 81 Blood Pressure Position Pulse Oximetry 100 100 100 Oxygen Delivery Method Sepsis Recent Fever Within 48 Hours Sepsis New/Unexplained Change in Mental Status Sepsis Action Taken by Nursing 09/28/20 13:01 09/28/20 13:30 09/28/20 13:31 Temperature Temperature Source Pulse Rate 71 70 68 Pulse Rate from SpO2 Sensor 72 70 69 Pulse Rhythm Pulse Strength Respiratory Rate 14 14 13 Respiratory Effort / Characteristics Respiratory Depth Respiratory Pattern Blood Pressure 88/56 L Blood Pressure Mean 66 Blood Pressure Position Pulse Oximetry 100 100 100 Oxygen Delivery Method Sepsis Recent Fever Within 48 Hours Sepsis New/Unexplained Change in Mental Status Sepsis Action Taken by Nursing 09/28/20 14:00 09/28/20 14:01 09/28/20 14:30 Temperature Temperature Source Pulse Rate 71 71 79 Pulse Rate from SpO2 Sensor 69 71 81 Pulse Rhythm Pulse Strength Respiratory Rate 20 14 14 Respiratory Effort / Characteristics Respiratory Depth Respiratory Pattern Blood Pressure 97/65 L Blood Pressure Mean 75 Blood Pressure Position Pulse Oximetry 92 99 94 Oxygen Delivery Method Sepsis Recent Fever Within 48 Hours Sepsis New/Unexplained Change in Mental Status Sepsis Action Taken by Nursing 09/28/20 14:32 Temperature Temperature Source Pulse Rate 75 Pulse Rate from SpO2 Sensor 77 Pulse Rhythm Pulse Strength Respiratory Rate 18 Respiratory Effort / Characteristics Respiratory Depth Respiratory Pattern Blood Pressure 96/63 L Blood Pressure Mean 74 Blood Pressure Position Pulse Oximetry 100 Oxygen Delivery Method Sepsis Recent Fever Within 48 Hours Sepsis New/Unexplained Change in Mental Status Sepsis Action Taken by Nursing General: Well developed well nourished chronically ill-appearing somewhat cachectic middle-aged female who appears in no acute distress, breathing comfortably on room air. Normal speech HEENT: Normal cephalic atraumatic. Pupils are equal round and reactive to light. Extraocular movements are intact. Oropharynx is pink with moist mucous membranes. No swelling of the mouth lips or tongue. Neck: Supple with a midline trachea. No meningeal signs or stiffness, no JVD or bruits. No Stridor. Chest: Clear to auscultation bilaterally. No wheezes or rhonchi. No increased work of breathing. Heart: Regular rate and rhythm without murmurs or gallops. Abdomen: Soft nontender, nondistended without rebound guarding or rigidity. Extremities: No cyanosis. She does have some mild swelling of the right leg compared to left and she is being treated for DVT which she says is unchanged. There is a PICC line in the left arm Spine/Back. Non tender to palpation. No CVA tenderness Skin: Good turgor without rashes. Neurologic exam: Cranial nerves two through 12 are intact. Motor and sensation are intact and symmetrical throughout. Course Administered Medications Discontinued Medications Magnesium Sulfate/Dextrose (Magnesium Sulfate / D5w) 1 gm in 100 mls @ 200 mls/hr IV Q30M [facility] Stop: 09/28/20 13:13 Last Infusion: 09/28/20 13:40 Dose: 0 mls/hr Documented by: [id number] Admin: 09/28/20 13:03 Dose: 200 mls/hr Documented by: [id number] Infusion: 09/28/20 13:00 Dose: 200 mls/hr Documented by: [id number] Admin: 09/28/20 12:30 Dose: 200 mls/hr Documented by: [id number] Potassium Chloride (K Jaime / Wtr) 20 meq in 100 mls @ 100 mls/hr IV Q1H [facility] Stop: 09/28/20 14:29 Last Admin: 09/28/20 13:56 Dose: 100 mls/hr Documented by: [id number] Infusion: 09/28/20 13:43 Dose: 100 mls/hr Documented by: [id number] Admin: 09/28/20 12:43 Dose: 100 mls/hr Documented by: [id number] Critical Care Time Critical Care Time: Yes Total Critical Care Time: 30 I have personally spent greater than 30 minutes of critical care time in the direct management of this patient. This includes bedside care, interpretation of diagnostic studies, and testing, discussion with consultants, patient, and family members, and other required patient management activities. This 30 minutes is in excess of all separately billable procedures. Medical Decision Making Differential Diagnosis Electrolyte or metabolic abnormality, dehydration, sepsis, anemia, complication related to chemotherapy, complication related to cancer, cardiac disease Medical Records Attestation: I reviewed the patient's medical records. Home Medications Current Medication List: was personally reviewed by me Laboratory Data Result diagrams: 09/28/20 11:00 09/28/20 11:00 Lab Results 09/28/20 09/28/20 09/28/20 Range/Units 11:00 11:00 11:00 WBC 9.69 (4.8-10.8) K/uL RBC 2.52 L (4.2-5.4) M/uL Hgb 7.5 L (12.0-16.0) g/dL Hct 22.8 L (37-47) % MCV 90.5 (80-100) fL MCH 29.8 (25-34) pg MCHC 32.9 (32-36) g/dL RDW Std Deviation 56.5 H (36.4-46.3) fL RDW Coeff of Devaughn 17.1 H (11.5-14.5) % Plt Count 83 L (130-400) K/uL MPV 9.5 (7.4-10.4) fL Immature Gran % (Auto) 0.4 % Neut % (Auto) 76.5 % Lymph % (Auto) 6.3 % [place] % (Auto) 5.4 % Eos % (Auto) 11.2 % Baso % (Auto) 0.2 % Neut # (Auto) 7.41 H (1.4-6.5) K/uL Lymph # (Auto) 0.61 L (1.2-3.4) K/uL [place] # (Auto) 0.52 (0.11-0.59) K/uL Eos # (Auto) 1.09 H (0-0.5) K/uL Baso # (Auto) 0.02 (0-0.2) K/uL Immature Gran # (Auto) 0.04 H (0.00-0.02) K/uL Platelet Estimate Decreased L (Normal) PT 13.5 H (9.0-12.0) Seconds INR 1.4 H (0.9-1.1) APTT 45.0 H (21.0-31.0) Seconds PTT Ratio 1.7 Sodium 137 (136-145) mmol/L Potassium 1.7 L* (3.5-5.1) mmol/L Chloride 97 L (98-107) mmol/L Carbon Dioxide 34 H (21-32) mmol/L Anion Gap 7.0 (3-11) BUN 10 (7-18) mg/dl Creatinine 1.14 (0.6-1.2) mg/dl Est Cr Clr Drug Dosing Not Reportable Est GFR ( Amer) 62.7 Est GFR (Non-Af Amer) 54.1 BUN/Creatinine Ratio 8.9 L (10-20) Glucose 133 H (70-99) mg/dl Calcium 6.1 L (8.5-10.1) mg/dl Phosphorus (2.5-4.9) mg/dl Magnesium 0.9 L* (1.8-2.4) mg/dl Total Bilirubin 0.5 (0.2-1) mg/dl AST 13 L (15-37) U/L ALT 11 L (12-78) U/L Alkaline Phosphatase 101 (45-117) U/L Total Protein 6.5 (6.4-8.2) gm/dl Albumin 1.5 L (3.4-5.0) gm/dl Globulin 5.0 H (2.5-4.0) gm/dl Albumin/Globulin Ratio 0.3 L (0.9-2) COVID-19 Eval Order SARS-CoV-2, RNA, NAAT (NEGATIVE) Blood Type Antibody Screen 09/28/20 09/28/20 09/28/20 Range/Units 11:00 12:27 13:50 WBC (4.8-10.8) K/uL RBC (4.2-5.4) M/uL Hgb (12.0-16.0) g/dL Hct (37-47) % MCV (80-100) fL MCH (25-34) pg MCHC (32-36) g/dL RDW Std Deviation (36.4-46.3) fL RDW Coeff of Devaughn (11.5-14.5) % Plt Count (130-400) K/uL MPV (7.4-10.4) fL Immature Gran % (Auto) % Neut % (Auto) % Lymph % (Auto) % [place] % (Auto) % Eos % (Auto) % Baso % (Auto) % Neut # (Auto) (1.4-6.5) K/uL Lymph # (Auto) (1.2-3.4) K/uL [place] # (Auto) (0.11-0.59) K/uL Eos # (Auto) (0-0.5) K/uL Baso # (Auto) (0-0.2) K/uL Immature Gran # (Auto) (0.00-0.02) K/uL Platelet Estimate (Normal) PT (9.0-12.0) Seconds INR (0.9-1.1) APTT (21.0-31.0) Seconds PTT Ratio Sodium (136-145) mmol/L Potassium (3.5-5.1) mmol/L Chloride (98-107) mmol/L Carbon Dioxide (21-32) mmol/L Anion Gap (3-11) BUN (7-18) mg/dl Creatinine (0.6-1.2) mg/dl Est Cr Clr Drug Dosing Est GFR ( Amer) Est GFR (Non-Af Amer) BUN/Creatinine Ratio (10-20) Glucose (70-99) mg/dl Calcium (8.5-10.1) mg/dl Phosphorus 2.8 (2.5-4.9) mg/dl Magnesium (1.8-2.4) mg/dl Total Bilirubin (0.2-1) mg/dl AST (15-37) U/L ALT (12-78) U/L Alkaline Phosphatase (45-117) U/L Total Protein (6.4-8.2) gm/dl Albumin (3.4-5.0) gm/dl Globulin (2.5-4.0) gm/dl Albumin/Globulin Ratio (0.9-2) COVID-19 Eval [facility] SARS-CoV-2, RNA, NAAT (NEGATIVE) Blood Type A Positive Antibody Screen NEGATIVE 09/28/20 Range/Units 13:50 WBC (4.8-10.8) K/uL RBC (4.2-5.4) M/uL Hgb (12.0-16.0) g/dL Hct (37-47) % MCV (80-100) fL MCH (25-34) pg MCHC (32-36) g/dL RDW Std Deviation (36.4-46.3) fL RDW Coeff of Devaughn (11.5-14.5) % Plt Count (130-400) K/uL MPV (7.4-10.4) fL Immature Gran % (Auto) % Neut % (Auto) % Lymph % (Auto) % [place] % (Auto) % Eos % (Auto) % Baso % (Auto) % Neut # (Auto) (1.4-6.5) K/uL Lymph # (Auto) (1.2-3.4) K/uL [place] # (Auto) (0.11-0.59) K/uL Eos # (Auto) (0-0.5) K/uL Baso # (Auto) (0-0.2) K/uL Immature Gran # (Auto) (0.00-0.02) K/uL Platelet Estimate (Normal) PT (9.0-12.0) Seconds INR (0.9-1.1) APTT (21.0-31.0) Seconds PTT Ratio Sodium (136-145) mmol/L Potassium (3.5-5.1) mmol/L Chloride (98-107) mmol/L Carbon Dioxide (21-32) mmol/L Anion Gap (3-11) BUN (7-18) mg/dl Creatinine (0.6-1.2) mg/dl Est Cr Clr Drug Dosing Est GFR ( Amer) Est GFR (Non-Af Amer) BUN/Creatinine Ratio (10-20) Glucose (70-99) mg/dl Calcium (8.5-10.1) mg/dl Phosphorus (2.5-4.9) mg/dl Magnesium (1.8-2.4) mg/dl Total Bilirubin (0.2-1) mg/dl AST (15-37) U/L ALT (12-78) U/L Alkaline Phosphatase (45-117) U/L Total Protein (6.4-8.2) gm/dl Albumin (3.4-5.0) gm/dl Globulin (2.5-4.0) gm/dl Albumin/Globulin Ratio (0.9-2) COVID-19 Eval Order SARS-CoV-2, RNA, NAAT NEGATIVE (NEGATIVE) Blood Type Antibody Screen ECG Data Attestation: I personally reviewed and interpreted this ECG as follows: Indication: + weakness Rate (beats per minute): 64 Rhythm: + normal sinus and + other (Poor baseline) ECG Intervals/blocks: + Normal QRS, + Prolonged QT and + Normal IA ECG [place]: + Normal ECG Findings: + Other (Diffuse low voltage. T wave flattening diffusely); no PACs and no PVCs Comparison ECG Date: from (07/28/20) Change: the following changes noted (Voltage has decreased diffusely as well as T wave flattening diffusely) MDM Narrative This patient comes in as described above. She was placed on a vehicle monitor technician room C3. She sent in for significant electrolyte abnormalities. Her blood pressure is is on the low side however she is very skinny/cachectic. She is not febrile and looks well otherwise. IV access had been established previously with her PICC line. Blood work was obtained. Her potassium was low at 1.7 she does have some EKG changes as well. We did start her at 20 mEq/h K riders given the fact that she does have central access. She was given magnesium 2 g IV, she was kept on a vehicle monitor technician. Hemoglobin is also low at 7.5. She was typed and screened. She normally runs about 8 she may ultimately need to blood transfusion as well. I talked to the patient and her at length she is very reluctant to be admitted because she is concerned that she does not want extensive work-up done here for other medical issues. She is willing to come in to have her electrolytes replenished. This was started here. I told her we also need to make sure we monitor her hemoglobin. She is agreement to this. I did consult the [facility] to see her in the ER and she will be seen for these measures. Impression & Plan Hypokalemia, Anemia, Metastatic adenocarcinoma, Hypomagnesemia, Weakness Discharge Plan Visit Data Chief Complaint: Abnormal Labs/Diagnostic Testing Stated Complaint: SENT BY DOC FOR POTASSIUM INFUSION ED Provider: Thiago Moscoso Discharge Problem: Hypokalemia, Anemia, Metastatic adenocarcinoma, Hypomagnesemia, Weakness Discharge Instructions Interventions: ED Discharge Assessment Last Done: 09/28/20 14:53 Forms Stand Alone Forms: My [facility] Labs Prescriptions Prescriptions: No Action Santyl 250 unit/gram ointment 1 applic topical DAILY Qty: 30 RF: 1 fludrocortisone 0.1 mg tablet 0.1 mg PO QAM RF: 0 daptomycin 500 mg recon soln 500 mg IV DAILY RF: 0 folic acid 1 mg tablet 1 mg PO QAM RF: 0 enoxaparin [Lovenox] 60 mg/0.6 mL syringe 60 mg subcut Q12H 30 Days Qty: 36 RF: 1 gabapentin 100 mg capsule 100 mg PO TID RF: 0 prochlorperazine maleate 10 mg tablet 10 mg PO Q6 PRN (Reason: Nausea) RF: 0 hydromorphone 2 mg tablet 2 mg PO Q4 PRN (Reason: Pain) RF: 0 lorazepam 0.5 mg tablet 0.5 mg PO Q6 PRN (Reason: Anxiety) RF: 0 morphine [MS Contin] 15 mg tablet extended release 15 mg PO BID RF: 0 Keytruda 25 mg/mL Solution 300 mg IV .Q3WK RF: 0 atorvastatin 40 mg Tablet 40 mg PO PM RF: 0 Referrals Referrals: PCP,NO [Primary Care Provider] - Discharge Problem: Anemia Qualifiers: Anemia type: other cause Other causes of anemia: other cause, not classified Qualified Code(s): D64.89 - Other specified anemias
[2020-09-28 12:24] LABS: Basophils # (auto) 0.02 K/uL (0-0.2); Basophils % (auto) 0.2 %; Eosinophils # (auto) 1.09 K/uL (0-0.5); Eosinophils % (auto) 11.2 %; Immature Granulocytes # (auto) 0.04 K/uL (0.00-0.02); Immature Granulocytes % (auto) 0.4 %; Lymphocytes # (auto) 0.61 K/uL (1.2-3.4); Lymphocytes % (auto) 6.3 %; Mean Platelet Volume 9.5 fL (7.4-10.4); Monocytes # (auto) 0.52 K/uL (0.11-0.59); Monocytes % (auto) 5.4 %; Neutrophils # (auto) 7.41 K/uL (1.4-6.5); Neutrophils % (auto) 76.5 %; Platelet Count 83 K/uL (130-400); Platelet Estimate Decreased (Normal)
[2020-09-28] MEDS: MAGNESIUM SULFATE / D5W 1 GM/100 ML BAG IV SCH ×4 (12:30→23:37)
[2020-09-28] MEDS: POTASSIUM CHLORIDE / WTR 20 MEQ/100 ML PLCT IV SCH ×2 (12:43→13:56)
--- NOTE | 2020-09-28 14:20 | History & Physical Report ---
Date of Service September 28, 2020 Assessment & Plan (1) Metastatic adenocarcinoma: Diagnosed April 2019 Status post chemotherapy and XRT as relayed in HPI above Currently follows with [facility] Primary is uterine. Metastasis to right inguinal lymph nodes with sequela of lower extremity lymphedema Care to be coordinated with [facility] oncologist IV access: Left upper arm PICC line (2) Hypomagnesemia: Magnesium is 0.9 on admission Etiology secondary to chemotherapy with Keytruda on Tuesday Patient is receiving 2 g of IV magnesium in the emergency department Check repeat labs that 8 PM tonight and in the morning Admit to telemetry (3) Hypokalemia: Potassium 1.7 on admission Secondary to chemotherapy with Keytruda on Tuesday Received IV riders via PICC line in the emergency department of 20 mEq x 2 We will give an additional 40 mEq orally Check repeat labs at 8 PM tonight and replete as needed Check repeat labs in the morning Admit to telemetry We will also check a phosphorus level (4) Anemia: Patient has a history of hemorrhagic blood loss from uterine cancer Since beginning chemotherapy, she states that her hemoglobin runs from 7-10 after chemotherapy Currently hemoglobin is 7.5 g/Aspen No awareness of any bleeding Will check repeat hemoglobin at 8 PM tonight Transfuse for hemoglobin less than 7 g/Aspen Follow serial labs (5) Pressure ulcer of right buttock, stage 3: Follows with wound care clinic (6) Pressure ulcer, sacrum: Follows with wound care clinic (7) Hypotension: Patient reports hypotension with chemotherapy At this point she is asymptomatic Blood pressure 109/67 Continue Florinef Follow vital signs per protocol on telemetry (8) History of CVA (cerebrovascular accident): Per report sounds more like TIAs No residual neurological deficit Continue to follow outpatient (9) DVT prophylaxis: Chronically on enoxaparin 60 mg twice daily Continue while inpatient (10) Asthma: Well-controlled No outpatient management No bronchospasm or hypoxia on examination Continue to monitor Please refer to Dr. Morel's addendum for additions and corrections. Admission and Anticipated Discharge Date Admission Date: 09/28/2020 History of Present Illness Chief Complaint: Electrolyte imbalance per outside labs Primary Care Provider: NO PCP Attending: Dr. Morel This is a 54-year-old female with a past medical history of uterine cancer, right leg DVT, lower extremity lymphedema, history of hypertension, history of hypokalemia, history of hypomagnesemia, history of bilateral hydronephrosis, history of renal failure, history of CVA with no residual effect, history of left ventricular thrombus, history of chronic anemia. The patient was diagnosed with metastatic adenocarcinoma of the uterus in April 2019. She presented with chief complaint of uterine bleeding. She received 800 cGy of external beam radiation therapy at [facility] to the pelvis. She was evaluated by surgery and at that time was found not to be a candidate for debulking. She underwent 6 cycles of carboplatin and paclitaxel under the direction of Dr. Mosley. Her last cycle was completed 08/30/2019. She was then transferred to [facility] for further treatment. She was found to have lymphedema and a biopsy was done of the right inguinal lymph node and found to be consistent with metastatic malignant adenocarcinoma. A PET CT was then completed to 09/12/2019 and revealed disease progression on single agent of Adriamycin x3 cycles. A repeat PET/CT scan 12/24/2019 showed further progression of the disease. At this time patient underwent XRT for palliation of pain with treatment to the pelvis. She received a total of 3000 cGy and completed treatment 01/25/2020 patient then elected to transfer to [facility] and continues to follow there. She currently is receiving Keytruda every 3 weeks. Her first dose was 05/23/2020. She reports fatigue for for 5 days after the therapy. She also reports electrolyte imbalance as well as drop in hemoglobin. Although the patient is willing to be treated here, she prefers to care continue to be coordinated through the [facility]. The patient denies any fever, chills, sweats, rigors. She has no chest pain or tightness. She denies any shortness of breath. She has no hypoxia. She denies any melena, hematochezia, bright red blood per rectum. She has no hematuria. She denies hematemesis. She denies hemoptysis. She has no muscle cramping. She denies any palpitations, tachycardia, awareness of arrhythmias. She has no other acute complaints. Allergies Allergy/AdvReac Type Severity Reaction Status Date / Time apple Allergy Unknown Swelling Verified 09/28/20 11:47 of Lip/Tongue/Throat apricot Allergy Unknown Swelling Verified 09/28/20 11:47 of Lip/Tongue/Throat corona Allergy Unknown Swelling Verified 09/28/20 11:47 of Lip/Tongue/Throat peach Allergy Unknown Swelling Verified 09/28/20 11:47 of Lip/Tongue/Throat pear Allergy Unknown Swelling Verified 09/28/20 11:47 of Lip/Tongue/Throat plum Allergy Unknown Swelling Verified 09/28/20 11:47 of Lip/Tongue/Throat ciprofloxacin [From Cipro] AdvReac Severe Anaphylaxis Verified 09/28/20 11:47 Home Medications Medication Instructions Recorded Confirmed Type atorvastatin 40 mg PO PM 10/04/19 09/28/20 History enoxaparin [Lovenox] 60 mg SUBCUT Q12H 30 Days #36 ml 04/10/20 09/28/20 Rx gabapentin 100 mg PO TID 06/11/20 09/28/20 History hydromorphone 2 mg PO Q4 PRN 06/11/20 09/28/20 History lorazepam 0.5 mg PO Q6 PRN 06/11/20 09/28/20 History prochlorperazine maleate 10 mg PO Q6 PRN 06/11/20 09/28/20 History morphine [MS Contin] 15 mg PO BID 07/18/20 09/28/20 History collagenase clostridium histo. 250 1 applic TOPICAL DAILY #30 g 08/14/20 1 Rx unit/gram topical ointment daptomycin 500 mg intravenous 500 mg IV DAILY 09/17/20 09/28/20 History solution fludrocortisone 0.1 mg tablet 0.1 mg PO QAM 09/17/20 09/28/20 History folic acid 1 mg tablet 1 mg PO QAM tab 09/23/20 09/28/20 History pembrolizumab [Keytruda] 300 mg IV .Q3WK 09/28/20 09/28/20 History Past Med/Surg History Medical History (Updated 09/28/20 @ 14:12 by Paco Odell PA-C) Anemia Admitted to [facility] 04/17/19 for profound anemia, H/H 2.8/10.4. Transfused 5 units pRBC during admission, Hgb 9.2 at time of transfer to [facility]. Asthma NO INHALER> WELL CONTROLLED Cholelithiasis Diverticular disease History of CVA (cerebrovascular accident) History of hysteroscopy Hyperlipidemia Hypertension Hypothyroidism Left ventricular thrombus 04/2019. Repeat cardiac MRI 06/2019 showed resolution; pt has been maintained on Lovenox injections per oncology recommendations. 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 CANNOT TILT HEAD ALL THE WAY BACK History of tubal ligation Family History Grandfather Heart disease CABG Mother Heart disease CABG Diabetes Father , age 65 heart disease No problems noted. Brother , age 51 [place] No problems noted. Sister No problems noted. Daughter No problems noted. Son No problems noted. 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 Pleasant. Talkative. EYES: No icterus, gaze conjugate. Pupils equal round and reactive to light NOSE: No evidence of epistaxis. No evidence of septal breech MOUTH: No lesions or candidiasis. Mucosa moist. NECK: Supple. No bruits LUNGS: CTA B/L, no wheezes, rales or rhonchi HEART: Regular, rate controlled. No murmurs gallops or rubs ABDOMEN: Soft, NT, ND, BS Present EXTREMITIES: Bilateral lower extremity lymphedema, pedal pulses intact and equal. Edema of right leg worse than left. Anticoagulated on Lovenox twice daily NEURO: A&OX3 Results & Data Results & Data ([facility]) Vital Signs (Past 12 Hours) Vital Signs Temp Pulse Resp BP Pulse Ox 09/28/20 13:31 68 13 100 09/28/20 13:30 70 14 88/56 L 100 09/28/20 13:01 71 14 100 09/28/20 13:00 74 17 109/67 100 09/28/20 12:31 68 10 L 100 09/28/20 12:30 72 13 105/62 100 09/28/20 12:01 68 14 100 09/28/20 12:00 69 13 97/61 L 100 09/28/20 11:31 63 13 100 09/28/20 11:30 68 12 97/56 L 98 09/28/20 11:01 72 13 100 09/28/20 11:00 72 15 102/54 L 100 09/28/20 10:57 68 13 85/52 L 99 09/28/20 10:36 36.7 C 78 18 90/57 L 99 Laboratory Results 09/28/20 11:00 09/28/20 11:00 INR 1.4 (0.9-1.1) H 09/28/20 11:00 Code Status & VTE Plan Code Status Full resuscitation. Level I VTE Prophylaxis Plan VTE Prophylaxis will be ordered: Yes Supervising Physician Co-Signing Physician Notes Attending addendum: The patient was seen and examined in telemetry unit She has history of endometrial carcinoma with abdominal metastasis and has been receiving Keytruda She was noted to have electrolyte imbalance as an outpatient blood work and was sent in the emergency room Denies any symptoms On examination No apparent distress at rest She looks pale and is hemodynamically stable Chest-clear to auscultate bilaterally Heart-S1-S2, regular and no murmur Abdomen-soft, nontender and bowel sounds present Extremities 2+ edema bilaterally, chronic in nature [employer]-alert, awake and oriented x3 Her admission labs and imaging studies reviewed She has significant electrolyte imbalance with hypokalemia and hypomagnesemia with anemia secondary to chemotherapy with Keytruda Has been receiving replacement We will monitor electrolytes and hemoglobin and replace accordingly Agree with assessment and plan as outlined above by Paco Morel (1) Anemia Anemia type: other cause Other causes of anemia: other cause, not classified Qualified Code(s): D64.89 - Other specified anemias
[2020-09-28] MEDS ORDERED: ACETAMINOPHEN 325 MG TAB PO PRN (15:39)
[2020-09-28] MEDS ORDERED: LORazepam 0.5 MG TAB PO PRN (15:39)
[2020-09-28] MEDS ORDERED: HYDROmorphone HCL 2 MG TAB PO PRN (15:39)
[2020-09-28] MEDS ORDERED: PROCHLORPERAZINE MALEATE 10 MG TAB PO PRN (15:39)
[2020-09-28] MEDS ORDERED: POTASSIUM CHLORIDE CRTAB 20 MEQ TABCR PO STA ×2 (15:39→21:05)
--- NOTE | 2020-09-28 16:33 | Electrocardiogram Report ---
Test Reason : Blood Pressure : / mmHG Vent. Rate : 064 BPM Atrial Rate : 064 BPM P-R Int : 124 ms QRS Dur : 084 ms QT Int : 520 ms P-R-T Axes : 028 -23 -25 degrees QTc Int : 536 ms Poor data quality, interpretation may be adversely affected Normal sinus rhythm Low voltage QRS Nonspecific T wave abnormality Abnormal ECG When compared with ECG of 28-JUL-2020 20:07, T wave inversion no longer evident in Lateral leads Confirmed by Wilder Gr ([id number]) on 09/28/2020 4:33:18 PM Referred By: Melvin Christina Confirmed By:Zev Gr
[2020-09-28] MEDS: GABAPENTIN 100 MG CAP PO SCH ×2 (17:12→21:09)
[2020-09-28 20:19] LABS: Hematocrit (blood only) 21.3 % (37-47); Hemoglobin 6.9 g/dL (12.0-16.0)
[2020-09-28 20:56] LABS: BUN Creatinine Ratio 10.1 (10-20); Calcium 5.9 mg/dl (8.5-10.1); Creatinine Clr Calc Pharmacy 57.2 ml/min; Est GFR (African American) 73.5; Est GFR (Non-African American) 63.4; Potassium 2.1 mmol/L (3.5-5.1)
[2020-09-28] MEDS ORDERED: CALCIUM GLUCONATE 10% 2,000 MG in SODIUM CHLORIDE 0.9% 50 ML IV ONE (21:06)
[2020-09-28] MEDS: MoRPHine SULFATE CR 15 MG TABCR PO SCH (21:08)
[2020-09-28] MEDS: ATORVASTATIN 40 MG TAB PO SCH (21:09)
[2020-09-28] MEDS: ENOXAPARIN INJ 60 MG/0.6 ML SYR SQ SCH (21:14)
[2020-09-28] MEDS: POTASSIUM CHLORIDE / WTR 10 MEQ/100 ML PLCT IV SCH ×3 (21:28→23:33)
[2020-09-29] MEDS: POTASSIUM CHLORIDE / WTR 10 MEQ/100 ML PLCT IV SCH ×4 (00:35→10:26)
[2020-09-29 06:23] LABS: Hematocrit (blood only) 19.3 % (37-47); Hemoglobin 6.2 g/dL (12.0-16.0); Mean Corpuscular Hemoglobin 29.5 pg (25-34); Mean Corpuscular Hgb Conc 32.1 g/dL (32-36); Mean Corpuscular Volume 91.9 fL (80-100); Mean Platelet Volume 9.4 fL (7.4-10.4); Platelet Count 64 K/uL (130-400); RDW Coefficient of Variation 17.1 % (11.5-14.5); RDW Standard Deviation 57.7 fL (36.4-46.3)
[2020-09-29] MEDS ORDERED: SODIUM CHLORIDE 0.9% 250 ML IV PRN (06:44)
[2020-09-29 07:09] LABS: Basophils # (auto) 0.01 K/uL (0-0.2); Basophils % (auto) 0.1 %; Eosinophils # (auto) 1.16 K/uL (0-0.5); Eosinophils % (auto) 14.5 %; Immature Granulocytes # (auto) 0.02 K/uL (0.00-0.02); Immature Granulocytes % (auto) 0.3 %; Lymphocytes # (auto) 0.71 K/uL (1.2-3.4); Lymphocytes % (auto) 8.9 %; Monocytes # (auto) 0.41 K/uL (0.11-0.59); Monocytes % (auto) 5.1 %; Neutrophils # (auto) 5.69 K/uL (1.4-6.5); Neutrophils % (auto) 71.1 %; RBC Morphology Unremarkable
[2020-09-29 07:12] LABS: BUN Creatinine Ratio 9.3 (10-20); Calcium 6.2 mg/dl (8.5-10.1); Creatinine Clr Calc Pharmacy 63.5 ml/min; Est GFR (African American) 83.4; Phosphorus 2.7 mg/dl (2.5-4.9); Potassium 2.7 mmol/L (3.5-5.1)
[2020-09-29] MEDS ORDERED: ACETAMINOPHEN 325 MG TAB PO ONE (07:30)
[2020-09-29] MEDS ORDERED: POTASSIUM CHLORIDE CRTAB 20 MEQ TABCR PO ONE (07:45)
[2020-09-29] MEDS: GABAPENTIN 100 MG CAP PO SCH ×3 (08:04→20:21)
[2020-09-29] MEDS: FOLIC ACID 1 MG TAB PO SCH (08:05)
[2020-09-29] MEDS: FLUDROCORTISONE ACETATE 0.1 MG TAB PO SCH (08:05)
[2020-09-29] MEDS: ENOXAPARIN INJ 60 MG/0.6 ML SYR SQ SCH (08:06)
[2020-09-29] MEDS: MoRPHine SULFATE CR 15 MG TABCR PO SCH ×2 (08:12→20:21)
--- NOTE | 2020-09-29 08:25 | Electrocardiogram Report ---
Test Reason : Blood Pressure : / mmHG Vent. Rate : 081 BPM Atrial Rate : 081 BPM P-R Int : 120 ms QRS Dur : 082 ms QT Int : 400 ms P-R-T Axes : 070 000 056 degrees QTc Int : 465 ms Normal sinus rhythm Nonspecific ST abnormality Abnormal ECG When compared with ECG of 28-SEP-2020 11:13, Nonspecific T wave abnormality, improved in Anterolateral leads Confirmed by Wilder Gr ([id number]) on 09/29/2020 8:25:14 AM Referred By: Melvin Christina Confirmed By:Zev Gr
[2020-09-29] MEDS ORDERED: FUROSEMIDE 20 MG in SYRINGE 0 ML IV ONE (09:30)
--- NOTE | 2020-09-29 11:51 | Hospitalist Progress Note ---
Date of Service September 29, 2020 Assessment & Plan (1) Metastatic adenocarcinoma: History of metastatic uterine adenocarcinoma and has been on Keytruda Noted to have severe electrolyte imbalance on presentation to the emergency room Receiving supplements with potassium and magnesium We will monitor PRP Has history of LV thrombus, uterine cancer and history of right leg DVT Has been on Lovenox 60 mg twice daily Heart platelet was normal at presentation and it has been going down below 70s We will hold her evening dose of Lovenox The Lovenox will be continued on discharge (2) Hypomagnesemia: Supplemented and normalized (3) Hypokalemia: Remains low and is still getting supplement We will monitor (4) Anemia: Likely secondary to chemotherapy Hemoglobin dropped to 6.2 and she will receive 2 units of packed cell today He does not have any symptoms If the levels are okay she will be discharged home this afternoon (5) Pressure ulcer of right buttock, stage 3: (6) Pressure ulcer, sacrum: (7) Hypotension: Remains on the lower side of normal (8) History of CVA (cerebrovascular accident): (9) DVT prophylaxis: (10) Asthma: No acute symptoms Admission and Anticipated Discharge Date Admission Date: September 28, 2020 Subjective 09/29/2020 The patient was seen and examined in telemetry unit She does not have any complaint better however her hemoglobin dropped to 6.2 this morning Her potassium was low as well at 2.7 which will be replaced accordingly She denies any other symptoms and wants to go home Review of Systems Review of Systems: All systems reviewed and are unremarkable except as noted below Neurologic: + generalized weakness Physical Exam Physical Exam: Lying in bed comfortably Constitutional: well developed and well nourished; not ill appearing Eyes: PERRL, conjunctivae normal, anicteric sclerae ENMT: external ear and nose normal, oropharynx normal Neck: trachea midline, no thyromegaly Respiratory: no respiratory distress Auscultation: lungs clear to auscultation bilaterally Cardiovascular: Rate/Rhythm: regular rate and regular rhythm Heart Sounds: no murmur Extremities: + edema (1-2+ edema bilaterally which seems to be chronic) Gastrointestinal (Abdomen): Inspection/Auscultation: normal bowel sounds; abdomen not distended Percussion/Palpation: abdomen soft; abdomen nontender Musculoskeletal: No acute arthritis in any joint Neurologic: Alert, awake and oriented x3 Psychiatric: A+Ox3, euthymic affect Lymphatic: no cervical or axillary lymphadenopathy Results & Data Results & Data ([facility]) Vital Signs (Past 12 Hours) Vital Signs Temp Pulse Pulse Resp BP BP Pulse Ox 09/29/20 11:34 36.9 C 89 16 88/49 L 98 09/29/20 07:46 36.7 C 83 16 94/60 L 99 09/29/20 03:29 37.2 C 77 18 94/54 L 97 Laboratory Results Short CBC 09/28/20 09/28/20 09/29/20 Range/Units 11:00 19:58 05:31 WBC 8.00 (4.8-10.8) K/uL Hgb 6.9 L* 6.2 L* (12.0-16.0) g/dL Hct 21.3 L 19.3 L* (37-47) % Plt Count 83 L 64 L (130-400) K/uL BMP 09/28/20 09/28/20 09/29/20 11:00 19:58 05:31 Sodium 137 141 141 Potassium 1.7 L* 2.1 L* D 2.7 L D Chloride 97 L 100 102 Carbon Dioxide 34 H 35 H 33 H BUN 10 10 8 Creatinine 1.14 1.00 0.90 Glucose 133 H 128 H 88 Calcium 6.1 L 5.9 L* 6.2 L Liver Function 09/28/20 Range/Units 11:00 Total Bilirubin 0.5 (0.2-1) mg/dl AST 13 L (15-37) U/L ALT 11 L (12-78) U/L Alkaline Phosphatase 101 (45-117) U/L Albumin 1.5 L (3.4-5.0) gm/dl Medications Administered Current Inpatient Medications Acetaminophen (Acetaminophen 325 Mg Tab) 650 mg PO Q4H PRN PRN Reason: Pain or Fever Stop: 10/28/20 15:38 Atorvastatin Calcium (Atorvastatin 40 Mg Tab) 40 mg PO PM DADA Stop: 10/28/20 20:59 Last Admin: 09/28/20 21:09 Dose: 40 mg Documented by: Enoxaparin Sodium (Enoxaparin Inj 60 Mg/0.6 Ml Syr) 60 mg SQ Q12 DADA Stop: 10/28/20 20:59 Last Admin: 09/29/20 08:06 Dose: 60 mg Documented by: Fludrocortisone Acetate (Fludrocortisone Acetate 0.1 Mg Tab) 0.1 mg PO QAM [facility] Stop: 10/29/20 08:59 Last Admin: 09/29/20 08:05 Dose: 0.1 mg Documented by: Folic Acid (Folic Acid 1 Mg Tab) 1 mg PO QAM [facility] Stop: 10/29/20 08:59 Last Admin: 09/29/20 08:05 Dose: 1 mg Documented by: Gabapentin (Gabapentin 100 Mg Cap) 100 mg PO TID [facility] Stop: 10/28/20 15:59 Last Admin: 09/29/20 08:04 Dose: 100 mg Documented by: Heparin Sodium (Beef Lung) (Heparin 10 Unit/Ml 5 Ml Flush) 5 ml FLUSH PRN PRN PRN Reason: Flush Stop: 10/28/20 23:08 Hydromorphone HCl (Hydromorphone Hcl 2 Mg Tab) 2 mg PO Q4 PRN PRN Reason: Pain Stop: 10/12/20 15:38 Sodium Chloride (Nss) 250 mls @ 15 mls/hr IV .[id number] PRN PRN Reason: For Transfusion Stop: 09/29/20 16:45 Lorazepam (Lorazepam 0.5 Mg Tab) 0.5 mg PO Q6H PRN PRN Reason: Anxiety Stop: 10/28/20 15:38 Morphine Sulfate (Morphine Sulfate Cr 15 Mg Tabcr) 15 mg PO BID [facility] Stop: 10/12/20 20:59 Last Admin: 09/29/20 08:12 Dose: 15 mg Documented by: Prochlorperazine (Prochlorperazine Maleate 10 Mg Tab) 10 mg PO Q6H PRN PRN Reason: Nausea Stop: 10/28/20 15:38 (1) Anemia Anemia type: other cause Other causes of anemia: other cause, not classified Qualified Code(s): D64.89 - Other specified anemias
[2020-09-29 18:41] LABS: Basophils # (auto) 0.01 K/uL (0-0.2); Basophils % (auto) 0.1 %; Eosinophils # (auto) 1.35 K/uL (0-0.5); Eosinophils % (auto) 12.6 %; Hemoglobin 10.5 g/dL (12.0-16.0); Immature Granulocytes # (auto) 0.04 K/uL (0.00-0.02); Immature Granulocytes % (auto) 0.4 %; Lymphocytes # (auto) 0.58 K/uL (1.2-3.4); Lymphocytes % (auto) 5.4 %; Mean Corpuscular Hemoglobin 29.3 pg (25-34); Mean Corpuscular Hgb Conc 32.8 g/dL (32-36); Mean Corpuscular Volume 89.4 fL (80-100); Mean Platelet Volume 9.4 fL (7.4-10.4); Monocytes # (auto) 0.43 K/uL (0.11-0.59); Neutrophils # (auto) 8.33 K/uL (1.4-6.5); Neutrophils % (auto) 77.5 %; Platelet Count 63 K/uL (130-400); RDW Coefficient of Variation 17.2 % (11.5-14.5); RDW Standard Deviation 56.5 fL (36.4-46.3); Red Blood Count 3.58 M/uL (4.2-5.4); White Blood Count 10.74 K/uL (4.8-10.8)
[2020-09-29 19:04] LABS: Toxic Granulation 1+
[2020-09-29 19:10] LABS: BUN Creatinine Ratio 9.5 (10-20); Calcium 7.1 mg/dl (8.5-10.1); Creatinine Clr Calc Pharmacy 60.8 ml/min; Est GFR (African American) 79.2; Est GFR (Non-African American) 68.3; Potassium 3.3 mmol/L (3.5-5.1)
[2020-09-29] MEDS ORDERED: POTASSIUM CHLORIDE CRTAB 20 MEQ TABCR PO STA (19:13)
[2020-09-29] MEDS: ATORVASTATIN 40 MG TAB PO SCH (20:21)
[2020-09-30 06:15] LABS: Hematocrit (blood only) 29.2 % (37-47); Hemoglobin 9.8 g/dL (12.0-16.0); Mean Corpuscular Hgb Conc 33.6 g/dL (32-36); Mean Corpuscular Volume 89.3 fL (80-100); RDW Coefficient of Variation 17.2 % (11.5-14.5); RDW Standard Deviation 57.1 fL (36.4-46.3); Red Blood Count 3.27 M/uL (4.2-5.4); White Blood Count 12.01 K/uL (4.8-10.8)
[2020-09-30 06:24] LABS: Mean Platelet Volume 9.3 fL (7.4-10.4); Platelet Count 62 K/uL (130-400)
[2020-09-30 06:50] LABS: BUN Creatinine Ratio 10.5 (10-20); Calcium 7.2 mg/dl (8.5-10.1); Creatinine Clr Calc Pharmacy 65.8 ml/min; Est GFR (African American) 86.9; Magnesium 1.6 mg/dl (1.8-2.4); Phosphorus 2.6 mg/dl (2.5-4.9)
[2020-09-30 07:00] LABS: Basophils # (auto) 0.02 K/uL (0-0.2); Basophils % (auto) 0.2 %; Eosinophils # (auto) 1.24 K/uL (0-0.5); Eosinophils % (auto) 10.3 %; Immature Granulocytes # (auto) 0.04 K/uL (0.00-0.02); Immature Granulocytes % (auto) 0.3 %; Lymphocytes # (auto) 0.74 K/uL (1.2-3.4); Lymphocytes % (auto) 6.2 %; Neutrophils # (auto) 9.37 K/uL (1.4-6.5)
[2020-09-30] MEDS: MoRPHine SULFATE CR 15 MG TABCR PO SCH (08:09)
[2020-09-30] MEDS: MAGNESIUM SULFATE / D5W 1 GM/100 ML BAG IV SCH ×2 (08:09→09:56)
[2020-09-30] MEDS: FLUDROCORTISONE ACETATE 0.1 MG TAB PO SCH (08:10)
[2020-09-30] MEDS: FOLIC ACID 1 MG TAB PO SCH (08:11)
[2020-09-30] MEDS: GABAPENTIN 100 MG CAP PO SCH (08:11)
[2020-09-30] MEDS ORDERED: ENOXAPARIN INJ 60 MG/0.6 ML SYR SQ ONE (10:00)
[2020-09-30 11:29] VITALS: BP 117/75; PULSE 96; TEMP 98.4; O2SAT 92
--- NOTE | 2020-09-30 12:45 | Discharge Summary ---
Date of Service September 30, 2020 Admission HPI Per Admitting Provider This is a 54-year-old female with a past medical history of uterine cancer, right leg DVT, lower extremity lymphedema, history of hypertension, history of hypokalemia, history of hypomagnesemia, history of bilateral hydronephrosis, history of renal failure, history of CVA with no residual effect, history of left ventricular thrombus, history of chronic anemia. The patient was diagnosed with metastatic adenocarcinoma of the uterus in April 2019. She presented with chief complaint of uterine bleeding. She received 800 cGy of external beam radiation therapy at [facility] to the pelvis. She was evaluated by surgery and at that time was found not to be a candidate for debulking. She underwent 6 cycles of carboplatin and paclitaxel under the direction of Dr. Mosley. Her last cycle was completed 08/30/2019. She was then transferred to [facility] for further treatment. She was found to have lymphedema and a biopsy was done of the right inguinal lymph node and found to be consistent with metastatic malignant adenocarcinoma. A PET CT was then completed to 09/12/2019 and revealed disease progression on single agent of Adriamycin x3 cycles. A repeat PET/CT scan 12/24/2019 showed further progression of the disease. At this time patient underwent XRT for palliation of pain with treatment to the pelvis. She received a total of 3000 cGy and completed treatment 01/25/2020 patient then elected to transfer to [facility] and continues to follow there. She currently is receiving Keytruda every 3 weeks. Her first dose was 05/23/2020. She reports fatigue for for 5 days after the therapy. She also reports electrolyte imbalance as well as drop in hemoglobin. Although the patient is willing to be treated here, she prefers to care continue to be coordinated through the [facility]. The patient denies any fever, chills, sweats, rigors. She has no chest pain or tightness. She denies any shortness of breath. She has no hypoxia. She denies any melena, hematochezia, bright red blood per rectum. She has no hematuria. She denies hematemesis. She denies hemoptysis. She has no muscle cramping. She denies any palpitations, tachycardia, awareness of arrhythmias. She has no other acute complaints. Admission Exam Per Admitting Provider GENERAL : No acute distress. Pleasant. Talkative. EYES: No icterus, gaze conjugate. Pupils equal round and reactive to light NOSE: No evidence of epistaxis. No evidence of septal breech MOUTH: No lesions or candidiasis. Mucosa moist. NECK: Supple. No bruits LUNGS: CTA B/L, no wheezes, rales or rhonchi HEART: Regular, rate controlled. No murmurs gallops or rubs ABDOMEN: Soft, NT, ND, BS Present EXTREMITIES: Bilateral lower extremity lymphedema, pedal pulses intact and equal. Edema of right leg worse than left. Anticoagulated on Lovenox twice daily NEURO: A&OX3 Principal Diagnosis Metastatic adenocarcinoma: History of LV thrombus Hypomagnesemia Hypokalemia Anemia Pressure ulcer of right buttock, stage 3 Pressure ulcer, sacrum Hypotension History of CVA (cerebrovascular accident) Asthma Discharge Exam General- No acute distress Head- atraumatic Eyes- PERRL, EOMI, ENT- oropharynx clear Neck- supple, no JVD Lungs- clear to auscultation Heart- regular rhythm; no murmur Abdomen- normal bowel sounds, soft, nontender Extremities- no calf tenderness, +edema Neuro- alert, oriented x 3; PERRL, EOMI; no facial palsy; no dysarthria Skin- warm & dry Discharge Data Allergies Allergy/AdvReac Type Severity Reaction Status Date / Time apple Allergy Unknown Swelling Verified 09/28/20 11:47 of Lip/Tongue/Throat apricot Allergy Unknown Swelling Verified 09/28/20 11:47 of Lip/Tongue/Throat corona Allergy Unknown Swelling Verified 09/28/20 11:47 of Lip/Tongue/Throat peach Allergy Unknown Swelling Verified 09/28/20 11:47 of Lip/Tongue/Throat pear Allergy Unknown Swelling Verified 09/28/20 11:47 of Lip/Tongue/Throat plum Allergy Unknown Swelling Verified 09/28/20 11:47 of Lip/Tongue/Throat ciprofloxacin [From Cipro] AdvReac Severe Anaphylaxis Verified 09/28/20 11:47 Consultations 09/28/20 12:42 ED Decision to Admit Stat Hospital Course (1) Metastatic adenocarcinoma: History of metastatic uterine adenocarcinoma and has been on Keytruda Noted to have severe electrolyte imbalance on presentation to the emergency room Receiving supplements with potassium and magnesium Follow up with the oncology outpatient History of LV thrombus History of right leg DVT Mostly related to uterine adenocarcinoma Platelet was in the 60's today Lovenox was placed on hold for 1 dose Case discussed with Dr. Gallegos Oncology today that recommended to resume the lovenox since pt is very high risk for clots If she develops any bleeding, will consider to hold the lovenox Continue Lovenox 60mg BID on discharge (2) Hypomagnesemia: Mg 1.6 today Mg supplement 2g IV today Will discharge on Mg 400mg daily Check Mg in 1 week (3) Hypokalemia: K stable Continue monitor outpatient (4) Anemia: Likely secondary to chemotherapy Hemoglobin dropped to 6.2 Asymptomatic s/p 2 units of packed cell during this hospital course Hgb 9.5 on discharge Will check CBC in 1 week to monitor h/h (5) Pressure ulcer of right buttock, stage 3: (6) Pressure ulcer, sacrum: (7) Hypotension: BP stable (8) History of CVA (cerebrovascular accident): (9) DVT prophylaxis: (10) Asthma: No acute symptoms Total Time Total Time Spent Total Time Spent (In Minutes): 35 minutes Total Time Includes: Examination of the Patient, Discharge Planning, Medication Reconciliation, Communication With Other Providers and Other Discharge Plan Discharge Items Patient Disposition: Home - Home Health Services Reason For Visit: ELECTROLYTE IMBALANCE Discharge Diagnosis: Metastatic adenocarcinoma: History of LV thrombus Hypomagnesemia Hypokalemia Anemia Pressure ulcer of right buttock, stage 3 Pressure ulcer, sacrum Hypotension History of CVA (cerebrovascular accident) Asthma Activity: Resume your previous activity Non-emergency contact: Primary Care Provider Call non-emergency contact if: you have any medication questions Follow-up/Referrals: Howard Roldan MD [Staff Physician] - (Date & Time 10/03/2020 10:20 AM Provider Howard Roldan MD Department [facility] ) Diet: Heart Healthy Addtl Attending Provider Instructions: Follow up with your primary car provider Dr. Roldan on 10/03/2020 at 10:20 AM Follow up with your oncology (Please call to schedule for your follow up appointment) Check BMP, magnesium and phosphorus in 1 week to monitor your electrolytes Check CBC in 1 week to monitor you hemoglobin Continue monitor for any abnormal bleeding while on Lovenox due to low platelet that increases the risk of bleeding Fall precaution Pending Studies at Discharge: No Stand-Alone Forms: My [facility], Smoking Cessation Medications and DC Order Prescriptions: New magnesium oxide 400 mg (241.3 mg magnesium) tablet 400 mg PO DAILY Qty: 30 RF: 0 Continued Santyl 250 unit/gram ointment 1 applic topical DAILY Qty: 30 RF: 1 fludrocortisone 0.1 mg tablet 0.1 mg PO QAM RF: 0 folic acid 1 mg tablet 1 mg PO QAM RF: 0 enoxaparin [Lovenox] 60 mg/0.6 mL syringe 60 mg subcut Q12H 30 Days Qty: 36 RF: 1 gabapentin 100 mg capsule 100 mg PO TID RF: 0 prochlorperazine maleate 10 mg tablet 10 mg PO Q6 PRN (Reason: Nausea) RF: 0 hydromorphone 2 mg tablet 2 mg PO Q4 PRN (Reason: Pain) RF: 0 lorazepam 0.5 mg tablet 0.5 mg PO Q6 PRN (Reason: Anxiety) RF: 0 morphine [MS Contin] 15 mg tablet extended release 15 mg PO BID RF: 0 Keytruda 25 mg/mL Solution 300 mg IV .Q3WK RF: 0 atorvastatin 40 mg Tablet 40 mg PO PM RF: 0 Discontinued daptomycin 500 mg recon soln 500 mg IV DAILY RF: 0 Discharge Orders: Discharge Order (Routine); Ordered 09/30/20 Ordered By: Alanna Rooney Admission Data Admit Date/Time: 09/28/20 13:51 Attending Provider: Alanna Rooney Admit Provider: Renae Morel Primary Care Provider: PCP,NO Other Providers: Renae Morel ; [facility]
--- NOTE | 2020-09-30 16:51 | Electrocardiogram Report ---
Test Reason : Blood Pressure : / mmHG Vent. Rate : 091 BPM Atrial Rate : 091 BPM P-R Int : 124 ms QRS Dur : 080 ms QT Int : 384 ms P-R-T Axes : 060 -43 038 degrees QTc Int : 472 ms Normal sinus rhythm Left axis deviation Nonspecific ST abnormality Abnormal ECG When compared with ECG of 29-SEP-2020 07:08, QRS axis Shifted left Nonspecific T wave abnormality, worse in Anterior leads Confirmed by Wilder Gr ([id number] on 09/30/2020 4:51:45 PM Referred By: Melvin Christina Confirmed By:Zev Gr
== END 2020-09-30 13:38 | disposition home health service (06) | DRG 640 ==
LOC: ED 10:34 → SUATTDRO 13:51 → 2E 13:51